=== PATIENT | female | born 1940 | race African-American/Black ===

== ENCOUNTER 2016-07-10 03:27 | Inpatient (IN) | payer OTHER, MEDICARE ==
[2016-07-10] VITALS (9 sets, daily range): BP systolic 104–165; BP diastolic 56–78
[~2016-07-10] VITALS: Ht 154.9 cm; Wt 117.9 kg
[~2016-07-10 03:27] MED LIST: ASPIRIN81 MG ORAL; ATORVASTATIN CA20 MG ORAL; CARVEDILOL25 MG ORAL; HYDROCHLOROTHIA25 MG ORAL; LOSARTAN POTASS50 MG ORAL
[2016-07-10] MEDS ORDERED: Morphine Sulfate 4mg/ml Inj IVP ONE (03:45)
[2016-07-10 04:18] LABS: EOSINOPHILS % (AUTO) 2.1 % (0.0-3.0); LYMPHOCYTES % (AUTO) 27.7 % (20.0-45.0); MEAN CORPUSCULAR HEMOGLOBIN 29.6 PG (27.0-31.0); MEAN CORPUSCULAR HGB CONC 32.9 G/DL (32.0-36.0); MEAN CORPUSCULAR VOLUME 90 FL (80-99); MEAN PLATELET VOLUME 7.2 FL (6.5-10.1); MONOCYTES % (AUTO) 7.4 % (1.0-10.0); NEUTROPHILS % (AUTO) 61.8 % (45.0-75.0); PLATELET COUNT 324 K/UL (150-450); RED BLOOD COUNT 4.95 M/UL (4.20-5.40); RED CELL DISTRIBUTION WIDTH 11.9 % (11.6-14.8); WHITE BLOOD COUNT 7.6 K/UL (4.8-10.8)
[2016-07-10] MEDS ORDERED: COMBIGAN EYE DRO5 ML OP ×2 (04:29→04:32)
[2016-07-10] MEDS ORDERED: METFORMIN HCL500 M1 ORAL (04:30)
[2016-07-10] MEDS ORDERED: NITROSTAT0.4 M1 SL (04:31)
[2016-07-10 04:44] LABS: ALANINE AMINOTRANSFERASE 13 U/L (3-33); ALBUMIN/GLOBULIN RATIO 1.1 (1.0-2.7); ANION GAP 16 (5-15); ASPARTATE AMINO TRANSFERASE 15 U/L (5-40); CALCIUM 9.3 mg/dL (8.6-10.2); CARBON DIOXIDE 23 mEQ/L (20-30); CHLORIDE 93 mEQ/L (98-107); CREATININE 1.1 mg/dL (0.5-0.9); HEMOLYSIS 2; LIPASE 30 U/L (< 60); MAGNESIUM 1.6 mg/dL (1.7-2.5); POTASSIUM 4.8 mEQ/L (3.4-4.9); SODIUM 132 mEQ/L (135-145); TOTAL PROTEIN 7.6 g/dL (6.6-8.7)
[2016-07-10 05:07] LABS: KETONES,URINE 2+ (NEGATIVE); LEUKOCYTE ESTERASE ,URINE NEGATIVE (NEGATIVE); NITRITE,URINE NEGATIVE (NEGATIVE); PH,URINE 6 (4.5-8.0); PROTEIN,URINE NEGATIVE (NEGATIVE); UROBILINOGEN,URINE NORMAL MG/DL (0.0-1.0)
[2016-07-10 05:08] LABS: APPEARANCE,URINE CLEAR
--- NOTE | 2016-07-10 05:10 | Emergency Room Report ---
History of Present Illness General Chief Complaint: General Complaint Source: Patient Present Illness HPI The patient presents with weakness and polyuria. Her blood sugars at been extremely high at home. She is only taking oral medication at this time. She complains of polyuria or polydipsia. Also stated change in her vision. Her private doctor has changed her eyedrops recently and she has red eyes. Denies any chest pain, nausea, vomiting, diarrhea. Chest and abdominal discomfort that's diffuse. She never used insulin in the past. No fevers, chills, LOPEZ, cough, dyspnea, NVD, dysuria, joint pain, rashes, depression. Allergies: Coded Allergies: IODINE (Unverified Allergy, Unknown, 07/02/14) Patient History Past Medical History: see triage record Social History Narrative with family - born in [facility]. Reviewed Nursing Documentation: PMH: Agreed, PSxH: Agreed Nursing Documentation-PMH Hx Cardiac Problems: Yes - kidney stone surgery Hx Hypertension: Yes Hx Diabetes: Yes Hx Cancer: No Hx Gastrointestinal Problems: Yes Hx Neurological Problems: No Review of Systems All Other Systems: negative except mentioned in HPI Physical Exam Vital Signs Date Time Temp Pulse Resp B/P Pulse Ox O2 Delivery O2 Flow Rate FiO2 07/10/16 03:39 99.3 94 21 169/78 99 Room Air Sp02 EP Interpretation: reviewed, normal General Appearance: no apparent distress, alert, GCS 15, non-toxic, obese Head: normocephalic Eyes: bilateral eye EOMI, bilateral eye PERRL, bilateral eye other ENT: moist mucus membranes Neck: supple, no meningismus Respiratory: chest non-tender, lungs clear, normal breath sounds Cardiovascular #1: regular rate, rhythm Cardiovascular #2: 2+ radial (R) Gastrointestinal: normal inspection, normal bowel sounds, non tender, no mass, non-distended, overweight Musculoskeletal: back normal, gait/station normal, normal range of motion, no calf tenderness, pelvis stable, Bella's Sign negative Neurologic: alert, oriented x3, motor strength/tone normal, DTRs symmetric, sensory intact, cerebellar normal, speech normal Psychiatric: mood/affect normal Skin: normal inspection, no rash, warm/dry Medical Decision Making Diagnostic Impression: Primary Impression: Hyperglycemia due to type 2 diabetes mellitus Qualified Codes: E11.65 - Type 2 diabetes mellitus with hyperglycemia Additional Impressions: Morbid obesity Qualified Codes: E66.01 - Morbid (severe) obesity due to excess calories Conjuntivitis - posible medication related ER Course Patient presents with weakness and hyperglycemia. Ddx: DKA, hyperglycemia, viral process, UTI/other bacterial etiology, ACS, AMI. Emergent evaluation with labs, CXR, EKG. Treatment with hydration and cardiac observation. Patient has extremely high blood sugars are controlled on oral medication. She needs to come in for IV hydration and also better control of her diabetes. She' s not in diabetic ketoacidosis however she needs to have insulin probable insulin training. Second dose of insulin given. Hydration continued. Glucose in high 200s. Admit tele Dr. Cardoso. Laboratory Tests Test 07/10/16 04:00 07/10/16 04:25 White Blood Count 7.6 K/UL (4.8-10.8) Red Blood Count 4.95 M/UL (4.20-5.40) Hemoglobin 14.6 G/DL (12.0-16.0) Hematocrit 44.5 % (37.0-47.0) Mean Corpuscular Volume 90 FL (80-99) Mean Corpuscular Hemoglobin 29.6 PG (27.0-31.0) Mean Corpuscular Hemoglobin Concent 32.9 G/DL (32.0-36.0) Red Cell Distribution Width 11.9 % (11.6-14.8) Platelet Count 324 K/UL (150-450) Mean Platelet Volume 7.2 FL (6.5-10.1) Neutrophils (%) (Auto) 61.8 % (45.0-75.0) Lymphocytes (%) (Auto) 27.7 % (20.0-45.0) Monocytes (%) (Auto) 7.4 % (1.0-10.0) Eosinophils (%) (Auto) 2.1 % (0.0-3.0) Basophils (%) (Auto) 1.0 % (0.0-2.0) Sodium Level 132 mEQ/L (135-145) L Potassium Level 4.8 mEQ/L (3.4-4.9) Chloride Level 93 mEQ/L (98-107) L Carbon Dioxide Level 23 mEQ/L (20-30) Anion Gap 16 (5-15) H Blood Urea Nitrogen 18 mg/dL (7-23) Creatinine 1.1 mg/dL (0.5-0.9) H Estimate Glomerular Filtration Rate mL/min (>60) Glucose Level 615 mg/dL (74-106) *H Calcium Level 9.3 mg/dL (8.6-10.2) Magnesium Level 1.6 mg/dL (1.7-2.5) L Total Bilirubin 0.3 mg/dL (0.0-1.2) Aspartate Amino Transferase (AST) 15 U/L (5-40) Alanine Aminotransferase (ALT) 13 U/L (3-33) Alkaline Phosphatase 130 U/L (35-104) H Total Protein 7.6 g/dL (6.6-8.7) Albumin 4.0 g/dL (3.5-5.2) Globulin 3.6 g/dL Albumin/Globulin Ratio 1.1 (1.0-2.7) Lipase 30 U/L (< 60) Acetone Level Positive-small (NEGATIVE) Urine Color Pending Urine Appearance Pending Urine pH Pending Urine Specific [place] Pending Urine Protein Pending Urine Glucose (UA) Pending Urine Ketones Pending Urine Occult Blood Pending Urine Nitrite Pending Urine Bilirubin Pending Urine Urobilinogen Pending Urine Leukocyte Esterase Pending EKG Diagnostic Results Rate: normal Rhythm: NSR ST Segments: no acute changes Rhythm Strip Diag. Results EP Interpretation: yes Rhythm: NSR, no PVC's, no ectopy, other Chest X-Ray Diagnostic Results EP Interpretation: Yes Findings: no consolidation, no effusion, no pneumothorax, no acute cardiopulmonary disease Number of Views: 1 Last Vital Signs Date Time Temp Pulse Resp B/P Pulse Ox O2 Delivery O2 Flow Rate FiO2 07/10/16 09:12 97.4 91 18 127/60 98 Room Air Status: improved Disposition: ADMITTED INPATIENT Condition: Serious Referrals: NON PHYSICIAN (PCP) Romario Genao M.D. Jul 10, 2016 05:10
[2016-07-10 05:48] LABS: BACTERIA,URINE OCCASIONAL /HPF; SQUAMOUS EPITHELIAL CELL,UR FEW /LPF (NONE/OCC); WBC,URINE 0-2 /HPF (0 - 2); YEAST,URINE FEW /HPF
--- NOTE | 2016-07-10 08:40 | Diagnostic Imaging Report ---
Indications: Chest pain Technique: Portable AP chest Findings: Comparison: None Suboptimal inspiration, lordotic projection, port image quality in part due to patient's body habitus limit evaluation. Cardiac silhouette may be enlarged. Pulmonary vasculature within normal limits. Visualized portions of lungs and pleura grossly clear. IMPRESSION: No evidence of acute disease, limited as described. Upright PA and lateral chest radiographs with better inspiratory effort and optimal technique recommended for more complete evaluation.
[2016-07-10] MEDS ORDERED: Milk of Magnesia 30ml Ud ORAL PRN (11:00)
[2016-07-10] MEDS ORDERED: Zolpidem 5mg tab ORAL PRN (11:00)
[2016-07-10] MEDS: Aspirin Baby 81mg ORAL SCH (11:55)
[2016-07-10] MEDS: metFORMIN 500mg tab ORAL SCH ×2 (11:56→18:35)
[2016-07-10] MEDS: Losartan 50mg tab ORAL SCH ×2 (12:23→21:32)
[2016-07-10] MEDS: Metoprolol 25mg tab ORAL SCH ×2 (12:24→21:33)
[2016-07-10] MEDS: NovoLOG Insulin Flexpen SUBQ SCH ×3 (12:46→21:38)
[2016-07-10] MEDS: Levemir Flexpen SUBQ SCH ×2 (12:47→18:53)
--- NOTE | 2016-07-10 19:40 | Cardiology Report ---
APPROVED REPORT EKG Measurement Heart [id number] NC 134P57 [id number] Normal sinus rhythm Cannot rule out Anterior infarct, age undetermined Abnormal ECG
[2016-07-10] MEDS: Atorvastatin 20mg tab ORAL SCH (21:32)
[2016-07-11] MEDS ORDERED: ALPHAGAN P5 M2 (02:15)
[2016-07-11] MEDS ORDERED: LUMIGAN2.5 ML (02:15)
[2016-07-11 04:20] VITALS: BP 145/75
[2016-07-11] MEDS: NovoLOG Insulin Flexpen SUBQ SCH ×4 (06:06→20:26)
[2016-07-11 08:36] LABS: THYROID STIMULATING HORMONE 0.721 uIU/mL (0.300-4.500)
[2016-07-11] MEDS: Aspirin Baby 81mg ORAL SCH (08:48)
[2016-07-11] MEDS: metFORMIN 500mg tab ORAL SCH ×2 (08:48→17:48)
[2016-07-11] MEDS: Losartan 50mg tab ORAL SCH (08:48)
[2016-07-11] MEDS: Metoprolol 25mg tab ORAL SCH ×2 (08:49→20:20)
[2016-07-11] MEDS: Levemir Flexpen SUBQ SCH (08:51)
--- NOTE | 2016-07-11 09:17 | History and Physical Report ---
DATE OF ADMISSION: 07/10/2016 CHIEF COMPLAINT: Polyuria and polydipsia. HISTORY OF PRESENT ILLNESS: This is a 76-year-old female from [facility], who has had a history of diabetes for a few years. The patient has not been compliant with her medications. Her granddaughter checked her blood sugar last night and it was very high, so she came to the emergency room. In the emergency room, the blood sugar was checked and it was 615. The patient has significant polyuria and polydipsia for the past few days and she was admitted for further care. PAST MEDICAL HISTORY: The patient has history of hypertension and history of hyperlipidemia. The patient has had history of tremors as well. MEDICATIONS: Reviewed. ALLERGIES: Iodine. SOCIAL HISTORY: No history of smoking or alcohol abuse. The patient lives with a daughter. REVIEW OF SYSTEMS: As above. PHYSICAL EXAMINATION: GENERAL: The patient is an obese female, in no acute distress. VITAL SIGNS: Blood pressure is 127/60, pulse 91, temperature 97.4 degrees, and respiratory rate 18. HEENT: [place] conjunctivae. Anicteric sclerae. NECK: Supple. LUNGS: Clear to auscultation. HEART: S1 and S2 without murmurs or rubs. ABDOMEN: Soft and nontender. EXTREMITIES: No cyanosis or edema. LABORATORY FINDINGS: CBC shows a WBC of 7.6, hematocrit 44.5, hemoglobin 14.6, and platelets 324,000. The chemistry panel shows a serum sodium 132, potassium 4.8, chloride 93, CO2 23, BUN 18, and creatinine 1.1, blood sugar is 615, calcium is 9.3, and magnesium 1.6. Albumin is 4. AST is 15 and ALT 13. UA shows no protein, 4+ glucose, and 2+ ketones. ASSESSMENT: This is a 76-year-old female, who was admitted with significant hyperglycemia. The patient has had polydipsia and polyuria from her diabetes. PLAN: The patient was started on Levemir 15 units twice a day as well as sliding scale insulin. The patient will be hydrated with half-normal saline at 125 mL an hour. Her labs will be followed. Adjustment will be made in patient's regimen in terms of her tremors. I will start the patient on metoprolol 25 mg b.i.d., which would also help with the blood pressure. The case was discussed with the patient and also with the daughter, who is at bedside. Thank you very much. Jason Cardoso M.D. DR: Flo JOB#: [id number] CC:
[2016-07-11 09:31] LABS: HEMOGLOBIN A1C 10.9 % (< 6.0)
[2016-07-11 12:00] VITALS: BP 137/65
--- NOTE | 2016-07-11 12:33 | General Progress Note ---
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 (4) UTI (urinary tract infection) ICD Codes: N39.0 - Urinary tract infection, site not specified SNOMED: 03746284 Qualifiers: Assessment/Plan Increase Levemir Decrease cozaar start Cipro Subjective Allergies: Coded Allergies: IODINE (Unverified Allergy, Unknown, 07/02/14) Subjective feels better Objective Last 24 Hour Vital Signs Date Time Temp Pulse Resp B/P Pulse Ox O2 Delivery O2 Flow Rate FiO2 07/11/16 08:49 79 93/42 07/11/16 08:48 93/42 07/11/16 08:00 86 07/11/16 04:20 97.0 73 20 145/75 97 Nasal Cannula 07/11/16 04:00 76 07/11/16 01:00 74 07/10/16 21:33 82 126/74 07/10/16 21:32 126/74 07/10/16 20:00 81 07/10/16 16:04 98.0 82 20 126/74 99 Room Air 07/10/16 16:00 82 07/10/16 14:36 98.0 82 20 126/74 99 Room Air Intake and Output 07/10/16 07/11/16 19:00 07:00 Intake Total 700 ml 150 ml Output Total 620 ml Balance 80 ml 150 ml Intake Oral 150 ml 150 ml IV Total 550 ml Output Urine Total 320 ml Stool Total 300 ml # Bowel Movements 1 Laboratory Tests 07/11/16 06:55: Hemoglobin A1c 10.9H, Thyroid Stimulating Hormone (TSH) 0.721 Height (Feet): 5 Height (Inches): 1.00 Weight (Pounds): 260 Cardiovascular: normal rate Respiratory/Chest: lungs clear Edema: no edema noted CLYDE Do Jul 11, 2016 12:33
[2016-07-11] MEDS: Ciprofloxacin 500mg tab ORAL SCH ×2 (14:25→21:27)
[2016-07-11 16:00] VITALS: BP 160/76
[2016-07-11] MEDS ORDERED: Levemir Flexpen SUBQ SCH (18:00)
[2016-07-11 20:18] VITALS: BP 154/82
[2016-07-11] MEDS: Atorvastatin 20mg tab ORAL SCH (20:20)
[2016-07-11] MEDS ORDERED: Losartan 25mg tab ORAL SCH (21:00)
[2016-07-12] VITALS: BP 143/72
[2016-07-12 04:00] VITALS: BP 140/65
[2016-07-12] MEDS: NovoLOG Insulin Flexpen SUBQ SCH ×4 (07:00→21:06)
[2016-07-12 08:13] VITALS: BP 148/84
[2016-07-12] MEDS ORDERED: Levemir Flexpen SUBQ SCH (09:00)
[2016-07-12] MEDS: Aspirin Baby 81mg ORAL SCH (09:51)
[2016-07-12] MEDS: metFORMIN 500mg tab ORAL SCH ×2 (09:51→16:56)
[2016-07-12] MEDS: Losartan 25mg tab ORAL SCH ×2 (09:52→21:07)
[2016-07-12] MEDS: Metoprolol 25mg tab ORAL SCH ×2 (09:52→21:07)
[2016-07-12] MEDS: Ciprofloxacin 500mg tab ORAL SCH ×2 (09:52→21:06)
[2016-07-12] MEDS ORDERED: Milk of Magnesia 30ml Ud ORAL PRN (11:00)
[2016-07-12] MEDS ORDERED: Zolpidem 5mg tab ORAL PRN (11:00)
[2016-07-12 12:09] VITALS: BP 119/75
--- NOTE | 2016-07-12 14:42 | General Progress Note ---
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 (4) UTI (urinary tract infection) ICD Codes: N39.0 - Urinary tract infection, site not specified SNOMED: 44187351 Qualifiers: (5) Tremor ICD Codes: R25.1 - Tremor, unspecified SNOMED: 43826335 Assessment/Plan Increase Levemir Neuro consult cont Cipro Subjective Allergies: Coded Allergies: IODINE (Unverified Allergy, Unknown, 07/02/14) Subjective still with tremors Objective Last 24 Hour Vital Signs Date Time Temp Pulse Resp B/P Pulse Ox O2 Delivery O2 Flow Rate FiO2 07/12/16 12:09 97.6 76 21 119/75 97 Room Air 07/12/16 09:52 81 148/84 07/12/16 09:52 148/84 07/12/16 08:13 98.6 81 20 148/84 95 Room Air 07/12/16 04:00 97.7 83 20 140/65 95 Room Air 07/12/16 00:00 97.2 59 16 143/72 97 Room Air 07/11/16 20:20 154/82 07/11/16 20:20 64 154/82 07/11/16 20:18 98.1 64 20 154/82 98 Room Air 07/11/16 20:00 100 07/11/16 16:00 91 07/11/16 16:00 98.1 94 20 160/76 98 Room Air Intake and Output 07/11/16 07/12/16 19:00 07:00 Intake Total 1640 ml 750 ml Output Total 3800 ml 1400 ml Balance -2160 ml -650 ml Intake Oral 640 ml 250 ml IV Total 1000 ml 500 ml Output Urine Total 3800 ml 1400 ml # Bowel Movements 2 Height (Feet): 5 Height (Inches): 1.00 Weight (Pounds): 260 Cardiovascular: normal rate Respiratory/Chest: lungs clear RAHBAN,CLYDE Jul 12, 2016 14:42
--- NOTE | 2016-07-12 15:12 | Neurology Progress Note ---
Objective Physical Exam Last Vital Signs Date Time Temp Pulse Resp B/P Pulse Ox O2 Delivery O2 Flow Rate FiO2 07/12/16 12:09 97.6 76 21 119/75 97 Room Air Impression/Recommendations Problems: (1) Benign essential tremor (2) Morbid obesity Status: stable Recommendations #[id number] MAX SALDIVAR Jul 12, 2016 15:12
[2016-07-12 16:00] VITALS: BP 144/53
[2016-07-12] MEDS: Timolol 0.5% Op Soln 2.5ml BOTH EYES SCH (17:00)
[2016-07-12] MEDS: Levemir Flexpen SUBQ SCH (17:00)
[2016-07-12 19:00] VITALS: BP 127/66
[2016-07-12] MEDS: Atorvastatin 20mg tab ORAL SCH (21:07)
--- NOTE | 2016-07-12 22:07 | Consultation ---
DATE OF CONSULTATION: 07/12/2016 NEUROLOGIC CONSULTATION REQUESTING PHYSICIAN: Jason Cardoso M.D. HISTORY OF PRESENT ILLNESS: The patient is a 76-year-old female, seen in neurological consultation to evaluate presence of involuntary movement. The patient informed me that the last few days she was increasingly drowsy, blurriness of vision, drinks a lot of fluids, feels dry, and urinating a lot. She was brought to this hospital. The patient was aware that her blood sugars were very high. On arrival, and through the treatment course the patient was noted to have involuntary movement in her upper extremities and Neurology consult was requested. Apparently, the patient has multiple severe medical issues such as diabetes and morbid obesity. On arrival to this hospital, her blood sugar was 615. Her laboratory work otherwise revealed normal CBC study. Urinalysis shows 2+ ketones. Chemistry panel revealed also sodium 132. Normal TSH, but elevated hemoglobin A1c of 10.9. PAST MEDICAL HISTORY: The patient has a history of involuntary tremors of both upper extremities usually aggravated by anxieties, or lifting heavy objects. The patient indicate that tremors would not interfere with her daily activities but makes her very embarrassed in front of other people. She is not aware of that anyone in the family would have tremors. MEDICATIONS: The patient's treatment list included aspirin, atorvastatin, carvedilol, hydrochlorothiazide, losartan, metformin, and nitroglycerin. ALLERGIES: Iodine. SOCIAL HISTORY: Lives with her daughter. Denies alcohol or drug abuse. Nonsmoker. FAMILY HISTORY: Noncontributory. REVIEW OF SYSTEMS: Generalized weakness, shortness of breath, slight blurriness of vision, congestive heart failure, no previous strokes, TIA, or seizures. The patient has ambulatory difficulties due to weakness in lower extremities with frequent falls requiring use of a walker for the . PHYSICAL EXAMINATION: GENERAL: A well-developed, morbidly obese, pleasant lady, not in acute distress. VITAL SIGNS: Stable. Blood pressure 142/84, respirations 18, and temperature 97.6 degrees. HEENT: Head normocephalic. No evidence of injuries. Eyes, ears, and throat are clear. NECK: Supple. No meningeal signs. MUSCULOSKELETAL EXAMINATION: Unremarkable. There is no deformities except 1+ pitting edema in both ankles. Peripheral pulses 1+ symmetric. MENTAL STATUS: Alert and oriented x3. Speech is fluent. Language intact. There is no aphasia. No apraxia. Cognitive function is normal. CRANIAL NERVE II: Pupils both responding to light and accommodation. Extraocular movement intact. No nystagmus. CRANIAL NERVE V: Normal corneal responses. CRANIAL NERVE VII: No facial asymmetry. CRANIAL NERVE VIII: Normal hearing. CRANIAL NERVE IX THROUGH XII: Within normal limits. MOTOR EXAMINATION: Revealed normal strength 5/5 in all extremities. There was a action tremor of both upper extremities more pronounced on [id number] test bilaterally. No rigidity noted. Deep tendon reflexes are depressed bilaterally. Plantar response is mute. SENSORY EXAMINATION: Decreased response to pin stimulation in both feet. Gait not tested, but reportedly unstable requires a walker. IMPRESSION: 1. The patient is a 76-year-old female with involuntary action tremor most likely representing essential tremor. No evidence of parkinsonian disorder noted. 2. Morbid obesity. 3. Diabetes type 2 with severe hypoglycemia, polydipsia and polyuria. 4. Hypertension. 5. History of congestive heart failure. RECOMMENDATION: The patient has a level of tremor, which is below disabling. This may respond to beta-blockers, but I would abstain from primidone, which may give hypersomnia and suppress respiratory function. The patient was reassured. She has no Parkinsonian disease. The patient is now aware of the extent of problem related to her tremors. Meanwhile, we will continue with the current supportive care. I discussed the patient's status with attending. Thank you for allowing me to see this interesting patient in neurologic consultation. Jeison Cisneros M.D. DR: EFREN JOB#: [id number] CC:
[2016-07-12] MEDS: Brimonidine 0.2% Opth Sol BOTH EYES SCH (22:32)
[2016-07-13 00:31] VITALS: BP 140/71
[2016-07-13 04:00] VITALS: BP 120/93
[2016-07-13] MEDS: NovoLOG Insulin Flexpen SUBQ SCH ×4 (06:04→21:17)
[2016-07-13 08:15] VITALS: BP 147/77
[2016-07-13] MEDS: Brimonidine 0.2% Opth Sol BOTH EYES SCH ×2 (09:19→17:28)
[2016-07-13] MEDS: Timolol 0.5% Op Soln 2.5ml BOTH EYES SCH ×2 (09:19→17:28)
[2016-07-13] MEDS: Ciprofloxacin 500mg tab ORAL SCH ×2 (09:20→21:15)
[2016-07-13] MEDS: Aspirin Baby 81mg ORAL SCH (09:20)
[2016-07-13] MEDS: Losartan 25mg tab ORAL SCH ×2 (09:20→21:16)
[2016-07-13] MEDS: metFORMIN 500mg tab ORAL SCH ×2 (09:25→17:28)
[2016-07-13] MEDS: Metoprolol 25mg tab ORAL SCH ×2 (09:25→21:16)
[2016-07-13] MEDS: Levemir Flexpen SUBQ SCH ×2 (09:30→17:30)
[2016-07-13 11:42] VITALS: BP 125/86
[2016-07-13] MEDS ORDERED: LEVEMIR FL100 UNIT/1 SUBQ (12:15)
[2016-07-13] MEDS ORDERED: LOPRESSOR25 M1 ORAL (12:15)
--- NOTE | 2016-07-13 12:35 | Consultation ---
Consult Note Assessment/Plan Dc dictated # [id number] CLYDE GRACE Jul 13, 2016 12:35
[2016-07-13 16:00] VITALS: BP 135/61
[2016-07-13 19:00] VITALS: BP 125/82
[2016-07-13 20:40] LABS: ABG BASE EXCESS -0.3; ABG PCO2 37.5 mmHg (35.0-45.0)
[2016-07-13 20:41] LABS: ABG ALLEN TEST POSITIVE
[2016-07-13 21:10] LABS: TROPONIN I < 0.30 ng/mL (<=0.30)
[2016-07-13] MEDS: Atorvastatin 20mg tab ORAL SCH (21:16)
[2016-07-13] MEDS: DuoNeb 0.5-3(2.5)mg/3ml neb HHN SCH (23:09)
[2016-07-14] VITALS: BP 153/78
[2016-07-14] MEDS: DuoNeb 0.5-3(2.5)mg/3ml neb HHN SCH ×3 (01:00→13:52)
--- NOTE | 2016-07-14 01:48 | Discharge Summary ---
DATE OF ADMISSION: 07/10/2016 DATE OF DISCHARGE: 07/14/2016 HISTORY OF PRESENT ILLNESS: This is a 76-year-old female, originally from [facility], who has a history of diabetes. The patient had significant polyuria and polydipsia at home and her blood sugar was checked and it was 615. The patient was brought into the emergency room and was diagnosed with uncontrolled diabetes, hyperglycemia, and hyperglycemic reaction. HOSPITAL COURSE: The patient was started on Levemir initially 15 units twice a day and this was increased to 20 units twice a day in addition to sliding scale insulin. She was also complaining of tremor of her hands and she was on Coreg. Coreg was discontinued. She was started on metoprolol 25 mg twice a day. She has a history of hypertension. Her blood pressure was on the low side. Her Cozaar was decreased to 25 mg b.i.d. Her blood sugar got better, under control. The patient was also on IV fluids at 125 mL an hour and she felt better. She had urine culture, which showed UTI with Proteus mirabilis. The patient was started on Cipro. Eventually, she was sent home in stable condition with home health. She is supposed to have her blood sugar checked in outpatient and adjustment will be made in the patient's regimen. The patient was also somewhat short of breath and requesting a hand-held nebulizer and a prescription was given to the patient. DISCHARGE DIAGNOSES: 1. Diabetes mellitus, uncontrolled with hyperglycemic reaction, polydipsia, and polyuria. 2. Tremors. The patient was seen by Dr. Cisneros in neurology consultation. 3. Hypertension. Blood pressure medications were adjusted. 4. History of hyperlipidemia. Jason Cardoso M.D. DR: Flo JOB#: [id number] CC: BOBBI
[2016-07-14 03:54] VITALS: BP 144/68
[2016-07-14] MEDS: NovoLOG Insulin Flexpen SUBQ SCH ×2 (06:24→12:07)
[2016-07-14 08:15] VITALS: BP 151/89
[2016-07-14] MEDS: Ciprofloxacin 500mg tab ORAL SCH (08:53)
[2016-07-14] MEDS: Losartan 25mg tab ORAL SCH (08:53)
[2016-07-14] MEDS: Metoprolol 25mg tab ORAL SCH (08:53)
[2016-07-14] MEDS: metFORMIN 500mg tab ORAL SCH (08:53)
[2016-07-14] MEDS: Aspirin Baby 81mg ORAL SCH (08:53)
[2016-07-14] MEDS: Brimonidine 0.2% Opth Sol BOTH EYES SCH (08:54)
[2016-07-14] MEDS: Timolol 0.5% Op Soln 2.5ml BOTH EYES SCH (08:54)
[2016-07-14] MEDS: Levemir Flexpen SUBQ SCH (09:11)
--- NOTE | 2016-07-14 11:44 | General Progress Note ---
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 (4) UTI (urinary tract infection) ICD Codes: N39.0 - Urinary tract infection, site not specified SNOMED: 03250542 Qualifiers: (5) Tremor ICD Codes: R25.1 - Tremor, unspecified SNOMED: 69919830 Assessment/Plan cont as is Dc today Subjective Allergies: Coded Allergies: IODINE (Unverified Allergy, Unknown, 07/02/14) Subjective had asthma attack yesterday ok today Objective Last 24 Hour Vital Signs Date Time Temp Pulse Resp B/P Pulse Ox O2 Delivery O2 Flow Rate FiO2 07/14/16 10:28 98.0 07/14/16 08:53 103 151/89 07/14/16 08:53 151/89 07/14/16 08:15 98.0 103 21 151/89 97 Room Air 07/14/16 07:34 Nasal Cannula 07/14/16 07:32 Room Air 07/14/16 07:32 Room Air 07/14/16 07:31 95 Room Air 07/14/16 07:30 73 18 Room Air 07/14/16 03:54 97.3 90 20 144/68 100 Room Air 07/14/16 01:20 Nasal Cannula 3.0 32 07/14/16 01:19 86 16 100 Nasal Cannula 2.0 28 07/14/16 00:00 97.5 95 20 153/78 Nasal Cannula 2.0 07/13/16 23:21 87 16 100 Nasal Cannula 3.0 32 07/13/16 23:15 Nasal Cannula 2.0 28 07/13/16 23:14 100 Nasal Cannula 2.0 28 07/13/16 23:13 28 07/13/16 23:13 87 16 Nasal Cannula 2.0 28 07/13/16 23:12 87 16 100 Nasal Cannula 2.0 28 07/13/16 21:16 84 159/86 07/13/16 21:16 159/86 07/13/16 19:00 98.1 96 20 125/82 98 Room Air 07/13/16 16:00 98.2 83 20 135/61 97 Room Air Intake and Output 07/13/16 07/14/16 19:00 07:00 Intake Total 1995 ml 1670 ml Output Total 700 ml 2700 ml Balance 1295 ml -1030 ml Intake Oral 720 ml 420 ml IV Total 1275 ml 1250 ml Output Urine Total 700 ml 2700 ml # Bowel Movements 2 Laboratory Tests 07/13/16 20:35: Arterial Blood pH 7.421, Arterial Blood Partial Pressure CO2 37.5, Arterial Blood Partial Pressure O2 62.1L, Arterial Blood HCO3 23.8, Arterial Blood Oxygen Saturation 91.6L, Arterial Blood Base Excess -0.3, Marty Test Positive 07/13/16 20:40: Troponin I < 0.30 Height (Feet): 5 Height (Inches): 1.00 Weight (Pounds): 260 Cardiovascular: normal rate Respiratory/Chest: lungs clear CLYDE GRACE Jul 14, 2016 11:44
[2016-07-14 12:06] VITALS: BP 155/93
[2016-07-14 16:00] VITALS: BP 169/92
[2016-07-14] MEDS ORDERED: 1/2 NS 1000ml IV ONE ×2 (17:49)
--- NOTE | 2016-08-20 03:14 | Cardiology Report ---
APPROVED REPORT EKG Measurement Heart [id number] PA 130P73 [id number] [id number] Normal sinus rhythm Cannot rule out Inferior infarct, age undetermined Abnormal ECG
== END 2016-07-14 17:50 | disposition home health service (06) | DRG 420 ==
LOC: ENRESERVDT → ENRESERV → ENRESERVTM → EMR 03:52 → 2E 04:30 → EDBEDREQ 14:41 → 2E 15:43 → 4E 07-12 02:21
DX: E11.65 Type 2 diabetes mellitus with hyperglycemia (principal); N39.0 Urinary tract infection, site not specified; I10 Essential (primary) hypertension; E78.5 Hyperlipidemia, unspecified; E66.01 Morbid (severe) obesity due to excess calories; Z68.42 Body mass index [BMI] 45.0-49.9, adult; Z91.14 Patient's other noncompliance with medication regimen; G25.0 Essential tremor; B96.4 Proteus (mirabilis) (morganii) as the cause of diseases classified elsewhere; Z79.84 Long term (current) use of oral hypoglycemic drugs
CPT/HCPCS: 36415; 36600; 71010; 80053; 81003; 82009; 82803; 82962; 83036; 83690; 83735; 84443; 84484; 85025; 87086; 87181; 93005; 94640; 94664; 94760; J1815; J2405; J7620; S5561

== ENCOUNTER 2016-09-14 13:09 | Inpatient (IN) | payer MEDICARE, OTHER ==
[~2016-09-14] VITALS: Ht 162.6 cm; Wt 90.7 kg
[2016-09-14] MEDS: NovoLOG Insulin Flexpen SUBQ SCH (00:35)
[~2016-09-14 13:09] MED LIST changes: +ALPHAGAN P5 M2; +COMBIGAN EYE DRO5 ML OP; +LEVEMIR FL100 UNIT/1 SUBQ; +LOPRESSOR25 M1 ORAL; +LUMIGAN2.5 ML; +METFORMIN HCL500 M1 ORAL; +NITROSTAT0.4 M1 SL
[2016-09-14] MEDS ORDERED: Morphine Sulfate 2mg/ml Inj IVP ONE (13:30)
--- NOTE | 2016-09-14 14:22 | Emergency Room Report ---
History of Present Illness General Chief Complaint: Abdominal Pain Source: Patient Present Illness HPI 76 YO F with 1 day of generalized abd pain, nausea w/out vomiting and 1 x episode of watery diarrhea today. States s/p cholecystectomy, appendectomy. Has DM, HTN. + dysuria. Allergies: Coded Allergies: IODINE (Unverified Allergy, Unknown, 07/02/14) Patient History Past Medical History: DM, MA, other - HLD Past Surgical History: appy, mary Pertinent Family History: none Social History: Denies: alcohol use, drug use, smoking Now: No Immunizations: UTD Reviewed Nursing Documentation: PMH: Agreed, PSxH: Agreed Nursing Documentation-PMH Past Medical History: No History, Except For Hx Cardiac Problems: Yes Hx Hypertension: Yes Hx Diabetes: Yes Hx Cancer: No Hx Gastrointestinal Problems: Yes - gallstone Hx Neurological Problems: No Review of Systems All Other Systems: negative except mentioned in HPI Physical Exam Vital Signs Date Time Temp Pulse Resp B/P Pulse Ox O2 Delivery O2 Flow Rate FiO2 09/14/16 13:25 99.7 119 32 100/46 96 Room Air Sp02 EP Interpretation: reviewed, normal General Appearance: normal inspection, well appearing, no apparent distress, alert, GCS 15, non-toxic, obese Head: normocephalic, atraumatic Eyes: bilateral eye EOMI, bilateral eye PERRL ENT: normal ENT inspection, hearing grossly normal, normal voice Neck: normal inspection, full range of motion, supple, no meningismus, no bony tend Respiratory: normal inspection, lungs clear, normal breath sounds, no respiratory distress, no retraction, no accessory muscle use, no wheezing Cardiovascular #1: regular rate, rhythm, no edema Gastrointestinal: normal inspection, normal bowel sounds, non tender, soft, non -distended, no guarding, no hernia, no rebound Genitourinary: no CVA tenderness Musculoskeletal: normal inspection, back normal, normal range of motion, Bella' s Sign negative Neurologic: normal inspection, alert, oriented x3, responsive, store associate III-XII nml as tested, motor strength/tone normal, speech normal Psychiatric: normal inspection, judgement/insight normal, mood/affect normal Skin: normal inspection, normal color, no rash Lymphatic: normal inspection Medical Decision Making Medicare Attestation Srini Dubose MD hereby attest that the medical record entry for date of service, 05/30/16 accurately reflects signatures/notations that I made in my capacity as MD when I treated/diagnosed the above listed Medicare beneficiary. I attest that this information is true, accurate and complete to the best of my knowledge. I understand that any falsification, omission, or concealment of material fact may subject me to administrative, civil, or criminal liability. This patient warrants hospital admission for extreme of age and has a condition that cannot be treated as outpatient. Diagnostic Impression: Primary Impression: Abdominal pain Qualified Codes: R10.84 - Generalized abdominal pain ER Course 76 YO F with abd pain, nausea, diarrhea S/p 2 abd surgeries DDx hyperglycemia, colitis, gastritis, SBO, ileus PLAN: Labs, UA, CTAP Reassess Reevaluation Time: 14:55 Last Vital Signs Date Time Temp Pulse Resp B/P Pulse Ox O2 Delivery O2 Flow Rate FiO2 09/14/16 13:25 99.7 119 32 100/46 96 Room Air Status: improved Reevaluation Impression Labs: Leuks 14k. Glucose 495, AG 25, bicarb 17. CTAP negative for acute process A: Abd pain - Infectious of unknown source. Empiric Cefoxitin given. Blood Cx pending - Elevated glucose with anion gap. K normal. : IVF and Insulin given. Will need admission to recheck glucose, AG . - Endorsed to Dr Flanagan at 257pm for tele admission Disposition: ADMITTED INPATIENT Condition: Serious Referrals: NON PHYSICIAN (PCP) SRINI DUBOSE M.D. Sep 14, 2016 14:22
[2016-09-14 14:29] LABS: MEAN CORPUSCULAR HEMOGLOBIN 29.9 PG (27.0-31.0); MEAN CORPUSCULAR HGB CONC 33.1 G/DL (32.0-36.0); MEAN CORPUSCULAR VOLUME 90 FL (80-99); MEAN PLATELET VOLUME 7.5 FL (6.5-10.1); PLATELET COUNT 262 K/UL (150-450); RED BLOOD COUNT 4.62 M/UL (4.20-5.40); RED CELL DISTRIBUTION WIDTH 12.4 % (11.6-14.8); WHITE BLOOD COUNT 14.6 K/UL (4.8-10.8)
[2016-09-14] MEDS ORDERED: cefOXitin Sod 1 GM in D5W 55 ML IVPB STA (14:42)
[2016-09-14 14:43] LABS: TROPONIN I < 0.30 ng/mL (<=0.30)
[2016-09-14 14:46] LABS: ALANINE AMINOTRANSFERASE 18 U/L (3-33); ANION GAP 25 (5-15); ASPARTATE AMINO TRANSFERASE 50 U/L (5-40); CALCIUM 9.8 mg/dL (8.6-10.2); CARBON DIOXIDE 17 mEQ/L (20-30); CHLORIDE 88 mEQ/L (98-107); CREATININE 1.2 mg/dL (0.5-0.9); HEMOLYSIS 128; LIPASE 26 U/L (< 60); POTASSIUM 4.4 mEQ/L (3.4-4.9); SODIUM 130 mEQ/L (135-145); TOTAL PROTEIN 7.3 g/dL (6.6-8.7)
--- NOTE | 2016-09-14 14:51 | Diagnostic Imaging Report ---
Indication: Abdominal pain Technique: Continuous helical transaxial imaging of the abdomen and pelvis was obtained from the lung bases to the pubic symphysis. No intravenous contrast was administered. Coronal 2-D reformats were also obtained. Total Dose length Product (DLP): [address] Dose Index Volume (CTDIvol): 20 mGy Comparison: 07/02/14 Findings: Lung bases are clear. Hiatal hernia noted. Gallbladder is absent. There are bilateral punctate nonobstructing stones present within the kidneys. 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 There are hypointense masses present within the kidneys bilaterally. These are probably cysts. Diverticula noted in the colon. Appendix not definitely seen. There are no secondary signs of appendicitis. Bladder is unremarkable. There is a small umbilical hernia containing fat. Hernia fascial defect is about 2 cm in size, but the fat containing hernia sac is larger. Arterial vascular calcifications are moderate. There is narrowing of intervertebral discs and accompanying endplate osteophyte formation. Hypertrophied facet joints also demonstrated.. Impression: Bilateral nonobstructive nephrolithiasis. Hiatal hernia Cardiomegaly Atherosclerotic vascular disease Diverticulosis of the colon Umbilical region hernia containing fat Status post cholecystectomy Spondylosis The CT scanner at [facility] is accredited by the [employer] and the scans are performed using protocols designed to limit radiation exposure to as low as reasonably achievable to attain images of sufficient resolution adequate for diagnostic evaluation.
[2016-09-14] MEDS ORDERED: Ketorolac 30mg Inj IV PRN (15:45)
[2016-09-14] MEDS ORDERED: Miralax 17gm pkt ORAL PRN (15:45)
[2016-09-14] MEDS ORDERED: DuoNeb 0.5-3(2.5)mg/3ml neb HHN PRN (15:45)
[2016-09-14] MEDS ORDERED: Mylanta II UD 30ml ORAL PRN (15:45)
[2016-09-14] MEDS ORDERED: Nitroglycerin Subl 0.4mg tab (Bottle Of 25) SL PRN (15:45)
[2016-09-14 15:50] VITALS: BP 124/56
[2016-09-14] MEDS ORDERED: NovoLOG Insulin Flexpen SUBQ SCH (16:30)
[2016-09-14 16:33] LABS: ABG ALLEN TEST POSITIVE; ABG BASE EXCESS -4.6; ABG PCO2 29.7 mmHg (35.0-45.0)
[2016-09-14 16:46] LABS: BAND NEUTROPHILS % (MANUAL) 13 % (0-8); BASOPHILS % (MANUAL) 0 % (0-2); EOSINOPHILS % (MANUAL) 0 % (0-3); LYMPHOCYTES % (MANUAL) 12 % (20-45); NEUTROPHILS % (MANUAL) 65 % (45-75); PLATELET ESTIMATE ADEQUATE; PLATELET MORPHOLOGY NORMAL; TOTAL CELLS COUNTED 100
[2016-09-14] MEDS ORDERED: cefOXitin 1gm Inj ONE (16:52)
[2016-09-14] MEDS ORDERED: Levemir Flexpen SUBQ SCH ×2 (18:00→22:30)
[2016-09-14 18:06] VITALS: BP 110/61
[2016-09-14 18:16] LABS: APPEARANCE,URINE CLEAR; KETONES,URINE 4+ (NEGATIVE); LEUKOCYTE ESTERASE ,URINE 1+ (NEGATIVE); NITRITE,URINE POSITIVE (NEGATIVE); PH,URINE 5 (4.5-8.0); PROTEIN,URINE 2+ (NEGATIVE); UROBILINOGEN,URINE NORMAL MG/DL (0.0-1.0)
[2016-09-14 18:27] LABS: BACTERIA,URINE MODERATE /HPF; RBC,URINE 15-20 /HPF (0 - 2); SQUAMOUS EPITHELIAL CELL,UR FEW /LPF (NONE/OCC)
[2016-09-14 19:30] VITALS: BP 135/67
[2016-09-14] MEDS: Morphine Sulfate 2mg/ml Inj IVP PRN (20:17)
[2016-09-14] MEDS ORDERED: Metoprolol 25mg tab ORAL SCH (21:00)
[2016-09-14] MEDS ORDERED: Heparin 5000 units/ml inj SUBQ SCH (21:00)
--- NOTE | 2016-09-14 21:02 | Emergency Room Report ---
History of Present Illness General Chief Complaint: Abdominal Pain Source: Patient Present Illness Allergies: Coded Allergies: IODINE (Unverified Allergy, Unknown, 07/02/14) Patient History Now: No Nursing Documentation-[facility] Past Medical History: No History, Except For Hx Cardiac Problems: Yes Hx Hypertension: Yes Hx Diabetes: Yes Hx Cancer: No Hx Gastrointestinal Problems: Yes - gallstone Hx Neurological Problems: No Physical Exam Vital Signs Date Time Temp Pulse Resp B/P Pulse Ox O2 Delivery O2 Flow Rate FiO2 09/14/16 13:25 99.7 119 32 100/46 96 Room Air Medical Decision Making Diagnostic Impression: Primary Impression: Hyperglycemia ER Course Please for the initial note for the history examined the presentation Throughout her course the patient required multiple reexaminations including IV hydration Repeat insulin orders Patient's ABG does not reveal any evidence of acidosis and therefore patient continued with IV hydration and and insulin At this time stable for further inpatient care Labs Test 09/14/16 14:02 09/14/16 16:30 09/14/16 17:20 White Blood Count 14.6 K/UL (4.8-10.8) Red Blood Count 4.62 M/UL (4.20-5.40) Hemoglobin 13.8 G/DL (12.0-16.0) Hematocrit 41.7 % (37.0-47.0) Mean Corpuscular Volume 90 FL (80-99) Mean Corpuscular Hemoglobin 29.9 PG (27.0-31.0) Mean Corpuscular Hemoglobin Concent 33.1 G/DL (32.0-36.0) Red Cell Distribution Width 12.4 % (11.6-14.8) Platelet Count 262 K/UL (150-450) Mean Platelet Volume 7.5 FL (6.5-10.1) Neutrophils (%) (Auto) % (45.0-75.0) Lymphocytes (%) (Auto) % (20.0-45.0) Monocytes (%) (Auto) % (1.0-10.0) Eosinophils (%) (Auto) % (0.0-3.0) Basophils (%) (Auto) % (0.0-2.0) Differential Total Cells Counted 100 Neutrophils % (Manual) 65 % (45-75) Lymphocytes % (Manual) 12 % (20-45) Monocytes % (Manual) 10 % (1-10) Eosinophils % (Manual) 0 % (0-3) Basophils % (Manual) 0 % (0-2) Band Neutrophils 13 % (0-8) Platelet Estimate Adequate Platelet Morphology Normal Red Blood Cell Morphology Normal Sodium Level 130 mEQ/L (135-145) Potassium Level 4.4 mEQ/L (3.4-4.9) Chloride Level 88 mEQ/L (98-107) Carbon Dioxide Level 17 mEQ/L (20-30) Anion Gap 25 (5-15) Blood Urea Nitrogen 22 mg/dL (7-23) Creatinine 1.2 mg/dL (0.5-0.9) Estimat Glomerular Filtration Rate mL/min (>60) Glucose Level 495 mg/dL (74-106) Calcium Level 9.8 mg/dL (8.6-10.2) Total Bilirubin 0.8 mg/dL (0.0-1.2) Aspartate Amino Transf (AST/SGOT) 50 U/L (5-40) Alanine Aminotransferase (ALT/SGPT) 18 U/L (3-33) Alkaline Phosphatase 139 U/L (35-104) Troponin I < 0.30 ng/mL (<=0.30) Total Protein 7.3 g/dL (6.6-8.7) Albumin 3.7 g/dL (3.5-5.2) Globulin 3.6 g/dL Albumin/Globulin Ratio 1.0 (1.0-2.7) Lipase 26 U/L (< 60) Arterial Blood pH 7.410 (7.350-7.450) Arterial Blood Partial Pressure CO2 29.7 mmHg (35.0-45.0) Arterial Blood Partial Pressure O2 78.9 mmHg (75.0-100.0) Arterial Blood HCO3 18.7 mmol/L (22.0-26.0) Arterial Blood Oxygen Saturation 95.1 % (92.0-98.0) Arterial Blood Base Excess -4.6 Marty Test Positive Urine Color Pale yellow Urine Appearance Clear Urine pH 5 (4.5-8.0) Urine Specific [place] 1.010 (1.005-1.035) Urine Protein 2+ (NEGATIVE) Urine Glucose (UA) 4+ (NEGATIVE) Urine Ketones 4+ (NEGATIVE) Urine Occult Blood 5+ (NEGATIVE) Urine Nitrite Positive (NEGATIVE) Urine Bilirubin Negative (NEGATIVE) Urine Urobilinogen Normal MG/DL (0.0-1.0) Urine Leukocyte Esterase 1+ (NEGATIVE) Urine RBC 15-20 /HPF (0 - 2) Urine WBC 5-10 /HPF (0 - 2) Urine Squamous Epithelial Cells Few /LPF (NONE/OCC) Urine Bacteria Moderate /HPF (NONE) Rhythm Strip Diag. Results EP Interpretation: yes Rate: 77 Rhythm: NSR, no PVC's, no ectopy CT/MRI/US Diagnostic Results CT/MRI/US Diagnostic Results : Impression CT abdomen pelvisImpression: Bilateral nonobstructive nephrolithiasis. Hiatal hernia Cardiomegaly Atherosclerotic vascular disease Diverticulosis of the colon Umbilical region hernia containing fat Status post cholecystectomy Spondylosis Last Vital Signs Date Time Temp Pulse Resp B/P Pulse Ox O2 Delivery O2 Flow Rate FiO2 09/14/16 18:06 100 32 110/61 100 Room Air 09/14/16 17:07 99.7 Status: improved Disposition: ADMITTED INPATIENT Condition: Serious Referrals: NON PHYSICIAN (PCP) LANE SLADE D.O. Sep 14, 2016 21:02
[2016-09-14 22:21] VITALS: BP 91/50
--- NOTE | 2016-09-14 22:48 | History and Physical ---
History of Present Illness General Reason for Hospitalization: Abdominal Pain Present Illness HPI 76 year old female with hx of HTN, DM, presented with CC of generalized abd pain, nausea/ vomiting watery diarrhea today. She also c/o of dysuria. She was found to have hyperglycemia in ER, received IV fluids and admitted for further work up. Allergies: Coded Allergies: IODINE (Unverified Allergy, Unknown, 07/02/14) Medication History Scheduled Aspirin* (Aspirin*), 81 MG ORAL DAILY, (Reported) Atorvastatin Calcium* (Atorvastatin Calcium*), 20 MG ORAL BEDTIME, (Reported) Insulin Detemir (Levemir Flexpen), 25 UNITS SUBQ BID Losartan Potassium* (Losartan Potassium*), 50 MG ORAL BID, (Reported) Metformin Hcl* (Metformin Hcl*), 500 MG ORAL TWICE A DAY, (Reported) Metoprolol Tartrate (Metoprolol Tartrate), 25 MG ORAL Q12HR Miscellaneous Medications Bimatoprost (Lumigan), (Reported) Brimonidine Tartrate (Alphagan P), (Reported) Brimonidine Tartrate/Timolol (Combigan Eye Drops), 2.5 ML OP, (Reported) Patient History Healthcare decision maker Resuscitation status Advanced Directive on File Past Medical/Surgical History Past Medical/Surgical History: (1) HTN (hypertension) (2) Diabetes mellitus Review of Systems All Other Systems: negative except mentioned in HPI Physical Exam General Appearance: WD/WN, no apparent distress Lines, tubes and drains: peripheral HEENT: normocephalic, anicteric Neck: non-tender, normal alignment Respiratory/Chest: chest wall non-tender, lungs clear Cardiovascular/Chest: normal peripheral pulses, normal rate Abdomen: normal bowel sounds, non tender Genitourinary/Rectal: normal genital exam Last 24 Hour Vital Signs Date Time Temp Pulse Resp B/P Pulse Ox O2 Delivery O2 Flow Rate FiO2 09/14/16 22:21 99.5 131 34 91/50 94 Room Air 09/14/16 19:30 98.6 128 35 135/67 91 Nasal Cannula 2.0 09/14/16 18:06 100 32 110/61 100 Room Air 09/14/16 17:07 99.7 09/14/16 15:50 110 32 124/56 96 Room Air 09/14/16 13:25 99.7 119 32 100/46 96 Room Air Laboratory Tests Test 09/14/16 14:02 09/14/16 16:30 09/14/16 17:20 White Blood Count 14.6 K/UL (4.8-10.8) H Red Blood Count 4.62 M/UL (4.20-5.40) Hemoglobin 13.8 G/DL (12.0-16.0) Hematocrit 41.7 % (37.0-47.0) Mean Corpuscular Volume 90 FL (80-99) Mean Corpuscular Hemoglobin 29.9 PG (27.0-31.0) Mean Corpuscular Hemoglobin Concent 33.1 G/DL (32.0-36.0) Red Cell Distribution Width 12.4 % (11.6-14.8) Platelet Count 262 K/UL (150-450) Mean Platelet Volume 7.5 FL (6.5-10.1) Neutrophils (%) (Auto) % (45.0-75.0) Lymphocytes (%) (Auto) % (20.0-45.0) Monocytes (%) (Auto) % (1.0-10.0) Eosinophils (%) (Auto) % (0.0-3.0) Basophils (%) (Auto) % (0.0-2.0) Differential Total Cells Counted 100 Neutrophils % (Manual) 65 % (45-75) Lymphocytes % (Manual) 12 % (20-45) L Monocytes % (Manual) 10 % (1-10) Eosinophils % (Manual) 0 % (0-3) Basophils % (Manual) 0 % (0-2) Band Neutrophils 13 % (0-8) H Platelet Estimate Adequate Platelet Morphology Normal Red Blood Cell Morphology Normal Sodium Level 130 mEQ/L (135-145) L Potassium Level 4.4 mEQ/L (3.4-4.9) Chloride Level 88 mEQ/L (98-107) L Carbon Dioxide Level 17 mEQ/L (20-30) L Anion Gap 25 (5-15) H Blood Urea Nitrogen 22 mg/dL (7-23) Creatinine 1.2 mg/dL (0.5-0.9) H Estimat Glomerular Filtration Rate mL/min (>60) Glucose Level 495 mg/dL (74-106) H Calcium Level 9.8 mg/dL (8.6-10.2) Total Bilirubin 0.8 mg/dL (0.0-1.2) Aspartate Amino Transf (AST/SGOT) 50 U/L (5-40) H Alanine Aminotransferase (ALT/SGPT) 18 U/L (3-33) Alkaline Phosphatase 139 U/L (35-104) H Troponin I < 0.30 ng/mL (<=0.30) Total Protein 7.3 g/dL (6.6-8.7) Albumin 3.7 g/dL (3.5-5.2) Globulin 3.6 g/dL Albumin/Globulin Ratio 1.0 (1.0-2.7) Lipase 26 U/L (< 60) Arterial Blood pH 7.410 (7.350-7.450) Arterial Blood Partial Pressure CO2 29.7 mmHg (35.0-45.0) L Arterial Blood Partial Pressure O2 78.9 mmHg (75.0-100.0) Arterial Blood HCO3 18.7 mmol/L (22.0-26.0) L Arterial Blood Oxygen Saturation 95.1 % (92.0-98.0) Arterial Blood Base Excess -4.6 Marty Test Positive Urine Color Pale yellow Urine Appearance Clear Urine pH 5 (4.5-8.0) Urine Specific [place] 1.010 (1.005-1.035) Urine Protein 2+ (NEGATIVE) H Urine Glucose (UA) 4+ (NEGATIVE) H Urine Ketones 4+ (NEGATIVE) H Urine Occult Blood 5+ (NEGATIVE) H Urine Nitrite Positive (NEGATIVE) H Urine Bilirubin Negative (NEGATIVE) Urine Urobilinogen Normal MG/DL (0.0-1.0) Urine Leukocyte Esterase 1+ (NEGATIVE) H Urine RBC 15-20 /HPF (0 - 2) H Urine WBC 5-10 /HPF (0 - 2) H Urine Squamous Epithelial Cells Few /LPF (NONE/OCC) Urine Bacteria Moderate /HPF (NONE) H Height (Feet): 5 Height (Inches): 1.00 Weight (Pounds): 200 Medications Current Medications Medications (Trade) Dose Ordered Sig/Cody Route PRN Reason Start Time Stop Time Status Last Admin Dose Admin Acetaminophen (Tylenol) 650 mg Q4H PRN ORAL fever 09/14/16 15:45 10/14/16 15:44 Al Hydroxide/Mg Hydroxide (Mylanta II) 30 ml Q6H PRN ORAL dyspepsia 09/14/16 15:45 10/14/16 15:44 Albuterol/ Ipratropium (DuoNeb 0.5-3(2.5)mg/3ml) 3 ml EVERY 4 HOURS PRN HHN Shortness of Breath 09/14/16 15:45 09/19/16 15:44 Clonidine HCl (Catapres) 0.1 mg EVERY 4 HOURS PRN ORAL sbp more than 160 09/14/16 15:45 10/14/16 15:44 Dextrose (Dextrose 50%) STAT PRN IV Hypoglycemia 09/14/16 15:45 10/14/16 15:44 Heparin Sodium (Porcine) (Heparin 5000 units/ml) 5,000 units EVERY 12 HOURS SUBQ 09/14/16 21:00 10/14/16 20:59 Insulin Aspart (NovoLOG) BEFORE MEALS AND HS SUBQ 09/14/16 22:30 10/14/16 22:29 Insulin Detemir 25 units 25 units Q12HR SUBQ 09/14/16 22:30 10/14/16 22:29 Ketorolac Tromethamine (Toradol 30mg) 30 mg EVERY 6 HOURS PRN IV moderate pain 4-6 09/14/16 15:45 09/19/16 15:44 Metoprolol Tartrate (Lopressor) 25 mg Q12HR ORAL 09/14/16 21:00 10/14/16 20:59 Morphine Sulfate (Morphine Sulfate) 2 mg EVERY 4 HOURS PRN IVP severe pain 7-10 09/14/16 15:45 09/21/16 15:44 09/14/16 20:17 Nitroglycerin (Ntg) 0.4 mg Q5M X 3 DOSES PRN SL Prn Chest Pain 09/14/16 15:45 10/14/16 15:44 Ondansetron HCl (Zofran) 4 mg Q6H PRN IVP Nausea & Vomiting 09/14/16 15:45 10/14/16 15:44 Polyethylene Glycol (Miralax) 17 gm HSPRN PRN ORAL Constipation 09/14/16 15:45 10/14/16 15:44 Sodium Chloride (Sodium Chloride 1000ml bag) 1,000 ml @ 100 mls/hr Q10H IVLG 09/14/16 22:30 10/14/16 22:29 09/14/16 22:20 Temazepam (Restoril) 15 mg HSPRN PRN ORAL Insomnia 09/14/16 15:45 09/21/16 15:44 Assessment/Plan Problem List: (1) Hyperglycemia ICD Codes: R73.9 - Hyperglycemia, unspecified SNOMED: 99893987 (2) Acute gastritis ICD Codes: K29.00 - Acute gastritis without bleeding SNOMED: 63194993 (3) Intractable vomiting ICD Codes: R11.10 - Vomiting, unspecified SNOMED: 495837607 (4) HTN (hypertension) ICD Codes: I10 - Essential (primary) hypertension SNOMED: 16738536 (5) Diabetes mellitus ICD Codes: E11.9 - Type 2 diabetes mellitus without complications SNOMED: 96013894 Assessment/Plan IV fluids sliding scale GI evaluation npo dvt prophylaxis cardiac monitoring ROGER LEE Sep 14, 2016 22:48
[2016-09-15] VITALS (10 sets, daily range): BP systolic 75–134; BP diastolic 32–92
[2016-09-15] MEDS: NovoLOG Insulin Flexpen SUBQ SCH ×4 (05:45→21:25)
[2016-09-15 07:15] LABS: MEAN CORPUSCULAR HEMOGLOBIN 30.4 PG (27.0-31.0); MEAN CORPUSCULAR HGB CONC 33.7 G/DL (32.0-36.0); MEAN CORPUSCULAR VOLUME 90 FL (80-99); MEAN PLATELET VOLUME 7.3 FL (6.5-10.1); PLATELET COUNT 240 K/UL (150-450); RED BLOOD COUNT 3.98 M/UL (4.20-5.40); RED CELL DISTRIBUTION WIDTH 12.4 % (11.6-14.8); WHITE BLOOD COUNT 19.5 K/UL (4.8-10.8)
[2016-09-15 07:41] LABS: ALANINE AMINOTRANSFERASE 18 U/L (3-33); ALBUMIN/GLOBULIN RATIO 0.9 (1.0-2.7); ANION GAP 24 (5-15); ASPARTATE AMINO TRANSFERASE 43 U/L (5-40); CALCIUM 8.8 mg/dL (8.6-10.2); CARBON DIOXIDE 18 mEQ/L (20-30); CHLORIDE 94 mEQ/L (98-107); CHOLESTEROL 95 mg/dL (< 200); CHOLESTEROL/HDL RATIO 1.5 (3.3-4.4); CREATININE 1.8 mg/dL (0.5-0.9); HEMOLYSIS 1; LDL CHOLESTEROL (CALC.) 17 mg/dL (60-99); SODIUM 136 mEQ/L (135-145); TOTAL PROTEIN 6.1 g/dL (6.6-8.7)
[2016-09-15] MEDS: Morphine Sulfate 2mg/ml Inj IVP PRN ×2 (08:10→11:17)
[2016-09-15 08:26] LABS: BAND NEUTROPHILS % (MANUAL) 24 % (0-8); BASOPHILS % (MANUAL) 1 % (0-2); EOSINOPHILS % (MANUAL) 1 % (0-3); LYMPHOCYTES % (MANUAL) 6 % (20-45); NEUTROPHILS % (MANUAL) 59 % (45-75); PLATELET ESTIMATE ADEQUATE; PLATELET MORPHOLOGY NORMAL; TOTAL CELLS COUNTED 100
[2016-09-15] MEDS ORDERED: Nitroglycerin Subl 0.4mg tab (Bottle Of 25) SL PRN (09:15)
[2016-09-15] MEDS: Metoprolol 25mg tab ORAL SCH ×2 (09:39→21:00)
[2016-09-15] MEDS ORDERED: LORazepam Inj 2mg/ml 1ml IV PRN (09:45)
[2016-09-15] MEDS ORDERED: Mylanta II UD 30ml ORAL PRN (10:00)
[2016-09-15 10:20] LABS: ABG ALLEN TEST POSITIVE; ABG BASE EXCESS -2.4; ABG PCO2 26.7 mmHg (35.0-45.0)
[2016-09-15] MEDS ORDERED: Levemir Flexpen SUBQ SCH (11:00)
--- NOTE | 2016-09-15 11:39 | Diagnostic Imaging Report ---
Indication: Dyspnea Comparison: 07/10/16 A single view chest radiograph was obtained. Findings: The left lung base is not adequately seen. There is silhouetting of the left hemidiaphragm but this is probably largely on the basis of breast attenuation. Lung volumes are low. Heart is enlarged. Pulmonary vascularity is prominent but without change. Impression: No significant change. Once again the left lung bases not well seen due to breast attenuation. Underlying pneumonia or pleural effusion not excludable
[2016-09-15] MEDS ORDERED: Ketorolac 30mg Inj IV PRN (12:00)
--- NOTE | 2016-09-15 12:45 | Pulmonology Progress Note ---
Assessment/Plan Problems: (1) Gram-negative bacteremia (2) Hyperglycemia (3) Acute gastritis (4) Intractable vomiting (5) HTN (hypertension) (6) Diabetes mellitus Assessment/Plan Add antibiotics check cultures keep npo GI/ endo/ ID consult called echo monitor BP Subjective ROS Limited/Unobtainable: No Constitutional: Reports: no symptoms HEENT: Repors: no symptoms Allergies: Coded Allergies: IODINE (Unverified Allergy, Unknown, 07/02/14) Objective Last 24 Hour Vital Signs Date Time Temp Pulse Resp B/P Pulse Ox O2 Delivery O2 Flow Rate FiO2 09/15/16 11:47 97.0 09/15/16 09:39 132 100/65 09/15/16 09:24 97.0 132 26 100/65 97 Simple Mask 10.0 09/15/16 08:32 190/100 09/15/16 08:15 97.6 70 26 96/46 92 Room Air 09/15/16 04:00 98.1 116 18 107/57 94 Room Air 09/15/16 00:20 99.0 123 20 95/56 94 Room Air 09/14/16 23:24 99.5 131 34 91/50 94 Room Air 2.0 09/14/16 22:21 99.5 131 34 91/50 94 Room Air 09/14/16 21:00 123 95/56 09/14/16 19:30 98.6 128 35 135/67 91 Nasal Cannula 2.0 09/14/16 18:06 100 32 110/61 100 Room Air 09/14/16 17:07 99.7 09/14/16 15:50 110 32 124/56 96 Room Air 09/14/16 13:25 99.7 119 32 100/46 96 Room Air Intake and Output 09/14/16 09/15/16 19:00 07:00 Intake Total 0 ml 650 ml Balance 0 ml 650 ml Intake Oral 0 ml 150 ml IV Total 500 ml # Voids 1 # Bowel Movements 1 General Appearance: WD/WN HEENT: normocephalic, atraumatic Respiratory/Chest: chest wall non-tender, lungs clear Cardiovascular: normal peripheral pulses, normal rate Abdomen: normal bowel sounds, soft, non tender Extremities: no cyanosis 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 Microbiology Date/Time Source Procedure Growth Status 3/22/17 15:30 Blood Blood Culture - Preliminary Resulted 09/14/16 15:15 Blood Blood Culture - Preliminary Resulted 09/14/16 17:20 Urine,Clean Catch Urine Culture - Preliminary Gram Negative Bacillus 1 Resulted Laboratory Tests 09/14/16 14:02: White Blood Count 14.6H, Red Blood Count 4.62, Hemoglobin 13.8, Hematocrit 41.7 , Mean Corpuscular Volume 90, Mean Corpuscular Hemoglobin 29.9, Mean Corpuscular Hemoglobin Concent 33.1, Red Cell Distribution Width 12.4, Platelet Count 262, Mean Platelet Volume 7.5, Neutrophils (%) (Auto) , Lymphocytes (%) ( Auto) , Monocytes (%) (Auto) , Eosinophils (%) (Auto) , Basophils (%) (Auto) , Differential Total Cells Counted 100, Neutrophils % (Manual) 65, Lymphocytes % ( Manual) 12L, Monocytes % (Manual) 10, Eosinophils % (Manual) 0, Basophils % ( Manual) 0, Band Neutrophils 13H, Platelet Estimate Adequate, Platelet Morphology Normal, Red Blood Cell Morphology Normal, Sodium Level 130L, Potassium Level 4.4, Chloride Level 88L, Carbon Dioxide Level 17L, Anion Gap 25H , Blood Urea Nitrogen 22, Creatinine 1.2H, Estimat Glomerular Filtration Rate , Glucose Level 495H, Calcium Level 9.8, Total Bilirubin 0.8, Aspartate Amino Transf (AST/SGOT) 50H, Alanine Aminotransferase (ALT/SGPT) 18, Alkaline Phosphatase 139H, Troponin I < 0.30, Total Protein 7.3, Albumin 3.7, Globulin 3.6, Albumin/Globulin Ratio 1.0, Lipase 26 09/14/16 16:30: Arterial Blood pH 7.410, Arterial Blood Partial Pressure CO2 29.7L, Arterial Blood Partial Pressure O2 78.9, Arterial Blood HCO3 18.7L, Arterial Blood Oxygen Saturation 95.1, Arterial Blood Base Excess -4.6, Marty Test Positive 09/14/16 17:20: Urine Color Pale yellow, Urine Appearance Clear, Urine pH 5, Urine Specific [place] 1.010, Urine Protein 2+H, Urine Glucose (UA) 4+H, Urine Ketones 4+H, Urine Occult Blood 5+H, Urine Nitrite PositiveH, Urine Bilirubin Negative, Urine Urobilinogen Normal, Urine Leukocyte Esterase 1+H, Urine RBC 15-20H, Urine WBC 5-10H, Urine Squamous Epithelial Cells Few, Urine Bacteria ModerateH 09/15/16 05:35: White Blood Count 19.5H, Red Blood Count 3.98L, Hemoglobin 12.1, Hematocrit 35.9L, Mean Corpuscular Volume 90, Mean Corpuscular Hemoglobin 30.4, Mean Corpuscular Hemoglobin Concent 33.7, Red Cell Distribution Width 12.4, Platelet Count 240, Mean Platelet Volume 7.3, Neutrophils (%) (Auto) , Lymphocytes (%) ( Auto) , Monocytes (%) (Auto) , Eosinophils (%) (Auto) , Basophils (%) (Auto) , Differential Total Cells Counted 100, Neutrophils % (Manual) 59, Lymphocytes % ( Manual) 6L, Monocytes % (Manual) 9, Eosinophils % (Manual) 1, Basophils % ( Manual) 1, Band Neutrophils 24H, Platelet Estimate Adequate, Platelet Morphology Normal, Red Blood Cell Morphology Normal, Sodium Level 136, Potassium Level 4.0, Chloride Level 94L, Carbon Dioxide Level 18L, Anion Gap 24H , Blood Urea Nitrogen 26H, Creatinine 1.8H, Estimat Glomerular Filtration Rate , Glucose Level 309#H, Calcium Level 8.8, Total Bilirubin 0.7, Aspartate Amino Transf (AST/SGOT) 43H, Alanine Aminotransferase (ALT/SGPT) 18, Alkaline Phosphatase 120H, Total Protein 6.1L, Albumin 3.0L, Globulin 3.1, Albumin/ Globulin Ratio 0.9L, Hemoglobin A1c 12.0H, Triglycerides Level 76, Cholesterol Level 95, LDL Cholesterol 17L, HDL Cholesterol 63H, Cholesterol/HDL Ratio 1.5L, Thyroid Stimulating Hormone (TSH) 1.200 09/15/16 10:17: Arterial Blood pH 7.480H, Arterial Blood Partial Pressure CO2 26.7L, Arterial Blood Partial Pressure O2 61.4L, Arterial Blood HCO3 19.8L, Arterial Blood Oxygen Saturation 92.7, Arterial Blood Base Excess -2.4, Marty Test Positive Current Medications Medications (Trade) Dose Ordered Sig/Cody Route PRN Reason Start Time Stop Time Status Last Admin Dose Admin Acetaminophen (Tylenol) 650 mg Q4H PRN ORAL T>100.5 09/15/16 10:00 10/15/16 09:59 Al Hydroxide/Mg Hydroxide (Mylanta II) 30 ml Q6H PRN ORAL dyspepsia 09/15/16 10:00 10/15/16 09:59 Albuterol/ Ipratropium (DuoNeb 0.5-3(2.5)mg/3ml) 3 ml Q4H PRN HHN Shortness of Breath 09/15/16 10:00 09/20/16 09:59 Clonidine HCl (Catapres) 0.1 mg Q4H PRN ORAL SBP>160 09/15/16 10:00 10/15/16 09:59 Dextrose (Dextrose 50%) STAT PRN IV Hypoglycemia 09/15/16 10:00 10/15/16 09:59 Heparin Sodium (Porcine) (Heparin 5000 units/ml) 5,000 units EVERY 12 HOURS SUBQ 09/15/16 21:00 10/15/16 20:59 Insulin Aspart (NovoLOG) BEFORE MEALS AND HS SUBQ 09/15/16 11:30 10/15/16 11:29 09/15/16 12:01 Insulin Detemir 10 units 10 units Q12HR SUBQ 09/15/16 21:00 10/15/16 20:59 UNV Levofloxacin 100 ml @ 100 mls/hr Q24H IVPB 09/15/16 12:30 09/22/16 12:29 UNV Lorazepam 1 mg 1 mg Q4H PRN IV For Anxiety 09/15/16 09:45 09/22/16 09:44 Metoprolol Tartrate (Lopressor) 25 mg Q12HR ORAL 09/15/16 10:00 10/15/16 09:59 09/15/16 09:39 Metronidazole 100 ml @ 100 mls/hr Q8HR IVPB 09/15/16 14:00 09/22/16 13:59 UNV Morphine Sulfate (Morphine Sulfate) 2 mg Q4H PRN IVP Severe Pain (Pain Scale 7-10) 09/15/16 10:00 09/22/16 09:59 09/15/16 11:17 Nitroglycerin (Ntg) 0.4 mg Q5M X 3 DOSES PRN SL Prn Chest Pain 09/15/16 09:15 10/15/16 09:14 Ondansetron HCl (Zofran) 4 mg Q6H PRN IVP Nausea & Vomiting 09/15/16 09:45 10/15/16 09:44 Piperacillin Sod/ Tazobactam Sod/ Sodium Chloride (Zosyn/Sodium Chloride) 110 ml @ 27.5 mls/hr EVERY 6 HOURS IVPB 09/15/16 12:30 09/22/16 12:29 UNV Polyethylene Glycol (Miralax) 17 gm HSPRN PRN ORAL Constipation 09/15/16 21:00 10/15/16 20:59 Sodium Chloride (Sodium Chloride 1000ml bag) 1,000 ml @ 75 mls/hr [id number] IVLG 09/16/16 10:00 10/16/16 09:59 UNV Temazepam (Restoril) 15 mg HSPRN PRN ORAL Insomnia 09/15/16 21:00 09/22/16 20:59 ROGER LEE Sep 15, 2016 12:45
[2016-09-15] MEDS: metroNIDAZOLE 500mg 100 ML IVPB SCH ×2 (13:39→22:18)
[2016-09-15] MEDS: Piperacillin/Tazobactam 3.375 GM in NS 110 ML IVPB SCH ×2 (17:33→21:19)
[2016-09-15] MEDS: DuoNeb 0.5-3(2.5)mg/3ml neb HHN PRN (19:18)
[2016-09-15] MEDS ORDERED: Miralax 17gm pkt ORAL PRN (21:00)
[2016-09-15] MEDS: Heparin 5000 units/ml inj SUBQ SCH (21:21)
[2016-09-15] MEDS: Levemir Flexpen SUBQ SCH (21:22)
[2016-09-16] VITALS: BP 126/60
[2016-09-16] MEDS: Morphine Sulfate 2mg/ml Inj IVP PRN ×2 (01:06→16:32)
[2016-09-16] MEDS: DuoNeb 0.5-3(2.5)mg/3ml neb HHN PRN ×4 (03:06→21:21)
[2016-09-16 04:00] VITALS: BP 131/51
[2016-09-16 04:13] LABS: ABG PCO2 27.7 mmHg (35.0-45.0)
[2016-09-16 04:14] LABS: ABG ALLEN TEST POSITIVE; ABG BASE EXCESS -4.3
[2016-09-16] MEDS: metroNIDAZOLE 500mg 100 ML IVPB SCH (05:39)
[2016-09-16] MEDS: NovoLOG Insulin Flexpen SUBQ SCH ×4 (06:32→22:01)
[2016-09-16 08:00] VITALS: BP 115/50
--- NOTE | 2016-09-16 08:56 | Consultation ---
Consult Note Consult Note ID CONSULT: Carmina# [id number] Assessment/Plan ASSESSMENT: 76 y/o female with: // GNR bacteremia, m/l urinary source - C&S pending // Recurrent GNR UTI - C&S pending, h/o pansensitive P.mirabilis - CT A/P: bilateral punctate nonobstructing stones present within the kidneys. No hydronephrosis. Bilateral renal cysts. // Sepsis // Leukocytosis - worse // Low grade fever x1 // ARF on CKD3 - worse // DM2, uncontrolled - HbA1c 12% // Morbid obesity // No ABX allergies // Full Code PLAN: - continue levaquin, zosyn d# / 04-08 double GNR coverage pending C&S. KATIE cárdenas d# 1 - f/u cultures, adjust ABX accordingly - monitor CBC, temperatures - monitor BMP Thanks! Will follow LEIGHANN DE ANDA Sep 16, 2016 08:56
[2016-09-16] MEDS ORDERED: Levofloxacin 250mg/D5W 50ml IVPB SCH ×3 (09:00→18:00)
[2016-09-16] MEDS: Piperacillin/Tazobactam 3.375 GM in NS 110 ML IVPB SCH ×2 (09:38→21:52)
[2016-09-16] MEDS: Heparin 5000 units/ml inj SUBQ SCH ×2 (09:39→21:55)
[2016-09-16] MEDS: Levemir Flexpen SUBQ SCH ×2 (09:39→21:58)
[2016-09-16] MEDS: Metoprolol 25mg tab ORAL SCH ×2 (09:40→21:51)
[2016-09-16 12:00] VITALS: BP 108/74
--- NOTE | 2016-09-16 12:19 | Pulmonology Progress Note ---
Assessment/Plan Problems: (1) Gram-negative bacteremia (2) Hyperglycemia (3) Acute gastritis (4) Intractable vomiting (5) HTN (hypertension) (6) Diabetes mellitus Assessment/Plan continue antibiotics check cultures, GNB in blood keep npo GI/ endo/ ID consult appreciated monitor BP and heart rate. Subjective ROS Limited/Unobtainable: No Interval Events: still dyspnic Allergies: Coded Allergies: IODINE (Unverified Allergy, Unknown, 07/02/14) Objective Last 24 Hour Vital Signs Date Time Temp Pulse Resp B/P Pulse Ox O2 Delivery O2 Flow Rate FiO2 09/16/16 09:40 114 115/50 09/16/16 08:00 98.1 114 26 115/50 96 Nasal Cannula 3.0 09/16/16 07:48 96 Nasal Cannula 4.0 09/16/16 07:47 Nasal Cannula 4.0 09/16/16 04:00 100.0 115 28 131/51 94 Nasal Cannula 3.0 09/16/16 04:00 119 09/16/16 03:41 111 31 95 Facial 40 09/16/16 03:14 116 20 98 Nasal Cannula 4.0 36 09/16/16 03:04 115 22 94 Nasal Cannula 4.0 36 09/16/16 00:00 98.2 60 28 126/60 95 Nasal Cannula 2.0 09/16/16 00:00 114 09/15/16 21:00 61 109/49 09/15/16 20:10 97.2 64 18 134/92 93 Nasal Cannula 4.0 09/15/16 20:00 124 09/15/16 19:23 61 20 98 Nasal Cannula 4.0 36 09/15/16 19:13 Nasal Cannula 4.0 36 09/15/16 19:13 95 Nasal Cannula 4.0 36 09/15/16 19:12 61 22 Nasal Cannula 4.0 36 09/15/16 19:12 61 22 95 Nasal Cannula 4.0 36 09/15/16 19:00 104/49 09/15/16 18:00 99/51 09/15/16 17:00 87/45 09/15/16 16:05 75/32 09/15/16 16:00 97.3 63 19 84/42 94 Nasal Cannula 2.0 09/15/16 16:00 120 Intake and Output 09/15/16 09/16/16 19:00 07:00 Intake Total 675 ml 895 ml Balance 675 ml 895 ml Intake Oral 100 ml 120 ml IV Total 575 ml 775 ml # Voids 1 1 # Bowel Movements 3 2 General Appearance: WD/WN HEENT: normocephalic Respiratory/Chest: chest wall non-tender, lungs clear Cardiovascular: normal peripheral pulses, normal rate Abdomen: normal bowel sounds, soft, non tender Extremities: no cyanosis Skin: no rash Neurologic/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: 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, abnormal gait Microbiology Date/Time Source Procedure Growth Status 09/14/16 15:30 Blood Blood Culture - Preliminary Gram Negative Bacillus 1 Resulted 09/14/16 15:15 Blood Blood Culture - Preliminary Gram Negative Bacillus 1 Resulted 09/14/16 17:20 Urine,Clean Catch Urine Culture - Final Klebsiella Pneumoniae Complete Laboratory Tests 09/16/16 04:08: Arterial Blood pH 7.444, Arterial Blood Partial Pressure CO2 27.7L, Arterial Blood Partial Pressure O2 86.7, Arterial Blood HCO3 18.6L, Arterial Blood Oxygen Saturation 96.3, Arterial Blood Base Excess -4.3, Marty Test Positive Current Medications Medications (Trade) Dose Ordered Sig/Cody Route PRN Reason Start Time Stop Time Status Last Admin Dose Admin Acetaminophen (Tylenol) 650 mg Q4H PRN ORAL T>100.5 09/15/16 10:00 10/15/16 09:59 09/16/16 03:03 Al Hydroxide/Mg Hydroxide (Mylanta II) 30 ml Q6H PRN ORAL dyspepsia 09/15/16 10:00 10/15/16 09:59 Albuterol/ Ipratropium (DuoNeb 0.5-3(2.5)mg/3ml) 3 ml Q4H PRN HHN Shortness of Breath 09/15/16 10:00 09/20/16 09:59 09/16/16 09:45 Clonidine HCl (Catapres) 0.1 mg Q4H PRN ORAL SBP>160 09/15/16 10:00 10/15/16 09:59 Dextrose (Dextrose 50%) STAT PRN IV Hypoglycemia 09/15/16 10:00 10/15/16 09:59 Heparin Sodium (Porcine) (Heparin 5000 units/ml) 5,000 units EVERY 12 HOURS SUBQ 09/15/16 21:00 10/15/16 20:59 09/16/16 09:39 Insulin Aspart (NovoLOG) BEFORE MEALS AND HS SUBQ 09/15/16 11:30 10/15/16 11:29 09/16/16 06:32 Insulin Detemir 10 units 10 units Q12HR SUBQ 09/15/16 21:00 10/15/16 20:59 09/16/16 09:39 Levofloxacin (Levaquin) 50 ml @ 50 mls/hr Q24H IVPB 09/16/16 13:00 09/23/16 12:59 Lorazepam 1 mg 1 mg Q4H PRN IV For Anxiety 09/15/16 09:45 09/22/16 09:44 09/16/16 03:08 Metoprolol Tartrate (Lopressor) 25 mg Q12HR ORAL 09/15/16 10:00 10/15/16 09:59 09/16/16 09:40 Morphine Sulfate (Morphine Sulfate) 2 mg Q4H PRN IVP Severe Pain (Pain Scale 7-10) 09/15/16 10:00 09/22/16 09:59 09/16/16 01:06 Nitroglycerin (Ntg) 0.4 mg Q5M X 3 DOSES PRN SL Prn Chest Pain 09/15/16 09:15 10/15/16 09:14 Ondansetron HCl (Zofran) 4 mg Q6H PRN IVP Nausea & Vomiting 09/15/16 09:45 10/15/16 09:44 Piperacillin Sod/ Tazobactam Sod 3.375 gm/Sodium Chloride 110 ml @ 27.5 mls/hr Q12HR IVPB 09/15/16 16:00 09/22/16 15:59 09/16/16 09:38 Polyethylene Glycol (Miralax) 17 gm HSPRN PRN ORAL Constipation 09/15/16 21:00 10/15/16 20:59 Sodium Chloride (Sodium Chloride 1000ml bag) 1,000 ml @ 75 mls/hr [id number] IVLG 09/16/16 13:00 10/16/16 12:59 09/15/16 13:33 Temazepam (Restoril) 15 mg HSPRN PRN ORAL Insomnia 09/15/16 21:00 09/22/16 20:59 ROGER LEE 24, 2017 12:19
[2016-09-16] MEDS ORDERED: Lactulose 20gm/30ml UDC ORAL ONE (13:00)
[2016-09-16 14:22] LABS: MEAN CORPUSCULAR HGB CONC 33.3 G/DL (32.0-36.0); MEAN CORPUSCULAR VOLUME 90 FL (80-99); MEAN PLATELET VOLUME 7.5 FL (6.5-10.1); PLATELET COUNT 173 K/UL (150-450); RED BLOOD COUNT 3.81 M/UL (4.20-5.40); RED CELL DISTRIBUTION WIDTH 13.2 % (11.6-14.8); WHITE BLOOD COUNT 15.6 K/UL (4.8-10.8)
[2016-09-16 14:33] LABS: ALANINE AMINOTRANSFERASE 20 U/L (3-33); ALBUMIN/GLOBULIN RATIO 0.7 (1.0-2.7); ANION GAP 20 (5-15); ASPARTATE AMINO TRANSFERASE 34 U/L (5-40); CALCIUM 8.1 mg/dL (8.6-10.2); CARBON DIOXIDE 18 mEQ/L (20-30); CHLORIDE 102 mEQ/L (98-107); CREATININE 1.9 mg/dL (0.5-0.9); HEMOLYSIS 3; POTASSIUM 3.5 mEQ/L (3.4-4.9); SODIUM 140 mEQ/L (135-145)
[2016-09-16 14:41] LABS: BAND NEUTROPHILS % (MANUAL) 10 % (0-8); BASOPHILS % (MANUAL) 0 % (0-2); EOSINOPHILS % (MANUAL) 1 % (0-3); LYMPHOCYTES % (MANUAL) 8 % (20-45); NEUTROPHILS % (MANUAL) 79 % (45-75); PLATELET ESTIMATE ADEQUATE; PLATELET MORPHOLOGY NORMAL; TOTAL CELLS COUNTED 100
[2016-09-16 14:45] LABS: BILIRUBIN,DIRECT 0.5 mg/dL (0.1-0.3)
--- NOTE | 2016-09-16 14:56 | Diagnostic Imaging Report ---
Indication: DYSPNEA Technique: One view of the chest Comparison: 09/15/2016 Findings: Body habitus limits evaluation. The heart is enlarged. The lungs bases are clear. No significant change Impression: Cardiomegaly No acute process or significant interim exchange architect one day
[2016-09-16 17:00] VITALS: BP 107/50
--- NOTE | 2016-09-16 17:28 | Consultation ---
DATE OF CONSULTATION: 09/16/2016 CONSULTING PHYSICIAN: Tobi Montes M.D. ATTENDING PHYSICIAN: Sharad Flanagan M.D. REQUESTING PHYSICIAN: Sharad Flanagan M.D. REASON FOR CONSULTATION: Bacteremia urinary tract infection and sepsis. HISTORY OF PRESENT ILLNESS: This is a 76-year-old female with history of recurrent UTIs and kidney stones, admitted on 09/14/2016, with abdominal pain, nausea, and dysuria. She meets sepsis criteria and has evidence of gram-negative luis alberto urinary tract infection with gram-negative luis alberto bacteremia. A CT of abdomen and pelvis shows bilateral nonobstructing kidney stones and no hydronephrosis. Leukocytosis is worse this morning as is renal function and associated low-grade fever of 100. She is currently on empiric Levaquin, Zosyn, and Flagyl. Culture and sensitivities are pending. ID now consulted to assist in management. PAST MEDICAL HISTORY: 1. Uncontrolled diabetes. Hemoglobin A1c of 12%. 2. Hypertension. 3. Diverticulosis. 4. Nephrolithiasis. 5. Hiatal hernia. 6. Chronic kidney disease. PAST SURGICAL HISTORY: 1. Cholecystectomy. 2. Appendectomy. FAMILY HISTORY: Noncontributory. SOCIAL HISTORY: Denies tobacco, alcohol, or illicit drug abuse. ALLERGIES: Iodine. MEDICATIONS: 1. Levaquin. 2. Zosyn. 3. Flagyl. 4. Insulin. 5. Metoprolol. 6. Subcutaneous heparin. REVIEW OF SYSTEMS: As per history of present illness. Ten systems reviewed. All pertinent positives and negatives noted. PHYSICAL EXAMINATION: VITAL SIGNS: Maximum temperature of 100 degrees, blood pressure 131/51, heart rate 115, respiratory rate 28, and saturating 94% on 3 L nasal cannula. GENERAL: No apparent distress. Nontoxic appearing. CARDIOVASCULAR: Tachycardic, no murmurs. PULMONARY: Tachypneic. ABDOMEN: Bowel sounds present. Soft, nondistended. Mild tenderness to palpation. EXTREMITIES: No edema. LABORATORY DATA: White blood cell count 19.5 increased from 14.6, hemoglobin 12.1, platelets 240,000. Sodium 136, potassium 4, chloride 94, bicarb 18, BUN 26, and creatinine 1.8 increased from 1.2. Hemoglobin A1c of 12%. AST 43, ALT 18, alkaline phosphatase 120. Total bilirubin 0.7, albumin 3. TSH and lipase within normal limits. MICROBIOLOGY: 1. On 09/14/2016, urine culture, greater than 100,000 colony-forming units of gram-negative rods with positive urinalysis. 2. On 09/14/2016, blood culture, gram-negative rods in 4/4 sets. IMAGIN. On 09/15/2016, chest x-ray, prominent pulmonary vasculature. 2. On 09/15/2016, bilateral lower extremity Doppler ultrasound pending. 3. On 09/14/2016, CT of abdomen and pelvis with bilateral nonobstructive nephrolithiasis, bilateral renal cysts, hiatal hernia, cardiomegaly, atherosclerotic vascular disease, diverticulosis, umbilical hernia. ASSESSMENT: 1. Gram-negative luis alberto bacteremia, most likely urinary source. Culture and sensitivity is pending. 2. Recurrent gram-negative luis alberto urinary tract infection. Culture and sensitivity is pending. She has history of growth of pansensitive Proteus mirabilis. CT of abdomen pelvis shows bilateral renal stones and cysts without hydronephrosis. 3. Sepsis. 4. Leukocytosis, worsening. 5. Low-grade fever x1. 6. Acute renal failure on chronic kidney disease, worsening. 7. Diabetes type 2, uncontrolled with hemoglobin A1c of 12%. 8. Morbid obesity. 9. No antibiotic allergies. 10. Full code. PLAN: 1. Continue empiric Levaquin and Zosyn day #1 of #10 to #14. 2. Gram-negative luis alberto coverage pending cultures and sensitivity. 3. Can discontinue Flagyl as the patient does not require double anaerobic coverage. 4. Follow up cultures and adjust antibiotics accordingly. 5. Monitor CBC and temperatures. 6. Monitor BMP. Thank you. We will follow. Tobi Montes M.D. DR: Sepideh JOB#: [id number] CC: Sharad Flanagan M.D.; Fax#: [phone] Alborzi, M.D ; Fax#: [phone] Smith, M.D.
[2016-09-16] MEDS: Miralax 17gm pkt ORAL SCH (19:26)
[2016-09-16] MEDS: Docusate 250mg cap ORAL SCH (19:27)
[2016-09-16 20:00] VITALS: BP 120/85
--- NOTE | 2016-09-16 23:48 | Consultation ---
DATE OF CONSULTATION: 09/16/2016 CHIEF COMPLAINT: Abdominal pain. HISTORY OF PRESENT ILLNESS: This is a 76-year-old female with past medical history of severe asthma. She was brought into the hospital because she was having shortness of breath. She is having some abdominal pain. A GI consultation was requested for evaluation of abdominal pain. According to the patient, she had some feeling of nausea a few days ago, but she actually did not vomit. She also has another bowel movement for four days. She denies any melena. Denies hematochezia. The patient does not recall having any recent endoscopy or colonoscopy. PAST MEDICAL HISTORY: 1. Significant for history of congestive heart failure. 2. Hypercholesterolemia. 3. Hypertension. 4. Asthma. 5. Diabetes. 6. Essential body obesity. PAST SURGICAL HISTORY: The patient had appendectomy, cholecystectomy, hysterectomy. ALLERGIES: IODINE. MEDICATIONS: Please see medication reconciliation list. FAMILY HISTORY: Noncontributory. REVIEW OF SYSTEMS: A 10-point review of system was performed and pertinent positives in history of present illness. PHYSICAL EXAMINATION: GENERAL: The patient is a mildly obese female, in respiratory distress, without any difficulty talking. VITAL SIGNS: Temperature is 98.1, pulse is 114, respirations 26, blood pressure is 115/50. HEENT: Normocephalic and atraumatic. Sclerae anicteric. NECK: Supple. No evidence of obvious lymphadenopathy. CARDIOVASCULAR: Tachy. Regular rate. Plus S1 and S2. There is bilaterally and diffusely on the supine exam. She had some mild expiratory wheezing. ABDOMEN: Soft, nontender. No rebound. No guarding. EXTREMITIES: No cyanosis, no clubbing, and no edema. LABORATORY DATA: Hemoglobin 12, hematocrit 35, platelet count is 240,000, BUN is 26, and creatinine is 1.8, and glucose is 309. ASSESSMENT: This is a 76-year-old female with numerous medical problems. From gastrointestinal standpoint at this time, the patient has mainly constipation. There is no alarming sign or symptom. There is no anemia. There is no gastrointestinal bleeding. On the CT scan, there are no acute intra-abdominal findings except for diverticulosis without any diverticulitis. PLAN: To start the patient on laxative, Colace, MiraLAX, and a dose of lactulose, daily examination, and antibiotics per ID. Follow up with Pulmonology and the rest of the team recommendations. Benitez Penn M.D. DR: EDMAR JOB#: [id number] CC:
[2016-09-17] VITALS: BP 126/53
[2016-09-17 04:00] VITALS: BP 108/63
[2016-09-17 06:03] LABS: BASOPHILS % (AUTO) 0.4 % (0.0-2.0); EOSINOPHILS % (AUTO) 2.7 % (0.0-3.0); LYMPHOCYTES % (AUTO) 12.2 % (20.0-45.0); MEAN CORPUSCULAR HEMOGLOBIN 30.2 PG (27.0-31.0); MEAN CORPUSCULAR HGB CONC 33.3 G/DL (32.0-36.0); MEAN CORPUSCULAR VOLUME 91 FL (80-99); MEAN PLATELET VOLUME 8.1 FL (6.5-10.1); MONOCYTES % (AUTO) 3.5 % (1.0-10.0); NEUTROPHILS % (AUTO) 81.2 % (45.0-75.0); PLATELET COUNT 160 K/UL (150-450); RED BLOOD COUNT 3.58 M/UL (4.20-5.40); RED CELL DISTRIBUTION WIDTH 13.3 % (11.6-14.8); WHITE BLOOD COUNT 12.4 K/UL (4.8-10.8)
[2016-09-17] MEDS: NovoLOG Insulin Flexpen SUBQ SCH ×4 (06:37→20:26)
[2016-09-17 06:41] LABS: ALANINE AMINOTRANSFERASE 17 U/L (3-33); ALBUMIN/GLOBULIN RATIO 0.6 (1.0-2.7); ANION GAP 17 (5-15); ASPARTATE AMINO TRANSFERASE 27 U/L (5-40); CARBON DIOXIDE 19 mEQ/L (20-30); CHLORIDE 105 mEQ/L (98-107); CREATININE 1.6 mg/dL (0.5-0.9); CRP QUANT 34.7 mg/dL (< 0.5); HEMOLYSIS 1; MAGNESIUM 1.5 mg/dL (1.7-2.5); PHOSPHORUS 2.5 mg/dL (2.5-4.8); POTASSIUM 3.5 mEQ/L (3.4-4.9); SODIUM 141 mEQ/L (135-145); TOTAL PROTEIN 5.8 g/dL (6.6-8.7)
[2016-09-17 06:59] LABS: BILIRUBIN,DIRECT 0.4 mg/dL (0.1-0.3)
[2016-09-17 08:00] VITALS: BP 105/60
[2016-09-17 08:22] LABS: ERYTHROCYTE SEDIMENTATION RATE 95 MM/HR (0-30)
[2016-09-17] MEDS: Piperacillin/Tazobactam 3.375 GM in NS 110 ML IVPB SCH (08:50)
[2016-09-17] MEDS: Metoprolol 25mg tab ORAL SCH ×2 (08:51→20:23)
[2016-09-17] MEDS: Heparin 5000 units/ml inj SUBQ SCH ×2 (08:52→20:24)
--- NOTE | 2016-09-17 09:09 | Pulmonology Progress Note ---
Assessment/Plan Problems: (1) Sepsis (2) Gram-negative bacteremia (3) Acute encephalopathy (4) Hyperglycemia (5) Acute gastritis (6) Intractable vomiting (7) HTN (hypertension) (8) Diabetes mellitus Assessment/Plan continue antibiotics check cultures, GNB in blood, Klebsiella keep npo GI/ endo/ ID consult appreciated dc IV fluids check cxr and bnp in am monitor BP and heart rate. tolerating diet Subjective ROS Limited/Unobtainable: No Interval Events: was short of breath earlier , but now feeling better Constitutional: Reports: no symptoms Allergies: Coded Allergies: IODINE (Unverified Allergy, Unknown, 07/02/14) Objective Last 24 Hour Vital Signs Date Time Temp Pulse Resp B/P Pulse Ox O2 Delivery O2 Flow Rate FiO2 09/17/16 08:51 102 106/64 09/17/16 04:00 97 09/17/16 04:00 97.5 100 19 108/63 99 Nasal Cannula 4.0 09/17/16 00:00 99.3 60 19 126/53 95 Nasal Cannula 4.0 09/17/16 00:00 109 09/16/16 21:51 104 120/85 09/16/16 21:22 105 20 96 Nasal Cannula 4.0 09/16/16 21:22 104 20 99 Nasal Cannula 4.0 09/16/16 21:20 Nasal Cannula 4.0 09/16/16 21:20 97 Nasal Cannula 4.0 09/16/16 20:00 97.7 97 18 120/85 100 Nasal Cannula 3.0 09/16/16 20:00 110 09/16/16 17:00 97.9 89 16 107/50 92 Nasal Cannula 1.0 09/16/16 16:36 106 22 99 Nasal Cannula 4.0 09/16/16 16:35 108 24 96 Facial 40 09/16/16 16:29 105 24 96 Nasal Cannula 4.0 09/16/16 16:00 108 09/16/16 12:00 117 09/16/16 12:00 98.1 61 22 108/74 94 Nasal Cannula 3.0 09/16/16 09:45 103 22 97 Nasal Cannula 4.0 09/16/16 09:40 114 115/50 09/16/16 09:35 103 20 97 Nasal Cannula 4.0 36 Intake and Output 09/16/16 09/17/16 19:00 07:00 Intake Total 815.0 ml 1627.5 ml Output Total 150 ml Balance 665.0 ml 1627.5 ml Intake Oral 480 ml 720 ml IV Total 335.0 ml 907.5 ml Output Urine Total 150 ml # Bowel Movements 5 8 General Appearance: WD/WN HEENT: normocephalic, atraumatic Respiratory/Chest: chest wall non-tender, lungs clear Abdomen: normal bowel sounds, soft, non tender Genitourinary: normal external genitalia Extremities: no cyanosis Skin: no rash Microbiology Date/Time Source Procedure Growth Status 09/14/16 15:30 Blood Blood Culture - Final Klebsiella Pneumoniae Complete 09/14/16 15:15 Blood Blood Culture - Final Klebsiella Pneumoniae Complete 09/14/16 17:20 Urine,Clean Catch Urine Culture - Final Klebsiella Pneumoniae Complete Laboratory Tests 09/16/16 14:08: White Blood Count 15.6H, Red Blood Count 3.81L, Hemoglobin 11.4L, Hematocrit 34.3L, Mean Corpuscular Volume 90, Mean Corpuscular Hemoglobin 30.0, Mean Corpuscular Hemoglobin Concent 33.3, Red Cell Distribution Width 13.2, Platelet Count 173, Mean Platelet Volume 7.5, Neutrophils (%) (Auto) , Lymphocytes (%) ( Auto) , Monocytes (%) (Auto) , Eosinophils (%) (Auto) , Basophils (%) (Auto) , Differential Total Cells Counted 100, Neutrophils % (Manual) 79H, Lymphocytes % (Manual) 8L, Monocytes % (Manual) 2, Eosinophils % (Manual) 1, Basophils % ( Manual) 0, Band Neutrophils 10H, Platelet Estimate Adequate, Platelet Morphology Normal, Red Blood Cell Morphology Normal, Sodium Level 140, Potassium Level 3.5, Chloride Level 102, Carbon Dioxide Level 18L, Anion Gap 20H , Blood Urea Nitrogen 37H, Creatinine 1.9H, Estimat Glomerular Filtration Rate , Glucose Level 246H, Calcium Level 8.1L, Total Bilirubin 1.1, Direct Bilirubin 0.5H, Aspartate Amino Transf (AST/SGOT) 34, Alanine Aminotransferase (ALT/SGPT) 20, Alkaline Phosphatase 122H, Total Protein 6.0L, Albumin 2.6L, Globulin 3.4, Albumin/Globulin Ratio 0.7L 09/17/16 05:00: White Blood Count 12.4H, Red Blood Count 3.58L, Hemoglobin 10.8L, Hematocrit 32.4L, Mean Corpuscular Volume 91, Mean Corpuscular Hemoglobin 30.2, Mean Corpuscular Hemoglobin Concent 33.3, Red Cell Distribution Width 13.3, Platelet Count 160, Mean Platelet Volume 8.1, Neutrophils (%) (Auto) 81.2H, Lymphocytes ( %) (Auto) 12.2L, Monocytes (%) (Auto) 3.5, Eosinophils (%) (Auto) 2.7, Basophils (%) (Auto) 0.4, Sodium Level 141, Potassium Level 3.5, Chloride Level 105, Carbon Dioxide Level 19L, Anion Gap 17H, Blood Urea Nitrogen 33H, Creatinine 1.6H, Estimat Glomerular Filtration Rate , Glucose Level 155H, Calcium Level 8.0L, Total Bilirubin 1.1, Direct Bilirubin 0.4H, Aspartate Amino Transf (AST/SGOT) 27, Alanine Aminotransferase (ALT/SGPT) 17, Alkaline Phosphatase 172H, Total Protein 5.8L, Albumin 2.3L, Globulin 3.5, Albumin/ Globulin Ratio 0.6L, Erythrocyte Sedimentation Rate 95H, Phosphorus Level 2.5, Magnesium Level 1.5L, C-Reactive Protein, Quantitative 34.7H Current Medications Medications (Trade) Dose Ordered Sig/Cody Route PRN Reason Start Time Stop Time Status Last Admin Dose Admin Acetaminophen (Tylenol) 650 mg Q4H PRN ORAL T>100.5 09/15/16 10:00 10/15/16 09:59 09/16/16 03:03 Al Hydroxide/Mg Hydroxide (Mylanta II) 30 ml Q6H PRN ORAL dyspepsia 09/15/16 10:00 10/15/16 09:59 Albuterol/ Ipratropium (DuoNeb 0.5-3(2.5)mg/3ml) 3 ml Q4H PRN HHN Shortness of Breath 09/15/16 10:00 09/20/16 09:59 09/16/16 21:21 Clonidine HCl (Catapres) 0.1 mg Q4H PRN ORAL SBP>160 09/15/16 10:00 10/15/16 09:59 Dextrose (Dextrose 50%) STAT PRN IV Hypoglycemia 09/15/16 10:00 10/15/16 09:59 Docusate Sodium (Colace) 250 mg DAILY ORAL 09/17/16 09:00 10/17/16 08:59 Heparin Sodium (Porcine) (Heparin 5000 units/ml) 5,000 units EVERY 12 HOURS SUBQ 09/15/16 21:00 10/15/16 20:59 09/17/16 08:52 Insulin Aspart (NovoLOG) BEFORE MEALS AND HS SUBQ 09/15/16 11:30 10/15/16 11:29 09/17/16 06:37 Insulin Detemir 10 units 10 units Q12HR SUBQ 09/15/16 21:00 10/15/16 20:59 09/16/16 21:58 Levofloxacin (Levaquin) 50 ml @ 50 mls/hr Q24H IVPB 09/16/16 18:00 09/23/16 17:59 09/16/16 17:53 Lorazepam 1 mg 1 mg Q4H PRN IV For Anxiety 09/15/16 09:45 09/22/16 09:44 09/16/16 03:08 Metoprolol Tartrate (Lopressor) 25 mg Q12HR ORAL 09/15/16 10:00 10/15/16 09:59 09/17/16 08:51 Morphine Sulfate (Morphine Sulfate) 2 mg Q4H PRN IVP Severe Pain (Pain Scale 7-10) 09/15/16 10:00 09/22/16 09:59 09/16/16 16:32 Nitroglycerin (Ntg) 0.4 mg Q5M X 3 DOSES PRN SL Prn Chest Pain 09/15/16 09:15 10/15/16 09:14 Ondansetron HCl (Zofran) 4 mg Q6H PRN IVP Nausea & Vomiting 09/15/16 09:45 10/15/16 09:44 Piperacillin Sod/ Tazobactam Sod/ Sodium Chloride (Zosyn/Sodium Chloride) 110 ml @ 27.5 mls/hr Q12HR IVPB 09/15/16 16:00 09/22/16 15:59 09/17/16 08:50 Polyethylene Glycol 17 gm 17 gm BEDTIME ORAL 09/16/16 21:00 10/16/16 20:59 Sodium Chloride (Sodium Chloride 1000ml bag) 1,000 ml @ 75 mls/hr [id number] IVLG 09/16/16 13:00 10/16/16 12:59 09/17/16 07:42 Temazepam (Restoril) 15 mg HSPRN PRN ORAL Insomnia 09/15/16 21:00 09/22/16 20:59 ROGER LEE Sep 17, 2016 09:09
--- NOTE | 2016-09-17 09:11 | Infectious Diseases Prog Note ---
Assessment/Plan Assessment/Plan ASSESSMENT: 76 y/o female with: // Recurrent complicated K.pneumoniae UTI with bacteremia - CT A/P: bilateral punctate nonobstructing stones present within the kidneys. No hydronephrosis. Bilateral renal cysts. - h/o P.mirabilis // Sepsis // Leukocytosis - improved // Low grade fever x1 // ARF on CKD3 - improved // DM2, uncontrolled - HbA1c 12% // Morbid obesity // No ABX allergies // Full Code PLAN: - change levaquin, zosyn d# 2 to rocephin d# 1 ( ABX d# 2 / ) based on cultures. Ok to complete course with PO levaquin at discharge ( 09/16 SP flagyl d# 1 ) - f/u final cultures - monitor CBC, temperatures - monitor BMP - glucose control Subjective Allergies: Coded Allergies: IODINE (Unverified Allergy, Unknown, 07/02/14) Subjective low grade fever x1 BCx, UCx K.pneumoniae Objective Vital Signs Last 24 Hour Vital Signs Date Time Temp Pulse Resp B/P Pulse Ox O2 Delivery O2 Flow Rate FiO2 09/17/16 08:51 102 106/64 09/17/16 04:00 97 09/17/16 04:00 97.5 100 19 108/63 99 Nasal Cannula 4.0 09/17/16 00:00 99.3 60 19 126/53 95 Nasal Cannula 4.0 09/17/16 00:00 109 09/16/16 21:51 104 120/85 09/16/16 21:22 105 20 96 Nasal Cannula 4.0 09/16/16 21:22 104 20 99 Nasal Cannula 4.0 09/16/16 21:20 Nasal Cannula 4.0 09/16/16 21:20 97 Nasal Cannula 4.0 09/16/16 20:00 97.7 97 18 120/85 100 Nasal Cannula 3.0 09/16/16 20:00 110 09/16/16 17:00 97.9 89 16 107/50 92 Nasal Cannula 1.0 09/16/16 16:36 106 22 99 Nasal Cannula 4.0 09/16/16 16:35 108 24 96 Facial 40 09/16/16 16:29 105 24 96 Nasal Cannula 4.0 09/16/16 16:00 108 09/16/16 12:00 117 09/16/16 12:00 98.1 61 22 108/74 94 Nasal Cannula 3.0 09/16/16 09:45 103 22 97 Nasal Cannula 4.0 09/16/16 09:40 114 115/50 09/16/16 09:35 103 20 97 Nasal Cannula 4.0 36 Height (Feet): 5 Height (Inches): 1.00 Weight (Pounds): 200 General Appearance: no acute distress Respiratory/Chest: no respiratory distress Cardiovascular: normal rate, regular rhythm Abdomen: normal bowel sounds, soft, non tender, non distended Microbiology Date/Time Source Procedure Growth Status 09/14/16 15:30 Blood Blood Culture - Final Klebsiella Pneumoniae Complete 09/14/16 15:15 Blood Blood Culture - Final Klebsiella Pneumoniae Complete 09/14/16 17:20 Urine,Clean Catch Urine Culture - Final Klebsiella Pneumoniae Complete Laboratory Tests Test 09/16/16 14:08 09/17/16 05:00 White Blood Count 15.6 K/UL (4.8-10.8) H 12.4 K/UL (4.8-10.8) H Red Blood Count 3.81 M/UL (4.20-5.40) L 3.58 M/UL (4.20-5.40) L Hemoglobin 11.4 G/DL (12.0-16.0) L 10.8 G/DL (12.0-16.0) L Hematocrit 34.3 % (37.0-47.0) L 32.4 % (37.0-47.0) L Mean Corpuscular Volume 90 FL (80-99) 91 FL (80-99) Mean Corpuscular Hemoglobin 30.0 PG (27.0-31.0) 30.2 PG (27.0-31.0) Mean Corpuscular Hemoglobin Concent 33.3 G/DL (32.0-36.0) 33.3 G/DL (32.0-36.0) Red Cell Distribution Width 13.2 % (11.6-14.8) 13.3 % (11.6-14.8) Platelet Count 173 K/UL (150-450) 160 K/UL (150-450) Mean Platelet Volume 7.5 FL (6.5-10.1) 8.1 FL (6.5-10.1) Neutrophils (%) (Auto) % (45.0-75.0) 81.2 % (45.0-75.0) H Lymphocytes (%) (Auto) % (20.0-45.0) 12.2 % (20.0-45.0) L Monocytes (%) (Auto) % (1.0-10.0) 3.5 % (1.0-10.0) Eosinophils (%) (Auto) % (0.0-3.0) 2.7 % (0.0-3.0) Basophils (%) (Auto) % (0.0-2.0) 0.4 % (0.0-2.0) Differential Total Cells Counted 100 Neutrophils % (Manual) 79 % (45-75) H Lymphocytes % (Manual) 8 % (20-45) L Monocytes % (Manual) 2 % (1-10) Eosinophils % (Manual) 1 % (0-3) Basophils % (Manual) 0 % (0-2) Band Neutrophils 10 % (0-8) H Platelet Estimate Adequate Platelet Morphology Normal Red Blood Cell Morphology Normal Sodium Level 140 mEQ/L (135-145) 141 mEQ/L (135-145) Potassium Level 3.5 mEQ/L (3.4-4.9) 3.5 mEQ/L (3.4-4.9) Chloride Level 102 mEQ/L (98-107) 105 mEQ/L (98-107) Carbon Dioxide Level 18 mEQ/L (20-30) L 19 mEQ/L (20-30) L Anion Gap 20 (5-15) H 17 (5-15) H Blood Urea Nitrogen 37 mg/dL (7-23) H 33 mg/dL (7-23) H Creatinine 1.9 mg/dL (0.5-0.9) H 1.6 mg/dL (0.5-0.9) H Estimat Glomerular Filtration Rate mL/min (>60) mL/min (>60) Glucose Level 246 mg/dL (74-106) H 155 mg/dL (74-106) H Calcium Level 8.1 mg/dL (8.6-10.2) L 8.0 mg/dL (8.6-10.2) L Total Bilirubin 1.1 mg/dL (0.0-1.2) 1.1 mg/dL (0.0-1.2) Direct Bilirubin 0.5 mg/dL (0.1-0.3) H 0.4 mg/dL (0.1-0.3) H Aspartate Amino Transf (AST/SGOT) 34 U/L (5-40) 27 U/L (5-40) Alanine Aminotransferase (ALT/SGPT) 20 U/L (3-33) 17 U/L (3-33) Alkaline Phosphatase 122 U/L (35-104) H 172 U/L (35-104) H Total Protein 6.0 g/dL (6.6-8.7) L 5.8 g/dL (6.6-8.7) L Albumin 2.6 g/dL (3.5-5.2) L 2.3 g/dL (3.5-5.2) L Globulin 3.4 g/dL 3.5 g/dL Albumin/Globulin Ratio 0.7 (1.0-2.7) L 0.6 (1.0-2.7) L Erythrocyte Sedimentation Rate 95 MM/HR (0-30) H Phosphorus Level 2.5 mg/dL (2.5-4.8) Magnesium Level 1.5 mg/dL (1.7-2.5) L C-Reactive Protein, Quantitative 34.7 mg/dL (< 0.5) H Current Medications Medications (Trade) Dose Ordered Sig/Cody Route PRN Reason Start Time Stop Time Status Last Admin Dose Admin Acetaminophen (Tylenol) 650 mg Q4H PRN ORAL T>100.5 09/15/16 10:00 10/15/16 09:59 09/16/16 03:03 Al Hydroxide/Mg Hydroxide (Mylanta II) 30 ml Q6H PRN ORAL dyspepsia 09/15/16 10:00 10/15/16 09:59 Albuterol/ Ipratropium (DuoNeb 0.5-3(2.5)mg/3ml) 3 ml Q4H PRN HHN Shortness of Breath 09/15/16 10:00 09/20/16 09:59 09/16/16 21:21 Clonidine HCl (Catapres) 0.1 mg Q4H PRN ORAL SBP>160 09/15/16 10:00 10/15/16 09:59 Dextrose (Dextrose 50%) STAT PRN IV Hypoglycemia 09/15/16 10:00 10/15/16 09:59 Docusate Sodium (Colace) 250 mg DAILY ORAL 09/17/16 09:00 10/17/16 08:59 Heparin Sodium (Porcine) (Heparin 5000 units/ml) 5,000 units EVERY 12 HOURS SUBQ 09/15/16 21:00 10/15/16 20:59 09/17/16 08:52 Insulin Aspart (NovoLOG) BEFORE MEALS AND HS SUBQ 09/15/16 11:30 10/15/16 11:29 09/17/16 06:37 Insulin Detemir 10 units 10 units Q12HR SUBQ 09/15/16 21:00 10/15/16 20:59 09/16/16 21:58 Levofloxacin (Levaquin) 50 ml @ 50 mls/hr Q24H IVPB 09/16/16 18:00 09/23/16 17:59 09/16/16 17:53 Lorazepam (Ativan 2mg/ml 1ml) 1 mg Q4H PRN IV For Anxiety 09/15/16 09:45 09/22/16 09:44 09/16/16 03:08 Metoprolol Tartrate (Lopressor) 25 mg Q12HR ORAL 09/15/16 10:00 10/15/16 09:59 09/17/16 08:51 Morphine Sulfate (Morphine Sulfate) 2 mg Q4H PRN IVP Severe Pain (Pain Scale 7-10) 09/15/16 10:00 09/22/16 09:59 09/16/16 16:32 Nitroglycerin (Ntg) 0.4 mg Q5M X 3 DOSES PRN SL Prn Chest Pain 09/15/16 09:15 10/15/16 09:14 Ondansetron HCl (Zofran) 4 mg Q6H PRN IVP Nausea & Vomiting 09/15/16 09:45 10/15/16 09:44 Piperacillin Sod/ Tazobactam Sod/ Sodium Chloride (Zosyn/Sodium Chloride) 110 ml @ 27.5 mls/hr Q12HR IVPB 09/15/16 16:00 09/22/16 15:59 09/17/16 08:50 Polyethylene Glycol 17 gm 17 gm BEDTIME ORAL 09/16/16 21:00 10/16/16 20:59 Temazepam (Restoril) 15 mg HSPRN PRN ORAL Insomnia 09/15/16 21:00 09/22/16 20:59 LEIGHANN DE ANDA Sep 17, 2016 09:11
[2016-09-17] MEDS: Levemir Flexpen SUBQ SCH ×2 (10:15→20:25)
[2016-09-17 12:00] VITALS: BP 95/61
[2016-09-17] MEDS: cefTRIAXone 1 GM in D5W 55 ML IVPB SCH (12:06)
--- NOTE | 2016-09-17 13:17 | General Progress Note ---
Assessment/Plan Assessment/Plan Assessment/Plan Problems: (1) Sepsis (2) Gram-negative bacteremia (3) Acute encephalopathy (4) Hyperglycemia (5) Acute gastritis (6) Intractable vomiting (7) HTN (hypertension) (8) Diabetes mellitus (9) Hiatal hernia (10) Diverticulosis (11) nephrolithiasis Assessment/Plan continue antibiotics push po diet follow labs elevate HOB check GGT Subjective Allergies: Coded Allergies: IODINE (Unverified Allergy, Unknown, 07/02/14) Subjective Awake minimally interactive d/w RN poor PO (clear liquid diet) Objective Last 24 Hour Vital Signs Date Time Temp Pulse Resp B/P Pulse Ox O2 Delivery O2 Flow Rate FiO2 09/17/16 10:31 109 09/17/16 09:25 96 Nasal Cannula 4.0 09/17/16 09:25 Nasal Cannula 4.0 09/17/16 08:51 102 106/64 09/17/16 08:00 103 22 105/60 Nasal Cannula 4.0 09/17/16 04:00 97 09/17/16 04:00 97.5 100 19 108/63 99 Nasal Cannula 4.0 09/17/16 00:00 99.3 60 19 126/53 95 Nasal Cannula 4.0 09/17/16 00:00 109 09/16/16 21:51 104 120/85 09/16/16 21:22 105 20 96 Nasal Cannula 4.0 09/16/16 21:22 104 20 99 Nasal Cannula 4.0 09/16/16 21:20 Nasal Cannula 4.0 09/16/16 21:20 97 Nasal Cannula 4.0 09/16/16 20:00 97.7 97 18 120/85 100 Nasal Cannula 3.0 09/16/16 20:00 110 09/16/16 17:00 97.9 89 16 107/50 92 Nasal Cannula 1.0 09/16/16 16:36 106 22 99 Nasal Cannula 4.0 09/16/16 16:35 108 24 96 Facial 40 09/16/16 16:29 105 24 96 Nasal Cannula 4.0 09/16/16 16:00 108 Intake and Output 09/16/16 09/17/16 19:00 07:00 Intake Total 815.0 ml 1627.5 ml Output Total 150 ml Balance 665.0 ml 1627.5 ml Intake Oral 480 ml 720 ml IV Total 335.0 ml 907.5 ml Output Urine Total 150 ml # Bowel Movements 5 8 Laboratory Tests 09/16/16 14:08: White Blood Count 15.6H, Red Blood Count 3.81L, Hemoglobin 11.4L, Hematocrit 34.3L, Mean Corpuscular Volume 90, Mean Corpuscular Hemoglobin 30.0, Mean Corpuscular Hemoglobin Concent 33.3, Red Cell Distribution Width 13.2, Platelet Count 173, Mean Platelet Volume 7.5, Neutrophils (%) (Auto) , Lymphocytes (%) ( Auto) , Monocytes (%) (Auto) , Eosinophils (%) (Auto) , Basophils (%) (Auto) , Differential Total Cells Counted 100, Neutrophils % (Manual) 79H, Lymphocytes % (Manual) 8L, Monocytes % (Manual) 2, Eosinophils % (Manual) 1, Basophils % ( Manual) 0, Band Neutrophils 10H, Platelet Estimate Adequate, Platelet Morphology Normal, Red Blood Cell Morphology Normal, Sodium Level 140, Potassium Level 3.5, Chloride Level 102, Carbon Dioxide Level 18L, Anion Gap 20H , Blood Urea Nitrogen 37H, Creatinine 1.9H, Estimat Glomerular Filtration Rate , Glucose Level 246H, Calcium Level 8.1L, Total Bilirubin 1.1, Direct Bilirubin 0.5H, Aspartate Amino Transf (AST/SGOT) 34, Alanine Aminotransferase (ALT/SGPT) 20, Alkaline Phosphatase 122H, Total Protein 6.0L, Albumin 2.6L, Globulin 3.4, Albumin/Globulin Ratio 0.7L 09/17/16 05:00: White Blood Count 12.4H, Red Blood Count 3.58L, Hemoglobin 10.8L, Hematocrit 32.4L, Mean Corpuscular Volume 91, Mean Corpuscular Hemoglobin 30.2, Mean Corpuscular Hemoglobin Concent 33.3, Red Cell Distribution Width 13.3, Platelet Count 160, Mean Platelet Volume 8.1, Neutrophils (%) (Auto) 81.2H, Lymphocytes ( %) (Auto) 12.2L, Monocytes (%) (Auto) 3.5, Eosinophils (%) (Auto) 2.7, Basophils (%) (Auto) 0.4, Sodium Level 141, Potassium Level 3.5, Chloride Level 105, Carbon Dioxide Level 19L, Anion Gap 17H, Blood Urea Nitrogen 33H, Creatinine 1.6H, Estimat Glomerular Filtration Rate , Glucose Level 155H, Calcium Level 8.0L, Total Bilirubin 1.1, Direct Bilirubin 0.4H, Aspartate Amino Transf (AST/SGOT) 27, Alanine Aminotransferase (ALT/SGPT) 17, Alkaline Phosphatase 172H, Total Protein 5.8L, Albumin 2.3L, Globulin 3.5, Albumin/ Globulin Ratio 0.6L, Erythrocyte Sedimentation Rate 95H, Phosphorus Level 2.5, Magnesium Level 1.5L, C-Reactive Protein, Quantitative 34.7H Height (Feet): 5 Height (Inches): 1.00 Weight (Pounds): 200 Objective WDWN AA woman NCAT supple CTA RRR soft ND mild diffuse abd TTP no edema MATTHEW JACOBS Sep 17, 2016 13:17
[2016-09-17] MEDS: DuoNeb 0.5-3(2.5)mg/3ml neb HHN PRN (13:20)
--- NOTE | 2016-09-17 13:30 | Consultation ---
Consult Note Consult Note asked to eval for renal failure- Cr 1.2 fausto to 1.9 Patient confused non historian examined- data reviewed CT: Bilateral nonobstructive nephrolithiasis. Hiatal hernia Cardiomegaly Atherosclerotic vascular disease Diverticulosis of the colon Umbilical region hernia containing fat Status post cholecystectomy Spondylosis Assessment/Plan Acute renal failure multifactorial sepsis- Hypotension- Dm- Medications (1) Sepsis (2) Gram-negative bacteremia (3) Acute encephalopathy (4) Hyperglycemia (5) Acute gastritis (6) Intractable vomiting (7) HTN (hypertension) (8) Diabetes mellitus Plan; Urine studies- fluid challenge- Monitor renal parameters- TIMOTHY PEREZ Sep 17, 2016 13:30
[2016-09-17] MEDS ORDERED: Sterile Water Irrig 1000ml IRRIG ONE (13:50)
[2016-09-17] MEDS ORDERED: Tubing IV Secondary IV ONE (13:50)
[2016-09-17] MEDS ORDERED: NS 275ml ONE (13:50)
[2016-09-17] MEDS: Pantoprazole Inj IVP SCH (14:42)
[2016-09-17 16:00] VITALS: BP 108/65
--- NOTE | 2016-09-17 19:09 | Cardiology Report ---
APPROVED REPORT EKG Measurement Heart [id number] NH [id number] Sinus tachycardia with premature atrial complexes Low voltage QRS Borderline ECG
[2016-09-17] MEDS ORDERED: Heparin 25,000u/D5W 500ml 500 ML IV SCH (19:30)
[2016-09-17 20:00] VITALS: BP 113/63
[2016-09-17] MEDS: Miralax 17gm pkt ORAL SCH (20:23)
[2016-09-18] VITALS: BP 121/69
[2016-09-18 04:00] VITALS: BP 117/67
--- NOTE | 2016-09-18 04:38 | Consultation ---
DATE OF CONSULTATION: 09/15/2016 ENDOCRINOLOGY CONSULTATION REFERRING PHYSICIAN: Sharad Flanagan M.D. REASON FOR CONSULTATION: Diabetes management. HISTORY OF PRESENT ILLNESS: The patient is a 76-year-old female with a history of recurrent UTI, uncontrolled diabetes, and noncompliance with medications, and A1c of 12, who presented to the hospital with nausea, vomiting and dysuria. The patient was found to have gram-negative luis alberto, urinary tract infection with bacteremia. CT of the abdomen and pelvis showed bilateral nonobstructing kidney stones and without hydronephrosis. The patient was noted to have leukocytosis. Endocrinology was consulted in order to manage her diabetes. PAST MEDICAL HISTORY: 1. Uncontrolled diabetes, metformin b.i.d. as well as Levemir 25 units b.i.d. as an outpatient. 2. Hypertension. 3. Diverticulosis. 4. Nephrolithiasis. 5. Hiatal hernia. 6. Chronic kidney disease. PAST SURGICAL HISTORY: 1. Cholecystectomy. 2. Appendectomy. MEDICATIONS: Reviewed in history of present illness and also reviewed and reconciled in the chart. ALLERGIES: Iodine. SOCIAL HISTORY: No smoking, alcohol or drug abuse. FAMILY HISTORY: Diabetes. PHYSICAL EXAMINATION: VITAL SIGNS: Temperature is 97.5 degrees, pulse 102, blood pressure 106/64, and respiratory rate 19. HEENT: Pupils are round and reactive to light. Sclerae are anicteric. NECK: No JVD. No thyromegaly. LUNGS: Clear. HEART: Regular rate and rhythm. ABDOMEN: Positive bowel sounds. EXTREMITIES: Trace edema. LABORATORY AND DIAGNOSTIC DATA: WBC 12, hemoglobin 10, hematocrit 32 and platelets of 160,000. Sodium 141, potassium 3.5, chloride 105, bicarbonate 19, BUN 33, creatinine 1.6 and glucose of 155. DIAGNOSES: 1. Urinary tract infection. 2. Sepsis. 3. Acute kidney injury on chronic kidney disease. 4. Diabetes, out of control. PLAN: 1. Discontinue metformin. 2. Start Starlix 120 mg before each meal. 3. Increase Levemir to 13 units b.i.d. 4. continue Novolog sliding scale ac / hs Thank you, Dr. Flanagan, for the courtesy of this consultation. Sourav Salmeron M.D. DR: VANE JOB#: [id number] CC: [id number]
[2016-09-18 04:56] LABS: BASOPHILS % (AUTO) 1.1 % (0.0-2.0); EOSINOPHILS % (AUTO) 4.5 % (0.0-3.0); LYMPHOCYTES % (AUTO) 23.2 % (20.0-45.0); MEAN CORPUSCULAR HEMOGLOBIN 31.1 PG (27.0-31.0); MEAN CORPUSCULAR HGB CONC 34.2 G/DL (32.0-36.0); MEAN CORPUSCULAR VOLUME 91 FL (80-99); MEAN PLATELET VOLUME 8.2 FL (6.5-10.1); MONOCYTES % (AUTO) 9.3 % (1.0-10.0); NEUTROPHILS % (AUTO) 61.9 % (45.0-75.0); PLATELET COUNT 156 K/UL (150-450); RED BLOOD COUNT 3.48 M/UL (4.20-5.40); RED CELL DISTRIBUTION WIDTH 13.8 % (11.6-14.8); WHITE BLOOD COUNT 9.3 K/UL (4.8-10.8)
[2016-09-18 05:48] LABS: HEMOGLOBIN A1C 11.9 % (< 6.0)
[2016-09-18 05:57] LABS: CHOLESTEROL/HDL RATIO 12.4 (3.3-4.4); MAGNESIUM 1.5 mg/dL (1.7-2.5); PHOSPHORUS 2.1 mg/dL (2.5-4.8); URIC ACID 4.1 mg/dL (3.0-7.5)
[2016-09-18 05:59] LABS: ALANINE AMINOTRANSFERASE 13 U/L (3-33); ALBUMIN/GLOBULIN RATIO 0.6 (1.0-2.7); ANION GAP 15 (5-15); ASPARTATE AMINO TRANSFERASE 17 U/L (5-40); CALCIUM 7.7 mg/dL (8.6-10.2); CARBON DIOXIDE 19 mEQ/L (20-30); CHLORIDE 106 mEQ/L (98-107); CREATININE 1.2 mg/dL (0.5-0.9); HEMOLYSIS 4; POTASSIUM 3.5 mEQ/L (3.4-4.9); SODIUM 140 mEQ/L (135-145); TOTAL PROTEIN 5.6 g/dL (6.6-8.7)
[2016-09-18] MEDS: NovoLOG Insulin Flexpen SUBQ SCH ×4 (06:01→22:01)
[2016-09-18 08:00] VITALS: BP 120/65
[2016-09-18] MEDS: Docusate 250mg cap ORAL SCH (08:34)
[2016-09-18] MEDS: Metoprolol 25mg tab ORAL SCH ×2 (08:35→21:40)
[2016-09-18] MEDS: Pantoprazole Inj IVP SCH (08:35)
[2016-09-18] MEDS: Levemir Flexpen SUBQ SCH ×2 (08:36→22:03)
[2016-09-18] MEDS: Heparin 5000 units/ml inj SUBQ SCH ×2 (08:37→21:50)
--- NOTE | 2016-09-18 09:02 | Infectious Diseases Prog Note ---
Assessment/Plan Assessment/Plan ASSESSMENT: 76 y/o female with: // Recurrent complicated K.pneumoniae UTI with bacteremia - CT A/P: bilateral punctate nonobstructing stones present within the kidneys. No hydronephrosis. Bilateral renal cysts. - h/o P.mirabilis // Sepsis SP // Leukocytosis - resolved // Low grade fever x1 - resolved // ARF on CKD3 - improved // DM2, uncontrolled - HbA1c 12% // Morbid obesity // No ABX allergies // Full Code PLAN: - continue rocephin d# 2 ( ABX d# ). Ok to complete course with PO levaquin at discharge ( 09/17 SP levaquin, zosyn d# 2 ) ( 09/16 SP flagyl d# 1 ) - monitor CBC, temperatures, re-culture if acute change - monitor BMP - glucose control Subjective Allergies: Coded Allergies: IODINE (Unverified Allergy, Unknown, 07/02/14) Subjective fevers, leukocytosis resolved Objective Vital Signs Last 24 Hour Vital Signs Date Time Temp Pulse Resp B/P Pulse Ox O2 Delivery O2 Flow Rate FiO2 09/18/16 08:35 94 120/65 09/18/16 08:14 Nasal Cannula 4.0 09/18/16 08:14 98 Nasal Cannula 4.0 09/18/16 04:00 97.9 91 20 117/67 99 Nasal Cannula 3.0 09/18/16 04:00 98 09/18/16 00:00 86 09/18/16 00:00 98.1 75 20 121/69 99 Nasal Cannula 3.0 09/17/16 20:23 84 104/66 09/17/16 20:00 97.9 52 24 113/63 99 Nasal Cannula 3.0 09/17/16 20:00 98 09/17/16 19:09 98 Nasal Cannula 4.0 09/17/16 19:09 Nasal Cannula 4.0 09/17/16 16:00 93 09/17/16 16:00 97.7 91 18 108/65 100 Nasal Cannula 3.0 09/17/16 13:29 103 20 99 Nasal Cannula 4.0 09/17/16 13:21 102 20 98 Nasal Cannula 4.0 09/17/16 12:00 98.2 22 95/61 98 Nasal Cannula 3.0 09/17/16 10:31 109 09/17/16 09:25 96 Nasal Cannula 4.0 09/17/16 09:25 Nasal Cannula 4.0 Height (Feet): 5 Height (Inches): 1.00 Weight (Pounds): 200 General Appearance: no acute distress Respiratory/Chest: no respiratory distress Cardiovascular: normal rate, regular rhythm Abdomen: normal bowel sounds, soft, non tender, non distended Laboratory Tests Test 09/18/16 02:30 09/18/16 03:25 Urine Eosinophils None seen Urine Random Sodium 27 mmol/L White Blood Count 9.3 K/UL (4.8-10.8) Red Blood Count 3.48 M/UL (4.20-5.40) L Hemoglobin 10.8 G/DL (12.0-16.0) L Hematocrit 31.7 % (37.0-47.0) L Mean Corpuscular Volume 91 FL (80-99) Mean Corpuscular Hemoglobin 31.1 PG (27.0-31.0) H Mean Corpuscular Hemoglobin Concent 34.2 G/DL (32.0-36.0) Red Cell Distribution Width 13.8 % (11.6-14.8) Platelet Count 156 K/UL (150-450) Mean Platelet Volume 8.2 FL (6.5-10.1) Neutrophils (%) (Auto) 61.9 % (45.0-75.0) Lymphocytes (%) (Auto) 23.2 % (20.0-45.0) Monocytes (%) (Auto) 9.3 % (1.0-10.0) Eosinophils (%) (Auto) 4.5 % (0.0-3.0) H Basophils (%) (Auto) 1.1 % (0.0-2.0) Sodium Level 140 mEQ/L (135-145) Potassium Level 3.5 mEQ/L (3.4-4.9) Chloride Level 106 mEQ/L (98-107) Carbon Dioxide Level 19 mEQ/L (20-30) L Anion Gap 15 (5-15) Blood Urea Nitrogen 26 mg/dL (7-23) H Creatinine 1.2 mg/dL (0.5-0.9) H Estimat Glomerular Filtration Rate mL/min (>60) Glucose Level 215 mg/dL (74-106) H Hemoglobin A1c 11.9 % (< 6.0) H Uric Acid 4.1 mg/dL (3.0-7.5) Calcium Level 7.7 mg/dL (8.6-10.2) L Phosphorus Level 2.1 mg/dL (2.5-4.8) L Magnesium Level 1.5 mg/dL (1.7-2.5) L Total Bilirubin 0.9 mg/dL (0.0-1.2) Gamma Glutamyl Transpeptidase 97 U/L (5-36) H Aspartate Amino Transf (AST/SGOT) 17 U/L (5-40) Alanine Aminotransferase (ALT/SGPT) 13 U/L (3-33) Alkaline Phosphatase 182 U/L (35-104) H Total Creatine Kinase 24 U/L (26-140) L C-Reactive Protein, Quantitative 20.0 mg/dL (< 0.5) H Pro-B-Type Natriuretic Peptide 3271 pg/mL (0-450) H Total Protein 5.6 g/dL (6.6-8.7) L Albumin 2.1 g/dL (3.5-5.2) L Globulin 3.5 g/dL Albumin/Globulin Ratio 0.6 (1.0-2.7) L Triglycerides Level 119 mg/dL (< 150) Cholesterol Level 112 mg/dL (< 200) LDL Cholesterol 79 mg/dL (60-99) HDL Cholesterol 9 mg/dL (> 60) Cholesterol/HDL Ratio 12.4 (3.3-4.4) H Current Medications Medications (Trade) Dose Ordered Sig/Cody Route PRN Reason Start Time Stop Time Status Last Admin Dose Admin Acetaminophen (Tylenol) 650 mg Q4H PRN ORAL T>100.5 09/15/16 10:00 10/15/16 09:59 09/16/16 03:03 Albuterol/ Ipratropium (DuoNeb 0.5-3(2.5)mg/3ml) 3 ml Q4H PRN HHN Shortness of Breath 09/15/16 10:00 09/20/16 09:59 09/17/16 13:20 Ceftriaxone Sodium/Dextrose (Rocephin/D5W) 55 ml @ 110 mls/hr Q24H IVPB 09/17/16 11:00 09/24/16 10:59 09/17/16 12:06 Clonidine HCl (Catapres) 0.1 mg Q4H PRN ORAL SBP>160 09/15/16 10:00 10/15/16 09:59 Dextrose (Dextrose 50%) STAT PRN IV Hypoglycemia 09/15/16 10:00 10/15/16 09:59 Docusate Sodium (Colace) 250 mg DAILY ORAL 09/17/16 09:00 10/17/16 08:59 09/18/16 08:34 Heparin Sodium (Porcine) (Heparin 5000 units/ml) 5,000 units EVERY 12 HOURS SUBQ 09/15/16 21:00 10/15/16 20:59 09/18/16 08:37 Insulin Aspart (NovoLOG) BEFORE MEALS AND HS SUBQ 09/15/16 11:30 10/15/16 11:29 09/18/16 06:01 Insulin Detemir (Levemir) 13 units Q12HR SUBQ 09/17/16 09:45 10/17/16 09:44 09/18/16 08:36 Lorazepam (Ativan 2mg/ml 1ml) 1 mg Q4H PRN IV For Anxiety 09/15/16 09:45 09/22/16 09:44 09/16/16 03:08 Metoprolol Tartrate (Lopressor) 25 mg Q12HR ORAL 09/15/16 10:00 10/15/16 09:59 09/18/16 08:35 Morphine Sulfate (Morphine Sulfate) 2 mg Q4H PRN IVP Severe Pain (Pain Scale 7-10) 09/15/16 10:00 09/22/16 09:59 09/16/16 16:32 Nateglinide (Starlix) 120 mg TIAC ORAL 09/17/16 11:30 10/17/16 11:29 09/18/16 06:00 Nitroglycerin (Ntg) 0.4 mg Q5M X 3 DOSES PRN SL Prn Chest Pain 09/15/16 09:15 10/15/16 09:14 Ondansetron HCl (Zofran) 4 mg Q6H PRN IVP Nausea & Vomiting 09/15/16 09:45 10/15/16 09:44 Pantoprazole (Protonix) 40 mg DAILY IVP 09/17/16 14:00 10/17/16 13:59 09/18/16 08:35 Polyethylene Glycol 17 gm 17 gm BEDTIME ORAL 09/16/16 21:00 10/16/16 20:59 09/17/16 20:23 Temazepam (Restoril) 15 mg HSPRN PRN ORAL Insomnia 09/15/16 21:00 09/22/16 20:59 LEIGHANN DE ANDA Sep 18, 2016 09:02
[2016-09-18] MEDS: cefTRIAXone 1 GM in D5W 55 ML IVPB SCH (10:24)
--- NOTE | 2016-09-18 10:51 | General Progress Note ---
Assessment/Plan Problem List: (1) Diabetes mellitus ICD Codes: E11.9 - Type 2 diabetes mellitus without complications SNOMED: 12396910 (2) HTN (hypertension) ICD Codes: I10 - Essential (primary) hypertension SNOMED: 44345431 (3) Hyperglycemia ICD Codes: R73.9 - Hyperglycemia, unspecified SNOMED: 13005503 (4) Gram-negative bacteremia ICD Codes: R78.81 - Bacteremia SNOMED: 090210946421 (5) Sepsis ICD Codes: A41.9 - Sepsis, unspecified organism SNOMED: 26906395 (6) UTI (urinary tract infection) ICD Codes: N39.0 - Urinary tract infection, site not specified SNOMED: 19653876 Assessment/Plan MARIBETH improved and creatinine is down to 1.2 add Metformin 500 mg tid continue Starlix 120 mg ac tid continue Levemir 13 unit bid + SSI w/ Novolog Subjective Allergies: Coded Allergies: IODINE (Unverified Allergy, Unknown, 07/02/14) All Systems: reviewed and negative except above Subjective events noted she is improving Objective Last 24 Hour Vital Signs Date Time Temp Pulse Resp B/P Pulse Ox O2 Delivery O2 Flow Rate FiO2 09/18/16 08:35 94 120/65 09/18/16 08:14 Nasal Cannula 4.0 09/18/16 08:14 98 Nasal Cannula 4.0 09/18/16 08:00 97 09/18/16 08:00 98.1 94 21 120/65 100 Nasal Cannula 3.0 09/18/16 04:00 97.9 91 20 117/67 99 Nasal Cannula 3.0 09/18/16 04:00 98 09/18/16 00:00 86 09/18/16 00:00 98.1 75 20 121/69 99 Nasal Cannula 3.0 09/17/16 20:23 84 104/66 09/17/16 20:00 97.9 52 24 113/63 99 Nasal Cannula 3.0 09/17/16 20:00 98 09/17/16 19:09 98 Nasal Cannula 4.0 09/17/16 19:09 Nasal Cannula 4.0 09/17/16 16:00 93 09/17/16 16:00 97.7 91 18 108/65 100 Nasal Cannula 3.0 09/17/16 13:29 103 20 99 Nasal Cannula 4.0 09/17/16 13:21 102 20 98 Nasal Cannula 4.0 09/17/16 12:00 98.2 22 95/61 98 Nasal Cannula 3.0 Intake and Output 09/17/16 09/18/16 19:00 07:00 Intake Total 500 ml Output Total 1500 ml 1300 ml Balance -1000 ml -1300 ml Intake Oral 500 ml Output Urine Total 1500 ml 1300 ml # Bowel Movements 5 2 Laboratory Tests 09/18/16 02:30: Urine Eosinophils None seen, Urine Random Sodium 27 09/18/16 03:25: White Blood Count 9.3, Red Blood Count 3.48L, Hemoglobin 10.8L, Hematocrit 31.7L , Mean Corpuscular Volume 91, Mean Corpuscular Hemoglobin 31.1H, Mean Corpuscular Hemoglobin Concent 34.2, Red Cell Distribution Width 13.8, Platelet Count 156, Mean Platelet Volume 8.2, Neutrophils (%) (Auto) 61.9, Lymphocytes (% ) (Auto) 23.2, Monocytes (%) (Auto) 9.3, Eosinophils (%) (Auto) 4.5H, Basophils (%) (Auto) 1.1, Sodium Level 140, Potassium Level 3.5, Chloride Level 106, Carbon Dioxide Level 19L, Anion Gap 15, Blood Urea Nitrogen 26H, Creatinine 1.2H , Estimat Glomerular Filtration Rate , Glucose Level 215H, Hemoglobin A1c 11.9H , Uric Acid 4.1, Calcium Level 7.7L, Phosphorus Level 2.1L, Magnesium Level 1.5L , Total Bilirubin 0.9, Gamma Glutamyl Transpeptidase 97H, Aspartate Amino Transf (AST/SGOT) 17, Alanine Aminotransferase (ALT/SGPT) 13, Alkaline Phosphatase 182H, Total Creatine Kinase 24L, C-Reactive Protein, Quantitative 20.0H, Pro-B-Type Natriuretic Peptide 3271H, Total Protein 5.6L, Albumin 2.1L, Globulin 3.5, Albumin/Globulin Ratio 0.6L, Triglycerides Level 119, Cholesterol Level 112, LDL Cholesterol 79, HDL Cholesterol 9, Cholesterol/HDL Ratio 12.4H Height (Feet): 5 Height (Inches): 1.00 Weight (Pounds): 200 General Appearance: no apparent distress Neck: normal alignment Cardiovascular: normal rate Respiratory/Chest: chest wall non-tender Pelvis: normal external exam Edema: no edema noted Arm (L), no edema noted Arm (R), no edema noted Leg (L), no edema noted Leg (R), no edema noted Pedal (L), no edema noted Pedal (R), no edema noted Generalized Objective Current Medications Medications (Trade) Dose Ordered Sig/Cody Route PRN Reason Start Time Stop Time Status Last Admin Dose Admin Acetaminophen (Tylenol) 650 mg Q4H PRN ORAL T>100.5 09/15/16 10:00 10/15/16 09:59 09/16/16 03:03 Albuterol/ Ipratropium (DuoNeb 0.5-3(2.5)mg/3ml) 3 ml Q4H PRN HHN Shortness of Breath 09/15/16 10:00 09/20/16 09:59 09/17/16 13:20 Ceftriaxone Sodium/Dextrose (Rocephin/D5W) 55 ml @ 110 mls/hr Q24H IVPB 09/17/16 11:00 09/24/16 10:59 09/18/16 10:24 Clonidine HCl (Catapres) 0.1 mg Q4H PRN ORAL SBP>160 09/15/16 10:00 10/15/16 09:59 Dextrose (Dextrose 50%) STAT PRN IV Hypoglycemia 09/15/16 10:00 10/15/16 09:59 Docusate Sodium (Colace) 250 mg DAILY ORAL 09/17/16 09:00 10/17/16 08:59 09/18/16 08:34 Heparin Sodium (Porcine) (Heparin 5000 units/ml) 5,000 units EVERY 12 HOURS SUBQ 09/15/16 21:00 10/15/16 20:59 09/18/16 08:37 Insulin Aspart (NovoLOG) BEFORE MEALS AND HS SUBQ 09/15/16 11:30 10/15/16 11:29 09/18/16 06:01 Insulin Detemir (Levemir) 13 units Q12HR SUBQ 09/17/16 09:45 10/17/16 09:44 09/18/16 08:36 Lorazepam (Ativan 2mg/ml 1ml) 1 mg Q4H PRN IV For Anxiety 09/15/16 09:45 09/22/16 09:44 09/16/16 03:08 Metoprolol Tartrate (Lopressor) 25 mg Q12HR ORAL 09/15/16 10:00 10/15/16 09:59 09/18/16 08:35 Morphine Sulfate (Morphine Sulfate) 2 mg Q4H PRN IVP Severe Pain (Pain Scale 7-10) 09/15/16 10:00 09/22/16 09:59 09/16/16 16:32 Nateglinide (Starlix) 120 mg TIAC ORAL 09/17/16 11:30 10/17/16 11:29 09/18/16 06:00 Nitroglycerin (Ntg) 0.4 mg Q5M X 3 DOSES PRN SL Prn Chest Pain 09/15/16 09:15 10/15/16 09:14 Ondansetron HCl (Zofran) 4 mg Q6H PRN IVP Nausea & Vomiting 09/15/16 09:45 10/15/16 09:44 Pantoprazole (Protonix) 40 mg DAILY IVP 09/17/16 14:00 10/17/16 13:59 09/18/16 08:35 Polyethylene Glycol 17 gm 17 gm BEDTIME ORAL 09/16/16 21:00 10/16/16 20:59 09/17/16 20:23 Temazepam (Restoril) 15 mg HSPRN PRN ORAL Insomnia 09/15/16 21:00 09/22/16 20:59 Item Value Date Time Bedside Blood Glucose 183 mg/dl H 09/18/16 0836 Bedside Blood Glucose 183 mg/dl H 09/18/16 0601 Bedside Blood Glucose 213 mg/dl H 09/17/16 1655 Bedside Blood Glucose 192 mg/dl H 09/17/16 1226 Bedside Blood Glucose 148 mg/dl H 09/17/16 1015 EDGAR SHARIF 26, 2017 10:50
[2016-09-18] MEDS: metFORMIN 500mg tab ORAL SCH ×2 (11:33→16:56)
[2016-09-18 12:00] VITALS: BP 118/61
--- NOTE | 2016-09-18 12:40 | General Progress Note ---
Assessment/Plan Status: stable - from renal stand Status Narrative Cr back to baseline Assessment/Plan Acute renal failure multifactorial sepsis- Hypotension- Dm- Medications (1) Sepsis (2) Gram-negative bacteremia (3) Acute encephalopathy (4) Hyperglycemia (5) Acute gastritis (6) Intractable vomiting (7) HTN (hypertension) (8) Diabetes mellitus Plan; pulm support antibiotics Monitor renal parameters- avoid nephrotoxics Subjective ROS Limited/Unobtainable: No Constitutional: Reports: malaise, weakness Allergies: Coded Allergies: IODINE (Unverified Allergy, Unknown, 07/02/14) Objective Last 24 Hour Vital Signs Date Time Temp Pulse Resp B/P Pulse Ox O2 Delivery O2 Flow Rate FiO2 09/18/16 08:35 94 120/65 09/18/16 08:14 Nasal Cannula 4.0 09/18/16 08:14 98 Nasal Cannula 4.0 09/18/16 08:00 97 09/18/16 08:00 98.1 94 21 120/65 100 Nasal Cannula 3.0 09/18/16 04:00 97.9 91 20 117/67 99 Nasal Cannula 3.0 09/18/16 04:00 98 09/18/16 00:00 86 09/18/16 00:00 98.1 75 20 121/69 99 Nasal Cannula 3.0 09/17/16 20:23 84 104/66 09/17/16 20:00 97.9 52 24 113/63 99 Nasal Cannula 3.0 09/17/16 20:00 98 09/17/16 19:09 98 Nasal Cannula 4.0 09/17/16 19:09 Nasal Cannula 4.0 09/17/16 16:00 93 09/17/16 16:00 97.7 91 18 108/65 100 Nasal Cannula 3.0 09/17/16 13:29 103 20 99 Nasal Cannula 4.0 09/17/16 13:21 102 20 98 Nasal Cannula 4.0 Intake and Output 09/17/16 09/18/16 19:00 07:00 Intake Total 500 ml Output Total 1500 ml 1300 ml Balance -1000 ml -1300 ml Intake Oral 500 ml Output Urine Total 1500 ml 1300 ml # Bowel Movements 5 2 Laboratory Tests 09/18/16 02:30: Urine Eosinophils None seen, Urine Random Sodium 27 09/18/16 03:25: White Blood Count 9.3, Red Blood Count 3.48L, Hemoglobin 10.8L, Hematocrit 31.7L , Mean Corpuscular Volume 91, Mean Corpuscular Hemoglobin 31.1H, Mean Corpuscular Hemoglobin Concent 34.2, Red Cell Distribution Width 13.8, Platelet Count 156, Mean Platelet Volume 8.2, Neutrophils (%) (Auto) 61.9, Lymphocytes (% ) (Auto) 23.2, Monocytes (%) (Auto) 9.3, Eosinophils (%) (Auto) 4.5H, Basophils (%) (Auto) 1.1, Sodium Level 140, Potassium Level 3.5, Chloride Level 106, Carbon Dioxide Level 19L, Anion Gap 15, Blood Urea Nitrogen 26H, Creatinine 1.2H , Estimat Glomerular Filtration Rate , Glucose Level 215H, Hemoglobin A1c 11.9H , Uric Acid 4.1, Calcium Level 7.7L, Phosphorus Level 2.1L, Magnesium Level 1.5L , Total Bilirubin 0.9, Gamma Glutamyl Transpeptidase 97H, Aspartate Amino Transf (AST/SGOT) 17, Alanine Aminotransferase (ALT/SGPT) 13, Alkaline Phosphatase 182H, Total Creatine Kinase 24L, C-Reactive Protein, Quantitative 20.0H, Pro-B-Type Natriuretic Peptide 3271H, Total Protein 5.6L, Albumin 2.1L, Globulin 3.5, Albumin/Globulin Ratio 0.6L, Triglycerides Level 119, Cholesterol Level 112, LDL Cholesterol 79, HDL Cholesterol 9, Cholesterol/HDL Ratio 12.4H Height (Feet): 5 Height (Inches): 1.00 Weight (Pounds): 200 General Appearance: mild distress Neck: stiff neck Cardiovascular: tachycardia Respiratory/Chest: decreased breath sounds Abdomen: distended, other - obese TIMOTHY PEREZ Sep 18, 2016 12:40
[2016-09-18] MEDS ORDERED: Potassium Phosphate 20 MM in NS 275 ML IV ONE (14:00)
[2016-09-18 16:00] VITALS: BP 122/66
[2016-09-18 20:10] VITALS: BP 130/61
--- NOTE | 2016-09-18 20:17 | General Progress Note ---
Assessment/Plan Assessment/Plan Assessment/Plan Problems: (1) Sepsis (2) Gram-negative bacteremia (3) Acute encephalopathy (4) Hyperglycemia (5) Acute gastritis (6) Intractable vomiting (7) HTN (hypertension) (8) Diabetes mellitus (9) Hiatal hernia (10) Diverticulosis (11) nephrolithiasis Assessment/Plan continue antibiotics push po diet follow labs elevate HOB Subjective Allergies: Coded Allergies: IODINE (Unverified Allergy, Unknown, 07/02/14) Subjective awake and conversant family at bedside c/o poor appetite tolerating po Objective Last 24 Hour Vital Signs Date Time Temp Pulse Resp B/P Pulse Ox O2 Delivery O2 Flow Rate FiO2 09/18/16 16:40 105 09/18/16 16:00 97.0 92 28 122/66 99 Nasal Cannula 09/18/16 12:00 98.2 82 20 118/61 98 Nasal Cannula 3.0 09/18/16 12:00 84 09/18/16 08:35 94 120/65 09/18/16 08:14 Nasal Cannula 4.0 09/18/16 08:14 98 Nasal Cannula 4.0 09/18/16 08:00 97 09/18/16 08:00 98.1 94 21 120/65 100 Nasal Cannula 3.0 09/18/16 04:00 97.9 91 20 117/67 99 Nasal Cannula 3.0 09/18/16 04:00 98 09/18/16 00:00 86 09/18/16 00:00 98.1 75 20 121/69 99 Nasal Cannula 3.0 09/17/16 20:23 84 104/66 Intake and Output 09/17/16 09/18/16 19:00 07:00 Intake Total 500 ml Output Total 1500 ml 1300 ml Balance -1000 ml -1300 ml Intake Oral 500 ml Output Urine Total 1500 ml 1300 ml # Bowel Movements 5 2 Laboratory Tests 09/18/16 02:30: Urine Eosinophils None seen, Urine Random Sodium 27 09/18/16 03:25: White Blood Count 9.3, Red Blood Count 3.48L, Hemoglobin 10.8L, Hematocrit 31.7L , Mean Corpuscular Volume 91, Mean Corpuscular Hemoglobin 31.1H, Mean Corpuscular Hemoglobin Concent 34.2, Red Cell Distribution Width 13.8, Platelet Count 156, Mean Platelet Volume 8.2, Neutrophils (%) (Auto) 61.9, Lymphocytes (% ) (Auto) 23.2, Monocytes (%) (Auto) 9.3, Eosinophils (%) (Auto) 4.5H, Basophils (%) (Auto) 1.1, Sodium Level 140, Potassium Level 3.5, Chloride Level 106, Carbon Dioxide Level 19L, Anion Gap 15, Blood Urea Nitrogen 26H, Creatinine 1.2H , Estimat Glomerular Filtration Rate , Glucose Level 215H, Hemoglobin A1c 11.9H , Uric Acid 4.1, Calcium Level 7.7L, Phosphorus Level 2.1L, Magnesium Level 1.5L , Total Bilirubin 0.9, Gamma Glutamyl Transpeptidase 97H, Aspartate Amino Transf (AST/SGOT) 17, Alanine Aminotransferase (ALT/SGPT) 13, Alkaline Phosphatase 182H, Total Creatine Kinase 24L, C-Reactive Protein, Quantitative 20.0H, Pro-B-Type Natriuretic Peptide 3271H, Total Protein 5.6L, Albumin 2.1L, Globulin 3.5, Albumin/Globulin Ratio 0.6L, Triglycerides Level 119, Cholesterol Level 112, LDL Cholesterol 79, HDL Cholesterol 9, Cholesterol/HDL Ratio 12.4H Height (Feet): 5 Height (Inches): 1.00 Weight (Pounds): 200 Objective WDWN AA woman NCAT supple CTA RRR soft ND mild diffuse abd TTP no edema MATTHEW JACOBS Sep 18, 2016 20:16
[2016-09-18] MEDS: Miralax 17gm pkt ORAL SCH (21:40)
--- NOTE | 2016-09-18 22:32 | Pulmonology Progress Note ---
Assessment/Plan Problems: (1) Sepsis (2) Gram-negative bacteremia (3) Acute encephalopathy (4) Hyperglycemia (5) Acute gastritis (6) Intractable vomiting (7) HTN (hypertension) (8) Diabetes mellitus Assessment/Plan continues to improve, mental status better continue antibiotics cxr reviewe GI/ endo/ ID consult appreciated off IV fluid monitor BP and heart rate. tolerating diet Subjective ROS Limited/Unobtainable: Yes Interval Events: comfortable, doing good Allergies: Coded Allergies: IODINE (Unverified Allergy, Unknown, 07/02/14) Objective Last 24 Hour Vital Signs Date Time Temp Pulse Resp B/P Pulse Ox O2 Delivery O2 Flow Rate FiO2 09/18/16 21:40 96 130/61 09/18/16 20:10 98.4 96 18 130/61 100 Nasal Cannula 4.0 09/18/16 20:00 101 09/18/16 19:21 Nasal Cannula 4.0 09/18/16 19:00 97 Nasal Cannula 4.0 09/18/16 16:40 105 09/18/16 16:00 97.0 92 28 122/66 99 Nasal Cannula 09/18/16 12:00 98.2 82 20 118/61 98 Nasal Cannula 3.0 09/18/16 12:00 84 09/18/16 08:35 94 120/65 09/18/16 08:14 Nasal Cannula 4.0 09/18/16 08:14 98 Nasal Cannula 4.0 09/18/16 08:00 97 09/18/16 08:00 98.1 94 21 120/65 100 Nasal Cannula 3.0 09/18/16 04:00 97.9 91 20 117/67 99 Nasal Cannula 3.0 09/18/16 04:00 98 09/18/16 00:00 86 09/18/16 00:00 98.1 75 20 121/69 99 Nasal Cannula 3.0 Intake and Output 09/17/16 09/18/16 19:00 07:00 Intake Total 500 ml Output Total 1500 ml 1300 ml Balance -1000 ml -1300 ml Intake Oral 500 ml Output Urine Total 1500 ml 1300 ml # Bowel Movements 5 2 General Appearance: WD/WN HEENT: normocephalic, atraumatic Respiratory/Chest: chest wall non-tender, lungs clear Cardiovascular: normal peripheral pulses, normal rate Abdomen: normal bowel sounds, soft, non tender Genitourinary: normal external genitalia Extremities: no cyanosis Skin: no rash Neurologic/Psychiatric: marriage and family counselor II-XII grossly normal, no motor/sensory deficits Laboratory Tests 09/18/16 02:30: Urine Eosinophils None seen, Urine Random Sodium 27 09/18/16 03:25: White Blood Count 9.3, Red Blood Count 3.48L, Hemoglobin 10.8L, Hematocrit 31.7L , Mean Corpuscular Volume 91, Mean Corpuscular Hemoglobin 31.1H, Mean Corpuscular Hemoglobin Concent 34.2, Red Cell Distribution Width 13.8, Platelet Count 156, Mean Platelet Volume 8.2, Neutrophils (%) (Auto) 61.9, Lymphocytes (% ) (Auto) 23.2, Monocytes (%) (Auto) 9.3, Eosinophils (%) (Auto) 4.5H, Basophils (%) (Auto) 1.1, Sodium Level 140, Potassium Level 3.5, Chloride Level 106, Carbon Dioxide Level 19L, Anion Gap 15, Blood Urea Nitrogen 26H, Creatinine 1.2H , Estimat Glomerular Filtration Rate , Glucose Level 215H, Hemoglobin A1c 11.9H , Uric Acid 4.1, Calcium Level 7.7L, Phosphorus Level 2.1L, Magnesium Level 1.5L , Total Bilirubin 0.9, Gamma Glutamyl Transpeptidase 97H, Aspartate Amino Transf (AST/SGOT) 17, Alanine Aminotransferase (ALT/SGPT) 13, Alkaline Phosphatase 182H, Total Creatine Kinase 24L, C-Reactive Protein, Quantitative 20.0H, Pro-B-Type Natriuretic Peptide 3271H, Total Protein 5.6L, Albumin 2.1L, Globulin 3.5, Albumin/Globulin Ratio 0.6L, Triglycerides Level 119, Cholesterol Level 112, LDL Cholesterol 79, HDL Cholesterol 9, Cholesterol/HDL Ratio 12.4H Current Medications Medications (Trade) Dose Ordered Sig/Cody Route PRN Reason Start Time Stop Time Status Last Admin Dose Admin Acetaminophen (Tylenol) 650 mg Q4H PRN ORAL T>100.5 09/15/16 10:00 10/15/16 09:59 09/16/16 03:03 Albuterol/ Ipratropium (DuoNeb 0.5-3(2.5)mg/3ml) 3 ml Q4H PRN HHN Shortness of Breath 09/15/16 10:00 09/20/16 09:59 09/17/16 13:20 Ceftriaxone Sodium/Dextrose (Rocephin/D5W) 55 ml @ 110 mls/hr Q24H IVPB 09/17/16 11:00 09/24/16 10:59 09/18/16 10:24 Clonidine HCl (Catapres) 0.1 mg Q4H PRN ORAL SBP>160 09/15/16 10:00 10/15/16 09:59 Dextrose (Dextrose 50%) STAT PRN IV Hypoglycemia 09/15/16 10:00 10/15/16 09:59 Docusate Sodium (Colace) 250 mg DAILY ORAL 09/17/16 09:00 10/17/16 08:59 09/18/16 08:34 Heparin Sodium (Porcine) (Heparin 5000 units/ml) 5,000 units EVERY 12 HOURS SUBQ 09/15/16 21:00 10/15/16 20:59 09/18/16 21:50 Insulin Aspart (NovoLOG) BEFORE MEALS AND HS SUBQ 09/15/16 11:30 10/15/16 11:29 09/18/16 22:01 Insulin Detemir (Levemir) 13 units Q12HR SUBQ 09/17/16 09:45 10/17/16 09:44 09/18/16 22:03 Lorazepam (Ativan 2mg/ml 1ml) 1 mg Q4H PRN IV For Anxiety 09/15/16 09:45 09/22/16 09:44 09/16/16 03:08 Metformin HCl (Glucophage) 500 mg TIAC ORAL 09/18/16 11:30 10/18/16 11:29 09/18/16 16:56 Metoprolol Tartrate (Lopressor) 25 mg Q12HR ORAL 09/15/16 10:00 10/15/16 09:59 09/18/16 21:40 Morphine Sulfate (Morphine Sulfate) 2 mg Q4H PRN IVP Severe Pain (Pain Scale 7-10) 09/15/16 10:00 09/22/16 09:59 09/16/16 16:32 Nateglinide (Starlix) 120 mg TIAC ORAL 09/17/16 11:30 10/17/16 11:29 09/18/16 16:56 Nitroglycerin (Ntg) 0.4 mg Q5M X 3 DOSES PRN SL Prn Chest Pain 09/15/16 09:15 10/15/16 09:14 Ondansetron HCl (Zofran) 4 mg Q6H PRN IVP Nausea & Vomiting 09/15/16 09:45 10/15/16 09:44 Pantoprazole (Protonix) 40 mg DAILY IVP 09/17/16 14:00 10/17/16 13:59 09/18/16 08:35 Polyethylene Glycol 17 gm 17 gm BEDTIME ORAL 09/16/16 21:00 10/16/16 20:59 09/18/16 21:40 Temazepam (Restoril) 15 mg HSPRN PRN ORAL Insomnia 09/15/16 21:00 09/22/16 20:59 ROGER LEE Sep 18, 2016 22:32
[2016-09-19] VITALS: BP 140/63
[2016-09-19 04:00] VITALS: BP 122/62
[2016-09-19 04:54] LABS: BASOPHILS % (AUTO) 1.8 % (0.0-2.0); EOSINOPHILS % (AUTO) 2.1 % (0.0-3.0); MEAN CORPUSCULAR HGB CONC 33.9 G/DL (32.0-36.0); MEAN CORPUSCULAR VOLUME 91 FL (80-99); MEAN PLATELET VOLUME 7.1 FL (6.5-10.1); MONOCYTES % (AUTO) 15.6 % (1.0-10.0); NEUTROPHILS % (AUTO) 53.4 % (45.0-75.0); PLATELET COUNT 146 K/UL (150-450); RED BLOOD COUNT 3.29 M/UL (4.20-5.40); RED CELL DISTRIBUTION WIDTH 13.7 % (11.6-14.8); WHITE BLOOD COUNT 8.7 K/UL (4.8-10.8)
[2016-09-19 05:42] LABS: ALANINE AMINOTRANSFERASE 10 U/L (3-33); ALBUMIN/GLOBULIN RATIO 0.4 (1.0-2.7); ANION GAP 15 (5-15); ASPARTATE AMINO TRANSFERASE 12 U/L (5-40); CARBON DIOXIDE 20 mEQ/L (20-30); CHLORIDE 104 mEQ/L (98-107); HEMOLYSIS 2; MAGNESIUM 1.7 mg/dL (1.7-2.5); PHOSPHORUS 2.4 mg/dL (2.5-4.8); POTASSIUM 3.4 mEQ/L (3.4-4.9); SODIUM 139 mEQ/L (135-145); TOTAL PROTEIN 5.5 g/dL (6.6-8.7)
[2016-09-19] MEDS: NovoLOG Insulin Flexpen SUBQ SCH ×4 (06:30→21:17)
[2016-09-19] MEDS: metFORMIN 500mg tab ORAL SCH ×3 (06:54→18:01)
[2016-09-19 08:00] VITALS: BP 153/70
--- NOTE | 2016-09-19 08:18 | Infectious Diseases Prog Note ---
Assessment/Plan Assessment/Plan ASSESSMENT: 76 y/o female with: // Recurrent complicated K.pneumoniae UTI with bacteremia - CT A/P: bilateral punctate nonobstructing stones present within the kidneys. No hydronephrosis. Bilateral renal cysts. - h/o P.mirabilis // Sepsis SP // Leukocytosis - resolved // Low grade fever x1 - resolved // ARF on CKD3 - improved // DM2, uncontrolled - HbA1c 12% // Morbid obesity // No ABX allergies // Full Code PLAN: - continue rocephin d# 3 ( ABX d# / ). Ok to complete course with PO levaquin at discharge ( 09/17 SP levaquin, zosyn d# 2 ) ( 09/16 SP flagyl d# 1 ) - monitor CBC, temperatures, re-culture if acute change - monitor BMP - glucose control Subjective Allergies: Coded Allergies: IODINE (Unverified Allergy, Unknown, 07/02/14) Subjective fevers, leukocytosis resolved Objective Vital Signs Last 24 Hour Vital Signs Date Time Temp Pulse Resp B/P Pulse Ox O2 Delivery O2 Flow Rate FiO2 09/19/16 04:00 93 09/19/16 04:00 97.4 98 20 122/62 99 Nasal Cannula 4.0 09/19/16 02:32 101 09/19/16 00:00 98.4 53 24 140/63 98 Nasal Cannula 4.0 09/18/16 21:40 96 130/61 09/18/16 20:10 98.4 96 18 130/61 100 Nasal Cannula 4.0 09/18/16 20:00 101 09/18/16 19:21 Nasal Cannula 4.0 09/18/16 19:00 97 Nasal Cannula 4.0 09/18/16 16:40 105 09/18/16 16:00 97.0 92 28 122/66 99 Nasal Cannula 09/18/16 12:00 98.2 82 20 118/61 98 Nasal Cannula 3.0 09/18/16 12:00 84 09/18/16 08:35 94 120/65 Height (Feet): 5 Height (Inches): 1.00 Weight (Pounds): 200 General Appearance: no acute distress Respiratory/Chest: no respiratory distress Cardiovascular: normal rate, regular rhythm Abdomen: normal bowel sounds, soft, non tender, non distended Laboratory Tests Test 09/19/16 03:25 09/19/16 04:00 White Blood Count 8.7 K/UL (4.8-10.8) Red Blood Count 3.29 M/UL (4.20-5.40) L Hemoglobin 10.2 G/DL (12.0-16.0) L Hematocrit 30.1 % (37.0-47.0) L Mean Corpuscular Volume 91 FL (80-99) Mean Corpuscular Hemoglobin 31.0 PG (27.0-31.0) Mean Corpuscular Hemoglobin Concent 33.9 G/DL (32.0-36.0) Red Cell Distribution Width 13.7 % (11.6-14.8) Platelet Count 146 K/UL (150-450) L Mean Platelet Volume 7.1 FL (6.5-10.1) Neutrophils (%) (Auto) 53.4 % (45.0-75.0) Lymphocytes (%) (Auto) 27.0 % (20.0-45.0) Monocytes (%) (Auto) 15.6 % (1.0-10.0) H Eosinophils (%) (Auto) 2.1 % (0.0-3.0) Basophils (%) (Auto) 1.8 % (0.0-2.0) Sodium Level 139 mEQ/L (135-145) Potassium Level 3.4 mEQ/L (3.4-4.9) Chloride Level 104 mEQ/L (98-107) Carbon Dioxide Level 20 mEQ/L (20-30) Anion Gap 15 (5-15) Blood Urea Nitrogen 16 mg/dL (7-23) Creatinine 1.0 mg/dL (0.5-0.9) H Estimat Glomerular Filtration Rate mL/min (>60) Glucose Level 120 mg/dL (74-106) H Calcium Level 8.0 mg/dL (8.6-10.2) L Phosphorus Level 2.4 mg/dL (2.5-4.8) L Magnesium Level 1.7 mg/dL (1.7-2.5) Total Bilirubin 0.8 mg/dL (0.0-1.2) Aspartate Amino Transf (AST/SGOT) 12 U/L (5-40) Alanine Aminotransferase (ALT/SGPT) 10 U/L (3-33) Alkaline Phosphatase 210 U/L (35-104) H Total Protein 5.5 g/dL (6.6-8.7) L Albumin 1.8 g/dL (3.5-5.2) L Globulin 3.7 g/dL Albumin/Globulin Ratio 0.4 (1.0-2.7) L Urine Eosinophils Pending Current Medications Medications (Trade) Dose Ordered Sig/Cody Route PRN Reason Start Time Stop Time Status Last Admin Dose Admin Acetaminophen (Tylenol) 650 mg Q4H PRN ORAL T>100.5 09/15/16 10:00 10/15/16 09:59 09/16/16 03:03 Albuterol/ Ipratropium (DuoNeb 0.5-3(2.5)mg/3ml) 3 ml Q4H PRN HHN Shortness of Breath 09/15/16 10:00 09/20/16 09:59 09/17/16 13:20 Ceftriaxone Sodium/Dextrose (Rocephin/D5W) 55 ml @ 110 mls/hr Q24H IVPB 09/17/16 11:00 09/24/16 10:59 09/18/16 10:24 Clonidine HCl (Catapres) 0.1 mg Q4H PRN ORAL SBP>160 09/15/16 10:00 10/15/16 09:59 Dextrose (Dextrose 50%) STAT PRN IV Hypoglycemia 09/15/16 10:00 10/15/16 09:59 Docusate Sodium (Colace) 250 mg DAILY ORAL 09/17/16 09:00 10/17/16 08:59 09/18/16 08:34 Heparin Sodium (Porcine) (Heparin 5000 units/ml) 5,000 units EVERY 12 HOURS SUBQ 09/15/16 21:00 10/15/16 20:59 09/18/16 21:50 Insulin Aspart (NovoLOG) BEFORE MEALS AND HS SUBQ 09/15/16 11:30 10/15/16 11:29 09/18/16 22:01 Insulin Detemir (Levemir) 13 units Q12HR SUBQ 09/17/16 09:45 10/17/16 09:44 09/18/16 22:03 Lorazepam (Ativan 2mg/ml 1ml) 1 mg Q4H PRN IV For Anxiety 09/15/16 09:45 09/22/16 09:44 09/16/16 03:08 Metformin HCl (Glucophage) 500 mg TIAC ORAL 09/18/16 11:30 10/18/16 11:29 09/19/16 06:54 Metoprolol Tartrate (Lopressor) 25 mg Q12HR ORAL 09/15/16 10:00 10/15/16 09:59 09/18/16 21:40 Morphine Sulfate (Morphine Sulfate) 2 mg Q4H PRN IVP Severe Pain (Pain Scale 7-10) 09/15/16 10:00 09/22/16 09:59 09/16/16 16:32 Nateglinide (Starlix) 120 mg TIAC ORAL 09/17/16 11:30 10/17/16 11:29 09/19/16 06:54 Nitroglycerin (Ntg) 0.4 mg Q5M X 3 DOSES PRN SL Prn Chest Pain 09/15/16 09:15 10/15/16 09:14 Ondansetron HCl (Zofran) 4 mg Q6H PRN IVP Nausea & Vomiting 09/15/16 09:45 10/15/16 09:44 Pantoprazole (Protonix) 40 mg DAILY IVP 09/17/16 14:00 10/17/16 13:59 09/18/16 08:35 Polyethylene Glycol 17 gm 17 gm BEDTIME ORAL 09/16/16 21:00 10/16/16 20:59 09/18/16 21:40 Temazepam (Restoril) 15 mg HSPRN PRN ORAL Insomnia 09/15/16 21:00 09/22/16 20:59 LEIGHANN DE ANDA Sep 19, 2016 08:18
--- NOTE | 2016-09-19 08:33 | Cardiology Report ---
APPROVED REPORT EXAM: Two-dimensional and M-mode echocardiogram with Doppler and color Doppler. INDICATION Left Ventricular Function M-Mode DIMENSIONS IVSd1.1 (0.7-1.1cm)Left Atrium (MM)4.0 (1.6-4.0cm) LVDd5.7 (3.5-5.6cm)Aortic Root2.3 (2.0-3.7cm) PWd1.1 (0.7-1.1cm)Aortic Cusp Exc.2.0 (1.5-2.0cm) LVDs3.9 (2.5-4.0cm) PWs1.7 cm Technically difficult study due to poor acoustic windows. Study quality precludes accurate assessment of regional wall motion. Normal left ventricular chamber size, systolic function and wall motion to extent visualized. Left ventricular ejection fraction estimated to be grossly normal. No evidence of ventricular hypertrophy. Anterior Echo-free space, may be due to pericardial fat or effusion. All other cardiac chamber sizes are within normal limits. Mild focal aortic valve sclerosis with adequate cusp excursion. Mildly thickened mitral valve leaflets with normal excursion. Mild mitral annulus and aortic root calcification. Pulmonic valve not well visualized. Normal tricuspid valve structure. A color flow and spectral Doppler study was performed and revealed: No aortic regurgitation. Mild mitral regurgitation. Mitral diastolic velocities suggest reduced left ventricular relaxation (Grade I). Mild tricuspid regurgitation. Tricuspid systolic velocities suggests peak right ventricular systolic pressure of 61 mmHg, consistent with severe pulmonary hypertension. Mild pulmonic regurgitation present.
[2016-09-19] MEDS: Heparin 5000 units/ml inj SUBQ SCH ×2 (09:00→21:00)
--- NOTE | 2016-09-19 09:10 | General Progress Note ---
Assessment/Plan Status: stable Status Narrative renal parameters wnl now Assessment/Plan Acute renal failure multifactorial sepsis- Hypotension- Dm- Medications (1) Sepsis (2) Gram-negative bacteremia (3) Acute encephalopathy (4) Hyperglycemia (5) Acute gastritis (6) Intractable vomiting (7) HTN (hypertension) (8) Diabetes mellitus Plan; k Phos IV pulm support antibiotics Monitor renal parameters- avoid nephrotoxics Subjective ROS Limited/Unobtainable: No Constitutional: Reports: malaise, weakness Allergies: Coded Allergies: IODINE (Unverified Allergy, Unknown, 07/02/14) Objective Last 24 Hour Vital Signs Date Time Temp Pulse Resp B/P Pulse Ox O2 Delivery O2 Flow Rate FiO2 09/19/16 04:00 93 09/19/16 04:00 97.4 98 20 122/62 99 Nasal Cannula 4.0 09/19/16 02:32 101 09/19/16 00:00 98.4 53 24 140/63 98 Nasal Cannula 4.0 09/18/16 21:40 96 130/61 09/18/16 20:10 98.4 96 18 130/61 100 Nasal Cannula 4.0 09/18/16 20:00 101 09/18/16 19:21 Nasal Cannula 4.0 09/18/16 19:00 97 Nasal Cannula 4.0 09/18/16 16:40 105 09/18/16 16:00 97.0 92 28 122/66 99 Nasal Cannula 09/18/16 12:00 98.2 82 20 118/61 98 Nasal Cannula 3.0 09/18/16 12:00 84 Intake and Output 09/18/16 09/19/16 19:00 07:00 Intake Total 739.720 ml 1050 ml Output Total 775 ml 1600 ml Balance -35.280 ml -550 ml Intake Oral 450 ml 1050 ml IV Total 289.720 ml Output Urine Total 775 ml 1600 ml # Bowel Movements 2 7 Laboratory Tests 09/19/16 03:25: White Blood Count 8.7, Red Blood Count 3.29L, Hemoglobin 10.2L, Hematocrit 30.1L , Mean Corpuscular Volume 91, Mean Corpuscular Hemoglobin 31.0, Mean Corpuscular Hemoglobin Concent 33.9, Red Cell Distribution Width 13.7, Platelet Count 146L, Mean Platelet Volume 7.1, Neutrophils (%) (Auto) 53.4, Lymphocytes ( %) (Auto) 27.0, Monocytes (%) (Auto) 15.6H, Eosinophils (%) (Auto) 2.1, Basophils (%) (Auto) 1.8, Sodium Level 139, Potassium Level 3.4, Chloride Level 104, Carbon Dioxide Level 20, Anion Gap 15, Blood Urea Nitrogen 16, Creatinine 1.0H, Estimat Glomerular Filtration Rate , Glucose Level 120H, Calcium Level 8.0L, Phosphorus Level 2.4L, Magnesium Level 1.7, Total Bilirubin 0.8, Aspartate Amino Transf (AST/SGOT) 12, Alanine Aminotransferase (ALT/SGPT) 10, Alkaline Phosphatase 210H, Total Protein 5.5L, Albumin 1.8L, Globulin 3.7, Albumin/Globulin Ratio 0.4L 09/19/16 04:00: Urine Eosinophils [Pending] Height (Feet): 5 Height (Inches): 1.00 Weight (Pounds): 200 General Appearance: no apparent distress Cardiovascular: tachycardia Respiratory/Chest: decreased breath sounds Abdomen: soft TIMOTHY PEREZ 27, 2017 09:10
[2016-09-19] MEDS: Pantoprazole Inj IVP SCH (09:34)
[2016-09-19] MEDS: Docusate 250mg cap ORAL SCH (09:34)
[2016-09-19] MEDS: Metoprolol 25mg tab ORAL SCH ×2 (09:35→21:15)
[2016-09-19] MEDS: Levemir Flexpen SUBQ SCH ×2 (09:39→21:15)
[2016-09-19] MEDS ORDERED: Potassium Phosphate 30 MM in NS 275 ML IV ONE (10:30)
[2016-09-19] MEDS: cefTRIAXone 1 GM in D5W 55 ML IVPB SCH (11:05)
--- NOTE | 2016-09-19 11:40 | General Progress Note ---
Assessment/Plan Problem List: (1) Anemia ICD Codes: D64.9 - Anemia, unspecified SNOMED: 622018117 (2) Diverticulosis ICD Codes: K57.90 - Diverticulosis of intestine, part unspecified, without perforation or abscess without bleeding SNOMED: 566678732 (3) Hiatal hernia ICD Codes: K44.9 - Diaphragmatic hernia without obstruction or gangrene SNOMED: 44058816 (4) UTI (urinary tract infection) ICD Codes: N39.0 - Urinary tract infection, site not specified SNOMED: 52819901 (5) HTN (hypertension) ICD Codes: I10 - Essential (primary) hypertension SNOMED: 60001056 (6) Diabetes mellitus ICD Codes: E11.9 - Type 2 diabetes mellitus without complications SNOMED: 44148684 Assessment/Plan anemia work up abx ppi fu Subjective ROS Limited/Unobtainable: Yes Allergies: Coded Allergies: IODINE (Unverified Allergy, Unknown, 07/02/14) Subjective no abd pain Objective Last 24 Hour Vital Signs Date Time Temp Pulse Resp B/P Pulse Ox O2 Delivery O2 Flow Rate FiO2 09/19/16 10:10 98 Nasal Cannula 4.0 36 09/19/16 10:10 Nasal Cannula 4.0 36 09/19/16 09:35 98 153/70 09/19/16 08:00 104 09/19/16 08:00 97.7 63 22 153/70 99 Nasal Cannula 3.5 09/19/16 04:00 93 09/19/16 04:00 97.4 98 20 122/62 99 Nasal Cannula 4.0 09/19/16 02:32 101 09/19/16 00:00 98.4 53 24 140/63 98 Nasal Cannula 4.0 09/18/16 21:40 96 130/61 09/18/16 20:10 98.4 96 18 130/61 100 Nasal Cannula 4.0 09/18/16 20:00 101 09/18/16 19:21 Nasal Cannula 4.0 09/18/16 19:00 97 Nasal Cannula 4.0 09/18/16 16:40 105 09/18/16 16:00 97.0 92 28 122/66 99 Nasal Cannula 09/18/16 12:00 98.2 82 20 118/61 98 Nasal Cannula 3.0 09/18/16 12:00 84 Intake and Output 09/18/16 09/19/16 19:00 07:00 Intake Total 739.720 ml 1050 ml Output Total 775 ml 1600 ml Balance -35.280 ml -550 ml Intake Oral 450 ml 1050 ml IV Total 289.720 ml Output Urine Total 775 ml 1600 ml # Bowel Movements 2 7 Laboratory Tests 09/19/16 03:25: White Blood Count 8.7, Red Blood Count 3.29L, Hemoglobin 10.2L, Hematocrit 30.1L , Mean Corpuscular Volume 91, Mean Corpuscular Hemoglobin 31.0, Mean Corpuscular Hemoglobin Concent 33.9, Red Cell Distribution Width 13.7, Platelet Count 146L, Mean Platelet Volume 7.1, Neutrophils (%) (Auto) 53.4, Lymphocytes ( %) (Auto) 27.0, Monocytes (%) (Auto) 15.6H, Eosinophils (%) (Auto) 2.1, Basophils (%) (Auto) 1.8, Sodium Level 139, Potassium Level 3.4, Chloride Level 104, Carbon Dioxide Level 20, Anion Gap 15, Blood Urea Nitrogen 16, Creatinine 1.0H, Estimat Glomerular Filtration Rate , Glucose Level 120H, Calcium Level 8.0L, Phosphorus Level 2.4L, Magnesium Level 1.7, Total Bilirubin 0.8, Aspartate Amino Transf (AST/SGOT) 12, Alanine Aminotransferase (ALT/SGPT) 10, Alkaline Phosphatase 210H, Total Protein 5.5L, Albumin 1.8L, Globulin 3.7, Albumin/Globulin Ratio 0.4L 09/19/16 04:00: Urine Eosinophils None seen Height (Feet): 5 Height (Inches): 1.00 Weight (Pounds): 200 General Appearance: alert EENT: normal ENT inspection Neck: supple Cardiovascular: normal rate Respiratory/Chest: decreased breath sounds Abdomen: normal bowel sounds, non tender, soft Extremities: non-tender JOHN KENYON Sep 19, 2016 11:40
[2016-09-19 12:00] VITALS: BP 134/78
[2016-09-19 12:24] LABS: ABG ALLEN TEST POSITIVE; ABG BASE EXCESS -2.2; ABG PCO2 32.1 mmHg (35.0-45.0)
--- NOTE | 2016-09-19 12:35 | Pulmonology Progress Note ---
Assessment/Plan Problems: (1) Sepsis (2) Gram-negative bacteremia (3) Acute encephalopathy (4) Hyperglycemia (5) Acute gastritis (6) Intractable vomiting (7) HTN (hypertension) (8) Diabetes mellitus Assessment/Plan continue antibiotics wbc normal, afebrile GI/ endo/ ID consultf /u off IV fluids cxr in am monitor BP and heart rate. tolerating diet Subjective ROS Limited/Unobtainable: No Constitutional: Reports: no symptoms HEENT: Repors: no symptoms Respiratory: Reports: no symptoms Allergies: Coded Allergies: IODINE (Unverified Allergy, Unknown, 07/02/14) Objective Last 24 Hour Vital Signs Date Time Temp Pulse Resp B/P Pulse Ox O2 Delivery O2 Flow Rate FiO2 09/19/16 10:10 98 Nasal Cannula 4.0 36 09/19/16 10:10 Nasal Cannula 4.0 36 09/19/16 09:35 98 153/70 09/19/16 08:00 104 09/19/16 08:00 97.7 63 22 153/70 99 Nasal Cannula 3.5 09/19/16 04:00 93 09/19/16 04:00 97.4 98 20 122/62 99 Nasal Cannula 4.0 09/19/16 02:32 101 09/19/16 00:00 98.4 53 24 140/63 98 Nasal Cannula 4.0 09/18/16 21:40 96 130/61 09/18/16 20:10 98.4 96 18 130/61 100 Nasal Cannula 4.0 09/18/16 20:00 101 09/18/16 19:21 Nasal Cannula 4.0 09/18/16 19:00 97 Nasal Cannula 4.0 09/18/16 16:40 105 09/18/16 16:00 97.0 92 28 122/66 99 Nasal Cannula Intake and Output 09/18/16 09/19/16 19:00 07:00 Intake Total 739.720 ml 1050 ml Output Total 775 ml 1600 ml Balance -35.280 ml -550 ml Intake Oral 450 ml 1050 ml IV Total 289.720 ml Output Urine Total 775 ml 1600 ml # Bowel Movements 2 7 General Appearance: WD/WN HEENT: normocephalic Respiratory/Chest: chest wall non-tender, lungs clear Breasts: no masses Cardiovascular: normal peripheral pulses, normal rate Abdomen: normal bowel sounds, soft, non tender Skin: no rash Neurologic/Psychiatric: rd scientist II-XII grossly normal, no motor/sensory deficits, normal mood/affect Laboratory Tests 09/19/16 03:25: White Blood Count 8.7, Red Blood Count 3.29L, Hemoglobin 10.2L, Hematocrit 30.1L , Mean Corpuscular Volume 91, Mean Corpuscular Hemoglobin 31.0, Mean Corpuscular Hemoglobin Concent 33.9, Red Cell Distribution Width 13.7, Platelet Count 146L, Mean Platelet Volume 7.1, Neutrophils (%) (Auto) 53.4, Lymphocytes ( %) (Auto) 27.0, Monocytes (%) (Auto) 15.6H, Eosinophils (%) (Auto) 2.1, Basophils (%) (Auto) 1.8, Sodium Level 139, Potassium Level 3.4, Chloride Level 104, Carbon Dioxide Level 20, Anion Gap 15, Blood Urea Nitrogen 16, Creatinine 1.0H, Estimat Glomerular Filtration Rate , Glucose Level 120H, Calcium Level 8.0L, Phosphorus Level 2.4L, Magnesium Level 1.7, Total Bilirubin 0.8, Aspartate Amino Transf (AST/SGOT) 12, Alanine Aminotransferase (ALT/SGPT) 10, Alkaline Phosphatase 210H, Total Protein 5.5L, Albumin 1.8L, Globulin 3.7, Albumin/Globulin Ratio 0.4L 09/19/16 04:00: Urine Eosinophils None seen 09/19/16 12:20: Arterial Blood pH 7.430, Arterial Blood Partial Pressure CO2 32.1L, Arterial Blood Partial Pressure O2 114.1H, Arterial Blood HCO3 21.3L, Arterial Blood Oxygen Saturation 98.0, Arterial Blood Base Excess -2.2, Marty Test Positive Current Medications Medications (Trade) Dose Ordered Sig/Cody Route PRN Reason Start Time Stop Time Status Last Admin Dose Admin Acetaminophen (Tylenol) 650 mg Q4H PRN ORAL T>100.5 09/15/16 10:00 10/15/16 09:59 09/16/16 03:03 Albuterol/ Ipratropium (DuoNeb 0.5-3(2.5)mg/3ml) 3 ml Q4H PRN HHN Shortness of Breath 09/15/16 10:00 09/20/16 09:59 09/17/16 13:20 Ceftriaxone Sodium/Dextrose (Rocephin/D5W) 55 ml @ 110 mls/hr Q24H IVPB 09/17/16 11:00 09/24/16 10:59 09/19/16 11:05 Clonidine HCl (Catapres) 0.1 mg Q4H PRN ORAL SBP>160 09/15/16 10:00 10/15/16 09:59 Dextrose (Dextrose 50%) STAT PRN IV Hypoglycemia 09/15/16 10:00 10/15/16 09:59 Docusate Sodium (Colace) 250 mg DAILY ORAL 09/17/16 09:00 10/17/16 08:59 09/19/16 09:34 Furosemide (Lasix) 20 mg ONCE ONCE IV 09/19/16 12:15 09/19/16 12:16 UNV Heparin Sodium (Porcine) (Heparin 5000 units/ml) 5,000 units EVERY 12 HOURS SUBQ 09/15/16 21:00 10/15/16 20:59 09/18/16 21:50 Insulin Aspart (NovoLOG) BEFORE MEALS AND HS SUBQ 09/15/16 11:30 10/15/16 11:29 09/19/16 11:22 Insulin Detemir (Levemir) 13 units Q12HR SUBQ 09/17/16 09:45 10/17/16 09:44 09/19/16 09:39 Lorazepam (Ativan 2mg/ml 1ml) 1 mg Q4H PRN IV For Anxiety 09/15/16 09:45 09/22/16 09:44 09/16/16 03:08 Metformin HCl 500 mg 500 mg TIAC ORAL 09/18/16 11:30 10/18/16 11:29 09/19/16 11:20 Metoprolol Tartrate (Lopressor) 25 mg Q12HR ORAL 09/15/16 10:00 10/15/16 09:59 09/19/16 09:35 Morphine Sulfate (Morphine Sulfate) 2 mg Q4H PRN IVP Severe Pain (Pain Scale 7-10) 09/15/16 10:00 09/22/16 09:59 09/16/16 16:32 Nateglinide (Starlix) 120 mg TIAC ORAL 09/17/16 11:30 10/17/16 11:29 09/19/16 11:21 Nitroglycerin (Ntg) 0.4 mg Q5M X 3 DOSES PRN SL Prn Chest Pain 09/15/16 09:15 10/15/16 09:14 Ondansetron HCl (Zofran) 4 mg Q6H PRN IVP Nausea & Vomiting 09/15/16 09:45 10/15/16 09:44 Pantoprazole (Protonix) 40 mg DAILY IVP 09/17/16 14:00 10/17/16 13:59 09/19/16 09:34 Polyethylene Glycol 17 gm 17 gm BEDTIME ORAL 09/16/16 21:00 10/16/16 20:59 09/18/16 21:40 Potassium Phosphate/Sodium Chloride (Potassium Phosphate/Sodium Chloride) 285 ml @ 47.5 mls/hr ONCE ONCE IV 09/19/16 10:30 09/19/16 16:29 09/19/16 12:15 Temazepam (Restoril) 15 mg HSPRN PRN ORAL Insomnia 09/15/16 21:00 09/22/16 20:59 ROGER LEE Sep 19, 2016 12:34
[2016-09-19 16:00] VITALS: BP 151/61
[2016-09-19] MEDS ORDERED: Nitroglycerin Subl 0.4mg tab (Bottle Of 25) SL PRN (19:30)
[2016-09-19] MEDS ORDERED: Morphine Sulfate 2mg/ml Inj IVP PRN (20:00)
[2016-09-19] MEDS ORDERED: DuoNeb 0.5-3(2.5)mg/3ml neb HHN PRN (20:00)
[2016-09-19] MEDS ORDERED: LORazepam Inj 2mg/ml 1ml IV PRN (20:00)
[2016-09-19] MEDS: Miralax 17gm pkt ORAL SCH (21:00)
[2016-09-19 21:33] VITALS: BP 151/57
[2016-09-19] MEDS ORDERED: Promethazine/Codeine 5ml UD ORAL PRN (23:30)
[2016-09-20] VITALS: BP 141/63
[2016-09-20 04:00] VITALS: BP 138/61
--- NOTE | 2016-09-20 04:31 | Infectious Diseases Prog Note ---
Assessment/Plan Assessment/Plan ASSESSMENT: 76 y/o female with: // Recurrent complicated K.pneumoniae UTI with bacteremia - CT A/P: bilateral punctate nonobstructing stones present within the kidneys. No hydronephrosis. Bilateral renal cysts. - h/o P.mirabilis // Sepsis SP // Leukocytosis - resolved // Low grade fever // ARF on CKD3 - improved // DM2, uncontrolled - HbA1c 12% // Morbid obesity // No ABX allergies // Full Code PLAN: - continue rocephin d# 4 ( ABX d# / ). Ok to complete course with PO levaquin at discharge ( 09/17 SP levaquin, zosyn d# 2 ) ( 09/16 SP flagyl d# 1 ) - monitor CBC, temperatures, re-culture if acute change - monitor BMP - glucose control Subjective Constitutional: Reports: fever - low grade , Denies: anorexia, chills, drenching sweats, fatigue, no symptoms, other Allergies: Coded Allergies: IODINE (Unverified Allergy, Unknown, 07/02/14) Objective Vital Signs Last 24 Hour Vital Signs Date Time Temp Pulse Resp B/P Pulse Ox O2 Delivery O2 Flow Rate FiO2 09/20/16 00:00 99.5 102 20 141/63 94 Room Air 09/19/16 22:41 99.5 09/19/16 21:33 100.8 60 20 151/57 96 Room Air 09/19/16 21:15 60 151/57 09/19/16 19:01 97 Room Air 09/19/16 19:01 Room Air 09/19/16 16:00 94 09/19/16 16:00 99.7 69 20 151/61 97 Room Air 09/19/16 12:00 98.2 83 18 134/78 97 Room Air 09/19/16 12:00 90 09/19/16 10:10 98 Nasal Cannula 4.0 36 09/19/16 10:10 Nasal Cannula 4.0 36 09/19/16 09:35 98 153/70 09/19/16 08:00 104 09/19/16 08:00 97.7 63 22 153/70 99 Nasal Cannula 3.5 Height (Feet): 5 Height (Inches): 1.00 Weight (Pounds): 200 HEENT: atraumatic Respiratory/Chest: normal breath sounds Cardiovascular: regular rhythm Abdomen: no organomegaly Laboratory Tests Test 09/19/16 12:20 Arterial Blood pH 7.430 (7.350-7.450) Arterial Blood Partial Pressure CO2 32.1 mmHg (35.0-45.0) L Arterial Blood Partial Pressure O2 114.1 mmHg (75.0-100.0) H Arterial Blood HCO3 21.3 mmol/L (22.0-26.0) L Arterial Blood Oxygen Saturation 98.0 % (92.0-98.0) Arterial Blood Base Excess -2.2 Marty Test Positive Current Medications Medications (Trade) Dose Ordered Sig/Cody Route PRN Reason Start Time Stop Time Status Last Admin Dose Admin Acetaminophen (Tylenol) 650 mg Q4H PRN ORAL T>100.5 09/19/16 20:00 10/19/16 19:59 09/19/16 21:42 Albuterol/ Ipratropium (DuoNeb 0.5-3(2.5)mg/3ml) 3 ml Q4H PRN HHN Shortness of Breath 09/19/16 20:00 09/24/16 19:59 Ceftriaxone Sodium/Dextrose (Rocephin/D5W) 55 ml @ 110 mls/hr Q24H IVPB 09/20/16 11:00 09/27/16 10:59 Clonidine HCl (Catapres) 0.1 mg Q4H PRN ORAL SBP>160 09/19/16 20:00 10/19/16 19:59 Dextrose (Dextrose 50%) STAT PRN IV Hypoglycemia 09/19/16 20:00 10/19/16 19:59 Docusate Sodium (Colace) 250 mg DAILY ORAL 09/20/16 09:00 10/20/16 08:59 Heparin Sodium (Porcine) (Heparin 5000 units/ml) 5,000 units EVERY 12 HOURS SUBQ 09/19/16 21:00 10/19/16 20:59 Insulin Aspart (NovoLOG) BEFORE MEALS AND HS SUBQ 09/19/16 21:00 10/19/16 20:59 09/19/16 21:17 Insulin Detemir (Levemir) 13 units Q12HR SUBQ 09/19/16 21:00 10/19/16 20:59 09/19/16 21:15 Lorazepam (Ativan 2mg/ml 1ml) 1 mg Q4H PRN IV For Anxiety 09/19/16 20:00 09/26/16 19:59 Metformin HCl (Glucophage) 500 mg TIAC ORAL 09/20/16 06:30 10/20/16 06:29 Metoprolol Tartrate (Lopressor) 25 mg Q12HR ORAL 09/19/16 21:00 10/19/16 20:59 09/19/16 21:15 Morphine Sulfate (Morphine Sulfate) 2 mg Q4H PRN IVP Severe Pain (Pain Scale 7-10) 09/19/16 20:00 09/26/16 19:59 Nateglinide (Starlix) 120 mg TIAC ORAL 09/20/16 06:30 10/20/16 06:29 Nitroglycerin (Ntg) 0.4 mg Q5M X 3 DOSES PRN SL Prn Chest Pain 09/19/16 19:30 10/19/16 19:29 Ondansetron HCl (Zofran) 4 mg Q6H PRN IVP Nausea & Vomiting 09/19/16 20:00 10/19/16 19:59 Pantoprazole (Protonix) 40 mg DAILY IVP 09/20/16 09:00 10/20/16 08:59 Polyethylene Glycol (Miralax) 17 gm BEDTIME ORAL 09/19/16 21:00 10/19/16 20:59 Promethazine HCl/ Codeine (Phenergan with Codeine) 5 ml Q6H PRN ORAL For Cough 09/19/16 23:30 10/19/16 23:29 Temazepam (Restoril) 15 mg HSPRN PRN ORAL Insomnia 09/19/16 21:00 09/26/16 20:59 NAGA HOOPER M.D. Sep 20, 2016 04:31
[2016-09-20] MEDS: NovoLOG Insulin Flexpen SUBQ SCH ×4 (06:30→21:57)
--- NOTE | 2016-09-20 06:43 | General Progress Note ---
Assessment/Plan Problem List: (1) Diabetes mellitus ICD Codes: E11.9 - Type 2 diabetes mellitus without complications SNOMED: 42618636 (2) HTN (hypertension) ICD Codes: I10 - Essential (primary) hypertension SNOMED: 20810893 (3) Hyperglycemia ICD Codes: R73.9 - Hyperglycemia, unspecified SNOMED: 92790509 (4) Gram-negative bacteremia ICD Codes: R78.81 - Bacteremia SNOMED: 821302271742 (5) Sepsis ICD Codes: A41.9 - Sepsis, unspecified organism SNOMED: 05968358 (6) UTI (urinary tract infection) ICD Codes: N39.0 - Urinary tract infection, site not specified SNOMED: 02823711 Assessment/Plan glycemic control improved continue Metformin 500 mg tid continue Starlix 120 mg ac tid continue Levemir 13 unit bid + SSI w/ Novolog Subjective Allergies: Coded Allergies: IODINE (Unverified Allergy, Unknown, 07/02/14) All Systems: reviewed and negative except above Subjective events noted Objective Last 24 Hour Vital Signs Date Time Temp Pulse Resp B/P Pulse Ox O2 Delivery O2 Flow Rate FiO2 09/20/16 00:00 99.5 102 20 141/63 94 Room Air 09/19/16 22:41 99.5 09/19/16 21:33 100.8 60 20 151/57 96 Room Air 09/19/16 21:15 60 151/57 09/19/16 19:01 97 Room Air 09/19/16 19:01 Room Air 09/19/16 16:00 94 09/19/16 16:00 99.7 69 20 151/61 97 Room Air 09/19/16 12:00 98.2 83 18 134/78 97 Room Air 09/19/16 12:00 90 09/19/16 10:10 98 Nasal Cannula 4.0 36 09/19/16 10:10 Nasal Cannula 4.0 36 09/19/16 09:35 98 153/70 09/19/16 08:00 104 09/19/16 08:00 97.7 63 22 153/70 99 Nasal Cannula 3.5 Intake and Output 09/19/16 09/20/16 19:00 07:00 Intake Total 510.0 ml Output Total 2475 ml 200 ml Balance -1965.0 ml -200 ml Intake Oral 170 ml IV Total 340.0 ml Output Urine Total 2475 ml 200 ml # Bowel Movements 1 Laboratory Tests 09/19/16 12:20: Arterial Blood pH 7.430, Arterial Blood Partial Pressure CO2 32.1L, Arterial Blood Partial Pressure O2 114.1H, Arterial Blood HCO3 21.3L, Arterial Blood Oxygen Saturation 98.0, Arterial Blood Base Excess -2.2, Marty Test Positive Height (Feet): 5 Height (Inches): 1.00 Weight (Pounds): 200 General Appearance: no apparent distress Neck: normal alignment Cardiovascular: regular rhythm Respiratory/Chest: normal breath sounds Abdomen: normal bowel sounds Pelvis: normal external exam Objective Current Medications Medications (Trade) Dose Ordered Sig/Cody Route PRN Reason Start Time Stop Time Status Last Admin Dose Admin Acetaminophen (Tylenol) 650 mg Q4H PRN ORAL T>100.5 09/19/16 20:00 10/19/16 19:59 09/19/16 21:42 Albuterol/ Ipratropium (DuoNeb 0.5-3(2.5)mg/3ml) 3 ml Q4H PRN HHN Shortness of Breath 09/19/16 20:00 09/24/16 19:59 Ceftriaxone Sodium/Dextrose (Rocephin/D5W) 55 ml @ 110 mls/hr Q24H IVPB 09/20/16 11:00 09/27/16 10:59 Clonidine HCl (Catapres) 0.1 mg Q4H PRN ORAL SBP>160 09/19/16 20:00 10/19/16 19:59 Dextrose (Dextrose 50%) STAT PRN IV Hypoglycemia 09/19/16 20:00 10/19/16 19:59 Docusate Sodium (Colace) 250 mg DAILY ORAL 09/20/16 09:00 10/20/16 08:59 Heparin Sodium (Porcine) (Heparin 5000 units/ml) 5,000 units EVERY 12 HOURS SUBQ 09/19/16 21:00 10/19/16 20:59 Insulin Aspart (NovoLOG) BEFORE MEALS AND HS SUBQ 09/19/16 21:00 10/19/16 20:59 09/19/16 21:17 Insulin Detemir (Levemir) 13 units Q12HR SUBQ 09/19/16 21:00 10/19/16 20:59 09/19/16 21:15 Lorazepam (Ativan 2mg/ml 1ml) 1 mg Q4H PRN IV For Anxiety 09/19/16 20:00 09/26/16 19:59 Metformin HCl (Glucophage) 500 mg TIAC ORAL 09/20/16 06:30 10/20/16 06:29 Metoprolol Tartrate (Lopressor) 25 mg Q12HR ORAL 09/19/16 21:00 10/19/16 20:59 09/19/16 21:15 Morphine Sulfate (Morphine Sulfate) 2 mg Q4H PRN IVP Severe Pain (Pain Scale 7-10) 09/19/16 20:00 09/26/16 19:59 Nateglinide (Starlix) 120 mg TIAC ORAL 09/20/16 06:30 10/20/16 06:29 Nitroglycerin (Ntg) 0.4 mg Q5M X 3 DOSES PRN SL Prn Chest Pain 09/19/16 19:30 10/19/16 19:29 Ondansetron HCl (Zofran) 4 mg Q6H PRN IVP Nausea & Vomiting 09/19/16 20:00 10/19/16 19:59 Pantoprazole (Protonix) 40 mg DAILY IVP 09/20/16 09:00 10/20/16 08:59 Polyethylene Glycol (Miralax) 17 gm BEDTIME ORAL 09/19/16 21:00 10/19/16 20:59 Promethazine HCl/ Codeine (Phenergan with Codeine) 5 ml Q6H PRN ORAL For Cough 09/19/16 23:30 10/19/16 23:29 Temazepam (Restoril) 15 mg HSPRN PRN ORAL Insomnia 09/19/16 21:00 09/26/16 20:59 Item Value Date Time Bedside Blood Glucose 165 mg/dl H 09/19/162116 Bedside Blood Glucose 157 mg/dl H 09/19/16 1810 Bedside Blood Glucose 155 mg/dl H 09/19/16 1122 Bedside Blood Glucose 163 mg/dl H 09/19/16 0939 Bedside Blood Glucose 110 mg/dl 09/19/16 0657 EDGAR SHARIF 28, 2017 06:43
[2016-09-20] MEDS: metFORMIN 500mg tab ORAL SCH ×3 (06:48→16:09)
[2016-09-20 07:45] VITALS: BP 150/106
[2016-09-20 08:17] LABS: BASOPHILS % (AUTO) 1.2 % (0.0-2.0); EOSINOPHILS % (AUTO) 2.6 % (0.0-3.0); MEAN CORPUSCULAR HEMOGLOBIN 30.6 PG (27.0-31.0); MEAN CORPUSCULAR HGB CONC 33.7 G/DL (32.0-36.0); MEAN CORPUSCULAR VOLUME 91 FL (80-99); MEAN PLATELET VOLUME 8.4 FL (6.5-10.1); MONOCYTES % (AUTO) 13.4 % (1.0-10.0); NEUTROPHILS % (AUTO) 61.8 % (45.0-75.0); PLATELET COUNT 169 K/UL (150-450); RED BLOOD COUNT 3.44 M/UL (4.20-5.40); RED CELL DISTRIBUTION WIDTH 13.8 % (11.6-14.8); WHITE BLOOD COUNT 13.2 K/UL (4.8-10.8)
[2016-09-20] MEDS: Docusate 250mg cap ORAL SCH (09:00)
[2016-09-20] MEDS: Levemir Flexpen SUBQ SCH ×2 (09:00→21:58)
[2016-09-20] MEDS: Metoprolol 25mg tab ORAL SCH ×2 (09:07→21:52)
[2016-09-20] MEDS: Pantoprazole Inj IVP SCH (09:07)
[2016-09-20] MEDS: Heparin 5000 units/ml inj SUBQ SCH ×2 (09:11→22:02)
[2016-09-20 09:21] LABS: HEMOLYSIS 4; IRON 20 ug/dL (37-145); TOTAL IRON BINDING CAPACITY 183 ug/dL (250-400)
[2016-09-20] MEDS: cefTRIAXone 1 GM in D5W 55 ML IVPB SCH (11:20)
--- NOTE | 2016-09-20 11:26 | General Progress Note ---
Assessment/Plan Problem List: (1) Anemia ICD Codes: D64.9 - Anemia, unspecified SNOMED: 347196161 (2) Diverticulosis ICD Codes: K57.90 - Diverticulosis of intestine, part unspecified, without perforation or abscess without bleeding SNOMED: 408479368 (3) Hiatal hernia ICD Codes: K44.9 - Diaphragmatic hernia without obstruction or gangrene SNOMED: 08436506 (4) UTI (urinary tract infection) ICD Codes: N39.0 - Urinary tract infection, site not specified SNOMED: 62578284 (5) HTN (hypertension) ICD Codes: I10 - Essential (primary) hypertension SNOMED: 98501328 (6) Diabetes mellitus ICD Codes: E11.9 - Type 2 diabetes mellitus without complications SNOMED: 08076693 (7) Iron deficiency anemia ICD Codes: D50.9 - Iron deficiency anemia, unspecified SNOMED: 15731927 (8) Pulmonary hypertension ICD Codes: I27.2 - Other secondary pulmonary hypertension SNOMED: 34617405 Assessment/Plan iv iron not stable for gi procedures given SOB with min walking abx ppi fu Subjective ROS Limited/Unobtainable: Yes Allergies: Coded Allergies: IODINE (Unverified Allergy, Unknown, 07/02/14) Subjective no abd pain c/o leg pain Objective Last 24 Hour Vital Signs Date Time Temp Pulse Resp B/P Pulse Ox O2 Delivery O2 Flow Rate FiO2 09/20/16 10:33 98.8 09/20/16 09:07 106 150/106 09/20/16 08:00 96 Room Air 09/20/16 08:00 Room Air 09/20/16 07:45 98.8 106 20 150/106 98 Room Air 09/20/16 04:00 98.5 101 20 138/61 94 Room Air 09/20/16 00:00 99.5 102 20 141/63 94 Room Air 09/19/16 22:41 99.5 09/19/16 21:33 100.8 60 20 151/57 96 Room Air 09/19/16 21:15 60 151/57 09/19/16 19:01 97 Room Air 09/19/16 19:01 Room Air 09/19/16 16:00 94 09/19/16 16:00 99.7 69 20 151/61 97 Room Air 09/19/16 12:00 98.2 83 18 134/78 97 Room Air 09/19/16 12:00 90 Intake and Output 09/19/16 09/20/16 19:00 07:00 Intake Total 510.0 ml Output Total 2475 ml 450 ml Balance -1965.0 ml -450 ml Intake Oral 170 ml IV Total 340.0 ml Output Urine Total 2475 ml 450 ml # Bowel Movements 1 Laboratory Tests 09/19/16 12:20: Arterial Blood pH 7.430, Arterial Blood Partial Pressure CO2 32.1L, Arterial Blood Partial Pressure O2 114.1H, Arterial Blood HCO3 21.3L, Arterial Blood Oxygen Saturation 98.0, Arterial Blood Base Excess -2.2, Marty Test Positive 09/20/16 06:45: White Blood Count 13.2#H, Red Blood Count 3.44L, Hemoglobin 10.5L, Hematocrit 31.2L, Mean Corpuscular Volume 91, Mean Corpuscular Hemoglobin 30.6, Mean Corpuscular Hemoglobin Concent 33.7, Red Cell Distribution Width 13.8, Platelet Count 169, Mean Platelet Volume 8.4, Neutrophils (%) (Auto) 61.8, Lymphocytes (% ) (Auto) 21.0, Monocytes (%) (Auto) 13.4H, Eosinophils (%) (Auto) 2.6, Basophils (%) (Auto) 1.2, Iron Level 20L, Total Iron Binding Capacity 183L, Percent Iron Saturation 11L, Unsaturated Iron Binding 163, Carcinoembryonic Antigen 1.4, Vitamin B12 Level > 2000H, Folate [Pending] Height (Feet): 5 Height (Inches): 1.00 Weight (Pounds): 200 General Appearance: alert EENT: normal ENT inspection Neck: supple Cardiovascular: normal rate Respiratory/Chest: decreased breath sounds Abdomen: normal bowel sounds, non tender, soft Extremities: non-tender JOHN KENYON Sep 20, 2016 11:26
[2016-09-20 12:05] VITALS: BP 153/82
--- NOTE | 2016-09-20 13:29 | General Progress Note ---
Assessment/Plan Status: stable Assessment/Plan Acute renal failure multifactorial sepsis- Hypotension- Dm- Medications (1) Sepsis (2) Gram-negative bacteremia (3) Acute encephalopathy (4) Hyperglycemia (5) Acute gastritis (6) Intractable vomiting (7) HTN (hypertension) (8) Diabetes mellitus Plan; no labs today- k Phos IV as needed pulm support antibiotics Monitor renal parameters- avoid nephrotoxics Subjective ROS Limited/Unobtainable: No Constitutional: Reports: malaise Allergies: Coded Allergies: IODINE (Unverified Allergy, Unknown, 07/02/14) Objective Last 24 Hour Vital Signs Date Time Temp Pulse Resp B/P Pulse Ox O2 Delivery O2 Flow Rate FiO2 09/20/16 12:05 99.0 91 16 153/82 98 09/20/16 10:33 98.8 09/20/16 09:07 106 150/106 09/20/16 08:00 96 Room Air 09/20/16 08:00 Room Air 09/20/16 07:45 98.8 106 20 150/106 98 Room Air 09/20/16 04:00 98.5 101 20 138/61 94 Room Air 09/20/16 00:00 99.5 102 20 141/63 94 Room Air 09/19/16 22:41 99.5 09/19/16 21:33 100.8 60 20 151/57 96 Room Air 09/19/16 21:15 60 151/57 09/19/16 19:01 97 Room Air 09/19/16 19:01 Room Air 09/19/16 16:00 94 09/19/16 16:00 99.7 69 20 151/61 97 Room Air Intake and Output 09/19/16 09/20/16 19:00 07:00 Intake Total 510.0 ml Output Total 2475 ml 450 ml Balance -1965.0 ml -450 ml Intake Oral 170 ml IV Total 340.0 ml Output Urine Total 2475 ml 450 ml # Bowel Movements 1 Laboratory Tests 09/20/16 06:45: White Blood Count 13.2#H, Red Blood Count 3.44L, Hemoglobin 10.5L, Hematocrit 31.2L, Mean Corpuscular Volume 91, Mean Corpuscular Hemoglobin 30.6, Mean Corpuscular Hemoglobin Concent 33.7, Red Cell Distribution Width 13.8, Platelet Count 169, Mean Platelet Volume 8.4, Neutrophils (%) (Auto) 61.8, Lymphocytes (% ) (Auto) 21.0, Monocytes (%) (Auto) 13.4H, Eosinophils (%) (Auto) 2.6, Basophils (%) (Auto) 1.2, Iron Level 20L, Total Iron Binding Capacity 183L, Percent Iron Saturation 11L, Unsaturated Iron Binding 163, Carcinoembryonic Antigen 1.4, Vitamin B12 Level > 2000H, Folate [Pending] Height (Feet): 5 Height (Inches): 1.00 Weight (Pounds): 200 General Appearance: no apparent distress Objective no change in PE TIMOTHY PEREZ Sep 20, 2016 13:29
[2016-09-20 15:57] VITALS: BP_SYST 124; BP_SYST 146; BP_DIAS 78; BP_DIAS 79
[2016-09-20] MEDS ORDERED: Tubing IV Secondary IV ONE (18:49)
[2016-09-20] MEDS ORDERED: NS 275ml ONE (18:49)
[2016-09-20 19:00] VITALS: BP 154/78
[2016-09-20] MEDS: Miralax 17gm pkt ORAL SCH (21:00)
[2016-09-20] MEDS: Iron Sucrose 100 MG in NS 55 ML IVPB SCH (21:53)
--- NOTE | 2016-09-20 22:47 | Pulmonology Progress Note ---
Assessment/Plan Problems: (1) Sepsis (2) Gram-negative bacteremia (3) Acute encephalopathy (4) Hyperglycemia (5) Acute gastritis (6) Intractable vomiting (7) HTN (hypertension) (8) Diabetes mellitus Assessment/Plan continues to improve, mental status better continue antibiotics cxr reviewe GI/ endo/ ID consult appreciated off IV fluid monitor BP and heart rate. tolerating diet Subjective ROS Limited/Unobtainable: No Constitutional: Reports: anorexia, fatigue Gastrointestinal/Abdominal: Reports: bloating, nausea, vomiting Neurologic: Reports: confusion, weakness Allergies: Coded Allergies: IODINE (Unverified Allergy, Unknown, 07/02/14) Objective Last 24 Hour Vital Signs Date Time Temp Pulse Resp B/P Pulse Ox O2 Delivery O2 Flow Rate FiO2 09/20/16 21:52 91 154/78 09/20/16 21:14 98 Room Air 09/20/16 21:14 Room Air 09/20/16 19:00 97.7 91 20 154/78 97 Room Air 09/20/16 15:57 97.9 60 20 146/78 94 Nasal Cannula 2.0 09/20/16 12:40 99.0 09/20/16 12:05 99.0 91 16 153/82 98 09/20/16 10:33 98.8 09/20/16 09:07 106 150/106 09/20/16 08:00 96 Room Air 09/20/16 08:00 Room Air 09/20/16 07:45 98.8 106 20 150/106 98 Room Air 09/20/16 04:00 98.5 101 20 138/61 94 Room Air 09/20/16 00:00 99.5 102 20 141/63 94 Room Air Intake and Output 09/19/16 09/20/16 19:00 07:00 Intake Total 510.0 ml Output Total 2475 ml 450 ml Balance -1965.0 ml -450 ml Intake Oral 170 ml IV Total 340.0 ml Output Urine Total 2475 ml 450 ml # Bowel Movements 1 General Appearance: no acute distress HEENT: normocephalic, atraumatic, anicteric, PERRL Respiratory/Chest: chest wall non-tender, decreased breath sounds, accessory muscle use, rhonchi Breasts: no masses Cardiovascular: normal peripheral pulses, normal rate, regular rhythm, no JVD Abdomen: normal bowel sounds, soft, non tender, no organomegaly Genitourinary: normal external genitalia Extremities: no cyanosis Neurologic/Psychiatric: 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 grossly normal, no motor/sensory deficits Laboratory Tests 09/20/16 06:45: White Blood Count 13.2#H, Red Blood Count 3.44L, Hemoglobin 10.5L, Hematocrit 31.2L, Mean Corpuscular Volume 91, Mean Corpuscular Hemoglobin 30.6, Mean Corpuscular Hemoglobin Concent 33.7, Red Cell Distribution Width 13.8, Platelet Count 169, Mean Platelet Volume 8.4, Neutrophils (%) (Auto) 61.8, Lymphocytes (% ) (Auto) 21.0, Monocytes (%) (Auto) 13.4H, Eosinophils (%) (Auto) 2.6, Basophils (%) (Auto) 1.2, Iron Level 20L, Total Iron Binding Capacity 183L, Percent Iron Saturation 11L, Unsaturated Iron Binding 163, Carcinoembryonic Antigen 1.4, Vitamin B12 Level > 2000H, Folate [Pending] Current Medications Medications (Trade) Dose Ordered Sig/Cody Route PRN Reason Start Time Stop Time Status Last Admin Dose Admin Acetaminophen (Tylenol) 650 mg Q4H PRN ORAL Mild Pain/Temp > 100.5 09/20/16 16:00 10/20/16 15:59 09/20/16 12:44 Albuterol/ Ipratropium (DuoNeb 0.5-3(2.5)mg/3ml) 3 ml Q4H PRN HHN Shortness of Breath 09/19/16 20:00 09/24/16 19:59 Ceftriaxone Sodium/Dextrose (Rocephin/D5W) 55 ml @ 110 mls/hr Q24H IVPB 09/20/16 11:00 09/27/16 10:59 09/20/16 11:20 Clonidine HCl (Catapres) 0.1 mg Q4H PRN ORAL SBP>160 09/19/16 20:00 10/19/16 19:59 Dextrose (Dextrose 50%) STAT PRN IV Hypoglycemia 09/19/16 20:00 10/19/16 19:59 Docusate Sodium (Colace) 250 mg DAILY ORAL 09/20/16 09:00 10/20/16 08:59 Heparin Sodium (Porcine) (Heparin 5000 units/ml) 5,000 units EVERY 12 HOURS SUBQ 09/19/16 21:00 10/19/16 20:59 09/20/16 22:02 Insulin Aspart (NovoLOG) BEFORE MEALS AND HS SUBQ 09/19/16 21:00 10/19/16 20:59 09/20/16 21:57 Insulin Detemir (Levemir) 13 units Q12HR SUBQ 09/19/16 21:00 10/19/16 20:59 09/20/16 21:58 Iron Sucrose/ Sodium Chloride (Venofer/Sodium Chloride) 60 ml @ 240 mls/hr BEDTIME IVPB 09/20/16 21:00 09/24/16 21:14 09/20/16 21:53 Lorazepam (Ativan 2mg/ml 1ml) 1 mg Q4H PRN IV For Anxiety 09/19/16 20:00 09/26/16 19:59 Metformin HCl (Glucophage) 500 mg TIAC ORAL 09/20/16 06:30 10/20/16 06:29 09/20/16 16:09 Metoprolol Tartrate (Lopressor) 25 mg Q12HR ORAL 09/19/16 21:00 10/19/16 20:59 09/20/16 21:52 Morphine Sulfate (Morphine Sulfate) 2 mg Q4H PRN IVP Severe Pain (Pain Scale 7-10) 09/19/16 20:00 09/26/16 19:59 09/20/16 10:03 Nateglinide (Starlix) 120 mg TIAC ORAL 09/20/16 06:30 10/20/16 06:29 09/20/16 16:09 Nitroglycerin (Ntg) 0.4 mg Q5M X 3 DOSES PRN SL Prn Chest Pain 09/19/16 19:30 10/19/16 19:29 Ondansetron HCl (Zofran) 4 mg Q6H PRN IVP Nausea & Vomiting 09/19/16 20:00 10/19/16 19:59 Pantoprazole (Protonix) 40 mg DAILY IVP 09/20/16 09:00 10/20/16 08:59 09/20/16 09:07 Polyethylene Glycol (Miralax) 17 gm BEDTIME ORAL 09/19/16 21:00 10/19/16 20:59 Promethazine HCl/ Codeine 5 ml 5 ml Q6H PRN ORAL For Cough 09/19/16 23:30 10/19/16 23:29 Temazepam (Restoril) 15 mg HSPRN PRN ORAL Insomnia 09/19/16 21:00 09/26/16 20:59 ROGER LEE Sep 20, 2016 22:47
[2016-09-21] VITALS: BP 133/63
[2016-09-21 04:00] VITALS: BP 135/80
[2016-09-21] MEDS: metFORMIN 500mg tab ORAL SCH ×3 (06:08→17:19)
[2016-09-21] MEDS: NovoLOG Insulin Flexpen SUBQ SCH ×4 (06:10→21:00)
[2016-09-21 07:07] LABS: ALANINE AMINOTRANSFERASE 7 U/L (3-33); ALBUMIN/GLOBULIN RATIO 0.5 (1.0-2.7); ANION GAP 16 (5-15); ASPARTATE AMINO TRANSFERASE 13 U/L (5-40); CALCIUM 8.2 mg/dL (8.6-10.2); CARBON DIOXIDE 23 mEQ/L (20-30); CHLORIDE 99 mEQ/L (98-107); CREATININE 0.9 mg/dL (0.5-0.9); CRP QUANT 20.6 mg/dL (< 0.5); HEMOLYSIS 1; MAGNESIUM 1.4 mg/dL (1.7-2.5); PHOSPHORUS 3.1 mg/dL (2.5-4.8); POTASSIUM 3.3 mEQ/L (3.4-4.9); SODIUM 138 mEQ/L (135-145); URIC ACID 4.9 mg/dL (3.0-7.5)
[2016-09-21 07:19] LABS: BASOPHILS % (AUTO) 0.8 % (0.0-2.0); EOSINOPHILS % (AUTO) 1.9 % (0.0-3.0); LYMPHOCYTES % (AUTO) 17.2 % (20.0-45.0); MEAN CORPUSCULAR HEMOGLOBIN 29.8 PG (27.0-31.0); MEAN CORPUSCULAR HGB CONC 33.2 G/DL (32.0-36.0); MEAN CORPUSCULAR VOLUME 90 FL (80-99); MEAN PLATELET VOLUME 7.4 FL (6.5-10.1); MONOCYTES % (AUTO) 9.3 % (1.0-10.0); NEUTROPHILS % (AUTO) 70.8 % (45.0-75.0); PLATELET COUNT 209 K/UL (150-450); RED CELL DISTRIBUTION WIDTH 13.8 % (11.6-14.8)
[2016-09-21 07:57] VITALS: BP 135/81
[2016-09-21] MEDS: Pantoprazole Inj IVP SCH (08:29)
[2016-09-21] MEDS: Metoprolol 25mg tab ORAL SCH ×2 (08:29→21:44)
[2016-09-21] MEDS: Docusate 250mg cap ORAL SCH (08:29)
[2016-09-21] MEDS: Heparin 5000 units/ml inj SUBQ SCH ×2 (08:36→21:44)
[2016-09-21] MEDS: Levemir Flexpen SUBQ SCH ×2 (08:37→21:43)
--- NOTE | 2016-09-21 09:02 | Infectious Diseases Prog Note ---
Assessment/Plan Assessment/Plan ASSESSMENT: 76 y/o female with: // Recurrent complicated K.pneumoniae UTI with bacteremia - CT A/P: bilateral punctate nonobstructing stones present within the kidneys. No hydronephrosis. Bilateral renal cysts. 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 Ok to complete course with PO levaquin at discharge ( 09/17 SP levaquin, zosyn d# 2 ) ( 09/16 SP flagyl d# 1 ) - monitor CBC, temperatures, - monitor BMP - C Diff - repeat cultures ( Bl, Ur ) Subjective Constitutional: Denies: anorexia, chills, drenching sweats, fatigue, fever, no symptoms, other Allergies: Coded Allergies: IODINE (Unverified Allergy, Unknown, 07/02/14) Objective Vital Signs Last 24 Hour Vital Signs Date Time Temp Pulse Resp B/P Pulse Ox O2 Delivery O2 Flow Rate FiO2 09/21/16 08:29 108 135/81 09/21/16 07:57 98.6 108 20 135/81 95 Room Air 09/21/16 04:00 98.2 104 20 135/80 98 Room Air 09/21/16 03:49 84 18 Room Air 09/21/16 00:00 98.2 100 20 133/63 97 Room Air 09/20/16 21:52 91 154/78 09/20/16 21:14 98 Room Air 09/20/16 21:14 Room Air 09/20/16 19:00 97.7 91 20 154/78 97 Room Air 09/20/16 15:57 97.9 60 20 146/78 94 Nasal Cannula 2.0 09/20/16 12:40 99.0 09/20/16 12:05 99.0 91 16 153/82 98 09/20/16 10:33 98.8 09/20/16 09:07 106 150/106 Height (Feet): 5 Height (Inches): 1.00 Weight (Pounds): 200 HEENT: atraumatic Respiratory/Chest: normal breath sounds Cardiovascular: regular rhythm Abdomen: soft, non tender Laboratory Tests Test 09/21/16 06:15 White Blood Count 15.0 K/UL (4.8-10.8) H Red Blood Count 3.30 M/UL (4.20-5.40) L Hemoglobin 9.8 G/DL (12.0-16.0) L Hematocrit 29.7 % (37.0-47.0) L Mean Corpuscular Volume 90 FL (80-99) Mean Corpuscular Hemoglobin 29.8 PG (27.0-31.0) Mean Corpuscular Hemoglobin Concent 33.2 G/DL (32.0-36.0) Red Cell Distribution Width 13.8 % (11.6-14.8) Platelet Count 209 K/UL (150-450) Mean Platelet Volume 7.4 FL (6.5-10.1) Neutrophils (%) (Auto) 70.8 % (45.0-75.0) Lymphocytes (%) (Auto) 17.2 % (20.0-45.0) L Monocytes (%) (Auto) 9.3 % (1.0-10.0) Eosinophils (%) (Auto) 1.9 % (0.0-3.0) Basophils (%) (Auto) 0.8 % (0.0-2.0) Sodium Level 138 mEQ/L (135-145) Potassium Level 3.3 mEQ/L (3.4-4.9) L Chloride Level 99 mEQ/L (98-107) Carbon Dioxide Level 23 mEQ/L (20-30) Anion Gap 16 (5-15) H Blood Urea Nitrogen 11 mg/dL (7-23) Creatinine 0.9 mg/dL (0.5-0.9) Estimat Glomerular Filtration Rate mL/min (>60) Glucose Level 169 mg/dL (74-106) H Uric Acid 4.9 mg/dL (3.0-7.5) Calcium Level 8.2 mg/dL (8.6-10.2) L Phosphorus Level 3.1 mg/dL (2.5-4.8) Magnesium Level 1.4 mg/dL (1.7-2.5) L Total Bilirubin 0.5 mg/dL (0.0-1.2) Aspartate Amino Transf (AST/SGOT) 13 U/L (5-40) Alanine Aminotransferase (ALT/SGPT) 7 U/L (3-33) Alkaline Phosphatase 178 U/L (35-104) H C-Reactive Protein, Quantitative 20.6 mg/dL (< 0.5) H Pro-B-Type Natriuretic Peptide 1491 pg/mL (0-450) H Total Protein 6.0 g/dL (6.6-8.7) L Albumin 2.2 g/dL (3.5-5.2) L Globulin 3.8 g/dL Albumin/Globulin Ratio 0.5 (1.0-2.7) L Current Medications Medications (Trade) Dose Ordered Sig/Cody Route PRN Reason Start Time Stop Time Status Last Admin Dose Admin Acetaminophen (Tylenol) 650 mg Q4H PRN ORAL Mild Pain/Temp > 100.5 09/20/16 16:00 10/20/16 15:59 09/20/16 12:44 Albuterol/ Ipratropium (DuoNeb 0.5-3(2.5)mg/3ml) 3 ml Q4H PRN HHN Shortness of Breath 09/19/16 20:00 09/24/16 19:59 Ceftriaxone Sodium/Dextrose (Rocephin/D5W) 55 ml @ 110 mls/hr Q24H IVPB 09/20/16 11:00 09/27/16 10:59 09/20/16 11:20 Clonidine HCl (Catapres) 0.1 mg Q4H PRN ORAL SBP>160 09/19/16 20:00 10/19/16 19:59 Dextrose (Dextrose 50%) STAT PRN IV Hypoglycemia 09/19/16 20:00 10/19/16 19:59 Docusate Sodium (Colace) 250 mg DAILY ORAL 09/20/16 09:00 10/20/16 08:59 Heparin Sodium (Porcine) (Heparin 5000 units/ml) 5,000 units EVERY 12 HOURS SUBQ 09/19/16 21:00 10/19/16 20:59 09/21/16 08:36 Insulin Aspart (NovoLOG) BEFORE MEALS AND HS SUBQ 09/19/16 21:00 10/19/16 20:59 09/21/16 06:10 Insulin Detemir (Levemir) 13 units Q12HR SUBQ 09/19/16 21:00 10/19/16 20:59 09/21/16 08:37 Iron Sucrose/ Sodium Chloride (Venofer/Sodium Chloride) 60 ml @ 240 mls/hr BEDTIME IVPB 09/20/16 21:00 09/24/16 21:14 09/20/16 21:53 Lorazepam (Ativan 2mg/ml 1ml) 1 mg Q4H PRN IV For Anxiety 09/19/16 20:00 09/26/16 19:59 Metformin HCl (Glucophage) 500 mg TIAC ORAL 09/20/16 06:30 10/20/16 06:29 09/21/16 06:08 Metoprolol Tartrate (Lopressor) 25 mg Q12HR ORAL 09/19/16 21:00 10/19/16 20:59 09/21/16 08:29 Morphine Sulfate (Morphine Sulfate) 2 mg Q4H PRN IVP Severe Pain (Pain Scale 7-10) 09/19/16 20:00 09/26/16 19:59 09/20/16 10:03 Nateglinide (Starlix) 120 mg TIAC ORAL 09/20/16 06:30 10/20/16 06:29 09/21/16 06:08 Nitroglycerin (Ntg) 0.4 mg Q5M X 3 DOSES PRN SL Prn Chest Pain 09/19/16 19:30 10/19/16 19:29 Ondansetron HCl (Zofran) 4 mg Q6H PRN IVP Nausea & Vomiting 09/19/16 20:00 10/19/16 19:59 Pantoprazole (Protonix) 40 mg DAILY IVP 09/20/16 09:00 10/20/16 08:59 09/21/16 08:29 Polyethylene Glycol (Miralax) 17 gm BEDTIME ORAL 09/19/16 21:00 10/19/16 20:59 Promethazine HCl/ Codeine 5 ml 5 ml Q6H PRN ORAL For Cough 09/19/16 23:30 10/19/16 23:29 Temazepam (Restoril) 15 mg HSPRN PRN ORAL Insomnia 09/19/16 21:00 09/26/16 20:59 NAGA HOOPER M.D. Sep 21, 2016 09:02
[2016-09-21 09:38] LABS: BILIRUBIN,DIRECT 0.1 mg/dL (0.1-0.3); TOTAL PROTEIN 6.1 g/dL (6.6-8.7)
[2016-09-21] MEDS: cefTRIAXone 1 GM in D5W 55 ML IVPB SCH (10:12)
[2016-09-21 11:56] VITALS: BP 152/86
--- NOTE | 2016-09-21 13:47 | General Progress Note ---
Assessment/Plan Problem List: (1) Anemia ICD Codes: D64.9 - Anemia, unspecified SNOMED: 173466020 (2) Diverticulosis ICD Codes: K57.90 - Diverticulosis of intestine, part unspecified, without perforation or abscess without bleeding SNOMED: 616581632 (3) Hiatal hernia ICD Codes: K44.9 - Diaphragmatic hernia without obstruction or gangrene SNOMED: 02397086 (4) UTI (urinary tract infection) ICD Codes: N39.0 - Urinary tract infection, site not specified SNOMED: 86561408 (5) HTN (hypertension) ICD Codes: I10 - Essential (primary) hypertension SNOMED: 77809811 (6) Diabetes mellitus ICD Codes: E11.9 - Type 2 diabetes mellitus without complications SNOMED: 58096609 (7) Iron deficiency anemia ICD Codes: D50.9 - Iron deficiency anemia, unspecified SNOMED: 55399468 (8) Pulmonary hypertension ICD Codes: I27.2 - Other secondary pulmonary hypertension SNOMED: 22538480 Assessment/Plan iv iron colace and miralax stool ob abx ppi fu Subjective ROS Limited/Unobtainable: Yes Allergies: Coded Allergies: IODINE (Unverified Allergy, Unknown, 07/02/14) Subjective no abd pain c/o leg pain Objective Last 24 Hour Vital Signs Date Time Temp Pulse Resp B/P Pulse Ox O2 Delivery O2 Flow Rate FiO2 09/21/16 11:56 98.2 98 20 152/86 95 Room Air 09/21/16 09:15 96 Room Air 09/21/16 09:15 Room Air 09/21/16 08:29 108 135/81 09/21/16 07:57 98.6 108 20 135/81 95 Room Air 09/21/16 04:00 98.2 104 20 135/80 98 Room Air 09/21/16 03:49 84 18 Room Air 09/21/16 00:00 98.2 100 20 133/63 97 Room Air 09/20/16 21:52 91 154/78 09/20/16 21:14 98 Room Air 09/20/16 21:14 Room Air 09/20/16 19:00 97.7 91 20 154/78 97 Room Air 09/20/16 15:57 97.9 60 20 146/78 94 Nasal Cannula 2.0 Intake and Output 09/20/16 09/21/16 19:00 07:00 Intake Total 710 ml 420 ml Output Total 600 ml 950 ml Balance 110 ml -530 ml Intake Oral 710 ml 360 ml IV Total 60 ml Output Urine Total 600 ml 950 ml # Bowel Movements 4 5 Laboratory Tests 09/21/16 06:15: White Blood Count 15.0H, Red Blood Count 3.30L, Hemoglobin 9.8L, Hematocrit 29.7L, Mean Corpuscular Volume 90, Mean Corpuscular Hemoglobin 29.8, Mean Corpuscular Hemoglobin Concent 33.2, Red Cell Distribution Width 13.8, Platelet Count 209, Mean Platelet Volume 7.4, Neutrophils (%) (Auto) 70.8, Lymphocytes (% ) (Auto) 17.2L, Monocytes (%) (Auto) 9.3, Eosinophils (%) (Auto) 1.9, Basophils (%) (Auto) 0.8, Sodium Level 138, Potassium Level 3.3L, Chloride Level 99, Carbon Dioxide Level 23, Anion Gap 16H, Blood Urea Nitrogen 11, Creatinine 0.9, Estimat Glomerular Filtration Rate , Glucose Level 169H, Uric Acid 4.9, Calcium Level 8.2L, Phosphorus Level 3.1, Magnesium Level 1.4L, Total Bilirubin 0.5, Direct Bilirubin 0.1, Aspartate Amino Transf (AST/SGOT) 16, Alanine Aminotransferase (ALT/SGPT) 6, Alkaline Phosphatase 178H, C-Reactive Protein, Quantitative 20.6H, Pro-B-Type Natriuretic Peptide 1491H, Total Protein 6.1L, Albumin 2.2L, Globulin 3.8, Albumin/Globulin Ratio 0.5L Height (Feet): 5 Height (Inches): 1.00 Weight (Pounds): 200 General Appearance: no apparent distress EENT: normal ENT inspection Neck: supple Cardiovascular: normal rate Respiratory/Chest: decreased breath sounds Abdomen: normal bowel sounds, non tender, soft Extremities: non-tender JOHN KENYON Sep 21, 2016 13:47
--- NOTE | 2016-09-21 14:07 | General Progress Note ---
Assessment/Plan Status: stable Assessment/Plan Acute renal failure multifactorial sepsis- Hypotension- Dm- Medications (1) Sepsis (2) Gram-negative bacteremia (3) Acute encephalopathy (4) Hyperglycemia (5) Acute gastritis (6) Intractable vomiting (7) HTN (hypertension) (8) Diabetes mellitus Plan; k and Phos and Mag IV as needed pulm support antibiotics Monitor renal parameters- avoid nephrotoxics Subjective ROS Limited/Unobtainable: No Constitutional: Reports: malaise Allergies: Coded Allergies: IODINE (Unverified Allergy, Unknown, 07/02/14) Objective Last 24 Hour Vital Signs Date Time Temp Pulse Resp B/P Pulse Ox O2 Delivery O2 Flow Rate FiO2 09/21/16 11:56 98.2 98 20 152/86 95 Room Air 09/21/16 09:15 96 Room Air 09/21/16 09:15 Room Air 09/21/16 08:29 108 135/81 09/21/16 07:57 98.6 108 20 135/81 95 Room Air 09/21/16 04:00 98.2 104 20 135/80 98 Room Air 09/21/16 03:49 84 18 Room Air 09/21/16 00:00 98.2 100 20 133/63 97 Room Air 09/20/16 21:52 91 154/78 09/20/16 21:14 98 Room Air 09/20/16 21:14 Room Air 09/20/16 19:00 97.7 91 20 154/78 97 Room Air 09/20/16 15:57 97.9 60 20 146/78 94 Nasal Cannula 2.0 Intake and Output 09/20/16 09/21/16 19:00 07:00 Intake Total 710 ml 420 ml Output Total 600 ml 950 ml Balance 110 ml -530 ml Intake Oral 710 ml 360 ml IV Total 60 ml Output Urine Total 600 ml 950 ml # Bowel Movements 4 5 Laboratory Tests 09/21/16 06:15: White Blood Count 15.0H, Red Blood Count 3.30L, Hemoglobin 9.8L, Hematocrit 29.7L, Mean Corpuscular Volume 90, Mean Corpuscular Hemoglobin 29.8, Mean Corpuscular Hemoglobin Concent 33.2, Red Cell Distribution Width 13.8, Platelet Count 209, Mean Platelet Volume 7.4, Neutrophils (%) (Auto) 70.8, Lymphocytes (% ) (Auto) 17.2L, Monocytes (%) (Auto) 9.3, Eosinophils (%) (Auto) 1.9, Basophils (%) (Auto) 0.8, Sodium Level 138, Potassium Level 3.3L, Chloride Level 99, Carbon Dioxide Level 23, Anion Gap 16H, Blood Urea Nitrogen 11, Creatinine 0.9, Estimat Glomerular Filtration Rate , Glucose Level 169H, Uric Acid 4.9, Calcium Level 8.2L, Phosphorus Level 3.1, Magnesium Level 1.4L, Total Bilirubin 0.5, Direct Bilirubin 0.1, Aspartate Amino Transf (AST/SGOT) 16, Alanine Aminotransferase (ALT/SGPT) 6, Alkaline Phosphatase 178H, C-Reactive Protein, Quantitative 20.6H, Pro-B-Type Natriuretic Peptide 1491H, Total Protein 6.1L, Albumin 2.2L, Globulin 3.8, Albumin/Globulin Ratio 0.5L Height (Feet): 5 Height (Inches): 1.00 Weight (Pounds): 200 General Appearance: no apparent distress Objective no change in PE TIMOTHY PEREZ Sep 21, 2016 14:07
[2016-09-21 16:00] VITALS: BP 155/65
--- NOTE | 2016-09-21 16:57 | Diagnostic Imaging Report ---
Indication: Abdominal pain, abnormal liver function tests, nausea, vomiting Technique: Pedroza-scale and duplex images of the upper abdomen were obtained Comparison: Reference made to CT abdomen pelvis dated 07/02/2014 Findings: . Gallbladder is surgically absent. Common bile duct measures 7 mm in diameter. No intrahepatic biliary ductal dilatation. Liver demonstrates diffusely slightly increased echogenicity, consistent with diffuse hepatocellular disease, most likely fatty change.. Portal vein and hepatic veins are patent.. Pancreas is unremarkable. Spleen is unremarkable. Left kidney measures cm in length. Right kidney measures cm length. Both kidneys demonstrate normal echogenicity. There is no hydronephrosis. Left kidney demonstrates a 16 mm upper pole exophytic cyst. There is a 2.5 cm hypoechoic structure in the renal sinus. There is a 4.5 cm upper pole right renal cyst.. . Abdominal aorta is obscured by bowel gas. Impression: Surgically absent gallbladder 2.5 cm hypoechoic structure in the left renal sinus. Review of prior CT scans indicates that this is probably prominent. As prominent renal parenchyma is seen in this area on that study. Nonetheless, followup with renal MRI should be considered to exclude underlying mass. Bilateral renal cysts Liver demonstrates diffusely increased echogenicity, consistent with diffuse hepatocellular disease, most likely fatty change. Surgically absent gallbladder. Mild extra hepatic biliary ductal ectasia, probably related to age and postcholecystectomy state. Correlation with liver function tests is recommended, however. Nonvisualization of most of the abdominal aorta, obscured by overlying bowel gas
[2016-09-21 20:00] VITALS: BP_SYST 121; BP_SYST 155; BP_DIAS 110; BP_DIAS 71
--- NOTE | 2016-09-21 20:23 | Cardiology Progress Note ---
Assessment/Plan Assessment/Plan full note dictated will repat ekg endoscopy relatively low risk procedure no eviden for chf or acs at this time low risk fo periop cardiac morbidity [id number] Objective Last 24 Hour Vital Signs Date Time Temp Pulse Resp B/P Pulse Ox O2 Delivery O2 Flow Rate FiO2 09/21/16 19:42 Room Air 09/21/16 19:42 98 Room Air 09/21/16 19:42 112 18 Room Air 09/21/16 16:00 99.0 110 16 155/65 98 Room Air 09/21/16 11:56 98.2 98 20 152/86 95 Room Air 09/21/16 09:15 96 Room Air 09/21/16 09:15 Room Air 09/21/16 08:29 108 135/81 09/21/16 07:57 98.6 108 20 135/81 95 Room Air 09/21/16 04:00 98.2 104 20 135/80 98 Room Air 09/21/16 03:49 84 18 Room Air 09/21/16 00:00 98.2 100 20 133/63 97 Room Air 09/20/16 21:52 91 154/78 09/20/16 21:14 98 Room Air 09/20/16 21:14 Room Air Intake and Output 09/20/16 09/21/16 19:00 07:00 Intake Total 710 ml 420 ml Output Total 600 ml 950 ml Balance 110 ml -530 ml Intake Oral 710 ml 360 ml IV Total 60 ml Output Urine Total 600 ml 950 ml # Bowel Movements 4 5 Laboratory Tests Test 09/21/16 06:15 White Blood Count 15.0 K/UL (4.8-10.8) H Red Blood Count 3.30 M/UL (4.20-5.40) L Hemoglobin 9.8 G/DL (12.0-16.0) L Hematocrit 29.7 % (37.0-47.0) L Mean Corpuscular Volume 90 FL (80-99) Mean Corpuscular Hemoglobin 29.8 PG (27.0-31.0) Mean Corpuscular Hemoglobin Concent 33.2 G/DL (32.0-36.0) Red Cell Distribution Width 13.8 % (11.6-14.8) Platelet Count 209 K/UL (150-450) Mean Platelet Volume 7.4 FL (6.5-10.1) Neutrophils (%) (Auto) 70.8 % (45.0-75.0) Lymphocytes (%) (Auto) 17.2 % (20.0-45.0) L Monocytes (%) (Auto) 9.3 % (1.0-10.0) Eosinophils (%) (Auto) 1.9 % (0.0-3.0) Basophils (%) (Auto) 0.8 % (0.0-2.0) Sodium Level 138 mEQ/L (135-145) Potassium Level 3.3 mEQ/L (3.4-4.9) L Chloride Level 99 mEQ/L (98-107) Carbon Dioxide Level 23 mEQ/L (20-30) Anion Gap 16 (5-15) H Blood Urea Nitrogen 11 mg/dL (7-23) Creatinine 0.9 mg/dL (0.5-0.9) Estimat Glomerular Filtration Rate mL/min (>60) Glucose Level 169 mg/dL (74-106) H Uric Acid 4.9 mg/dL (3.0-7.5) Calcium Level 8.2 mg/dL (8.6-10.2) L Phosphorus Level 3.1 mg/dL (2.5-4.8) Magnesium Level 1.4 mg/dL (1.7-2.5) L Total Bilirubin 0.5 mg/dL (0.0-1.2) Direct Bilirubin 0.1 mg/dL (0.1-0.3) Aspartate Amino Transf (AST/SGOT) 16 U/L (5-40) Alanine Aminotransferase (ALT/SGPT) 6 U/L (3-33) Alkaline Phosphatase 178 U/L (35-104) H C-Reactive Protein, Quantitative 20.6 mg/dL (< 0.5) H Pro-B-Type Natriuretic Peptide 1491 pg/mL (0-450) H Total Protein 6.1 g/dL (6.6-8.7) L Albumin 2.2 g/dL (3.5-5.2) L Globulin 3.8 g/dL Albumin/Globulin Ratio 0.5 (1.0-2.7) L DAY MCLAUGHLIN Sep 21, 2016 20:23
[2016-09-21] MEDS: Miralax 17gm pkt ORAL SCH (21:00)
[2016-09-21] MEDS: Iron Sucrose 100 MG in NS 55 ML IVPB SCH (21:00)
--- NOTE | 2016-09-21 22:28 | Pulmonology Progress Note ---
Assessment/Plan Problems: (1) Sepsis (2) Gram-negative bacteremia (3) Acute encephalopathy (4) Hyperglycemia (5) Acute gastritis (6) Intractable vomiting (7) HTN (hypertension) (8) Diabetes mellitus Assessment/Plan continues to improve, mental status better continue antibiotics cxr reviewe GI/ endo/ ID consult appreciated off IV fluid monitor BP and heart rate. tolerating diet Subjective ROS Limited/Unobtainable: No Constitutional: Reports: anorexia, chills, fatigue, fever Gastrointestinal/Abdominal: Reports: bloating, nausea, vomiting Genitourinary: Reports: dysuria, frequency, hematuria, nocturia, urgency Neurologic: Reports: confusion, weakness Allergies: Coded Allergies: IODINE (Unverified Allergy, Unknown, 07/02/14) Objective Last 24 Hour Vital Signs Date Time Temp Pulse Resp B/P Pulse Ox O2 Delivery O2 Flow Rate FiO2 09/21/16 21:44 110 155/110 09/21/16 20:00 97.0 110 16 155/110 100 Nasal Cannula 09/21/16 19:42 Room Air 09/21/16 19:42 98 Room Air 09/21/16 19:42 112 18 Room Air 09/21/16 16:00 99.0 110 16 155/65 98 Room Air 09/21/16 11:56 98.2 98 20 152/86 95 Room Air 09/21/16 09:15 96 Room Air 09/21/16 09:15 Room Air 09/21/16 08:29 108 135/81 09/21/16 07:57 98.6 108 20 135/81 95 Room Air 09/21/16 04:00 98.2 104 20 135/80 98 Room Air 09/21/16 03:49 84 18 Room Air 09/21/16 00:00 98.2 100 20 133/63 97 Room Air Intake and Output 09/20/16 09/21/16 19:00 07:00 Intake Total 710 ml 420 ml Output Total 600 ml 950 ml Balance 110 ml -530 ml Intake Oral 710 ml 360 ml IV Total 60 ml Output Urine Total 600 ml 950 ml # Bowel Movements 4 5 General Appearance: no acute distress HEENT: normocephalic, atraumatic, PERRL Respiratory/Chest: chest wall non-tender, decreased breath sounds, accessory muscle use Breasts: no masses Cardiovascular: tachycardia Abdomen: hyperactive bowel sounds, distended, guarding, tender, rebound tenderness Genitourinary: normal external genitalia Extremities: no cyanosis Skin: rash, lesions Neurologic/Psychiatric: [place] II-XII grossly normal, responsive, disoriented Laboratory Tests 09/21/16 06:15: White Blood Count 15.0H, Red Blood Count 3.30L, Hemoglobin 9.8L, Hematocrit 29.7L, Mean Corpuscular Volume 90, Mean Corpuscular Hemoglobin 29.8, Mean Corpuscular Hemoglobin Concent 33.2, Red Cell Distribution Width 13.8, Platelet Count 209, Mean Platelet Volume 7.4, Neutrophils (%) (Auto) 70.8, Lymphocytes (% ) (Auto) 17.2L, Monocytes (%) (Auto) 9.3, Eosinophils (%) (Auto) 1.9, Basophils (%) (Auto) 0.8, Sodium Level 138, Potassium Level 3.3L, Chloride Level 99, Carbon Dioxide Level 23, Anion Gap 16H, Blood Urea Nitrogen 11, Creatinine 0.9, Estimat Glomerular Filtration Rate , Glucose Level 169H, Uric Acid 4.9, Calcium Level 8.2L, Phosphorus Level 3.1, Magnesium Level 1.4L, Total Bilirubin 0.5, Direct Bilirubin 0.1, Aspartate Amino Transf (AST/SGOT) 16, Alanine Aminotransferase (ALT/SGPT) 6, Alkaline Phosphatase 178H, C-Reactive Protein, Quantitative 20.6H, Pro-B-Type Natriuretic Peptide 1491H, Total Protein 6.1L, Albumin 2.2L, Globulin 3.8, Albumin/Globulin Ratio 0.5L Current Medications Medications (Trade) Dose Ordered Sig/Cody Route PRN Reason Start Time Stop Time Status Last Admin Dose Admin Acetaminophen 650 mg 650 mg Q4H PRN ORAL Mild Pain/Temp > 100.5 09/20/16 16:00 10/20/16 15:59 09/20/16 12:44 Albuterol/ Ipratropium (DuoNeb 0.5-3(2.5)mg/3ml) 3 ml Q4H PRN HHN Shortness of Breath 09/19/16 20:00 09/24/16 19:59 Ceftriaxone Sodium/Sodium Chloride (Rocephin/Sodium Chloride) 55 ml @ 110 mls/hr Q24H IVPB 09/22/16 11:00 09/29/16 10:59 Clonidine HCl (Catapres) 0.1 mg Q4H PRN ORAL SBP>160 09/19/16 20:00 10/19/16 19:59 Dextrose (Dextrose 50%) STAT PRN IV Hypoglycemia 09/19/16 20:00 10/19/16 19:59 Docusate Sodium (Colace) 250 mg DAILY ORAL 09/20/16 09:00 10/20/16 08:59 Heparin Sodium (Porcine) (Heparin 5000 units/ml) 5,000 units EVERY 12 HOURS SUBQ 09/19/16 21:00 10/19/16 20:59 09/21/16 21:44 Insulin Aspart (NovoLOG) BEFORE MEALS AND HS SUBQ 09/19/16 21:00 10/19/16 20:59 09/21/16 17:20 Insulin Detemir (Levemir) 13 units Q12HR SUBQ 09/19/16 21:00 10/19/16 20:59 09/21/16 21:43 Iron Sucrose/ Sodium Chloride (Venofer/Sodium Chloride) 60 ml @ 240 mls/hr BEDTIME IVPB 09/20/16 21:00 09/24/16 21:14 09/21/16 21:00 Lorazepam (Ativan 2mg/ml 1ml) 1 mg Q4H PRN IV For Anxiety 09/19/16 20:00 09/26/16 19:59 Metformin HCl (Glucophage) 500 mg TIAC ORAL 09/20/16 06:30 10/20/16 06:29 09/21/16 17:19 Metoprolol Tartrate (Lopressor) 25 mg Q12HR ORAL 09/19/16 21:00 10/19/16 20:59 09/21/16 21:44 Morphine Sulfate (Morphine Sulfate) 2 mg Q4H PRN IVP Severe Pain (Pain Scale 7-10) 09/19/16 20:00 09/26/16 19:59 09/20/16 10:03 Nateglinide (Starlix) 120 mg TIAC ORAL 09/20/16 06:30 10/20/16 06:29 09/21/16 17:19 Nitroglycerin (Ntg) 0.4 mg Q5M X 3 DOSES PRN SL Prn Chest Pain 09/19/16 19:30 10/19/16 19:29 Ondansetron HCl (Zofran) 4 mg Q6H PRN IVP Nausea & Vomiting 09/19/16 20:00 10/19/16 19:59 09/21/16 21:44 Pantoprazole (Protonix) 40 mg DAILY IVP 09/20/16 09:00 10/20/16 08:59 09/21/16 08:29 Polyethylene Glycol (Miralax) 17 gm BEDTIME ORAL 09/19/16 21:00 10/19/16 20:59 Promethazine HCl/ Codeine 5 ml 5 ml Q6H PRN ORAL For Cough 09/19/16 23:30 10/19/16 23:29 Temazepam (Restoril) 15 mg HSPRN PRN ORAL Insomnia 09/19/16 21:00 09/26/16 20:59 ROGER LEE Sep 21, 2016 22:28
[2016-09-22] VITALS: BP 136/59
[2016-09-22 04:00] VITALS: BP 134/56
--- NOTE | 2016-09-22 04:28 | Consultation ---
DATE OF CONSULTATION: 09/21/2016 CARDIOLOGY CONSULTATION REFERRING PHYSICIAN: Dr. Sharad Flanagan REASON FOR REFERRAL: Preoperative evaluation for endoscopy. HISTORY OF PRESENT ILLNESS: This is a 76-year-old female with a history of multiple medical problems. The patient has had similar abdominal pain. She has had bacteremia, urinary tract infection, sepsis, renal sufficiency, and was proposed to undergo an endoscopic procedure for gastrointestinal causes and therefore this consultation is requested. The patient does not have any chest pain at this time. There is no PND. No orthopnea. She did use to have dyspnea on exertion previously, but not at this time. The patient does not have any heart pounding palpitations. She does have some dizziness on standing or trying to sit up after being in bed for some time since she has been admitted to the hospital. PAST MEDICAL HISTORY: Positive for diabetes. She also has a history of high blood pressure. She has high cholesterol. She has had three prior heart attack, last one being in 2008. She has not had any recurrence of the chest pain. She experienced a heart attack, however, since then. No cancer. No stroke. No hepatitis or tuberculosis. No asthma or emphysema. No ulcers. No kidney problems or liver problems. No thyroid problems. She does have arthritis. She has no anemia. ALLERGIES: She is allergic to iodine. SOCIAL HISTORY: She does not smoke or drink. REVIEW OF SYSTEMS: Gastrointestinal: She has had some nausea and vomiting today. Genitourinary: Negative. Pulmonary: No significant coughing or wheezing. Constitutional: Negative. PHYSICAL EXAMINATION: GENERAL: Shows to be elderly female in no apparent distress. HEENT: Unremarkable. NECK: Supple. No jugular venous distention. No abdominojugular reflux noted. LUNGS: Clear to auscultation and percussion. CARDIAC: S1 is normal. S2 is normal. Regular rate and rhythm. No heaves, thrills, gallops, or rubs noted. ABDOMEN: Soft. There is no guarding. No rigidity. EXTREMITIES: There is no clubbing, cyanosis, or edema. NEUROLOGIC: She is awake, alert, responsive, and in no apparent respiratory distress. VITAL SIGNS: Her blood pressure is 135/81 to 155/65, heart rate between 98 to 112, and temperature 98.2. LABORATORY AND DIAGNOSTIC DATA: White count 15, hemoglobin 9.8, and platelet count of 209,000. ABG on 09/19/2016 showed a pH of 7.4, pCO2 of 32, pO2 of 140, and bicarbonate at 21 . Sodium is 138, potassium 3.3, chloride 99, bicarbonate of 23, BUN 11, creatinine 0.9, and glucose of 169. Magnesium was 1.4. Liver function tests are normal except for an albumin of 2.2. ProBNP is 1491. Coagulation - INR 1.1 and PTT of 27 . Abdominal ultrasound was performed today showing surgically absent gallbladder. Bilateral renal cysts. hepatocellular disease most likely fatty changes. An echocardiogram was performed a few days ago. It was technically difficult, but systolic function was normal to the extent visualized. No significant valvular pathology is noted. The patient's EKG shows sinus rhythm with premature atrial complexes. No ST or T wave abnormalities as of 09/14/2016. ASSESSMENT: 1. Bacteremia. 2. Urinary tract infection. 3. Sepsis. 4. Subhepatic encephalopathy. 5. Diabetes mellitus, fully controlled. 6. Hypertension. 7. Intractable vomiting. PLAN: Dr. Flanagan, this patient was seen in cardiac consultation. The patient has no signs or symptoms of congestive heart failure on examination or any acute coronary syndrome. Her EKG from 09/14/2016 appears to be intact. She will have a repeat EKG. However, I suspect that she will be able to tolerate endoscopic procedure, which is typically low risk. Salvador Chavez M.D. DR: RENAE JOB#: [id number] CC:
[2016-09-22] MEDS: metFORMIN 500mg tab ORAL SCH ×3 (06:26→16:45)
[2016-09-22] MEDS: NovoLOG Insulin Flexpen SUBQ SCH ×4 (06:27→21:00)
--- NOTE | 2016-09-22 06:53 | Infectious Diseases Prog Note ---
Assessment/Plan Assessment/Plan ASSESSMENT: 76 y/o female with: // Recurrent complicated K.pneumoniae UTI with bacteremia - CT A/P: bilateral punctate nonobstructing stones present within the kidneys. No hydronephrosis. Bilateral renal cysts. - h/o P.mirabilis // Sepsis SP // Leukocytosis // Low grade fever , SP // Diarrhea improved after , Colace was held // US : Liver : most likely fatty change. Surgically absent gallbladder // ARF on CKD3 - improved // DM2, uncontrolled - HbA1c 12% // Morbid obesity // No ABX allergies // Full Code PLAN: - continue rocephin d# 6 ( ABX d# / ). Ok to complete course with PO levaquin at discharge ( 09/17 SP levaquin, zosyn d# 2 ) ( 09/16 SP flagyl d# 1 ) - monitor CBC, temperatures, - monitor BMP - monitor cultures ( Bl, Ur ) Subjective Constitutional: Denies: anorexia, chills, drenching sweats, fatigue, fever, no symptoms, other Allergies: Coded Allergies: IODINE (Unverified Allergy, Unknown, 07/02/14) Objective Vital Signs Last 24 Hour Vital Signs Date Time Temp Pulse Resp B/P Pulse Ox O2 Delivery O2 Flow Rate FiO2 09/22/16 04:00 96.4 75 20 134/56 94 Room Air 09/22/16 00:00 99.0 97 20 136/59 95 Room Air 09/21/16 21:44 110 155/110 09/21/16 20:00 97.0 110 16 155/110 100 Nasal Cannula 09/21/16 19:42 Room Air 09/21/16 19:42 98 Room Air 09/21/16 19:42 112 18 Room Air 09/21/16 16:00 99.0 110 16 155/65 98 Room Air 09/21/16 11:56 98.2 98 20 152/86 95 Room Air 09/21/16 09:15 96 Room Air 09/21/16 09:15 Room Air 09/21/16 08:29 108 135/81 09/21/16 07:57 98.6 108 20 135/81 95 Room Air Height (Feet): 5 Height (Inches): 1.00 Weight (Pounds): 200 HEENT: atraumatic Respiratory/Chest: lungs clear Cardiovascular: regular rhythm Abdomen: soft, non tender, no organomegaly Laboratory Tests Test 09/21/16 21:30 Stool Occult Blood Pending Current Medications Medications (Trade) Dose Ordered Sig/Cody Route PRN Reason Start Time Stop Time Status Last Admin Dose Admin Acetaminophen 650 mg 650 mg Q4H PRN ORAL Mild Pain/Temp > 100.5 09/20/16 16:00 10/20/16 15:59 09/20/16 12:44 Albuterol/ Ipratropium (DuoNeb 0.5-3(2.5)mg/3ml) 3 ml Q4H PRN HHN Shortness of Breath 09/19/16 20:00 09/24/16 19:59 Ceftriaxone Sodium/Sodium Chloride (Rocephin/Sodium Chloride) 55 ml @ 110 mls/hr Q24H IVPB 09/22/16 11:00 09/29/16 10:59 Clonidine HCl (Catapres) 0.1 mg Q4H PRN ORAL SBP>160 09/19/16 20:00 10/19/16 19:59 Dextrose (Dextrose 50%) STAT PRN IV Hypoglycemia 09/19/16 20:00 10/19/16 19:59 Docusate Sodium (Colace) 250 mg DAILY ORAL 09/20/16 09:00 10/20/16 08:59 Heparin Sodium (Porcine) (Heparin 5000 units/ml) 5,000 units EVERY 12 HOURS SUBQ 09/19/16 21:00 10/19/16 20:59 09/21/16 21:44 Insulin Aspart (NovoLOG) BEFORE MEALS AND HS SUBQ 09/19/16 21:00 10/19/16 20:59 09/22/16 06:27 Insulin Detemir (Levemir) 13 units Q12HR SUBQ 09/19/16 21:00 10/19/16 20:59 09/21/16 21:43 Iron Sucrose/ Sodium Chloride (Venofer/Sodium Chloride) 60 ml @ 240 mls/hr BEDTIME IVPB 09/20/16 21:00 09/24/16 21:14 09/21/16 21:00 Lorazepam (Ativan 2mg/ml 1ml) 1 mg Q4H PRN IV For Anxiety 09/19/16 20:00 09/26/16 19:59 Metformin HCl (Glucophage) 500 mg TIAC ORAL 09/20/16 06:30 10/20/16 06:29 09/22/16 06:26 Metoprolol Tartrate (Lopressor) 25 mg Q12HR ORAL 09/19/16 21:00 10/19/16 20:59 09/21/16 21:44 Morphine Sulfate (Morphine Sulfate) 2 mg Q4H PRN IVP Severe Pain (Pain Scale 7-10) 09/19/16 20:00 09/26/16 19:59 09/20/16 10:03 Nateglinide (Starlix) 120 mg TIAC ORAL 09/20/16 06:30 10/20/16 06:29 09/22/16 06:26 Nitroglycerin (Ntg) 0.4 mg Q5M X 3 DOSES PRN SL Prn Chest Pain 09/19/16 19:30 10/19/16 19:29 Ondansetron HCl (Zofran) 4 mg Q6H PRN IVP Nausea & Vomiting 09/19/16 20:00 10/19/16 19:59 09/21/16 21:44 Pantoprazole (Protonix) 40 mg DAILY IVP 09/20/16 09:00 10/20/16 08:59 09/21/16 08:29 Polyethylene Glycol (Miralax) 17 gm BEDTIME ORAL 09/19/16 21:00 10/19/16 20:59 Promethazine HCl/ Codeine 5 ml 5 ml Q6H PRN ORAL For Cough 09/19/16 23:30 10/19/16 23:29 Temazepam (Restoril) 15 mg HSPRN PRN ORAL Insomnia 09/19/16 21:00 09/26/16 20:59 NAGA HOOPER M.D. Sep 22, 2016 06:53
[2016-09-22 07:28] LABS: BASOPHILS % (AUTO) 0.6 % (0.0-2.0); EOSINOPHILS % (AUTO) 1.5 % (0.0-3.0); LYMPHOCYTES % (AUTO) 19.6 % (20.0-45.0); MEAN CORPUSCULAR HEMOGLOBIN 30.1 PG (27.0-31.0); MEAN CORPUSCULAR HGB CONC 32.9 G/DL (32.0-36.0); MEAN CORPUSCULAR VOLUME 91 FL (80-99); MEAN PLATELET VOLUME 6.7 FL (6.5-10.1); MONOCYTES % (AUTO) 7.4 % (1.0-10.0); NEUTROPHILS % (AUTO) 70.9 % (45.0-75.0); PLATELET COUNT 269 K/UL (150-450); RED BLOOD COUNT 3.29 M/UL (4.20-5.40); RED CELL DISTRIBUTION WIDTH 14.3 % (11.6-14.8); WHITE BLOOD COUNT 14.8 K/UL (4.8-10.8)
--- NOTE | 2016-09-22 08:01 | General Progress Note ---
Assessment/Plan Problem List: (1) Diabetes mellitus ICD Codes: E11.9 - Type 2 diabetes mellitus without complications SNOMED: 45512619 (2) HTN (hypertension) ICD Codes: I10 - Essential (primary) hypertension SNOMED: 61284083 (3) Hyperglycemia ICD Codes: R73.9 - Hyperglycemia, unspecified SNOMED: 66894555 (4) Gram-negative bacteremia ICD Codes: R78.81 - Bacteremia SNOMED: 661879232220 (5) Sepsis ICD Codes: A41.9 - Sepsis, unspecified organism SNOMED: 91919880 (6) UTI (urinary tract infection) ICD Codes: N39.0 - Urinary tract infection, site not specified SNOMED: 17982371 Assessment/Plan glycemic control improved continue Metformin 500 mg tid continue Starlix 120 mg ac tid continue Levemir 13 unit bid + SSI w/ Novolog Subjective Allergies: Coded Allergies: IODINE (Unverified Allergy, Unknown, 07/02/14) All Systems: reviewed and negative except above Subjective events noted Objective Last 24 Hour Vital Signs Date Time Temp Pulse Resp B/P Pulse Ox O2 Delivery O2 Flow Rate FiO2 09/22/16 04:00 96.4 75 20 134/56 94 Room Air 09/22/16 00:00 99.0 97 20 136/59 95 Room Air 09/21/16 21:44 110 155/110 09/21/16 20:00 97.0 110 16 155/110 100 Nasal Cannula 09/21/16 19:42 Room Air 09/21/16 19:42 98 Room Air 09/21/16 19:42 112 18 Room Air 09/21/16 16:00 99.0 110 16 155/65 98 Room Air 09/21/16 11:56 98.2 98 20 152/86 95 Room Air 09/21/16 09:15 96 Room Air 09/21/16 09:15 Room Air 09/21/16 08:29 108 135/81 Intake and Output 09/21/16 09/22/16 19:00 07:00 Intake Total 960 ml 480 ml Output Total 650 ml 1300 ml Balance 310 ml -820 ml Intake Oral 450 ml 480 ml IV Total 510 ml Output Urine Total 650 ml 1300 ml # Bowel Movements 3 Laboratory Tests 09/21/16 21:30: Stool Occult Blood [Pending] 09/22/16 06:55: White Blood Count 14.8H, Red Blood Count 3.29L, Hemoglobin 9.9L, Hematocrit 30.0L, Mean Corpuscular Volume 91, Mean Corpuscular Hemoglobin 30.1, Mean Corpuscular Hemoglobin Concent 32.9, Red Cell Distribution Width 14.3, Platelet Count 269, Mean Platelet Volume 6.7, Neutrophils (%) (Auto) 70.9, Lymphocytes (% ) (Auto) 19.6L, Monocytes (%) (Auto) 7.4, Eosinophils (%) (Auto) 1.5, Basophils (%) (Auto) 0.6 Height (Feet): 5 Height (Inches): 1.00 Weight (Pounds): 200 General Appearance: no apparent distress Neck: normal alignment Cardiovascular: normal rate Respiratory/Chest: lungs clear Abdomen: normal bowel sounds Objective Current Medications Medications (Trade) Dose Ordered Sig/Cody Route PRN Reason Start Time Stop Time Status Last Admin Dose Admin Acetaminophen 650 mg 650 mg Q4H PRN ORAL Mild Pain/Temp > 100.5 09/20/16 16:00 10/20/16 15:59 09/20/16 12:44 Albuterol/ Ipratropium (DuoNeb 0.5-3(2.5)mg/3ml) 3 ml Q4H PRN HHN Shortness of Breath 09/19/16 20:00 09/24/16 19:59 Ceftriaxone Sodium/Sodium Chloride (Rocephin/Sodium Chloride) 55 ml @ 110 mls/hr Q24H IVPB 09/22/16 11:00 09/29/16 10:59 Clonidine HCl (Catapres) 0.1 mg Q4H PRN ORAL SBP>160 09/19/16 20:00 10/19/16 19:59 Dextrose (Dextrose 50%) STAT PRN IV Hypoglycemia 09/19/16 20:00 10/19/16 19:59 Docusate Sodium (Colace) 250 mg DAILY ORAL 09/20/16 09:00 10/20/16 08:59 Heparin Sodium (Porcine) (Heparin 5000 units/ml) 5,000 units EVERY 12 HOURS SUBQ 09/19/16 21:00 10/19/16 20:59 09/21/16 21:44 Insulin Aspart (NovoLOG) BEFORE MEALS AND HS SUBQ 09/19/16 21:00 10/19/16 20:59 09/22/16 06:27 Insulin Detemir (Levemir) 13 units Q12HR SUBQ 09/19/16 21:00 10/19/16 20:59 09/21/16 21:43 Iron Sucrose/ Sodium Chloride (Venofer/Sodium Chloride) 60 ml @ 240 mls/hr BEDTIME IVPB 09/20/16 21:00 09/24/16 21:14 09/21/16 21:00 Lorazepam (Ativan 2mg/ml 1ml) 1 mg Q4H PRN IV For Anxiety 09/19/16 20:00 09/26/16 19:59 Metformin HCl (Glucophage) 500 mg TIAC ORAL 09/20/16 06:30 10/20/16 06:29 09/22/16 06:26 Metoprolol Tartrate (Lopressor) 25 mg Q12HR ORAL 09/19/16 21:00 10/19/16 20:59 09/21/16 21:44 Morphine Sulfate (Morphine Sulfate) 2 mg Q4H PRN IVP Severe Pain (Pain Scale 7-10) 09/19/16 20:00 09/26/16 19:59 09/20/16 10:03 Nateglinide (Starlix) 120 mg TIAC ORAL 09/20/16 06:30 10/20/16 06:29 09/22/16 06:26 Nitroglycerin (Ntg) 0.4 mg Q5M X 3 DOSES PRN SL Prn Chest Pain 09/19/16 19:30 10/19/16 19:29 Ondansetron HCl (Zofran) 4 mg Q6H PRN IVP Nausea & Vomiting 09/19/16 20:00 10/19/16 19:59 09/21/16 21:44 Pantoprazole (Protonix) 40 mg DAILY IVP 09/20/16 09:00 10/20/16 08:59 09/21/16 08:29 Polyethylene Glycol (Miralax) 17 gm BEDTIME ORAL 09/19/16 21:00 10/19/16 20:59 Promethazine HCl/ Codeine 5 ml 5 ml Q6H PRN ORAL For Cough 09/19/16 23:30 10/19/16 23:29 Temazepam (Restoril) 15 mg HSPRN PRN ORAL Insomnia 09/19/16 21:00 09/26/16 20:59 Item Value Date Time Bedside Blood Glucose 122 mg/dl H 09/22/16 0630 Bedside Blood Glucose 118 mg/dl 09/21/16 2143 Bedside Blood Glucose 131 mg/dl H 09/21/16 1720 Bedside Blood Glucose 138 mg/dl H 09/21/16 1130 Bedside Blood Glucose 170 mg/dl H 09/21/16 0837 Bedside Blood Glucose 170 mg/dl H 09/21/16 0630 EDGAR SHARIF 30, 2017 08:01
[2016-09-22 08:13] VITALS: BP 162/72
[2016-09-22] MEDS: Metoprolol 25mg tab ORAL SCH ×2 (08:49→21:34)
[2016-09-22] MEDS: Heparin 5000 units/ml inj SUBQ SCH ×2 (08:50→21:37)
[2016-09-22] MEDS: Docusate 250mg cap ORAL SCH (08:51)
[2016-09-22] MEDS: Levemir Flexpen SUBQ SCH ×2 (08:51→21:39)
[2016-09-22] MEDS ORDERED: Docusate 250mg cap ORAL SCH (09:00)
[2016-09-22] MEDS ORDERED: cefTRIAXone 1 GM in NS 55 ML IVPB SCH (11:00)
--- NOTE | 2016-09-22 12:09 | General Progress Note ---
Assessment/Plan Status: stable Assessment/Plan Acute renal failure multifactorial sepsis- Hypotension- Dm- Medications (1) Sepsis (2) Gram-negative bacteremia (3) Acute encephalopathy (4) Hyperglycemia (5) Acute gastritis (6) Intractable vomiting (7) HTN (hypertension) (8) Diabetes mellitus Plan; No chem panel today k and Phos and Mag IV as needed pulm support antibiotics Monitor renal parameters- avoid nephrotoxics ? DC ? Subjective ROS Limited/Unobtainable: No Constitutional: Reports: malaise Allergies: Coded Allergies: IODINE (Unverified Allergy, Unknown, 07/02/14) Objective Last 24 Hour Vital Signs Date Time Temp Pulse Resp B/P Pulse Ox O2 Delivery O2 Flow Rate FiO2 09/22/16 08:49 100 162/72 09/22/16 08:49 162/72 09/22/16 08:13 99.0 100 20 162/72 97 Room Air 09/22/16 07:17 56 18 Room Air 09/22/16 07:17 97 Room Air 09/22/16 07:17 Room Air 09/22/16 04:00 96.4 75 20 134/56 94 Room Air 09/22/16 00:00 99.0 97 20 136/59 95 Room Air 09/21/16 21:44 110 155/110 09/21/16 20:00 97.0 110 16 155/110 100 Nasal Cannula 09/21/16 19:42 Room Air 09/21/16 19:42 98 Room Air 09/21/16 19:42 112 18 Room Air 09/21/16 16:00 99.0 110 16 155/65 98 Room Air Intake and Output 09/21/16 09/22/16 19:00 07:00 Intake Total 960 ml 480 ml Output Total 650 ml 1300 ml Balance 310 ml -820 ml Intake Oral 450 ml 480 ml IV Total 510 ml Output Urine Total 650 ml 1300 ml # Bowel Movements 3 Laboratory Tests 09/21/16 21:30: Stool Occult Blood [Pending] 09/22/16 06:55: White Blood Count 14.8H, Red Blood Count 3.29L, Hemoglobin 9.9L, Hematocrit 30.0L, Mean Corpuscular Volume 91, Mean Corpuscular Hemoglobin 30.1, Mean Corpuscular Hemoglobin Concent 32.9, Red Cell Distribution Width 14.3, Platelet Count 269, Mean Platelet Volume 6.7, Neutrophils (%) (Auto) 70.9, Lymphocytes (% ) (Auto) 19.6L, Monocytes (%) (Auto) 7.4, Eosinophils (%) (Auto) 1.5, Basophils (%) (Auto) 0.6 Height (Feet): 5 Height (Inches): 1.00 Weight (Pounds): 200 General Appearance: no apparent distress Objective no change in PE TIMOTHY PEREZ Sep 22, 2016 12:09
[2016-09-22 12:27] VITALS: BP 127/75
--- NOTE | 2016-09-22 14:03 | GI Progress Note ---
Assessment/Plan Problems: (1) Iron deficiency anemia ICD Codes: D50.9 - Iron deficiency anemia, unspecified SNOMED: 41762052 (2) Anemia ICD Codes: D64.9 - Anemia, unspecified SNOMED: 650216351 (3) Acute encephalopathy ICD Codes: G93.40 - Encephalopathy, unspecified SNOMED: 3385223 (4) Intractable vomiting ICD Codes: R11.10 - Vomiting, unspecified SNOMED: 286979698 (5) Abdominal pain ICD Codes: R10.9 - Unspecified abdominal pain SNOMED: 70557237 Qualifiers: Qualified Codes: R10.84 - Generalized abdominal pain (6) Diabetes ICD Codes: E11.9 - Type 2 diabetes mellitus without complications SNOMED: 58959252 Status: stable, progressing Status Narrative Discussed with Dr. Penn. Assessment/Plan pt scheduled for EGD/colonoscopy tomorrow - CLD, NPO @ [facility] - hold all blood thinners 8 hours prior procedure iv iron dc colace and miralax stool ob pending abx ppi fu labs Subjective Gastrointestinal/Abdominal: Reports: abdominal pain Subjective emesis x 1 yesterday water BM Objective Last 24 Hour Vital Signs Date Time Temp Pulse Resp B/P Pulse Ox O2 Delivery O2 Flow Rate FiO2 09/22/16 12:27 98.6 87 20 127/75 96 Room Air 09/22/16 08:49 100 162/72 09/22/16 08:49 162/72 09/22/16 08:13 99.0 100 20 162/72 97 Room Air 09/22/16 07:17 56 18 Room Air 09/22/16 07:17 97 Room Air 09/22/16 07:17 Room Air 09/22/16 04:00 96.4 75 20 134/56 94 Room Air 09/22/16 00:00 99.0 97 20 136/59 95 Room Air 09/21/16 21:44 110 155/110 09/21/16 20:00 97.0 110 16 155/110 100 Nasal Cannula 09/21/16 19:42 Room Air 09/21/16 19:42 98 Room Air 09/21/16 19:42 112 18 Room Air 09/21/16 16:00 99.0 110 16 155/65 98 Room Air Intake and Output 09/21/16 09/22/16 19:00 07:00 Intake Total 960 ml 480 ml Output Total 650 ml 1300 ml Balance 310 ml -820 ml Intake Oral 450 ml 480 ml IV Total 510 ml Output Urine Total 650 ml 1300 ml # Bowel Movements 3 Laboratory Tests Test 09/21/16 21:30 09/22/16 06:55 Stool Occult Blood Pending White Blood Count 14.8 K/UL (4.8-10.8) H Red Blood Count 3.29 M/UL (4.20-5.40) L Hemoglobin 9.9 G/DL (12.0-16.0) L Hematocrit 30.0 % (37.0-47.0) L Mean Corpuscular Volume 91 FL (80-99) Mean Corpuscular Hemoglobin 30.1 PG (27.0-31.0) Mean Corpuscular Hemoglobin Concent 32.9 G/DL (32.0-36.0) Red Cell Distribution Width 14.3 % (11.6-14.8) Platelet Count 269 K/UL (150-450) Mean Platelet Volume 6.7 FL (6.5-10.1) Neutrophils (%) (Auto) 70.9 % (45.0-75.0) Lymphocytes (%) (Auto) 19.6 % (20.0-45.0) L Monocytes (%) (Auto) 7.4 % (1.0-10.0) Eosinophils (%) (Auto) 1.5 % (0.0-3.0) Basophils (%) (Auto) 0.6 % (0.0-2.0) Microbiology Date/Time Source Procedure Growth Status 09/21/16 21:30 Stool Clostridium difficile Toxin Assay - Final Complete Height (Feet): 5 Height (Inches): 1.00 Weight (Pounds): 200 General Appearance: no apparent distress, alert, morbidly obese Cardiovascular: normal rate Respiratory/Chest: no respiratory distress Abdominal Exam: normal bowel sounds, non tender, soft Bijal Talley N.PAmando Sep 22, 2016 14:03
--- NOTE | 2016-09-22 14:49 | Pulmonology Progress Note ---
Assessment/Plan Problems: (1) Sepsis (2) Gram-negative bacteremia (3) Acute encephalopathy (4) Hyperglycemia (5) Acute gastritis (6) Intractable vomiting (7) HTN (hypertension) (8) Diabetes mellitus Assessment/Plan continues to improve, mental status better continue antibiotics wbc slightly higher monitor BP and heart rate. tolerating diet check bcb in am has endoscopy in am. Subjective ROS Limited/Unobtainable: No Interval Events: doing better, has some diarrhia Allergies: Coded Allergies: IODINE (Unverified Allergy, Unknown, 07/02/14) Objective Last 24 Hour Vital Signs Date Time Temp Pulse Resp B/P Pulse Ox O2 Delivery O2 Flow Rate FiO2 09/22/16 12:27 98.6 87 20 127/75 96 Room Air 09/22/16 08:49 100 162/72 09/22/16 08:49 162/72 09/22/16 08:13 99.0 100 20 162/72 97 Room Air 09/22/16 07:17 56 18 Room Air 09/22/16 07:17 97 Room Air 09/22/16 07:17 Room Air 09/22/16 04:00 96.4 75 20 134/56 94 Room Air 09/22/16 00:00 99.0 97 20 136/59 95 Room Air 09/21/16 21:44 110 155/110 09/21/16 20:00 97.0 110 16 155/110 100 Nasal Cannula 09/21/16 19:42 Room Air 09/21/16 19:42 98 Room Air 09/21/16 19:42 112 18 Room Air 09/21/16 16:00 99.0 110 16 155/65 98 Room Air Intake and Output 09/21/16 09/22/16 19:00 07:00 Intake Total 960 ml 480 ml Output Total 650 ml 1300 ml Balance 310 ml -820 ml Intake Oral 450 ml 480 ml IV Total 510 ml Output Urine Total 650 ml 1300 ml # Bowel Movements 3 General Appearance: WD/WN HEENT: normocephalic, atraumatic Respiratory/Chest: chest wall non-tender, lungs clear Cardiovascular: normal peripheral pulses, normal rate Abdomen: normal bowel sounds, soft, non tender Genitourinary: normal external genitalia Extremities: no clubbing Skin: no rash, no ulcers Neurologic/Psychiatric: chief crna II-XII grossly normal Lymphatic: no neck adenopathy, no groin adenopathy Musculoskeletal: no effusion Microbiology Date/Time Source Procedure Growth Status 09/21/16 21:30 Stool Clostridium difficile Toxin Assay - Final Complete Laboratory Tests 09/21/16 21:30: Stool Occult Blood [Pending] 09/22/16 06:55: White Blood Count 14.8H, Red Blood Count 3.29L, Hemoglobin 9.9L, Hematocrit 30.0L, Mean Corpuscular Volume 91, Mean Corpuscular Hemoglobin 30.1, Mean Corpuscular Hemoglobin Concent 32.9, Red Cell Distribution Width 14.3, Platelet Count 269, Mean Platelet Volume 6.7, Neutrophils (%) (Auto) 70.9, Lymphocytes (% ) (Auto) 19.6L, Monocytes (%) (Auto) 7.4, Eosinophils (%) (Auto) 1.5, Basophils (%) (Auto) 0.6 Current Medications Medications (Trade) Dose Ordered Sig/Cody Route PRN Reason Start Time Stop Time Status Last Admin Dose Admin Acetaminophen 650 mg 650 mg Q4H PRN ORAL Mild Pain/Temp > 100.5 09/20/16 16:00 10/20/16 15:59 09/20/16 12:44 Albuterol/ Ipratropium (DuoNeb 0.5-3(2.5)mg/3ml) 3 ml Q4H PRN HHN Shortness of Breath 09/19/16 20:00 09/24/16 19:59 Bisacodyl (Dulcolax) 10 mg ONCE ONCE ORAL 09/22/16 16:00 09/22/16 16:01 Ceftriaxone Sodium/Sodium Chloride (Rocephin/Sodium Chloride) 55 ml @ 110 mls/hr Q24H IVPB 09/22/16 11:00 09/29/16 10:59 09/22/16 11:54 Clonidine HCl (Catapres) 0.1 mg Q4H PRN ORAL SBP>160 09/19/16 20:00 10/19/16 19:59 09/22/16 08:49 Dextrose (Dextrose 50%) STAT PRN IV Hypoglycemia 09/19/16 20:00 10/19/16 19:59 Heparin Sodium (Porcine) (Heparin 5000 units/ml) 5,000 units EVERY 12 HOURS SUBQ 09/19/16 21:00 10/19/16 20:59 09/22/16 08:50 Insulin Aspart (NovoLOG) BEFORE MEALS AND HS SUBQ 09/19/16 21:00 10/19/16 20:59 09/22/16 06:27 Insulin Detemir (Levemir) 13 units Q12HR SUBQ 09/19/16 21:00 10/19/16 20:59 09/22/16 08:51 Iron Sucrose/ Sodium Chloride (Venofer/Sodium Chloride) 60 ml @ 240 mls/hr BEDTIME IVPB 09/20/16 21:00 09/24/16 21:14 09/21/16 21:00 Lorazepam (Ativan 2mg/ml 1ml) 1 mg Q4H PRN IV For Anxiety 09/19/16 20:00 09/26/16 19:59 Metformin HCl (Glucophage) 500 mg TIAC ORAL 09/20/16 06:30 10/20/16 06:29 09/22/16 11:54 Metoprolol Tartrate (Lopressor) 25 mg Q12HR ORAL 09/19/16 21:00 10/19/16 20:59 09/22/16 08:49 Morphine Sulfate (Morphine Sulfate) 2 mg Q4H PRN IVP Severe Pain (Pain Scale 7-10) 09/19/16 20:00 09/26/16 19:59 09/20/16 10:03 Nateglinide (Starlix) 120 mg TIAC ORAL 09/20/16 06:30 10/20/16 06:29 09/22/16 06:26 Nitroglycerin (Ntg) 0.4 mg Q5M X 3 DOSES PRN SL Prn Chest Pain 09/19/16 19:30 10/19/16 19:29 Ondansetron HCl (Zofran) 4 mg Q6H PRN IVP Nausea & Vomiting 09/19/16 20:00 10/19/16 19:59 09/21/16 21:44 Pantoprazole (Protonix) 40 mg DAILY ORAL 09/22/16 09:00 10/22/16 08:59 09/22/16 08:50 Polyethylene Glycol/ Electrolytes (Nulytely) 4,000 ml ONCE ONCE ORAL 09/22/16 16:00 09/22/16 16:01 Promethazine HCl/ Codeine 5 ml 5 ml Q6H PRN ORAL For Cough 09/19/16 23:30 10/19/16 23:29 Sodium Phosphate (Fleet's Sodium Phosl Enema) 133 ml ONCE ONCE RECTAL 09/22/16 23:30 09/22/16 23:31 Temazepam (Restoril) 15 mg HSPRN PRN ORAL Insomnia 09/19/16 21:00 09/26/16 20:59 ROGER LEE Sep 22, 2016 14:49
[2016-09-22 15:57] VITALS: BP 128/57
[2016-09-22] MEDS ORDERED: Nulytely 4L ORAL ONE (16:00)
[2016-09-22] MEDS ORDERED: Bisacodyl EC 5mg tab ORAL ONE (16:00)
[2016-09-22] MEDS ORDERED: cefTRIAXone 1gm/D5W 55ml IVPB ONE ×2 (17:00)
[2016-09-22] MEDS ORDERED: NS 275ml ONE (17:49)
[2016-09-22] MEDS ORDERED: Tubing IV Secondary IV ONE ×2 (17:49)
--- NOTE | 2016-09-22 18:24 | Cardiology Progress Note ---
Assessment/Plan Assessment/Plan 1. Bacteremia. 2. Urinary tract infection. 3. Sepsis. 4. Subhepatic encephalopathy. 5. Diabetes mellitus, fully controlled. 6. Hypertension. 7. Intractable vomiting endoscopy relatively low risk procedure no eviden for chf or acs at this time low risk fo periop cardiac morbidity Subjective Cardiovascular: Reports: lightheadedness - sometimes , Denies: chest pain Respiratory: Denies: shortness of breath Gastrointestinal/Abdominal: Denies: abdominal pain Genitourinary: Denies: burning Objective Last 24 Hour Vital Signs Date Time Temp Pulse Resp B/P Pulse Ox O2 Delivery O2 Flow Rate FiO2 09/22/16 15:57 98.8 63 20 128/57 96 Room Air 09/22/16 12:27 98.6 87 20 127/75 96 Room Air 09/22/16 08:49 100 162/72 09/22/16 08:49 162/72 09/22/16 08:13 99.0 100 20 162/72 97 Room Air 09/22/16 07:17 56 18 Room Air 09/22/16 07:17 97 Room Air 09/22/16 07:17 Room Air 09/22/16 04:00 96.4 75 20 134/56 94 Room Air 09/22/16 00:00 99.0 97 20 136/59 95 Room Air 09/21/16 21:44 110 155/110 09/21/16 20:00 97.0 110 16 155/110 100 Nasal Cannula 09/21/16 19:42 Room Air 09/21/16 19:42 98 Room Air 09/21/16 19:42 112 18 Room Air General Appearance: no apparent distress, alert, obese Neck: no JVD Cardiovascular: normal rate, regular rhythm Respiratory/Chest: lungs clear Abdomen: normal bowel sounds, non tender, soft Extremities: trace edema Intake and Output 09/21/16 09/22/16 19:00 07:00 Intake Total 960 ml 480 ml Output Total 650 ml 1300 ml Balance 310 ml -820 ml Intake Oral 450 ml 480 ml IV Total 510 ml Output Urine Total 650 ml 1300 ml # Bowel Movements 3 Laboratory Tests Test 09/21/16 21:30 09/22/16 06:55 Stool Occult Blood Pending White Blood Count 14.8 K/UL (4.8-10.8) H Red Blood Count 3.29 M/UL (4.20-5.40) L Hemoglobin 9.9 G/DL (12.0-16.0) L Hematocrit 30.0 % (37.0-47.0) L Mean Corpuscular Volume 91 FL (80-99) Mean Corpuscular Hemoglobin 30.1 PG (27.0-31.0) Mean Corpuscular Hemoglobin Concent 32.9 G/DL (32.0-36.0) Red Cell Distribution Width 14.3 % (11.6-14.8) Platelet Count 269 K/UL (150-450) Mean Platelet Volume 6.7 FL (6.5-10.1) Neutrophils (%) (Auto) 70.9 % (45.0-75.0) Lymphocytes (%) (Auto) 19.6 % (20.0-45.0) L Monocytes (%) (Auto) 7.4 % (1.0-10.0) Eosinophils (%) (Auto) 1.5 % (0.0-3.0) Basophils (%) (Auto) 0.6 % (0.0-2.0) Microbiology Date/Time Source Procedure Growth Status 09/21/16 21:30 Stool Clostridium difficile Toxin Assay - Final Complete DAY MCLAUGHLIN Sep 22, 2016 18:24
[2016-09-22 19:00] VITALS: BP 142/90
[2016-09-22] MEDS: Iron Sucrose 100 MG in NS 55 ML IVPB SCH (21:35)
[2016-09-22] MEDS ORDERED: Fleet's Enema 133ml RECTAL ONE (23:30)
[2016-09-23] VITALS (10 sets, daily range): BP systolic 137–159; BP diastolic 60–87
--- NOTE | 2016-09-23 05:56 | Infectious Diseases Prog Note ---
Assessment/Plan Assessment/Plan ASSESSMENT: 76 y/o female with: // Recurrent complicated K.pneumoniae UTI with bacteremia - CT A/P: bilateral punctate nonobstructing stones present within the kidneys. No hydronephrosis. Bilateral renal cysts. - h/o P.mirabilis // Sepsis SP // Leukocytosis // Low grade fever , SP // Diarrhea improved after , Colace was held , CDiff Neg // US : Liver : most likely fatty change. Surgically absent gallbladder // ARF on CKD3 - improved // DM2, uncontrolled - HbA1c 12% // Morbid obesity // No ABX allergies // Full Code PLAN: - continue rocephin d# 7 ( ABX d# / ). Ok to complete course with PO levaquin at discharge ( 09/17 SP levaquin, zosyn d# 2 ) ( 09/16 SP flagyl d# 1 ) - monitor CBC, temperatures, - monitor BMP - monitor cultures ( Bl ) Subjective Constitutional: Denies: anorexia, chills, drenching sweats, fatigue, fever, no symptoms, other Allergies: Coded Allergies: IODINE (Unverified Allergy, Unknown, 07/02/14) Objective Vital Signs Last 24 Hour Vital Signs Date Time Temp Pulse Resp B/P Pulse Ox O2 Delivery O2 Flow Rate FiO2 09/23/16 04:00 98.1 93 20 152/60 97 Room Air 09/23/16 00:02 98.1 79 18 140/76 97 Room Air 09/22/16 21:34 69 142/90 09/22/16 19:37 Room Air 09/22/16 19:37 97 Room Air 09/22/16 19:36 69 18 Room Air 09/22/16 19:00 98.1 94 20 142/90 97 Room Air 09/22/16 15:57 98.8 63 20 128/57 96 Room Air 09/22/16 12:27 98.6 87 20 127/75 96 Room Air 09/22/16 08:49 100 162/72 09/22/16 08:49 162/72 09/22/16 08:13 99.0 100 20 162/72 97 Room Air 09/22/16 07:17 56 18 Room Air 09/22/16 07:17 97 Room Air 09/22/16 07:17 Room Air Height (Feet): 5 Height (Inches): 1.00 Weight (Pounds): 200 HEENT: atraumatic Respiratory/Chest: no accessory muscle use Cardiovascular: normal rate Abdomen: no organomegaly Microbiology Date/Time Source Procedure Growth Status 09/21/16 12:45 Blood Blood Culture - Preliminary NO GROWTH AFTER 24 HOURS Resulted 09/21/16 12:45 Blood Blood Culture - Preliminary NO GROWTH AFTER 24 HOURS Resulted 09/21/16 21:30 Stool Clostridium difficile Toxin Assay - Final Complete Laboratory Tests Test 09/22/16 06:55 White Blood Count 14.8 K/UL (4.8-10.8) H Red Blood Count 3.29 M/UL (4.20-5.40) L Hemoglobin 9.9 G/DL (12.0-16.0) L Hematocrit 30.0 % (37.0-47.0) L Mean Corpuscular Volume 91 FL (80-99) Mean Corpuscular Hemoglobin 30.1 PG (27.0-31.0) Mean Corpuscular Hemoglobin Concent 32.9 G/DL (32.0-36.0) Red Cell Distribution Width 14.3 % (11.6-14.8) Platelet Count 269 K/UL (150-450) Mean Platelet Volume 6.7 FL (6.5-10.1) Neutrophils (%) (Auto) 70.9 % (45.0-75.0) Lymphocytes (%) (Auto) 19.6 % (20.0-45.0) L Monocytes (%) (Auto) 7.4 % (1.0-10.0) Eosinophils (%) (Auto) 1.5 % (0.0-3.0) Basophils (%) (Auto) 0.6 % (0.0-2.0) Current Medications Medications (Trade) Dose Ordered Sig/Cody Route PRN Reason Start Time Stop Time Status Last Admin Dose Admin Acetaminophen (Tylenol) 650 mg Q4H PRN ORAL Mild Pain/Temp > 100.5 09/20/16 16:00 10/20/16 15:59 09/20/16 12:44 Albuterol/ Ipratropium (DuoNeb 0.5-3(2.5)mg/3ml) 3 ml Q4H PRN HHN Shortness of Breath 09/19/16 20:00 09/24/16 19:59 Ceftriaxone Sodium/Dextrose (Rocephin/D5W) 110 ml @ 220 mls/hr Q24H IVPB 09/23/16 16:00 09/30/16 15:59 Clonidine HCl (Catapres) 0.1 mg Q4H PRN ORAL SBP>160 09/19/16 20:00 10/19/16 19:59 09/22/16 08:49 Dextrose (Dextrose 50%) STAT PRN IV Hypoglycemia 09/19/16 20:00 10/19/16 19:59 Heparin Sodium (Porcine) (Heparin 5000 units/ml) 5,000 units EVERY 12 HOURS SUBQ 09/19/16 21:00 10/19/16 20:59 09/22/16 21:37 Insulin Aspart (NovoLOG) BEFORE MEALS AND HS SUBQ 09/19/16 21:00 10/19/16 20:59 09/22/16 06:27 Insulin Detemir (Levemir) 13 units Q12HR SUBQ 09/19/16 21:00 10/19/16 20:59 09/22/16 21:39 Iron Sucrose/ Sodium Chloride (Venofer/Sodium Chloride) 60 ml @ 240 mls/hr BEDTIME IVPB 09/20/16 21:00 09/24/16 21:14 09/22/16 21:35 Lorazepam (Ativan 2mg/ml 1ml) 1 mg Q4H PRN IV For Anxiety 09/19/16 20:00 09/26/16 19:59 Metformin HCl (Glucophage) 500 mg TIAC ORAL 09/20/16 06:30 10/20/16 06:29 09/22/16 16:45 Metoprolol Tartrate (Lopressor) 25 mg Q12HR ORAL 09/19/16 21:00 10/19/16 20:59 09/22/16 21:34 Morphine Sulfate (Morphine Sulfate) 2 mg Q4H PRN IVP Severe Pain (Pain Scale 7-10) 09/19/16 20:00 09/26/16 19:59 09/20/16 10:03 Nateglinide (Starlix) 120 mg TIAC ORAL 09/20/16 06:30 10/20/16 06:29 09/22/16 06:26 Nitroglycerin (Ntg) 0.4 mg Q5M X 3 DOSES PRN SL Prn Chest Pain 09/19/16 19:30 10/19/16 19:29 Ondansetron HCl (Zofran) 4 mg Q6H PRN IVP Nausea & Vomiting 09/19/16 20:00 10/19/16 19:59 09/21/16 21:44 Pantoprazole 40 mg 40 mg DAILY ORAL 09/22/16 09:00 10/22/16 08:59 09/22/16 08:50 Promethazine HCl/ Codeine 5 ml 5 ml Q6H PRN ORAL For Cough 09/19/16 23:30 10/19/16 23:29 Temazepam (Restoril) 15 mg HSPRN PRN ORAL Insomnia 09/19/16 21:00 09/26/16 20:59 NAGA HOOPER M.D. Sep 23, 2016 05:56
[2016-09-23] MEDS: metFORMIN 500mg tab ORAL SCH ×3 (06:22→16:53)
[2016-09-23] MEDS: NovoLOG Insulin Flexpen SUBQ SCH ×4 (06:23→20:47)
[2016-09-23 06:36] LABS: BASOPHILS % (AUTO) 0.6 % (0.0-2.0); LYMPHOCYTES % (AUTO) 17.4 % (20.0-45.0); MEAN CORPUSCULAR HEMOGLOBIN 29.5 PG (27.0-31.0); MEAN CORPUSCULAR HGB CONC 31.9 G/DL (32.0-36.0); MEAN CORPUSCULAR VOLUME 92 FL (80-99); MEAN PLATELET VOLUME 6.8 FL (6.5-10.1); MONOCYTES % (AUTO) 7.6 % (1.0-10.0); NEUTROPHILS % (AUTO) 72.4 % (45.0-75.0); PLATELET COUNT 302 K/UL (150-450); RED BLOOD COUNT 3.22 M/UL (4.20-5.40); RED CELL DISTRIBUTION WIDTH 14.1 % (11.6-14.8); WHITE BLOOD COUNT 14.6 K/UL (4.8-10.8)
[2016-09-23 06:53] LABS: INR 1.1 (0.9-1.1); PROTHROMBIN TIME 11.7 SEC (9.30-11.50)
[2016-09-23 07:01] LABS: MAGNESIUM 1.5 mg/dL (1.7-2.5); PHOSPHORUS 3.5 mg/dL (2.5-4.8)
[2016-09-23 07:04] LABS: ALANINE AMINOTRANSFERASE 6 U/L (3-33); ALBUMIN/GLOBULIN RATIO 0.5 (1.0-2.7); ANION GAP 14 (5-15); ASPARTATE AMINO TRANSFERASE 13 U/L (5-40); CALCIUM 8.5 mg/dL (8.6-10.2); CARBON DIOXIDE 24 mEQ/L (20-30); CHLORIDE 103 mEQ/L (98-107); CREATININE 0.8 mg/dL (0.5-0.9); HEMOLYSIS 0; POTASSIUM 3.4 mEQ/L (3.4-4.9); SODIUM 141 mEQ/L (135-145); TOTAL PROTEIN 5.9 g/dL (6.6-8.7)
--- NOTE | 2016-09-23 07:19 | Pulmonology Progress Note ---
Assessment/Plan Assessment/Plan ASSESSMENT sepsis with bacteremia ( Klebsiella) UTI/Klebsiella hx of recurrent complicated UTI acute renal failure -resolved dehydration ( due to intractable vomiting) acute encephalopathy DM HTN intractable vomiting iron deficiency anemia abdominal pain severe pulmonary HTN fatty liver disease morbid obesity s/p EGD and colon with findings of multiple polyps, s/p biopsy e/lyte imbalances ( low K, low Mg) severe pulmonary HTN PLAN OF CARE MS floor blood and urine cx + Klebsiella, stool C dif negative, abx ID follows s/p EGD and colon 09/23 with findings of multiple polyps, s/p biopsy GI follows CTA/P no acute findings abdominal US with evidence of hepatocellular disease, liekly fatty liver, absent GB monitor HH, transfuse prn anemia workup with evidence of iron deficiency IV iron stool OB CEA WNL off stool softener and laxative for now on PPI IVF, monitor renal paarmnerts, lytes, creat down to normal nephro follows , ARF likely 2 to sepsis and dehydration -resolved e/lytes replaced, check in am ECHO with grossly normal EF, no evidence of LVH, RVSP of 61 c/w severe pulmonary HTN pain management a/emetic prn case discussed and evaluated by supervising physician Subjective Allergies: Coded Allergies: IODINE (Unverified Allergy, Unknown, 07/02/14) Subjective persistent leukocytosis, afebrile s/p EGD and colon today 09/23 with findings of multiple polyps still with abdominal pain Objective Last 24 Hour Vital Signs Date Time Temp Pulse Resp B/P Pulse Ox O2 Delivery O2 Flow Rate FiO2 09/23/16 04:00 98.1 93 20 152/60 97 Room Air 09/23/16 00:02 98.1 79 18 140/76 97 Room Air 09/22/16 21:34 69 142/90 09/22/16 19:37 Room Air 09/22/16 19:37 97 Room Air 09/22/16 19:36 69 18 Room Air 09/22/16 19:00 98.1 94 20 142/90 97 Room Air 09/22/16 15:57 98.8 63 20 128/57 96 Room Air 09/22/16 12:27 98.6 87 20 127/75 96 Room Air 09/22/16 08:49 100 162/72 09/22/16 08:49 162/72 09/22/16 08:13 99.0 100 20 162/72 97 Room Air Intake and Output 09/22/16 09/23/16 19:00 07:00 Intake Total 350 ml 300 ml Output Total 400 ml 800 ml Balance -50 ml -500 ml Intake Oral 350 ml 240 ml IV Total 60 ml Output Urine Total 400 ml 800 ml # Voids 4 # Bowel Movements 1 4 General Appearance: no acute distress, other - A/A/O x 3 obese AA female HEENT: normocephalic, atraumatic, anicteric, PERRL Respiratory/Chest: chest wall non-tender, lungs clear, normal breath sounds, no respiratory distress, no accessory muscle use Cardiovascular: normal rate, regular rhythm, no JVD Abdomen: normal bowel sounds - soft, obese, mild diffused tendernss on palpation, no rebound, no guarding, Genitourinary: normal external genitalia Extremities: no edema, pedal pulses normal Neurologic/Psychiatric: no motor/sensory deficits, alert, oriented x 3, responsive Musculoskeletal: normal muscle bulk Microbiology Date/Time Source Procedure Growth Status 09/21/16 12:45 Blood Blood Culture - Preliminary NO GROWTH AFTER 24 HOURS Resulted 09/21/16 12:45 Blood Blood Culture - Preliminary NO GROWTH AFTER 24 HOURS Resulted 09/21/16 21:30 Stool Clostridium difficile Toxin Assay - Final Complete Laboratory Tests 09/23/16 06:00: White Blood Count 14.6H, Red Blood Count 3.22L, Hemoglobin 9.5L, Hematocrit 29.7L, Mean Corpuscular Volume 92, Mean Corpuscular Hemoglobin 29.5, Mean Corpuscular Hemoglobin Concent 31.9L, Red Cell Distribution Width 14.1, Platelet Count 302, Mean Platelet Volume 6.8, Neutrophils (%) (Auto) 72.4, Lymphocytes (%) (Auto) 17.4L, Monocytes (%) (Auto) 7.6, Eosinophils (%) (Auto) 2.0, Basophils (%) (Auto) 0.6, Erythrocyte Sedimentation Rate [Pending], Prothrombin Time 11.7H, Prothromb Time International Ratio 1.1, Activated Partial Thromboplast Time 32, Sodium Level 141, Potassium Level 3.4, Chloride Level 103, Carbon Dioxide Level 24, Anion Gap 14, Blood Urea Nitrogen 7, Creatinine 0.8, Estimat Glomerular Filtration Rate , Glucose Level 80, Calcium Level 8.5L, Phosphorus Level 3.5, Magnesium Level 1.5L, Total Bilirubin 0.5, Aspartate Amino Transf (AST/SGOT) 13, Alanine Aminotransferase (ALT/SGPT) 6, Alkaline Phosphatase 134H, Total Protein 5.9L, Albumin 2.2L, Globulin 3.7, Albumin/Globulin Ratio 0.5L Current Medications Medications (Trade) Dose Ordered Sig/Cody Route PRN Reason Start Time Stop Time Status Last Admin Dose Admin Acetaminophen (Tylenol) 650 mg Q4H PRN ORAL Mild Pain/Temp > 100.5 09/20/16 16:00 10/20/16 15:59 09/20/16 12:44 Albuterol/ Ipratropium (DuoNeb 0.5-3(2.5)mg/3ml) 3 ml Q4H PRN HHN Shortness of Breath 09/19/16 20:00 09/24/16 19:59 Ceftriaxone Sodium/Dextrose (Rocephin/D5W) 110 ml @ 220 mls/hr Q24H IVPB 09/23/16 16:00 09/30/16 15:59 Clonidine HCl (Catapres) 0.1 mg Q4H PRN ORAL SBP>160 09/19/16 20:00 10/19/16 19:59 09/22/16 08:49 Dextrose (Dextrose 50%) STAT PRN IV Hypoglycemia 09/19/16 20:00 10/19/16 19:59 Heparin Sodium (Porcine) (Heparin 5000 units/ml) 5,000 units EVERY 12 HOURS SUBQ 09/19/16 21:00 10/19/16 20:59 09/22/16 21:37 Insulin Aspart (NovoLOG) BEFORE MEALS AND HS SUBQ 09/19/16 21:00 10/19/16 20:59 09/22/16 06:27 Insulin Detemir (Levemir) 13 units Q12HR SUBQ 09/19/16 21:00 10/19/16 20:59 09/22/16 21:39 Iron Sucrose/ Sodium Chloride (Venofer/Sodium Chloride) 60 ml @ 240 mls/hr BEDTIME IVPB 09/20/16 21:00 09/24/16 21:14 09/22/16 21:35 Lorazepam (Ativan 2mg/ml 1ml) 1 mg Q4H PRN IV For Anxiety 09/19/16 20:00 09/26/16 19:59 Metformin HCl (Glucophage) 500 mg TIAC ORAL 09/20/16 06:30 10/20/16 06:29 09/22/16 16:45 Metoprolol Tartrate (Lopressor) 25 mg Q12HR ORAL 09/19/16 21:00 10/19/16 20:59 09/22/16 21:34 Morphine Sulfate (Morphine Sulfate) 2 mg Q4H PRN IVP Severe Pain (Pain Scale 7-10) 09/19/16 20:00 09/26/16 19:59 09/20/16 10:03 Nateglinide (Starlix) 120 mg TIAC ORAL 09/20/16 06:30 10/20/16 06:29 09/22/16 06:26 Nitroglycerin (Ntg) 0.4 mg Q5M X 3 DOSES PRN SL Prn Chest Pain 09/19/16 19:30 10/19/16 19:29 Ondansetron HCl (Zofran) 4 mg Q6H PRN IVP Nausea & Vomiting 09/19/16 20:00 10/19/16 19:59 09/21/16 21:44 Pantoprazole 40 mg 40 mg DAILY ORAL 09/22/16 09:00 10/22/16 08:59 09/22/16 08:50 Promethazine HCl/ Codeine 5 ml 5 ml Q6H PRN ORAL For Cough 09/19/16 23:30 10/19/16 23:29 Temazepam (Restoril) 15 mg HSPRN PRN ORAL Insomnia 09/19/16 21:00 09/26/16 20:59 Hanna Carrillo NP ([facility]anchtein) Sep 23, 2016 07:19
[2016-09-23] MEDS ORDERED: DuoNeb 0.5-3(2.5)mg/3ml neb HHN PRN (08:00)
[2016-09-23] MEDS: Heparin 5000 units/ml inj SUBQ SCH ×2 (09:00→21:07)
[2016-09-23] MEDS: Levemir Flexpen SUBQ SCH ×2 (09:00→21:02)
[2016-09-23] MEDS: Metoprolol 25mg tab ORAL SCH ×2 (09:00→21:01)
--- NOTE | 2016-09-23 09:27 | Pre-Procedure Note/Attestation ---
Pre-Procedure Note/Attestation Complete Prior to Procedure Planned Procedure: not applicable Procedure Narrative: egd/colon Indications for Procedure Pre-Operative Diagnosis: anemia Attestation I attest that I discussed the nature of the procedure; its benefits; risks and complications; and alternatives (and the risks and benefits of such alternatives ), prior to the procedure, with the patient (or the patient's legal field representatives director). I attest that, if there was a reasonable possibility of needing a blood transfusion, the patient (or the patient's legal field representatives director) was given the [facility] standardized written summary, pursuant to the [employer] [place] Blood Safety Act ([place] Health and Safety Code # 1645, as amended). I attest that I re-evaluated the patient just prior to the surgery and that there has been no change in the patient's H&P, except as documented below: JOHN KENYON Sep 23, 2016 09:27
[2016-09-23] MEDS ORDERED: Propofol 10mg/ml 20ml IV ONE (09:30)
[2016-09-23] MEDS ORDERED: LR 1000ml ONE (09:30)
[2016-09-23] MEDS ORDERED: Lidocaine 1% MPF 10mg/ml 5ml ONE (09:30)
[2016-09-23] MEDS ORDERED: NS 550ML IV ONE (09:40)
--- NOTE | 2016-09-23 10:13 | Immediate Post-Op Evaluation ---
Immediate Post-Op Evalulation Immediate Post-Op Evalulation Procedure: EGD/Colonoscopy Date of Evaluation: Sep 23, 2016 Time of Evaluation: 10:13 Blood Pressure Systolic: 137 Blood Pressure Diastolic: 87 Pulse Rate: 99 Respiratory Rate: 14 O2 Sat by Pulse Oximetry: 100 Temperature (Fahrenheit): 97.5 Nausea: No Vomiting: No Complications none Patient Status: awake, reacts, patent Hydration Status: adequate Drug: none HUMBERTO STOVER CRNA Sep 23, 2016 10:13
--- NOTE | 2016-09-23 10:17 | Anethesia Preoperative Eval ---
Anesthesia Pre-op PMH/ROS General Date of Evaluation: Sep 23, 2016 Time of Evaluation: 09:30 Anesthesiologist: nicole ASA Score: ASA 3 Mallampati Score Class I : Soft palate, uvula, fauces, pillars visible Class II: Soft palate, uvula, fauces visible Class III: Soft palate, base of uvula visible Class IV: Only hard plate visible Mallampati Classification: Class III Surgeon: dragan Diagnosis: gastritis Surgical Procedure: egd/colonoscopy Anesthesia History: none Family History: no anesthesia problems Allergies: Coded Allergies: IODINE (Unverified Allergy, Unknown, 07/02/14) Medications: see eMAR Past Medical History Cardiovascular: Reports: HTN Pulmonary: Denies: COPD, LUBNA, asthma, other Gastrointestinal/Genitourinary: Reports: other - abdomial pain Neurologic/Psychiatric: Denies: CVA, TIA, dementia, depression/anxiety, other Endocrine: Reports: DM Hematology/Immune: Denies: DVT, anemia, bleeding disorder, other Musculoskeletal/Integumentary: Denies: DDD, DJD, OA, RA, edema, other Other: obesity Anesthesia Pre-op Phys. Exam Physician Exam Last Vital Signs Date Time Temp Pulse Resp B/P Pulse Ox O2 Delivery O2 Flow Rate FiO2 09/23/16 09:00 77 145/73 09/23/16 08:09 97.7 22 98 Room Air 09/20/16 15:57 2.0 09/19/16 10:10 36 Neurologic: CN 2-12 intact Cardiovascular: other - st Respiratory: CTA Gastrointestinal: S/NT/ND Airway Exam Mallampati Classification 3 Mallampati Score: Class III MO: full ROM: full Dentures: no lower, no upper Anesthesia Pre-op A/P Labs Hematology Test 09/23/16 06:00 White Blood Count 14.6 K/UL (4.8-10.8) H Red Blood Count 3.22 M/UL (4.20-5.40) L Hemoglobin 9.5 G/DL (12.0-16.0) L Hematocrit 29.7 % (37.0-47.0) L Mean Corpuscular Volume 92 FL (80-99) Mean Corpuscular Hemoglobin 29.5 PG (27.0-31.0) Mean Corpuscular Hemoglobin Concent 31.9 G/DL (32.0-36.0) L Red Cell Distribution Width 14.1 % (11.6-14.8) Platelet Count 302 K/UL (150-450) Mean Platelet Volume 6.8 FL (6.5-10.1) Neutrophils (%) (Auto) 72.4 % (45.0-75.0) Lymphocytes (%) (Auto) 17.4 % (20.0-45.0) L Monocytes (%) (Auto) 7.6 % (1.0-10.0) Eosinophils (%) (Auto) 2.0 % (0.0-3.0) Basophils (%) (Auto) 0.6 % (0.0-2.0) Erythrocyte Sedimentation Rate 121 MM/HR (0-30) H Coagulation Test 09/23/16 06:00 Prothrombin Time 11.7 SEC (9.30-11.50) H Prothromb Time International Ratio 1.1 (0.9-1.1) Activated Partial Thromboplast Time 32 SEC (23-33) Chemistry Test 09/23/16 06:00 Sodium Level 141 mEQ/L (135-145) Potassium Level 3.4 mEQ/L (3.4-4.9) Chloride Level 103 mEQ/L (98-107) Carbon Dioxide Level 24 mEQ/L (20-30) Anion Gap 14 (5-15) Blood Urea Nitrogen 7 mg/dL (7-23) Creatinine 0.8 mg/dL (0.5-0.9) Estimat Glomerular Filtration Rate mL/min (>60) Glucose Level 80 mg/dL (74-106) Calcium Level 8.5 mg/dL (8.6-10.2) L Phosphorus Level 3.5 mg/dL (2.5-4.8) Magnesium Level 1.5 mg/dL (1.7-2.5) L Total Bilirubin 0.5 mg/dL (0.0-1.2) Aspartate Amino Transf (AST/SGOT) 13 U/L (5-40) Alanine Aminotransferase (ALT/SGPT) 6 U/L (3-33) Alkaline Phosphatase 134 U/L (35-104) H Total Protein 5.9 g/dL (6.6-8.7) L Albumin 2.2 g/dL (3.5-5.2) L Globulin 3.7 g/dL Albumin/Globulin Ratio 0.5 (1.0-2.7) L Studies Pre-op Studies: EKG - ST Risk Assessment & Plan Assessment: RA 94-95% Plan: mac Status Change Before Surgery: No Pre-Antibiotics Drug: none HUMBERTO STOVER CRNA Sep 23, 2016 10:17
--- NOTE | 2016-09-23 10:20 | Endoscopy Procedure Note ---
Endoscopy Procedure Note Indication for Procedure: anemia Procedures Performed: EGD, colonoscopy Operative Findings/Diagnosis: multiple polyps Specimen: yes Pt Tolerated Procedure Well: Yes Estimated Blood Loss: none Anesthesiologist: gabriella Anesthesia: MAC Implant(s) used?: No 50 yrs or older w/o bx or poly: Not Applicable 10yrs. F/U not recommended: Not Applicable JOHN KENYON Sep 23, 2016 10:20
--- NOTE | 2016-09-23 10:51 | 48 Hour Post Anesthesia Eval ---
Post Anesthesia Evaluation Procedure: EGD/Colonoscopy Date of Evaluation: Sep 23, 2016 Time of Evaluation: 10:51 Blood Pressure Systolic: 145 0: 73 Pulse Rate: 70 O2 Sat by Pulse Oximetry: 97 Airway: patent Nausea: No Vomiting: No Hydration Status: adequate Mental Status/LOC: patient returned to baseline Post-Anesthesia Complications: none Follow-up care needed: N/A HUMBERTO STOVER CRNA Sep 23, 2016 10:51
--- NOTE | 2016-09-23 12:45 | General Progress Note ---
Assessment/Plan Status: stable Assessment/Plan Acute renal failure multifactorial sepsis- Hypotension- Dm- Medications (1) Sepsis (2) Gram-negative bacteremia (3) Acute encephalopathy (4) Hyperglycemia (5) Acute gastritis (6) Intractable vomiting (7) HTN (hypertension) (8) Diabetes mellitus Plan; k and Phos and Mag IV as needed pulm support antibiotics Monitor renal parameters- avoid nephrotoxics ? DC ? Subjective ROS Limited/Unobtainable: No Constitutional: Reports: malaise Allergies: Coded Allergies: IODINE (Unverified Allergy, Unknown, 07/02/14) Objective Last 24 Hour Vital Signs Date Time Temp Pulse Resp B/P Pulse Ox O2 Delivery O2 Flow Rate FiO2 09/23/16 10:51 70 97 09/23/16 10:18 102 22 157/66 100 Room Air 09/23/16 10:13 100 22 137/87 100 Room Air 09/23/16 10:13 99 14 100 09/23/16 10:08 97.0 101 22 137/87 100 Simple Mask 8.0 09/23/16 09:00 77 145/73 09/23/16 08:09 97.7 77 22 145/73 98 Room Air 09/23/16 04:00 98.1 93 20 152/60 97 Room Air 09/23/16 00:02 98.1 79 18 140/76 97 Room Air 09/22/16 21:34 69 142/90 09/22/16 19:37 Room Air 09/22/16 19:37 97 Room Air 09/22/16 19:36 69 18 Room Air 09/22/16 19:00 98.1 94 20 142/90 97 Room Air 09/22/16 15:57 98.8 63 20 128/57 96 Room Air Intake and Output 09/22/16 09/23/16 19:00 07:00 Intake Total 350 ml 300 ml Output Total 400 ml 800 ml Balance -50 ml -500 ml Intake Oral 350 ml 240 ml IV Total 60 ml Output Urine Total 400 ml 800 ml # Voids 4 # Bowel Movements 1 4 Laboratory Tests 09/23/16 06:00: White Blood Count 14.6H, Red Blood Count 3.22L, Hemoglobin 9.5L, Hematocrit 29.7L, Mean Corpuscular Volume 92, Mean Corpuscular Hemoglobin 29.5, Mean Corpuscular Hemoglobin Concent 31.9L, Red Cell Distribution Width 14.1, Platelet Count 302, Mean Platelet Volume 6.8, Neutrophils (%) (Auto) 72.4, Lymphocytes (%) (Auto) 17.4L, Monocytes (%) (Auto) 7.6, Eosinophils (%) (Auto) 2.0, Basophils (%) (Auto) 0.6, Erythrocyte Sedimentation Rate 121H, Prothrombin Time 11.7H, Prothromb Time International Ratio 1.1, Activated Partial Thromboplast Time 32, Sodium Level 141, Potassium Level 3.4, Chloride Level 103 , Carbon Dioxide Level 24, Anion Gap 14, Blood Urea Nitrogen 7, Creatinine 0.8, Estimat Glomerular Filtration Rate , Glucose Level 80, Calcium Level 8.5L, Phosphorus Level 3.5, Magnesium Level 1.5L, Total Bilirubin 0.5, Aspartate Amino Transf (AST/SGOT) 13, Alanine Aminotransferase (ALT/SGPT) 6, Alkaline Phosphatase 134H, Total Protein 5.9L, Albumin 2.2L, Globulin 3.7, Albumin/ Globulin Ratio 0.5L Height (Feet): 5 Height (Inches): 4.00 Weight (Pounds): 200 General Appearance: no apparent distress Objective no change in PE TIMOTHY PEREZ Sep 23, 2016 12:45
[2016-09-23] MEDS: cefTRIAXone 2gm/D5W 110ml IVPB SCH ×2 (16:53)
--- NOTE | 2016-09-23 16:58 | Procedure Note ---
DATE OF PROCEDURE: 09/23/2016 SURGEON: Benitez Penn M.D. PROCEDURE: Upper endoscopy with biopsy and colonoscopy with biopsy. ANESTHESIA: Per TELLER VAULT, Eun [place]. INSTRUMENT: Olympus adult flexible upper endoscope and colonoscope. INDICATION: Anemia. REASON FOR PROCEDURE: The procedure, risks, benefits, and possible consequences, including hemorrhage, aspiration, perforation and infection, and alternative treatments, were explained to the patient/legal guardian by Dr. Benitez Penn and the patient/legal guardian understood and accepted these risks. DESCRIPTION OF PROCEDURE: After informed consent was obtained and the patient was adequately sedated, Olympus upper endoscope was advanced from the mouth into the second portion of the duodenum and retroflexion was performed of the stomach. The patient had multiple polyps in the stomach. In the pre-pyloric region, there was one inflammatory polyp, which was removed with the biopsy forceps technique. There was a very larger polyp over a centimeter also in the pre-pyloric region, which was biopsied. There were multiple polyps in the proximal portion in the proximal part of the antrum, which were also biopsied. Then, the random biopsy from the body and antrum was also obtained to rule out H. pylori infection. The patient had severe atrophic gastritis. At this time, the upper endoscope was retrieved and the patient was turned over for colonoscopy. First, a rectal exam was performed, which was normal. Then, the scope was advanced from rectum into the cecum documented by appendiceal orifice, ileocecal valve, and right upper quadrant palpation. Quality of prep was fair. The patient had a lot of greenish fluid covering the colon. So, I would say about 15% of the colonic mucosa was not truly examined. The patient had evidence of diverticulosis mostly on the left, but somewhat scattered on the right. The patient had one polyp roughly measured about 7 mm, sessile in the transverse colon, removed with the snare polypectomy technique. Retroflexion of rectum showed evidence of internal hemorrhoids. SUMMARY OF FINDINGS: 1. Multiple gastric polyps, see above for details. 2. Atrophic gastritis status post biopsy. 3. One colonic polyp removed, see above for details. 4. Diverticulosis. 5. Internal hemorrhoids. RECOMMENDATIONS: Follow up biopsies and treat accordingly. I want to thank Dr. Flanagan for this kind referral. Benitez Penn M.D. DR: PAULIE JOB#: [id number] CC: Sharad Flanagan M.D.
--- NOTE | 2016-09-23 18:55 | Cardiology Progress Note ---
Assessment/Plan Assessment/Plan 1. Bacteremia. 2. Urinary tract infection. 3. Sepsis. 4. Subhepatic encephalopathy. 5. Diabetes mellitus, fully controlled. 6. Hypertension. 7. Intractable vomiting s/p endoscopy sedrate sig elevated Subjective Cardiovascular: Reports: lightheadedness, Denies: chest pain, palpitations Respiratory: Denies: shortness of breath Gastrointestinal/Abdominal: Denies: abdominal pain Genitourinary: Denies: burning Objective Last 24 Hour Vital Signs Date Time Temp Pulse Resp B/P Pulse Ox O2 Delivery O2 Flow Rate FiO2 09/23/16 16:00 98.2 102 20 150/71 96 Room Air 09/23/16 12:00 98.4 92 22 159/82 96 Room Air 09/23/16 10:51 70 97 09/23/16 10:18 102 22 157/66 100 Room Air 09/23/16 10:13 100 22 137/87 100 Room Air 09/23/16 10:13 99 14 100 09/23/16 10:08 97.0 101 22 137/87 100 Simple Mask 8.0 09/23/16 09:00 77 145/73 09/23/16 08:09 97.7 77 22 145/73 98 Room Air 09/23/16 06:35 88 20 Room Air 09/23/16 04:00 98.1 93 20 152/60 97 Room Air 09/23/16 00:02 98.1 79 18 140/76 97 Room Air 09/22/16 21:34 69 142/90 09/22/16 19:37 Room Air 09/22/16 19:37 97 Room Air 09/22/16 19:36 69 18 Room Air 09/22/16 19:00 98.1 94 20 142/90 97 Room Air General Appearance: alert Cardiovascular: normal rate, regular rhythm Respiratory/Chest: lungs clear, normal breath sounds Abdomen: normal bowel sounds, non tender, soft Extremities: non-tender, normal inspection Intake and Output 09/22/16 09/23/16 19:00 07:00 Intake Total 350 ml 300 ml Output Total 400 ml 800 ml Balance -50 ml -500 ml Intake Oral 350 ml 240 ml IV Total 60 ml Output Urine Total 400 ml 800 ml # Voids 4 # Bowel Movements 1 4 Laboratory Tests Test 09/23/16 06:00 White Blood Count 14.6 K/UL (4.8-10.8) H Red Blood Count 3.22 M/UL (4.20-5.40) L Hemoglobin 9.5 G/DL (12.0-16.0) L Hematocrit 29.7 % (37.0-47.0) L Mean Corpuscular Volume 92 FL (80-99) Mean Corpuscular Hemoglobin 29.5 PG (27.0-31.0) Mean Corpuscular Hemoglobin Concent 31.9 G/DL (32.0-36.0) L Red Cell Distribution Width 14.1 % (11.6-14.8) Platelet Count 302 K/UL (150-450) Mean Platelet Volume 6.8 FL (6.5-10.1) Neutrophils (%) (Auto) 72.4 % (45.0-75.0) Lymphocytes (%) (Auto) 17.4 % (20.0-45.0) L Monocytes (%) (Auto) 7.6 % (1.0-10.0) Eosinophils (%) (Auto) 2.0 % (0.0-3.0) Basophils (%) (Auto) 0.6 % (0.0-2.0) Erythrocyte Sedimentation Rate 121 MM/HR (0-30) H Prothrombin Time 11.7 SEC (9.30-11.50) H Prothromb Time International Ratio 1.1 (0.9-1.1) Activated Partial Thromboplast Time 32 SEC (23-33) Sodium Level 141 mEQ/L (135-145) Potassium Level 3.4 mEQ/L (3.4-4.9) Chloride Level 103 mEQ/L (98-107) Carbon Dioxide Level 24 mEQ/L (20-30) Anion Gap 14 (5-15) Blood Urea Nitrogen 7 mg/dL (7-23) Creatinine 0.8 mg/dL (0.5-0.9) Estimat Glomerular Filtration Rate mL/min (>60) Glucose Level 80 mg/dL (74-106) Calcium Level 8.5 mg/dL (8.6-10.2) L Phosphorus Level 3.5 mg/dL (2.5-4.8) Magnesium Level 1.5 mg/dL (1.7-2.5) L Total Bilirubin 0.5 mg/dL (0.0-1.2) Aspartate Amino Transf (AST/SGOT) 13 U/L (5-40) Alanine Aminotransferase (ALT/SGPT) 6 U/L (3-33) Alkaline Phosphatase 134 U/L (35-104) H Total Protein 5.9 g/dL (6.6-8.7) L Albumin 2.2 g/dL (3.5-5.2) L Globulin 3.7 g/dL Albumin/Globulin Ratio 0.5 (1.0-2.7) L Microbiology Date/Time Source Procedure Growth Status 09/21/16 12:45 Blood Blood Culture - Preliminary NO GROWTH AFTER 24 HOURS Resulted 09/21/16 12:45 Blood Blood Culture - Preliminary NO GROWTH AFTER 24 HOURS Resulted 09/21/16 21:30 Stool Clostridium difficile Toxin Assay - Final Complete DAY MCLAUGHLIN Sep 23, 2016 18:55
[2016-09-23] MEDS: Iron Sucrose 100 MG in NS 55 ML IVPB SCH (21:01)
[2016-09-24] VITALS: BP 145/63
[2016-09-24 04:00] VITALS: BP 150/89
[2016-09-24] MEDS: metFORMIN 500mg tab ORAL SCH ×3 (06:41→16:25)
[2016-09-24] MEDS: NovoLOG Insulin Flexpen SUBQ SCH ×4 (06:42→20:14)
--- NOTE | 2016-09-24 06:55 | General Progress Note ---
Assessment/Plan Problem List: (1) Anemia ICD Codes: D64.9 - Anemia, unspecified SNOMED: 068384366 (2) Diverticulosis ICD Codes: K57.90 - Diverticulosis of intestine, part unspecified, without perforation or abscess without bleeding SNOMED: 756788972 (3) Hiatal hernia ICD Codes: K44.9 - Diaphragmatic hernia without obstruction or gangrene SNOMED: 89988356 (4) UTI (urinary tract infection) ICD Codes: N39.0 - Urinary tract infection, site not specified SNOMED: 65719024 (5) HTN (hypertension) ICD Codes: I10 - Essential (primary) hypertension SNOMED: 84952787 (6) Diabetes mellitus ICD Codes: E11.9 - Type 2 diabetes mellitus without complications SNOMED: 16460918 (7) Iron deficiency anemia ICD Codes: D50.9 - Iron deficiency anemia, unspecified SNOMED: 23038937 (8) Pulmonary hypertension ICD Codes: I27.2 - Other secondary pulmonary hypertension SNOMED: 70633481 Assessment/Plan s/p EGD and colonoscopy fu biopsy results iron Subjective ROS Limited/Unobtainable: Yes Allergies: Coded Allergies: IODINE (Unverified Allergy, Unknown, 07/02/14) Subjective no abd pain Objective Last 24 Hour Vital Signs Date Time Temp Pulse Resp B/P Pulse Ox O2 Delivery O2 Flow Rate FiO2 09/24/16 04:00 97.9 108 20 150/89 96 Room Air 09/24/16 00:00 98.2 97 20 145/63 94 Room Air 09/23/16 22:24 74 09/23/16 21:01 110 148/63 09/23/16 20:04 98.4 110 20 148/63 96 Room Air 09/23/16 19:11 107 18 Room Air 09/23/16 16:00 98.2 102 20 150/71 96 Room Air 09/23/16 12:00 98.4 92 22 159/82 96 Room Air 09/23/16 10:51 70 97 09/23/16 10:18 102 22 157/66 100 Room Air 09/23/16 10:13 100 22 137/87 100 Room Air 09/23/16 10:13 99 14 100 09/23/16 10:08 97.0 101 22 137/87 100 Simple Mask 8.0 09/23/16 09:00 77 145/73 3/31/17 08:09 97.7 77 22 145/73 98 Room Air Intake and Output 09/23/16 09/24/16 19:00 07:00 Intake Total 460 ml 1140 ml Output Total 680 ml 1800 ml Balance -220 ml -660 ml Intake Oral 1080 ml IV Total 460 ml 60 ml Output Urine Total 680 ml 1800 ml Laboratory Tests 09/24/16 05:54: White Blood Count [Pending], Red Blood Count [Pending], Hemoglobin [Pending], Hematocrit [Pending], Mean Corpuscular Volume [Pending], Mean Corpuscular Hemoglobin [Pending], Mean Corpuscular Hemoglobin Concent [Pending], Red Cell Distribution Width [Pending], Platelet Count [Pending], Mean Platelet Volume [ Pending], Neutrophils (%) (Auto) [Pending], Lymphocytes (%) (Auto) [Pending], Monocytes (%) (Auto) [Pending], Eosinophils (%) (Auto) [Pending], Basophils (%) (Auto) [Pending], Sodium Level [Pending], Potassium Level [Pending], Chloride Level [Pending], Carbon Dioxide Level [Pending], Blood Urea Nitrogen [Pending], Creatinine [Pending], Estimat Glomerular Filtration Rate [Pending], Glucose Level [Pending], Calcium Level [Pending], Magnesium Level [Pending] Height (Feet): 5 Height (Inches): 4.00 Weight (Pounds): 200 General Appearance: alert EENT: normal ENT inspection Neck: supple Cardiovascular: tachycardia Respiratory/Chest: decreased breath sounds Abdomen: normal bowel sounds, non tender, soft Extremities: non-tender JOHN KENYON Sep 24, 2016 06:55
[2016-09-24 07:14] LABS: BASOPHILS % (AUTO) 0.8 % (0.0-2.0); EOSINOPHILS % (AUTO) 1.8 % (0.0-3.0); LYMPHOCYTES % (AUTO) 22.1 % (20.0-45.0); MEAN CORPUSCULAR HEMOGLOBIN 29.7 PG (27.0-31.0); MEAN CORPUSCULAR HGB CONC 32.1 G/DL (32.0-36.0); MEAN CORPUSCULAR VOLUME 93 FL (80-99); MEAN PLATELET VOLUME 6.7 FL (6.5-10.1); NEUTROPHILS % (AUTO) 67.4 % (45.0-75.0); PLATELET COUNT 308 K/UL (150-450); RED BLOOD COUNT 3.07 M/UL (4.20-5.40); RED CELL DISTRIBUTION WIDTH 14.3 % (11.6-14.8); WHITE BLOOD COUNT 12.5 K/UL (4.8-10.8)
[2016-09-24 07:19] LABS: ANION GAP 17 (5-15); CALCIUM 8.1 mg/dL (8.6-10.2); CARBON DIOXIDE 23 mEQ/L (20-30); CHLORIDE 101 mEQ/L (98-107); CREATININE 0.9 mg/dL (0.5-0.9); HEMOLYSIS 8; MAGNESIUM 1.7 mg/dL (1.7-2.5); POTASSIUM 3.2 mEQ/L (3.4-4.9); SODIUM 141 mEQ/L (135-145)
[2016-09-24 08:00] VITALS: BP 156/97
[2016-09-24] MEDS: Metoprolol 25mg tab ORAL SCH ×2 (08:54→20:20)
[2016-09-24] MEDS: Heparin 5000 units/ml inj SUBQ SCH ×2 (08:55→20:19)
[2016-09-24] MEDS: Levemir Flexpen SUBQ SCH ×2 (08:58→20:20)
--- NOTE | 2016-09-24 11:38 | General Progress Note ---
Assessment/Plan Status: stable Assessment/Plan Acute renal failure multifactorial sepsis- Hypotension- Dm- Medications (1) Sepsis (2) Gram-negative bacteremia (3) Acute encephalopathy (4) Hyperglycemia (5) Acute gastritis (6) Intractable vomiting (7) HTN (hypertension) (8) Diabetes mellitus Plan; k and Phos and Mag IV as needed pulm support antibiotics Monitor renal parameters- avoid nephrotoxics ? DC ? Subjective ROS Limited/Unobtainable: No Constitutional: Reports: weakness Allergies: Coded Allergies: IODINE (Unverified Allergy, Unknown, 07/02/14) Objective Last 24 Hour Vital Signs Date Time Temp Pulse Resp B/P Pulse Ox O2 Delivery O2 Flow Rate FiO2 09/24/16 08:54 81 156/97 09/24/16 08:00 98.1 81 20 156/97 98 Room Air 09/24/16 07:21 104 20 Nasal Cannula 3.0 09/24/16 04:00 97.9 108 20 150/89 96 Room Air 09/24/16 00:00 98.2 97 20 145/63 94 Room Air 09/23/16 22:24 74 09/23/16 21:01 110 148/63 09/23/16 20:04 98.4 110 20 148/63 96 Room Air 09/23/16 19:11 107 18 Room Air 09/23/16 16:00 98.2 102 20 150/71 96 Room Air 09/23/16 12:00 98.4 92 22 159/82 96 Room Air Intake and Output 09/23/16 09/24/16 19:00 07:00 Intake Total 460 ml 1140 ml Output Total 680 ml 1800 ml Balance -220 ml -660 ml Intake Oral 1080 ml IV Total 460 ml 60 ml Output Urine Total 680 ml 1800 ml Laboratory Tests 09/24/16 05:54: White Blood Count 12.5H, Red Blood Count 3.07L, Hemoglobin 9.1L, Hematocrit 28.4L, Mean Corpuscular Volume 93, Mean Corpuscular Hemoglobin 29.7, Mean Corpuscular Hemoglobin Concent 32.1, Red Cell Distribution Width 14.3, Platelet Count 308, Mean Platelet Volume 6.7, Neutrophils (%) (Auto) 67.4, Lymphocytes (% ) (Auto) 22.1, Monocytes (%) (Auto) 8.0, Eosinophils (%) (Auto) 1.8, Basophils ( %) (Auto) 0.8, Sodium Level 141, Potassium Level 3.2L, Chloride Level 101, Carbon Dioxide Level 23, Anion Gap 17H, Blood Urea Nitrogen 6L, Creatinine 0.9, Estimat Glomerular Filtration Rate , Glucose Level 111H, Calcium Level 8.1L, Magnesium Level 1.7 Height (Feet): 5 Height (Inches): 4.00 Weight (Pounds): 200 General Appearance: no apparent distress Cardiovascular: normal rate Respiratory/Chest: decreased breath sounds Abdomen: soft Objective no change in PE TIMOTHY PEREZ Sep 24, 2016 11:38
[2016-09-24 12:00] VITALS: BP 154/75
--- NOTE | 2016-09-24 12:12 | Cardiology Progress Note ---
Assessment/Plan Assessment/Plan 1. Bacteremia. 2. Urinary tract infection. 3. Sepsis. 4. Subhepatic encephalopathy. 5. Diabetes mellitus, fully controlled. 6. Hypertension. 7. Intractable vomiting s/p endoscopy sedrate sig elevated co sob today decreased bs on left bse stat portabel cxr k supplemtn mg supplement Subjective Cardiovascular: Denies: chest pain, lightheadedness, palpitations Respiratory: Reports: shortness of breath Gastrointestinal/Abdominal: Reports: abdominal pain Genitourinary: Denies: burning Objective Last 24 Hour Vital Signs Date Time Temp Pulse Resp B/P Pulse Ox O2 Delivery O2 Flow Rate FiO2 09/24/16 08:54 81 156/97 09/24/16 08:00 98.1 81 20 156/97 98 Room Air 09/24/16 07:21 104 20 Nasal Cannula 3.0 09/24/16 04:00 97.9 108 20 150/89 96 Room Air 09/24/16 00:00 98.2 97 20 145/63 94 Room Air 09/23/16 22:24 74 09/23/16 21:01 110 148/63 09/23/16 20:04 98.4 110 20 148/63 96 Room Air 09/23/16 19:11 107 18 Room Air 09/23/16 16:00 98.2 102 20 150/71 96 Room Air General Appearance: no apparent distress, alert Neck: supple Cardiovascular: normal rate, regular rhythm Respiratory/Chest: decreased breath sounds - left base Abdomen: normal bowel sounds, non tender, soft Extremities: no swelling Intake and Output 09/23/16 09/24/16 19:00 07:00 Intake Total 460 ml 1140 ml Output Total 680 ml 1800 ml Balance -220 ml -660 ml Intake Oral 1080 ml IV Total 460 ml 60 ml Output Urine Total 680 ml 1800 ml Laboratory Tests Test 09/24/16 05:54 White Blood Count 12.5 K/UL (4.8-10.8) H Red Blood Count 3.07 M/UL (4.20-5.40) L Hemoglobin 9.1 G/DL (12.0-16.0) L Hematocrit 28.4 % (37.0-47.0) L Mean Corpuscular Volume 93 FL (80-99) Mean Corpuscular Hemoglobin 29.7 PG (27.0-31.0) Mean Corpuscular Hemoglobin Concent 32.1 G/DL (32.0-36.0) Red Cell Distribution Width 14.3 % (11.6-14.8) Platelet Count 308 K/UL (150-450) Mean Platelet Volume 6.7 FL (6.5-10.1) Neutrophils (%) (Auto) 67.4 % (45.0-75.0) Lymphocytes (%) (Auto) 22.1 % (20.0-45.0) Monocytes (%) (Auto) 8.0 % (1.0-10.0) Eosinophils (%) (Auto) 1.8 % (0.0-3.0) Basophils (%) (Auto) 0.8 % (0.0-2.0) Sodium Level 141 mEQ/L (135-145) Potassium Level 3.2 mEQ/L (3.4-4.9) L Chloride Level 101 mEQ/L (98-107) Carbon Dioxide Level 23 mEQ/L (20-30) Anion Gap 17 (5-15) H Blood Urea Nitrogen 6 mg/dL (7-23) L Creatinine 0.9 mg/dL (0.5-0.9) Estimat Glomerular Filtration Rate mL/min (>60) Glucose Level 111 mg/dL (74-106) H Calcium Level 8.1 mg/dL (8.6-10.2) L Magnesium Level 1.7 mg/dL (1.7-2.5) Microbiology Date/Time Source Procedure Growth Status 09/21/16 12:45 Blood Blood Culture - Preliminary NO GROWTH AFTER 48 HOURS Resulted 09/21/16 12:45 Blood Blood Culture - Preliminary NO GROWTH AFTER 48 HOURS Resulted 09/21/16 21:30 Stool Clostridium difficile Toxin Assay - Final Complete DAY MCLAUGHLIN Sep 24, 2016 12:12
--- NOTE | 2016-09-24 12:25 | Pulmonology Progress Note ---
Assessment/Plan Assessment/Plan ASSESSMENT sepsis with bacteremia ( Klebsiella) UTI/Klebsiella hx of recurrent complicated UTI acute renal failure -resolved dehydration ( due to intractable vomiting) acute encephalopathy DM HTN intractable vomiting iron deficiency anemia abdominal pain severe pulmonary HTN fatty liver disease morbid obesity s/p EGD and colon with findings of multiple polyps, s/p biopsy e/lyte imbalances ( low K, low Mg) severe pulmonary HTN PLAN OF CARE MS floor blood and urine cx + Klebsiella, stool C dif negative, abx ID follows s/p EGD and colon 09/23 with findings of multiple polyps, s/p biopsy GI follows CTA/P no acute findings abdominal US with evidence of hepatocellular disease, liekly fatty liver, absent GB monitor HH, transfuse prn anemia workup with evidence of iron deficiency IV iron stool OB CEA WNL off stool softener and laxative for now on PPI IVF, monitor renal paarmnerts, lytes, creat down to normal nephro follows , ARF likely 2 to sepsis and dehydration -resolved e/lytes replaced, check in am ECHO with grossly normal EF, no evidence of LVH, RVSP of 61 c/w severe pulmonary HTN pain management a/emetic prn PT eval and rx dc plan for am case discussed and evaluated by supervising physician Subjective Allergies: Coded Allergies: IODINE (Unverified Allergy, Unknown, 07/02/14) Subjective leukocytosis with trend down today, afebrile s/p EGD and colon 09/23 with findings of multiple polyps started on diet, K-3.2 Objective Last 24 Hour Vital Signs Date Time Temp Pulse Resp B/P Pulse Ox O2 Delivery O2 Flow Rate FiO2 09/24/16 08:54 81 156/97 09/24/16 08:00 98.1 81 20 156/97 98 Room Air 09/24/16 07:21 104 20 Nasal Cannula 3.0 09/24/16 04:00 97.9 108 20 150/89 96 Room Air 09/24/16 00:00 98.2 97 20 145/63 94 Room Air 09/23/16 22:24 74 09/23/16 21:01 110 148/63 09/23/16 20:04 98.4 110 20 148/63 96 Room Air 09/23/16 19:11 107 18 Room Air 09/23/16 16:00 98.2 102 20 150/71 96 Room Air Intake and Output 09/23/16 09/24/16 19:00 07:00 Intake Total 460 ml 1140 ml Output Total 680 ml 1800 ml Balance -220 ml -660 ml Intake Oral 1080 ml IV Total 460 ml 60 ml Output Urine Total 680 ml 1800 ml Objective General Appearance: no acute distress, other - A/A/O x 3 obese AA female HEENT: normocephalic, atraumatic, anicteric, PERRL Respiratory/Chest: chest wall non-tender, lungs clear, normal breath sounds, no respiratory distress, no accessory muscle use Cardiovascular: normal rate, regular rhythm, no JVD Abdomen: normal bowel sounds - soft, obese, mild diffused tendernss on palpation, no rebound, no guarding, Genitourinary: normal external genitalia Extremities: no edema, pedal pulses normal Neurologic/Psychiatric: no motor/sensory deficits, alert, oriented x 3, responsive Musculoskeletal: normal muscle bulk Microbiology Date/Time Source Procedure Growth Status 09/21/16 12:45 Blood Blood Culture - Preliminary NO GROWTH AFTER 48 HOURS Resulted 09/21/16 12:45 Blood Blood Culture - Preliminary NO GROWTH AFTER 48 HOURS Resulted 09/21/16 21:30 Stool Clostridium difficile Toxin Assay - Final Complete Laboratory Tests 09/24/16 05:54: White Blood Count 12.5H, Red Blood Count 3.07L, Hemoglobin 9.1L, Hematocrit 28.4L, Mean Corpuscular Volume 93, Mean Corpuscular Hemoglobin 29.7, Mean Corpuscular Hemoglobin Concent 32.1, Red Cell Distribution Width 14.3, Platelet Count 308, Mean Platelet Volume 6.7, Neutrophils (%) (Auto) 67.4, Lymphocytes (% ) (Auto) 22.1, Monocytes (%) (Auto) 8.0, Eosinophils (%) (Auto) 1.8, Basophils ( %) (Auto) 0.8, Sodium Level 141, Potassium Level 3.2L, Chloride Level 101, Carbon Dioxide Level 23, Anion Gap 17H, Blood Urea Nitrogen 6L, Creatinine 0.9, Estimat Glomerular Filtration Rate , Glucose Level 111H, Calcium Level 8.1L, Magnesium Level 1.7 Current Medications Medications (Trade) Dose Ordered Sig/Cody Route PRN Reason Start Time Stop Time Status Last Admin Dose Admin Acetaminophen (Tylenol) 650 mg Q4H PRN ORAL Mild Pain/Temp > 100.5 09/20/16 16:00 10/20/16 15:59 09/20/16 12:44 Albuterol/ Ipratropium (DuoNeb 0.5-3(2.5)mg/3ml) 3 ml Q4H PRN HHN Shortness of Breath 09/23/16 08:00 09/28/16 07:59 Ceftriaxone Sodium/Dextrose (Rocephin/D5W) 110 ml @ 220 mls/hr Q24H IVPB 09/23/16 16:00 09/30/16 15:59 09/23/16 16:53 Clonidine HCl (Catapres) 0.1 mg Q4H PRN ORAL SBP>160 09/19/16 20:00 10/19/16 19:59 09/22/16 08:49 Dextrose (Dextrose 50%) STAT PRN IV Hypoglycemia 09/19/16 20:00 10/19/16 19:59 Heparin Sodium (Porcine) (Heparin 5000 units/ml) 5,000 units EVERY 12 HOURS SUBQ 09/19/16 21:00 10/19/16 20:59 09/24/16 08:55 Insulin Aspart (NovoLOG) BEFORE MEALS AND HS SUBQ 09/19/16 21:00 10/19/16 20:59 09/24/16 06:42 Insulin Detemir (Levemir) 13 units Q12HR SUBQ 09/19/16 21:00 10/19/16 20:59 09/24/16 08:58 Iron Sucrose/ Sodium Chloride (Venofer/Sodium Chloride) 60 ml @ 240 mls/hr BEDTIME IVPB 09/20/16 21:00 09/24/16 21:14 09/23/16 21:01 Lorazepam (Ativan 2mg/ml 1ml) 1 mg Q4H PRN IV For Anxiety 09/19/16 20:00 09/26/16 19:59 Metformin HCl (Glucophage) 500 mg TIAC ORAL 09/20/16 06:30 10/20/16 06:29 09/24/16 06:41 Metoprolol Tartrate (Lopressor) 25 mg Q12HR ORAL 09/19/16 21:00 10/19/16 20:59 09/24/16 08:54 Morphine Sulfate (Morphine Sulfate) 2 mg Q4H PRN IVP Severe Pain (Pain Scale 7-10) 09/19/16 20:00 09/26/16 19:59 09/20/16 10:03 Nateglinide (Starlix) 120 mg TIAC ORAL 09/20/16 06:30 10/20/16 06:29 09/24/16 06:41 Nitroglycerin (Ntg) 0.4 mg Q5M X 3 DOSES PRN SL Prn Chest Pain 09/19/16 19:30 10/19/16 19:29 Ondansetron HCl (Zofran) 4 mg Q6H PRN IVP Nausea & Vomiting 09/19/16 20:00 10/19/16 19:59 09/24/16 10:19 Pantoprazole 40 mg 40 mg DAILY ORAL 09/22/16 09:00 10/22/16 08:59 09/24/16 08:54 Promethazine HCl/ Codeine 5 ml 5 ml Q6H PRN ORAL For Cough 09/19/16 23:30 10/19/16 23:29 Temazepam (Restoril) 15 mg HSPRN PRN ORAL Insomnia 09/19/16 21:00 09/26/16 20:59 [facility]Hanna NP Sep 24, 2016 12:25
[2016-09-24 16:00] VITALS: BP 147/73
[2016-09-24] MEDS: cefTRIAXone 2gm/D5W 110ml IVPB SCH ×2 (16:25)
[2016-09-24 20:00] VITALS: BP 146/72
[2016-09-24] MEDS: Iron Sucrose 100 MG in NS 55 ML IVPB SCH (20:21)
[2016-09-25] VITALS: BP 134/72
[2016-09-25 04:00] VITALS: BP 134/68
[2016-09-25] MEDS: metFORMIN 500mg tab ORAL SCH ×3 (06:31→18:21)
[2016-09-25] MEDS: NovoLOG Insulin Flexpen SUBQ SCH ×4 (06:32→21:00)
[2016-09-25 07:44] LABS: BASOPHILS % (AUTO) 0.6 % (0.0-2.0); EOSINOPHILS % (AUTO) 2.2 % (0.0-3.0); LYMPHOCYTES % (AUTO) 24.9 % (20.0-45.0); MEAN CORPUSCULAR HEMOGLOBIN 29.4 PG (27.0-31.0); MEAN CORPUSCULAR HGB CONC 31.7 G/DL (32.0-36.0); MEAN CORPUSCULAR VOLUME 93 FL (80-99); MEAN PLATELET VOLUME 6.3 FL (6.5-10.1); MONOCYTES % (AUTO) 8.8 % (1.0-10.0); NEUTROPHILS % (AUTO) 63.5 % (45.0-75.0); PLATELET COUNT 429 K/UL (150-450); RED BLOOD COUNT 3.06 M/UL (4.20-5.40); RED CELL DISTRIBUTION WIDTH 14.1 % (11.6-14.8); WHITE BLOOD COUNT 11.8 K/UL (4.8-10.8)
--- NOTE | 2016-09-25 07:58 | General Progress Note ---
Assessment/Plan Problem List: (1) Anemia ICD Codes: D64.9 - Anemia, unspecified SNOMED: 847962223 (2) Diverticulosis ICD Codes: K57.90 - Diverticulosis of intestine, part unspecified, without perforation or abscess without bleeding SNOMED: 300446071 (3) Hiatal hernia ICD Codes: K44.9 - Diaphragmatic hernia without obstruction or gangrene SNOMED: 20609256 (4) UTI (urinary tract infection) ICD Codes: N39.0 - Urinary tract infection, site not specified SNOMED: 13229915 (5) HTN (hypertension) ICD Codes: I10 - Essential (primary) hypertension SNOMED: 30968239 (6) Diabetes mellitus ICD Codes: E11.9 - Type 2 diabetes mellitus without complications SNOMED: 22154537 (7) Iron deficiency anemia ICD Codes: D50.9 - Iron deficiency anemia, unspecified SNOMED: 19649935 (8) Pulmonary hypertension ICD Codes: I27.2 - Other secondary pulmonary hypertension SNOMED: 40169694 Assessment/Plan s/p EGD and colonoscopy fu biopsy results iron fu labs Subjective ROS Limited/Unobtainable: Yes Allergies: Coded Allergies: IODINE (Unverified Allergy, Unknown, 07/02/14) Subjective no abd pain Objective Last 24 Hour Vital Signs Date Time Temp Pulse Resp B/P Pulse Ox O2 Delivery O2 Flow Rate FiO2 09/25/16 04:00 97.6 84 18 134/68 100 Room Air 09/25/16 00:00 98.6 80 18 134/72 97 Room Air 09/24/16 20:20 92 147/73 09/24/16 20:00 98.4 95 18 146/72 99 Room Air 09/24/16 19:25 92 20 Room Air 21 09/24/16 16:00 98.1 97 18 147/73 99 Room Air 09/24/16 12:00 98.4 100 20 154/75 99 Room Air 09/24/16 08:54 81 156/97 09/24/16 08:00 98.1 81 20 156/97 98 Room Air Intake and Output 09/24/16 09/25/16 19:00 07:00 Intake Total 550 ml 1060 ml Output Total 600 ml 800 ml Balance -50 ml 260 ml Intake Oral 450 ml 600 ml IV Total 100 ml 460 ml Output Urine Total 600 ml 800 ml # Bowel Movements 4 1 Laboratory Tests 09/25/16 06:37: White Blood Count 11.8H, Red Blood Count 3.06L, Hemoglobin 9.0L, Hematocrit 28.4L, Mean Corpuscular Volume 93, Mean Corpuscular Hemoglobin 29.4, Mean Corpuscular Hemoglobin Concent 31.7L, Red Cell Distribution Width 14.1, Platelet Count 429, Mean Platelet Volume 6.3L, Neutrophils (%) (Auto) 63.5, Lymphocytes (%) (Auto) 24.9, Monocytes (%) (Auto) 8.8, Eosinophils (%) (Auto) 2.2, Basophils (%) (Auto) 0.6, Sodium Level [Pending], Potassium Level [Pending] , Chloride Level [Pending], Carbon Dioxide Level [Pending], Blood Urea Nitrogen [Pending], Creatinine [Pending], Estimat Glomerular Filtration Rate [Pending], Glucose Level [Pending], Calcium Level [Pending], Magnesium Level [Pending] Height (Feet): 5 Height (Inches): 4.00 Weight (Pounds): 200 General Appearance: alert EENT: normal ENT inspection Neck: supple Cardiovascular: normal rate Respiratory/Chest: decreased breath sounds Abdomen: normal bowel sounds, non tender, soft Extremities: non-tender JOHN KENYON Sep 25, 2016 07:58
[2016-09-25 08:00] VITALS: BP 113/51
[2016-09-25 08:05] LABS: ANION GAP 16 (5-15); CALCIUM 8.3 mg/dL (8.6-10.2); CARBON DIOXIDE 25 mEQ/L (20-30); CHLORIDE 101 mEQ/L (98-107); CREATININE 0.9 mg/dL (0.5-0.9); HEMOLYSIS 1; MAGNESIUM 1.6 mg/dL (1.7-2.5); POTASSIUM 3.6 mEQ/L (3.4-4.9); SODIUM 142 mEQ/L (135-145)
[2016-09-25] MEDS: Metoprolol 25mg tab ORAL SCH ×2 (08:54→22:27)
[2016-09-25] MEDS: Heparin 5000 units/ml inj SUBQ SCH ×2 (08:55→22:28)
[2016-09-25] MEDS ORDERED: Tubing IV Secondary IV ONE (08:56)
[2016-09-25] MEDS ORDERED: NS 275ml ONE (08:56)
[2016-09-25] MEDS: Levemir Flexpen SUBQ SCH ×2 (08:56→22:00)
[2016-09-25] MEDS ORDERED: Metoclopramide 10mg/2ml Inj IVP PRN (10:00)
--- NOTE | 2016-09-25 10:04 | General Progress Note ---
Assessment/Plan Status: stable - from renal stand Assessment/Plan Acute renal failure multifactorial sepsis- Hypotension- Dm- Medications (1) Sepsis (2) Gram-negative bacteremia (3) Acute encephalopathy (4) Hyperglycemia (5) Acute gastritis (6) Intractable vomiting (7) HTN (hypertension) (8) Diabetes mellitus Plan; k and Phos and Mag IV as needed pulm support antibiotics Monitor renal parameters- avoid nephrotoxics ? DC ? Subjective ROS Limited/Unobtainable: No Allergies: Coded Allergies: IODINE (Unverified Allergy, Unknown, 07/02/14) Objective Last 24 Hour Vital Signs Date Time Temp Pulse Resp B/P Pulse Ox O2 Delivery O2 Flow Rate FiO2 09/25/16 08:54 104 113/51 09/25/16 08:00 99.3 104 22 113/51 96 Room Air 09/25/16 04:00 97.6 84 18 134/68 100 Room Air 09/25/16 00:00 98.6 80 18 134/72 97 Room Air 09/24/16 20:20 92 147/73 09/24/16 20:00 98.4 95 18 146/72 99 Room Air 09/24/16 19:25 92 20 Room Air 21 09/24/16 16:00 98.1 97 18 147/73 99 Room Air 09/24/16 12:00 98.4 100 20 154/75 99 Room Air Intake and Output 09/24/16 09/25/16 19:00 07:00 Intake Total 550 ml 1060 ml Output Total 600 ml 800 ml Balance -50 ml 260 ml Intake Oral 450 ml 600 ml IV Total 100 ml 460 ml Output Urine Total 600 ml 800 ml # Bowel Movements 4 1 Laboratory Tests 09/25/16 06:37: White Blood Count 11.8H, Red Blood Count 3.06L, Hemoglobin 9.0L, Hematocrit 28.4L, Mean Corpuscular Volume 93, Mean Corpuscular Hemoglobin 29.4, Mean Corpuscular Hemoglobin Concent 31.7L, Red Cell Distribution Width 14.1, Platelet Count 429, Mean Platelet Volume 6.3L, Neutrophils (%) (Auto) 63.5, Lymphocytes (%) (Auto) 24.9, Monocytes (%) (Auto) 8.8, Eosinophils (%) (Auto) 2.2, Basophils (%) (Auto) 0.6, Sodium Level 142, Potassium Level 3.6, Chloride Level 101, Carbon Dioxide Level 25, Anion Gap 16H, Blood Urea Nitrogen 6L, Creatinine 0.9, Estimat Glomerular Filtration Rate , Glucose Level 111H, Calcium Level 8.3L, Magnesium Level 1.6L Height (Feet): 5 Height (Inches): 4.00 Weight (Pounds): 200 General Appearance: no apparent distress Cardiovascular: normal rate Respiratory/Chest: lungs clear Objective no change in PE TIMOTHY PEREZ Sep 25, 2016 10:04
--- NOTE | 2016-09-25 10:36 | Infectious Diseases Prog Note ---
Assessment/Plan Assessment/Plan A: Klebsiella sepsis Klebsiella UTI DM HPN Obesity Anemia Diarrhea, C. difficile : neg P: continue Rocephin Subjective ROS Limited/Unobtainable: No Constitutional: Reports: no symptoms Respiratory: Reports: no symptoms Gastrointestinal/Abdominal: Reports: diarrhea, nausea Allergies: Coded Allergies: IODINE (Unverified Allergy, Unknown, 07/02/14) Objective Vital Signs Last 24 Hour Vital Signs Date Time Temp Pulse Resp B/P Pulse Ox O2 Delivery O2 Flow Rate FiO2 09/25/16 08:54 104 113/51 09/25/16 08:00 99.3 104 22 113/51 96 Room Air 09/25/16 06:38 103 20 Room Air 21 09/25/16 04:00 97.6 84 18 134/68 100 Room Air 09/25/16 00:00 98.6 80 18 134/72 97 Room Air 09/24/16 20:20 92 147/73 09/24/16 20:00 98.4 95 18 146/72 99 Room Air 09/24/16 19:25 92 20 Room Air 21 09/24/16 16:00 98.1 97 18 147/73 99 Room Air 09/24/16 12:00 98.4 100 20 154/75 99 Room Air Height (Feet): 5 Height (Inches): 4.00 Weight (Pounds): 200 General Appearance: no acute distress HEENT: mucous membranes moist Respiratory/Chest: lungs clear Cardiovascular: tachycardia Abdomen: soft, non tender Extremities: no edema Neurologic/Psychiatric: alert, oriented x 3, responsive Laboratory Tests Test 09/25/16 06:37 White Blood Count 11.8 K/UL (4.8-10.8) H Red Blood Count 3.06 M/UL (4.20-5.40) L Hemoglobin 9.0 G/DL (12.0-16.0) L Hematocrit 28.4 % (37.0-47.0) L Mean Corpuscular Volume 93 FL (80-99) Mean Corpuscular Hemoglobin 29.4 PG (27.0-31.0) Mean Corpuscular Hemoglobin Concent 31.7 G/DL (32.0-36.0) L Red Cell Distribution Width 14.1 % (11.6-14.8) Platelet Count 429 K/UL (150-450) Mean Platelet Volume 6.3 FL (6.5-10.1) L Neutrophils (%) (Auto) 63.5 % (45.0-75.0) Lymphocytes (%) (Auto) 24.9 % (20.0-45.0) Monocytes (%) (Auto) 8.8 % (1.0-10.0) Eosinophils (%) (Auto) 2.2 % (0.0-3.0) Basophils (%) (Auto) 0.6 % (0.0-2.0) Sodium Level 142 mEQ/L (135-145) Potassium Level 3.6 mEQ/L (3.4-4.9) Chloride Level 101 mEQ/L (98-107) Carbon Dioxide Level 25 mEQ/L (20-30) Anion Gap 16 (5-15) H Blood Urea Nitrogen 6 mg/dL (7-23) L Creatinine 0.9 mg/dL (0.5-0.9) Estimat Glomerular Filtration Rate mL/min (>60) Glucose Level 111 mg/dL (74-106) H Calcium Level 8.3 mg/dL (8.6-10.2) L Magnesium Level 1.6 mg/dL (1.7-2.5) L Current Medications Medications (Trade) Dose Ordered Sig/Cody Route PRN Reason Start Time Stop Time Status Last Admin Dose Admin Acetaminophen (Tylenol) 650 mg Q4H PRN ORAL Mild Pain/Temp > 100.5 09/20/16 16:00 10/20/16 15:59 09/20/16 12:44 Albuterol/ Ipratropium (DuoNeb 0.5-3(2.5)mg/3ml) 3 ml Q4H PRN HHN Shortness of Breath 09/23/16 08:00 09/28/16 07:59 Ceftriaxone Sodium/Dextrose (Rocephin/D5W) 110 ml @ 220 mls/hr Q24H IVPB 09/23/16 16:00 09/30/16 15:59 09/24/16 16:25 Clonidine HCl (Catapres) 0.1 mg Q4H PRN ORAL SBP>160 09/19/16 20:00 10/19/16 19:59 09/22/16 08:49 Dextrose (Dextrose 50%) STAT PRN IV Hypoglycemia 09/19/16 20:00 10/19/16 19:59 Heparin Sodium (Porcine) (Heparin 5000 units/ml) 5,000 units EVERY 12 HOURS SUBQ 09/19/16 21:00 10/19/16 20:59 09/25/16 08:55 Insulin Aspart (NovoLOG) BEFORE MEALS AND HS SUBQ 09/19/16 21:00 10/19/16 20:59 09/25/16 06:32 Insulin Detemir (Levemir) 13 units Q12HR SUBQ 09/19/16 21:00 10/19/16 20:59 09/25/16 08:56 Lorazepam (Ativan 2mg/ml 1ml) 1 mg Q4H PRN IV For Anxiety 09/19/16 20:00 09/26/16 19:59 Magnesium Oxide (Mag-Ox 400mg) 400 mg THREE TIMES A DAY ORAL 09/25/16 13:00 10/25/16 12:59 Metformin HCl (Glucophage) 500 mg TIAC ORAL 09/20/16 06:30 10/20/16 06:29 09/25/16 06:31 Metoclopramide HCl (Reglan) 5 mg TIDPRN PRN IVP Nausea & Vomiting 09/25/16 10:00 10/25/16 09:59 Metoprolol Tartrate (Lopressor) 25 mg Q12HR ORAL 09/19/16 21:00 10/19/16 20:59 09/25/16 08:54 Morphine Sulfate (Morphine Sulfate) 2 mg Q4H PRN IVP Severe Pain (Pain Scale 7-10) 09/19/16 20:00 09/26/16 19:59 09/20/16 10:03 Nateglinide (Starlix) 120 mg TIAC ORAL 09/20/16 06:30 10/20/16 06:29 09/25/16 06:31 Nitroglycerin (Ntg) 0.4 mg Q5M X 3 DOSES PRN SL Prn Chest Pain 09/19/16 19:30 10/19/16 19:29 Ondansetron HCl (Zofran) 4 mg Q6H PRN IVP Nausea & Vomiting 09/19/16 20:00 10/19/16 19:59 09/25/16 09:02 Pantoprazole 40 mg 40 mg DAILY ORAL 09/22/16 09:00 10/22/16 08:59 09/25/16 08:54 Promethazine HCl/ Codeine (Phenergan with Codeine) 5 ml Q6H PRN ORAL For Cough 09/19/16 23:30 10/19/16 23:29 Temazepam (Restoril) 15 mg HSPRN PRN ORAL Insomnia 09/19/16 21:00 09/26/16 20:59 TOM GRACE Sep 25, 2016 10:36
[2016-09-25 12:00] VITALS: BP 134/60
[2016-09-25] MEDS: Magnesium Oxide 400mg tab ORAL SCH ×2 (12:28→18:21)
--- NOTE | 2016-09-25 13:17 | Pulmonology Progress Note ---
Assessment/Plan Assessment/Plan ASSESSMENT sepsis with bacteremia ( Klebsiella) UTI/Klebsiella hx of recurrent complicated UTI acute renal failure -resolved dehydration ( due to intractable vomiting) acute encephalopathy DM HTN intractable vomiting iron deficiency anemia abdominal pain severe pulmonary HTN fatty liver disease morbid obesity s/p EGD and colon with findings of multiple polyps, s/p biopsy e/lyte imbalances ( low K, low Mg) severe pulmonary HTN PLAN OF CARE MS floor blood and urine cx + Klebsiella, stool C dif negative, abx ID follows s/p EGD and colon 09/23 with findings of multiple polyps, s/p biopsy GI follows CTA/P no acute findings abdominal US with evidence of hepatocellular disease, likely fatty liver, absent GB monitor HH, transfuse prn anemia workup with evidence of iron deficiency IV iron stool OB CEA WNL off stool softener and laxative for now on PPI IVF, monitor renal paarmnerts, lytes, creat down to normal nephro follows , ARF likely 2 to sepsis and dehydration -resolved e/lytes replacement as needed, today replace additional Mg ECHO with grossly normal EF, no evidence of LVH, RVSP of 61 c/w severe pulmonary HTN pain management a/emetic prn PT eval and rx dc plan case discussed and evaluated by supervising physician Subjective Allergies: Coded Allergies: IODINE (Unverified Allergy, Unknown, 07/02/14) Subjective leukocytosis with trend down , afebrile s/p EGD and colon 09/23 with findings of multiple polyps started on diet, still c/o diffused intermittent abdominal pain Mg-1.6 Objective Last 24 Hour Vital Signs Date Time Temp Pulse Resp B/P Pulse Ox O2 Delivery O2 Flow Rate FiO2 09/25/16 12:00 98.4 89 22 134/60 94 Room Air 09/25/16 08:54 104 113/51 09/25/16 08:00 99.3 104 22 113/51 96 Room Air 09/25/16 06:38 103 20 Room Air 09/25/16 04:00 97.6 84 18 134/68 100 Room Air 09/25/16 00:00 98.6 80 18 134/72 97 Room Air 09/24/16 20:20 92 147/73 09/24/16 20:00 98.4 95 18 146/72 99 Room Air 09/24/16 19:25 92 20 Room Air 09/24/16 16:00 98.1 97 18 147/73 99 Room Air Intake and Output 09/24/16 09/25/16 19:00 07:00 Intake Total 550 ml 1060 ml Output Total 600 ml 800 ml Balance -50 ml 260 ml Intake Oral 450 ml 600 ml IV Total 100 ml 460 ml Output Urine Total 600 ml 800 ml # Bowel Movements 4 1 Objective General Appearance: no acute distress, other - A/A/O x 3 obese AA female HEENT: normocephalic, atraumatic, anicteric, PERRL Respiratory/Chest: chest wall non-tender, lungs clear, normal breath sounds, no respiratory distress, no accessory muscle use Cardiovascular: normal rate, regular rhythm, no JVD Abdomen: normal bowel sounds , abdomen soft, obese, mild diffused tenderness on palpation, no rebound, no guarding, Genitourinary: normal external genitalia Extremities: no edema, pedal pulses normal Neurologic/Psychiatric: no motor/sensory deficits, alert, oriented x 3, responsive Musculoskeletal: normal muscle bulk Laboratory Tests 09/25/16 06:37: White Blood Count 11.8H, Red Blood Count 3.06L, Hemoglobin 9.0L, Hematocrit 28.4L, Mean Corpuscular Volume 93, Mean Corpuscular Hemoglobin 29.4, Mean Corpuscular Hemoglobin Concent 31.7L, Red Cell Distribution Width 14.1, Platelet Count 429, Mean Platelet Volume 6.3L, Neutrophils (%) (Auto) 63.5, Lymphocytes (%) (Auto) 24.9, Monocytes (%) (Auto) 8.8, Eosinophils (%) (Auto) 2.2, Basophils (%) (Auto) 0.6, Sodium Level 142, Potassium Level 3.6, Chloride Level 101, Carbon Dioxide Level 25, Anion Gap 16H, Blood Urea Nitrogen 6L, Creatinine 0.9, Estimat Glomerular Filtration Rate , Glucose Level 111H, Calcium Level 8.3L, Magnesium Level 1.6L Current Medications Medications (Trade) Dose Ordered Sig/Cody Route PRN Reason Start Time Stop Time Status Last Admin Dose Admin Acetaminophen (Tylenol) 650 mg Q4H PRN ORAL Mild Pain/Temp > 100.5 09/20/16 16:00 10/20/16 15:59 09/20/16 12:44 Albuterol/ Ipratropium (DuoNeb 0.5-3(2.5)mg/3ml) 3 ml Q4H PRN HHN Shortness of Breath 09/23/16 08:00 09/28/16 07:59 Ceftriaxone Sodium/Dextrose (Rocephin/D5W) 110 ml @ 220 mls/hr Q24H IVPB 09/23/16 16:00 09/30/16 15:59 09/24/16 16:25 Clonidine HCl (Catapres) 0.1 mg Q4H PRN ORAL SBP>160 09/19/16 20:00 10/19/16 19:59 09/22/16 08:49 Dextrose (Dextrose 50%) STAT PRN IV Hypoglycemia 09/19/16 20:00 10/19/16 19:59 Heparin Sodium (Porcine) (Heparin 5000 units/ml) 5,000 units EVERY 12 HOURS SUBQ 09/19/16 21:00 10/19/16 20:59 09/25/16 08:55 Insulin Aspart (NovoLOG) BEFORE MEALS AND HS SUBQ 09/19/16 21:00 10/19/16 20:59 09/25/16 12:27 Insulin Detemir (Levemir) 13 units Q12HR SUBQ 09/19/16 21:00 10/19/16 20:59 09/25/16 08:56 Lorazepam (Ativan 2mg/ml 1ml) 1 mg Q4H PRN IV For Anxiety 09/19/16 20:00 09/26/16 19:59 Magnesium Oxide (Mag-Ox 400mg) 400 mg THREE TIMES A DAY ORAL 09/25/16 13:00 10/25/16 12:59 09/25/16 12:28 Metformin HCl (Glucophage) 500 mg TIAC ORAL 09/20/16 06:30 10/20/16 06:29 09/25/16 12:28 Metoclopramide HCl (Reglan) 5 mg TIDPRN PRN IVP Nausea & Vomiting 09/25/16 10:00 10/25/16 09:59 Metoprolol Tartrate (Lopressor) 25 mg Q12HR ORAL 09/19/16 21:00 10/19/16 20:59 09/25/16 08:54 Morphine Sulfate (Morphine Sulfate) 2 mg Q4H PRN IVP Severe Pain (Pain Scale 7-10) 09/19/16 20:00 09/26/16 19:59 09/20/16 10:03 Nateglinide (Starlix) 120 mg TIAC ORAL 09/20/16 06:30 10/20/16 06:29 09/25/16 12:28 Nitroglycerin (Ntg) 0.4 mg Q5M X 3 DOSES PRN SL Prn Chest Pain 09/19/16 19:30 10/19/16 19:29 Ondansetron HCl (Zofran) 4 mg Q6H PRN IVP Nausea & Vomiting 09/19/16 20:00 10/19/16 19:59 09/25/16 09:02 Pantoprazole 40 mg 40 mg DAILY ORAL 09/22/16 09:00 10/22/16 08:59 09/25/16 08:54 Promethazine HCl/ Codeine (Phenergan with Codeine) 5 ml Q6H PRN ORAL For Cough 09/19/16 23:30 10/19/16 23:29 Temazepam (Restoril) 15 mg HSPRN PRN ORAL Insomnia 09/19/16 21:00 09/26/16 20:59 Gerardo ([facility])Hanna NP Sep 25, 2016 13:17
[2016-09-25] MEDS ORDERED: LORazepam Inj 2mg/ml 1ml IV PRN (14:00)
[2016-09-25] MEDS ORDERED: Morphine Sulfate 2mg/ml Inj IVP PRN (16:00)
[2016-09-25 16:40] VITALS: BP 117/65
[2016-09-25] MEDS: cefTRIAXone 2gm/D5W 110ml IVPB SCH ×2 (18:03)
[2016-09-25 19:00] VITALS: BP 122/77
[2016-09-26 00:23] VITALS: BP 141/75
[2016-09-26 04:00] VITALS: BP 150/90
[2016-09-26] MEDS: metFORMIN 500mg tab ORAL SCH ×3 (06:12→17:14)
[2016-09-26] MEDS: NovoLOG Insulin Flexpen SUBQ SCH ×4 (06:15→21:00)
[2016-09-26 06:57] LABS: BASOPHILS % (AUTO) 0.8 % (0.0-2.0); EOSINOPHILS % (AUTO) 2.2 % (0.0-3.0); LYMPHOCYTES % (AUTO) 24.1 % (20.0-45.0); MEAN CORPUSCULAR HEMOGLOBIN 29.5 PG (27.0-31.0); MEAN CORPUSCULAR HGB CONC 31.9 G/DL (32.0-36.0); MEAN CORPUSCULAR VOLUME 93 FL (80-99); MEAN PLATELET VOLUME 6.2 FL (6.5-10.1); MONOCYTES % (AUTO) 9.3 % (1.0-10.0); NEUTROPHILS % (AUTO) 63.7 % (45.0-75.0); PLATELET COUNT 485 K/UL (150-450); RED BLOOD COUNT 3.12 M/UL (4.20-5.40); RED CELL DISTRIBUTION WIDTH 14.6 % (11.6-14.8); WHITE BLOOD COUNT 11.5 K/UL (4.8-10.8)
[2016-09-26 07:08] LABS: ANION GAP 14 (5-15); CALCIUM 8.4 mg/dL (8.6-10.2); CARBON DIOXIDE 24 mEQ/L (20-30); CHLORIDE 105 mEQ/L (98-107); CREATININE 0.8 mg/dL (0.5-0.9); HEMOLYSIS 0; POTASSIUM 3.7 mEQ/L (3.4-4.9); SODIUM 143 mEQ/L (135-145)
[2016-09-26 08:00] VITALS: BP 144/65
--- NOTE | 2016-09-26 08:43 | Diagnostic Imaging Report ---
Clinical history: Chest pain. Technique: Portable AP chest radiograph was obtained. Comparison: 09/18/16. Findings: Lung volumes are low with probable basilar atelectasis. There is cardiomegaly with probable moderate pulmonary edema and small left pleural effusion. There is otherwise no significant interval change in the interval, allowing for differences in technique and positioning. Impression: Cardiomegaly with moderate pulmonary edema and probable small left pleural effusion. Overall aeration appears slightly worse.
--- NOTE | 2016-09-26 08:59 | Progress Note ---
DATE: 09/25/2016 NOTE: VERY BAD INAUDIBLE AUDIO QUALITY SUBJECTIVE: . OBJECTIVE: VITAL SIGNS: Blood pressure 120/77, pulse 77, respiratory rate . Blood sugar 269. ASSESSMENT: Diabetes type 2, difficult to control. PLAN: t.i.d. Continue with 10 units q.12 hours glucose less than 120 and hemoglobin A1c . Srini Lemus M.D. DR: KIRTI JOB#: [id number] CC:
--- NOTE | 2016-09-26 08:59 | Geriatric Medicine Prog Note ---
DATE: 09/25/2016 SUBJECTIVE: The patient's glucose levels were 116. OBJECTIVE: VITAL SIGNS: Blood pressure 134/69, pulse 76, and respiratory rate 26. RESPIRATORY: Clear. ASSESSMENT: Diabetes mellitus type 2, uncontrolled. PLAN: Continue . Continue b.i.d. Srini Lemus M.D. DR: JOSE ALBERTO JOB#: [id number] CC:
--- NOTE | 2016-09-26 09:00 | Infectious Diseases Prog Note ---
Assessment/Plan Assessment/Plan ASSESSMENT: 76 y/o female with: // Recurrent complicated K.pneumoniae UTI with bacteremia - CT A/P: bilateral punctate nonobstructing stones present within the kidneys. No hydronephrosis. Bilateral renal cysts. - h/o P.mirabilis // Sepsis SP // Leukocytosis , mild // Low grade fever , SP // Diarrhea improved after , Colace was held , CDiff Neg // US : Liver : most likely fatty change. Surgically absent gallbladder // ARF on CKD3 - improved // DM2, uncontrolled - HbA1c 12% // Morbid obesity // No ABX allergies // Full Code PLAN: - continue rocephin d# 9 ( ABX d# / ). Ok to complete course with PO levaquin at discharge ( 09/17 SP levaquin, zosyn d# 2 ) ( 09/16 SP flagyl d# 1 ) - monitor CBC, temperatures, - monitor BMP - monitor cultures ( Bl ) Subjective Constitutional: Denies: anorexia, chills, drenching sweats, fatigue, fever, no symptoms, other Allergies: Coded Allergies: IODINE (Unverified Allergy, Unknown, 07/02/14) Objective Vital Signs Last 24 Hour Vital Signs Date Time Temp Pulse Resp B/P Pulse Ox O2 Delivery O2 Flow Rate FiO2 09/26/16 08:00 98.8 93 19 144/65 94 Room Air 09/26/16 04:00 98.6 91 20 150/90 96 Room Air 09/26/16 00:23 98.2 89 20 141/75 93 Room Air 09/25/16 22:27 86 122/77 09/25/16 20:03 86 18 Room Air 21 09/25/16 19:00 97.0 77 18 122/77 99 Room Air 09/25/16 16:40 96.8 78 20 117/65 97 Room Air 09/25/16 12:00 98.4 89 22 134/60 94 Room Air Height (Feet): 5 Height (Inches): 4.00 Weight (Pounds): 200 HEENT: anicteric Respiratory/Chest: lungs clear Cardiovascular: regular rhythm Abdomen: non distended Laboratory Tests Test 09/26/16 06:15 White Blood Count 11.5 K/UL (4.8-10.8) H Red Blood Count 3.12 M/UL (4.20-5.40) L Hemoglobin 9.2 G/DL (12.0-16.0) L Hematocrit 28.9 % (37.0-47.0) L Mean Corpuscular Volume 93 FL (80-99) Mean Corpuscular Hemoglobin 29.5 PG (27.0-31.0) Mean Corpuscular Hemoglobin Concent 31.9 G/DL (32.0-36.0) L Red Cell Distribution Width 14.6 % (11.6-14.8) Platelet Count 485 K/UL (150-450) H Mean Platelet Volume 6.2 FL (6.5-10.1) L Neutrophils (%) (Auto) 63.7 % (45.0-75.0) Lymphocytes (%) (Auto) 24.1 % (20.0-45.0) Monocytes (%) (Auto) 9.3 % (1.0-10.0) Eosinophils (%) (Auto) 2.2 % (0.0-3.0) Basophils (%) (Auto) 0.8 % (0.0-2.0) Sodium Level 143 mEQ/L (135-145) Potassium Level 3.7 mEQ/L (3.4-4.9) Chloride Level 105 mEQ/L (98-107) Carbon Dioxide Level 24 mEQ/L (20-30) Anion Gap 14 (5-15) Blood Urea Nitrogen 4 mg/dL (7-23) L Creatinine 0.8 mg/dL (0.5-0.9) Estimat Glomerular Filtration Rate mL/min (>60) Glucose Level 127 mg/dL (74-106) H Hemoglobin A1c 10.5 % (< 6.0) H Calcium Level 8.4 mg/dL (8.6-10.2) L Current Medications Medications (Trade) Dose Ordered Sig/Cody Route PRN Reason Start Time Stop Time Status Last Admin Dose Admin Acetaminophen (Tylenol) 650 mg Q4H PRN ORAL Mild Pain/Temp > 100.5 09/20/16 16:00 10/20/16 15:59 09/20/16 12:44 Albuterol/ Ipratropium (DuoNeb 0.5-3(2.5)mg/3ml) 3 ml Q4H PRN HHN Shortness of Breath 09/23/16 08:00 09/28/16 07:59 Ceftriaxone Sodium/Dextrose (Rocephin/D5W) 110 ml @ 220 mls/hr Q24H IVPB 09/23/16 16:00 09/30/16 15:59 09/25/16 18:03 Clonidine HCl (Catapres) 0.1 mg Q4H PRN ORAL SBP>160 09/19/16 20:00 10/19/16 19:59 09/22/16 08:49 Dextrose (Dextrose 50%) STAT PRN IV Hypoglycemia 09/19/16 20:00 10/19/16 19:59 Heparin Sodium (Porcine) (Heparin 5000 units/ml) 5,000 units EVERY 12 HOURS SUBQ 09/19/16 21:00 10/19/16 20:59 09/25/16 22:28 Insulin Aspart (NovoLOG) BEFORE MEALS AND HS SUBQ 09/19/16 21:00 10/19/16 20:59 09/26/16 06:15 Insulin Detemir (Levemir) 10 units Q12HR SUBQ 09/25/16 22:00 10/25/16 21:59 Lorazepam (Ativan 2mg/ml 1ml) 1 mg Q4H PRN IV For Anxiety 09/25/16 14:00 10/02/16 13:59 Magnesium Oxide (Mag-Ox 400mg) 400 mg THREE TIMES A DAY ORAL 09/25/16 13:00 10/25/16 12:59 09/25/16 18:21 Metformin HCl (Glucophage) 500 mg TIAC ORAL 09/20/16 06:30 10/20/16 06:29 09/26/16 06:12 Metoclopramide HCl (Reglan) 5 mg TIDPRN PRN IVP Nausea & Vomiting 09/25/16 10:00 10/25/16 09:59 Metoprolol Tartrate (Lopressor) 25 mg Q12HR ORAL 09/19/16 21:00 10/19/16 20:59 09/25/16 22:27 Morphine Sulfate (Morphine Sulfate) 2 mg Q4H PRN IVP Severe Pain (Pain Scale 7-10) 09/25/16 16:00 10/02/16 15:59 Nitroglycerin (Ntg) 0.4 mg Q5M X 3 DOSES PRN SL Prn Chest Pain 09/19/16 19:30 10/19/16 19:29 Ondansetron HCl (Zofran) 4 mg Q6H PRN IVP Nausea & Vomiting 09/19/16 20:00 10/19/16 19:59 09/25/16 09:02 Pantoprazole 40 mg 40 mg DAILY ORAL 09/22/16 09:00 10/22/16 08:59 09/25/16 08:54 Promethazine HCl/ Codeine (Phenergan with Codeine) 5 ml Q6H PRN ORAL For Cough 09/19/16 23:30 10/19/16 23:29 Temazepam (Restoril) 15 mg HSPRN PRN ORAL Insomnia 09/25/16 14:00 10/02/16 13:59 NAGA HOOPER M.D. Sep 26, 2016 08:59
[2016-09-26] MEDS: Magnesium Oxide 400mg tab ORAL SCH ×3 (09:13→17:18)
[2016-09-26] MEDS: Metoprolol 25mg tab ORAL SCH ×2 (09:13→21:49)
[2016-09-26] MEDS: Levemir Flexpen SUBQ SCH ×2 (09:14→21:00)
[2016-09-26] MEDS: Heparin 5000 units/ml inj SUBQ SCH ×2 (09:14→21:50)
--- NOTE | 2016-09-26 10:05 | GI Progress Note ---
Assessment/Plan Problems: (1) Iron deficiency anemia ICD Codes: D50.9 - Iron deficiency anemia, unspecified SNOMED: 94249859 (2) Anemia ICD Codes: D64.9 - Anemia, unspecified SNOMED: 172247824 (3) Acute encephalopathy ICD Codes: G93.40 - Encephalopathy, unspecified SNOMED: 7220309 (4) Intractable vomiting ICD Codes: R11.10 - Vomiting, unspecified SNOMED: 937785681 (5) Abdominal pain ICD Codes: R10.9 - Unspecified abdominal pain SNOMED: 68392548 Qualifiers: Qualified Codes: R10.84 - Generalized abdominal pain (6) Diabetes ICD Codes: E11.9 - Type 2 diabetes mellitus without complications SNOMED: 55442614 Status: stable Status Narrative Discussed with Dr. Penn. Assessment/Plan s/p EGD and colonoscopy >> gastric polyp, colon polyp fu biopsy results iv iron Imodium prn abx ppi fu labs Subjective Gastrointestinal/Abdominal: Reports: no symptoms Subjective watery BM Objective Last 24 Hour Vital Signs Date Time Temp Pulse Resp B/P Pulse Ox O2 Delivery O2 Flow Rate FiO2 09/26/16 09:13 93 144/65 09/26/16 08:00 98.8 93 19 144/65 94 Room Air 09/26/16 04:00 98.6 91 20 150/90 96 Room Air 09/26/16 00:23 98.2 89 20 141/75 93 Room Air 09/25/16 22:27 86 122/77 09/25/16 20:03 86 18 Room Air 21 09/25/16 19:00 97.0 77 18 122/77 99 Room Air 09/25/16 16:40 96.8 78 20 117/65 97 Room Air 09/25/16 12:00 98.4 89 22 134/60 94 Room Air Intake and Output 09/25/16 09/26/16 19:00 07:00 Intake Total 240 ml 480 ml Output Total 800 ml 1350 ml Balance -560 ml -870 ml Intake Oral 240 ml 480 ml Output Urine Total 800 ml 1350 ml # Bowel Movements 6 2 Laboratory Tests Test 09/26/16 06:15 White Blood Count 11.5 K/UL (4.8-10.8) H Red Blood Count 3.12 M/UL (4.20-5.40) L Hemoglobin 9.2 G/DL (12.0-16.0) L Hematocrit 28.9 % (37.0-47.0) L Mean Corpuscular Volume 93 FL (80-99) Mean Corpuscular Hemoglobin 29.5 PG (27.0-31.0) Mean Corpuscular Hemoglobin Concent 31.9 G/DL (32.0-36.0) L Red Cell Distribution Width 14.6 % (11.6-14.8) Platelet Count 485 K/UL (150-450) H Mean Platelet Volume 6.2 FL (6.5-10.1) L Neutrophils (%) (Auto) 63.7 % (45.0-75.0) Lymphocytes (%) (Auto) 24.1 % (20.0-45.0) Monocytes (%) (Auto) 9.3 % (1.0-10.0) Eosinophils (%) (Auto) 2.2 % (0.0-3.0) Basophils (%) (Auto) 0.8 % (0.0-2.0) Sodium Level 143 mEQ/L (135-145) Potassium Level 3.7 mEQ/L (3.4-4.9) Chloride Level 105 mEQ/L (98-107) Carbon Dioxide Level 24 mEQ/L (20-30) Anion Gap 14 (5-15) Blood Urea Nitrogen 4 mg/dL (7-23) L Creatinine 0.8 mg/dL (0.5-0.9) Estimat Glomerular Filtration Rate mL/min (>60) Glucose Level 127 mg/dL (74-106) H Hemoglobin A1c 10.5 % (< 6.0) H Calcium Level 8.4 mg/dL (8.6-10.2) L Height (Feet): 5 Height (Inches): 4.00 Weight (Pounds): 200 General Appearance: no apparent distress, alert, obese Cardiovascular: normal rate Respiratory/Chest: normal breath sounds, no respiratory distress Abdominal Exam: normal bowel sounds, non tender, soft Extremities: normal range of motion Bijal Talley N.PAmando Sep 26, 2016 10:05
[2016-09-26 12:00] VITALS: BP 146/89
[2016-09-26] MEDS: Loperamide 2mg cap ORAL PRN (12:11)
--- NOTE | 2016-09-26 14:37 | General Progress Note ---
Assessment/Plan Status: stable Assessment/Plan Acute renal failure multifactorial sepsis- Hypotension- Dm- Medications (1) Sepsis (2) Gram-negative bacteremia (3) Acute encephalopathy (4) Hyperglycemia (5) Acute gastritis (6) Intractable vomiting (7) HTN (hypertension) (8) Diabetes mellitus Plan; k and Phos and Mag IV as needed pulm support antibiotics Monitor renal parameters- avoid nephrotoxics ? DC ? Subjective ROS Limited/Unobtainable: No Constitutional: Reports: malaise Allergies: Coded Allergies: IODINE (Unverified Allergy, Unknown, 07/02/14) Objective Last 24 Hour Vital Signs Date Time Temp Pulse Resp B/P Pulse Ox O2 Delivery O2 Flow Rate FiO2 09/26/16 12:00 97.9 81 20 146/89 96 Room Air 09/26/16 10:00 88 18 Room Air 21 09/26/16 09:13 93 144/65 09/26/16 08:00 98.8 93 19 144/65 94 Room Air 09/26/16 04:00 98.6 91 20 150/90 96 Room Air 09/26/16 00:23 98.2 89 20 141/75 93 Room Air 09/25/16 22:27 86 122/77 09/25/16 20:03 86 18 Room Air 21 09/25/16 19:00 97.0 77 18 122/77 99 Room Air 09/25/16 16:40 96.8 78 20 117/65 97 Room Air Intake and Output 09/25/16 09/26/16 19:00 07:00 Intake Total 240 ml 480 ml Output Total 800 ml 1350 ml Balance -560 ml -870 ml Intake Oral 240 ml 480 ml Output Urine Total 800 ml 1350 ml # Bowel Movements 6 2 Laboratory Tests 09/26/16 06:15: White Blood Count 11.5H, Red Blood Count 3.12L, Hemoglobin 9.2L, Hematocrit 28.9L, Mean Corpuscular Volume 93, Mean Corpuscular Hemoglobin 29.5, Mean Corpuscular Hemoglobin Concent 31.9L, Red Cell Distribution Width 14.6, Platelet Count 485H, Mean Platelet Volume 6.2L, Neutrophils (%) (Auto) 63.7, Lymphocytes (%) (Auto) 24.1, Monocytes (%) (Auto) 9.3, Eosinophils (%) (Auto) 2.2, Basophils (%) (Auto) 0.8, Sodium Level 143, Potassium Level 3.7, Chloride Level 105, Carbon Dioxide Level 24, Anion Gap 14, Blood Urea Nitrogen 4L, Creatinine 0.8, Estimat Glomerular Filtration Rate , Glucose Level 127H, Hemoglobin A1c 10.5H, Calcium Level 8.4L Height (Feet): 5 Height (Inches): 4.00 Weight (Pounds): 200 General Appearance: no apparent distress Objective no change in PE TIMOTHY PEREZ Sep 26, 2016 14:37
[2016-09-26] MEDS ORDERED: LEVOFLOXACIN500 MG ORAL (14:56)
--- NOTE | 2016-09-26 15:08 | Pulmonology Progress Note ---
Assessment/Plan Problems: (1) Sepsis (2) Gram-negative bacteremia (3) Acute encephalopathy (4) Hyperglycemia (5) Acute gastritis (6) Intractable vomiting (7) HTN (hypertension) (8) Diabetes mellitus Assessment/Plan continues to improve, has diarrhia mental status better continue antibiotics wbc still high add flagyl because of high wbc and diarrhia monitor BP and heart rate. tolerating diet check bcb in am Subjective Interval Events: still has diarrhia Allergies: Coded Allergies: IODINE (Unverified Allergy, Unknown, 07/02/14) Objective Last 24 Hour Vital Signs Date Time Temp Pulse Resp B/P Pulse Ox O2 Delivery O2 Flow Rate FiO2 09/26/16 12:00 97.9 81 20 146/89 96 Room Air 09/26/16 10:00 88 18 Room Air 21 09/26/16 09:13 93 144/65 09/26/16 08:00 98.8 93 19 144/65 94 Room Air 09/26/16 04:00 98.6 91 20 150/90 96 Room Air 09/26/16 00:23 98.2 89 20 141/75 93 Room Air 09/25/16 22:27 86 122/77 09/25/16 20:03 86 18 Room Air 21 09/25/16 19:00 97.0 77 18 122/77 99 Room Air 09/25/16 16:40 96.8 78 20 117/65 97 Room Air Intake and Output 09/25/16 09/26/16 19:00 07:00 Intake Total 240 ml 480 ml Output Total 800 ml 1350 ml Balance -560 ml -870 ml Intake Oral 240 ml 480 ml Output Urine Total 800 ml 1350 ml # Bowel Movements 6 2 General Appearance: WD/WN HEENT: normocephalic, anicteric Respiratory/Chest: chest wall non-tender, lungs clear Cardiovascular: normal rate Abdomen: normal bowel sounds, soft, non tender Laboratory Tests 09/26/16 06:15: White Blood Count 11.5H, Red Blood Count 3.12L, Hemoglobin 9.2L, Hematocrit 28.9L, Mean Corpuscular Volume 93, Mean Corpuscular Hemoglobin 29.5, Mean Corpuscular Hemoglobin Concent 31.9L, Red Cell Distribution Width 14.6, Platelet Count 485H, Mean Platelet Volume 6.2L, Neutrophils (%) (Auto) 63.7, Lymphocytes (%) (Auto) 24.1, Monocytes (%) (Auto) 9.3, Eosinophils (%) (Auto) 2.2, Basophils (%) (Auto) 0.8, Sodium Level 143, Potassium Level 3.7, Chloride Level 105, Carbon Dioxide Level 24, Anion Gap 14, Blood Urea Nitrogen 4L, Creatinine 0.8, Estimat Glomerular Filtration Rate , Glucose Level 127H, Hemoglobin A1c 10.5H, Calcium Level 8.4L, Phosphorus Level [Pending], Magnesium Level [Pending], Total Bilirubin [Pending], Direct Bilirubin [Pending], Aspartate Amino Transf (AST/SGOT) [Pending], Alanine Aminotransferase (ALT/SGPT ) [Pending], Alkaline Phosphatase [Pending], Total Protein [Pending], Albumin [ Pending] Current Medications Medications (Trade) Dose Ordered Sig/Cody Route PRN Reason Start Time Stop Time Status Last Admin Dose Admin Acetaminophen (Tylenol) 650 mg Q4H PRN ORAL Mild Pain/Temp > 100.5 09/20/16 16:00 10/20/16 15:59 09/20/16 12:44 Albuterol/ Ipratropium (DuoNeb 0.5-3(2.5)mg/3ml) 3 ml Q4H PRN HHN Shortness of Breath 09/23/16 08:00 09/28/16 07:59 Ceftriaxone Sodium/Dextrose (Rocephin/D5W) 110 ml @ 220 mls/hr Q24H IVPB 09/23/16 16:00 09/30/16 15:59 09/25/16 18:03 Clonidine HCl (Catapres) 0.1 mg Q4H PRN ORAL SBP>160 09/19/16 20:00 10/19/16 19:59 09/22/16 08:49 Dextrose (Dextrose 50%) STAT PRN IV Hypoglycemia 09/19/16 20:00 10/19/16 19:59 Heparin Sodium (Porcine) (Heparin 5000 units/ml) 5,000 units EVERY 12 HOURS SUBQ 09/19/16 21:00 10/19/16 20:59 09/26/16 09:14 Insulin Aspart (NovoLOG) BEFORE MEALS AND HS SUBQ 09/19/16 21:00 10/19/16 20:59 09/26/16 12:10 Insulin Detemir (Levemir) 10 units Q12HR SUBQ 09/25/16 22:00 10/25/16 21:59 09/26/16 09:14 Loperamide HCl (Imodium) 2 mg Q4H PRN ORAL Diarrhea 09/26/16 10:15 10/26/16 10:14 09/26/16 12:11 Lorazepam (Ativan 2mg/ml 1ml) 1 mg Q4H PRN IV For Anxiety 09/25/16 14:00 10/02/16 13:59 Magnesium Oxide (Mag-Ox 400mg) 400 mg THREE TIMES A DAY ORAL 09/25/16 13:00 10/25/16 12:59 09/26/16 12:07 Metformin HCl (Glucophage) 500 mg TIAC ORAL 09/20/16 06:30 10/20/16 06:29 09/26/16 12:06 Metoclopramide HCl (Reglan) 5 mg TIDPRN PRN IVP Nausea & Vomiting 09/25/16 10:00 10/25/16 09:59 Metoprolol Tartrate (Lopressor) 25 mg Q12HR ORAL 09/19/16 21:00 10/19/16 20:59 09/26/16 09:13 Metronidazole (Flagyl) 500 mg Q6HR ORAL 09/26/16 18:00 10/03/16 17:59 Morphine Sulfate (Morphine Sulfate) 2 mg Q4H PRN IVP Severe Pain (Pain Scale 7-10) 09/25/16 16:00 10/02/16 15:59 Nitroglycerin (Ntg) 0.4 mg Q5M X 3 DOSES PRN SL Prn Chest Pain 09/19/16 19:30 10/19/16 19:29 Ondansetron HCl (Zofran) 4 mg Q6H PRN IVP Nausea & Vomiting 09/19/16 20:00 10/19/16 19:59 09/25/16 09:02 Pantoprazole 40 mg 40 mg DAILY ORAL 09/22/16 09:00 10/22/16 08:59 09/26/16 09:13 Promethazine HCl/ Codeine (Phenergan with Codeine) 5 ml Q6H PRN ORAL For Cough 09/19/16 23:30 10/19/16 23:29 Temazepam (Restoril) 15 mg HSPRN PRN ORAL Insomnia 09/25/16 14:00 10/02/16 13:59 ROGER LEE Sep 26, 2016 15:08
[2016-09-26 15:12] LABS: ALANINE AMINOTRANSFERASE < 5 U/L (3-33); ASPARTATE AMINO TRANSFERASE 13 U/L (5-40); BILIRUBIN,DIRECT 0.1 mg/dL (0.1-0.3); HEMOLYSIS 1; MAGNESIUM 1.7 mg/dL (1.7-2.5); PHOSPHORUS 3.2 mg/dL (2.5-4.8); TOTAL PROTEIN 6.1 g/dL (6.6-8.7)
[2016-09-26 16:00] VITALS: BP 130/58
[2016-09-26] MEDS: cefTRIAXone 2gm/D5W 110ml IVPB SCH ×2 (17:14)
[2016-09-26] MEDS: metroNIDAZOLE 500mg tab ORAL SCH ×2 (17:18→23:37)
[2016-09-26 19:00] VITALS: BP 125/63
--- NOTE | 2016-09-26 19:20 | Cardiology Progress Note ---
Assessment/Plan Assessment/Plan 1. Bacteremia. 2. Urinary tract infection. 3. Sepsis. 4. Subhepatic encephalopathy. 5. Diabetes mellitus, fully controlled. 6. Hypertension. 7. Intractable vomiting 8. fludi over load diuretics iv once low dsoe cxr in am probnp soco Subjective Cardiovascular: Denies: chest pain, lightheadedness Respiratory: Denies: SOB with excertion Gastrointestinal/Abdominal: Denies: abdominal pain Genitourinary: Denies: burning Objective Last 24 Hour Vital Signs Date Time Temp Pulse Resp B/P Pulse Ox O2 Delivery O2 Flow Rate FiO2 09/26/16 16:00 97.0 82 20 130/58 96 Room Air 09/26/16 12:00 97.9 81 20 146/89 96 Room Air 09/26/16 10:00 88 18 Room Air 21 09/26/16 09:13 93 144/65 09/26/16 08:00 98.8 93 19 144/65 94 Room Air 09/26/16 04:00 98.6 91 20 150/90 96 Room Air 09/26/16 00:23 98.2 89 20 141/75 93 Room Air 09/25/16 22:27 86 122/77 09/25/16 20:03 86 18 Room Air 21 General Appearance: alert Cardiovascular: normal rate, regular rhythm Respiratory/Chest: decreased breath sounds Abdomen: normal bowel sounds, non tender, soft Extremities: no swelling Intake and Output 09/25/16 09/26/16 19:00 07:00 Intake Total 240 ml 480 ml Output Total 800 ml 1350 ml Balance -560 ml -870 ml Intake Oral 240 ml 480 ml Output Urine Total 800 ml 1350 ml # Bowel Movements 6 2 Laboratory Tests Test 09/26/16 06:15 White Blood Count 11.5 K/UL (4.8-10.8) H Red Blood Count 3.12 M/UL (4.20-5.40) L Hemoglobin 9.2 G/DL (12.0-16.0) L Hematocrit 28.9 % (37.0-47.0) L Mean Corpuscular Volume 93 FL (80-99) Mean Corpuscular Hemoglobin 29.5 PG (27.0-31.0) Mean Corpuscular Hemoglobin Concent 31.9 G/DL (32.0-36.0) L Red Cell Distribution Width 14.6 % (11.6-14.8) Platelet Count 485 K/UL (150-450) H Mean Platelet Volume 6.2 FL (6.5-10.1) L Neutrophils (%) (Auto) 63.7 % (45.0-75.0) Lymphocytes (%) (Auto) 24.1 % (20.0-45.0) Monocytes (%) (Auto) 9.3 % (1.0-10.0) Eosinophils (%) (Auto) 2.2 % (0.0-3.0) Basophils (%) (Auto) 0.8 % (0.0-2.0) Sodium Level 143 mEQ/L (135-145) Potassium Level 3.7 mEQ/L (3.4-4.9) Chloride Level 105 mEQ/L (98-107) Carbon Dioxide Level 24 mEQ/L (20-30) Anion Gap 14 (5-15) Blood Urea Nitrogen 4 mg/dL (7-23) L Creatinine 0.8 mg/dL (0.5-0.9) Estimat Glomerular Filtration Rate mL/min (>60) Glucose Level 127 mg/dL (74-106) H Hemoglobin A1c 10.5 % (< 6.0) H Calcium Level 8.4 mg/dL (8.6-10.2) L Phosphorus Level 3.2 mg/dL (2.5-4.8) Magnesium Level 1.7 mg/dL (1.7-2.5) Total Bilirubin 0.3 mg/dL (0.0-1.2) Direct Bilirubin 0.1 mg/dL (0.1-0.3) Aspartate Amino Transf (AST/SGOT) 13 U/L (5-40) Alanine Aminotransferase (ALT/SGPT) < 5 U/L (3-33) Alkaline Phosphatase 119 U/L (35-104) H Total Protein 6.1 g/dL (6.6-8.7) L Albumin 2.5 g/dL (3.5-5.2) DAY BARCLAY Sep 26, 2016 19:20
[2016-09-27] VITALS: BP 100/62
[2016-09-27 04:00] VITALS: BP 129/54
[2016-09-27] MEDS: metFORMIN 500mg tab ORAL SCH ×2 (05:55→08:26)
[2016-09-27] MEDS: metroNIDAZOLE 500mg tab ORAL SCH ×2 (05:55→11:50)
[2016-09-27] MEDS: NovoLOG Insulin Flexpen SUBQ SCH ×2 (06:18→11:30)
[2016-09-27 07:12] LABS: EOSINOPHILS % (AUTO) 2.1 % (0.0-3.0); LYMPHOCYTES % (AUTO) 28.8 % (20.0-45.0); MEAN CORPUSCULAR HEMOGLOBIN 29.8 PG (27.0-31.0); MEAN CORPUSCULAR VOLUME 93 FL (80-99); MEAN PLATELET VOLUME 6.2 FL (6.5-10.1); MONOCYTES % (AUTO) 10.2 % (1.0-10.0); NEUTROPHILS % (AUTO) 57.9 % (45.0-75.0); PLATELET COUNT 530 K/UL (150-450); RED BLOOD COUNT 3.13 M/UL (4.20-5.40); RED CELL DISTRIBUTION WIDTH 14.4 % (11.6-14.8); WHITE BLOOD COUNT 10.2 K/UL (4.8-10.8)
[2016-09-27 07:17] LABS: ANION GAP 14 (5-15); CALCIUM 8.3 mg/dL (8.6-10.2); CARBON DIOXIDE 25 mEQ/L (20-30); CHLORIDE 102 mEQ/L (98-107); CREATININE 0.8 mg/dL (0.5-0.9); HEMOLYSIS 2; POTASSIUM 3.5 mEQ/L (3.4-4.9); SODIUM 141 mEQ/L (135-145)
[2016-09-27 08:18] VITALS: BP 135/78
[2016-09-27] MEDS: Metoprolol 25mg tab ORAL SCH (08:26)
[2016-09-27] MEDS: Magnesium Oxide 400mg tab ORAL SCH ×2 (08:26→11:50)
[2016-09-27] MEDS: Levemir Flexpen SUBQ SCH (08:27)
[2016-09-27] MEDS: Heparin 5000 units/ml inj SUBQ SCH (08:30)
--- NOTE | 2016-09-27 08:35 | Infectious Diseases Prog Note ---
Assessment/Plan Assessment/Plan ASSESSMENT: 76 y/o female with: // Recurrent complicated K.pneumoniae UTI with bacteremia - CT A/P: bilateral punctate nonobstructing stones present within the kidneys. No hydronephrosis. Bilateral renal cysts. - h/o P.mirabilis // Sepsis SP // Leukocytosis , mild // Low grade fever , SP // Diarrhea yesterday , x 2 , none today, CDiff Neg // US : Liver : most likely fatty change. Surgically absent gallbladder // ARF on CKD3 - improved // DM2, uncontrolled - HbA1c 12% // Morbid obesity // No ABX allergies // Full Code PLAN: - continue rocephin d# 10 ( ABX d# / ). Ok to complete course with PO levaquin at discharge , flagyl d# 2 was added yesterday ( 09/17 SP levaquin, zosyn d# 2 ) ( 09/16 SP flagyl d# 1 ) - monitor CBC, temperatures, - monitor BMP - monitor cultures ( Bl ) Subjective Constitutional: Denies: anorexia, chills, drenching sweats, fatigue, fever, no symptoms, other Allergies: Coded Allergies: IODINE (Unverified Allergy, Unknown, 07/02/14) Objective Vital Signs Last 24 Hour Vital Signs Date Time Temp Pulse Resp B/P Pulse Ox O2 Delivery O2 Flow Rate FiO2 09/27/16 08:26 101 135/78 09/27/16 08:18 97.3 101 20 135/78 99 Room Air 09/27/16 04:00 98.6 89 20 129/54 98 Room Air 09/27/16 00:00 98.2 60 18 100/62 95 Room Air 09/26/16 21:49 92 125/63 09/26/16 19:19 92 18 Room Air 21 09/26/16 19:00 98.0 80 18 125/63 97 Room Air 09/26/16 16:00 97.0 82 20 130/58 96 Room Air 09/26/16 12:00 97.9 81 20 146/89 96 Room Air 09/26/16 10:00 88 18 Room Air 21 09/26/16 09:13 93 144/65 Height (Feet): 5 Height (Inches): 4.00 Weight (Pounds): 200 HEENT: anicteric Respiratory/Chest: no respiratory distress Cardiovascular: regularly irregular Abdomen: non distended Laboratory Tests Test 09/27/16 05:30 White Blood Count 10.2 K/UL (4.8-10.8) Red Blood Count 3.13 M/UL (4.20-5.40) L Hemoglobin 9.3 G/DL (12.0-16.0) L Hematocrit 29.2 % (37.0-47.0) L Mean Corpuscular Volume 93 FL (80-99) Mean Corpuscular Hemoglobin 29.8 PG (27.0-31.0) Mean Corpuscular Hemoglobin Concent 32.0 G/DL (32.0-36.0) Red Cell Distribution Width 14.4 % (11.6-14.8) Platelet Count 530 K/UL (150-450) H Mean Platelet Volume 6.2 FL (6.5-10.1) L Neutrophils (%) (Auto) 57.9 % (45.0-75.0) Lymphocytes (%) (Auto) 28.8 % (20.0-45.0) Monocytes (%) (Auto) 10.2 % (1.0-10.0) H Eosinophils (%) (Auto) 2.1 % (0.0-3.0) Basophils (%) (Auto) 1.0 % (0.0-2.0) Sodium Level 141 mEQ/L (135-145) Potassium Level 3.5 mEQ/L (3.4-4.9) Chloride Level 102 mEQ/L (98-107) Carbon Dioxide Level 25 mEQ/L (20-30) Anion Gap 14 (5-15) Blood Urea Nitrogen 4 mg/dL (7-23) L Creatinine 0.8 mg/dL (0.5-0.9) Estimat Glomerular Filtration Rate mL/min (>60) Glucose Level 103 mg/dL (74-106) Calcium Level 8.3 mg/dL (8.6-10.2) L Pro-B-Type Natriuretic Peptide 758 pg/mL (0-450) H Current Medications Medications (Trade) Dose Ordered Sig/Cody Route PRN Reason Start Time Stop Time Status Last Admin Dose Admin Acetaminophen (Tylenol) 650 mg Q4H PRN ORAL Mild Pain/Temp > 100.5 09/20/16 16:00 10/20/16 15:59 09/20/16 12:44 Albuterol/ Ipratropium (DuoNeb 0.5-3(2.5)mg/3ml) 3 ml Q4H PRN HHN Shortness of Breath 09/23/16 08:00 09/28/16 07:59 Ceftriaxone Sodium/Dextrose (Rocephin/D5W) 110 ml @ 220 mls/hr Q24H IVPB 09/23/16 16:00 09/30/16 15:59 09/26/16 17:14 Clonidine HCl (Catapres) 0.1 mg Q4H PRN ORAL SBP>160 09/19/16 20:00 10/19/16 19:59 09/22/16 08:49 Dextrose (Dextrose 50%) STAT PRN IV Hypoglycemia 09/19/16 20:00 10/19/16 19:59 Heparin Sodium (Porcine) (Heparin 5000 units/ml) 5,000 units EVERY 12 HOURS SUBQ 09/19/16 21:00 10/19/16 20:59 09/27/16 08:30 Insulin Aspart (NovoLOG) BEFORE MEALS AND HS SUBQ 09/19/16 21:00 10/19/16 20:59 09/26/16 12:10 Insulin Detemir (Levemir) 10 units Q12HR SUBQ 09/25/16 22:00 10/25/16 21:59 09/26/16 09:14 Loperamide HCl (Imodium) 2 mg Q4H PRN ORAL Diarrhea 09/26/16 10:15 10/26/16 10:14 09/26/16 12:11 Lorazepam (Ativan 2mg/ml 1ml) 1 mg Q4H PRN IV For Anxiety 09/25/16 14:00 10/02/16 13:59 Magnesium Oxide (Mag-Ox 400mg) 400 mg THREE TIMES A DAY ORAL 09/25/16 13:00 10/25/16 12:59 09/27/16 08:26 Metformin HCl (Glucophage) 500 mg TIAC ORAL 09/20/16 06:30 10/20/16 06:29 09/27/16 05:55 Metoclopramide HCl (Reglan) 5 mg TIDPRN PRN IVP Nausea & Vomiting 09/25/16 10:00 10/25/16 09:59 Metoprolol Tartrate (Lopressor) 25 mg Q12HR ORAL 09/19/16 21:00 10/19/16 20:59 09/27/16 08:26 Metronidazole (Flagyl) 500 mg Q6HR ORAL 09/26/16 18:00 10/03/16 17:59 09/27/16 05:55 Morphine Sulfate (Morphine Sulfate) 2 mg Q4H PRN IVP Severe Pain (Pain Scale 7-10) 09/25/16 16:00 10/02/16 15:59 Nitroglycerin (Ntg) 0.4 mg Q5M X 3 DOSES PRN SL Prn Chest Pain 09/19/16 19:30 10/19/16 19:29 Ondansetron HCl (Zofran) 4 mg Q6H PRN IVP Nausea & Vomiting 09/19/16 20:00 10/19/16 19:59 09/25/16 09:02 Pantoprazole 40 mg 40 mg DAILY ORAL 09/22/16 09:00 10/22/16 08:59 09/27/16 08:26 Promethazine HCl/ Codeine (Phenergan with Codeine) 5 ml Q6H PRN ORAL For Cough 09/19/16 23:30 10/19/16 23:29 Temazepam (Restoril) 15 mg HSPRN PRN ORAL Insomnia 09/25/16 14:00 10/02/16 13:59 NAGA HOOPER M.D. Sep 27, 2016 08:35
[2016-09-27] MEDS: Loperamide 2mg cap ORAL PRN (09:01)
--- NOTE | 2016-09-27 10:01 | GI Progress Note ---
Assessment/Plan Problems: (1) Iron deficiency anemia ICD Codes: D50.9 - Iron deficiency anemia, unspecified SNOMED: 44912613 (2) Anemia ICD Codes: D64.9 - Anemia, unspecified SNOMED: 591349265 (3) Acute encephalopathy ICD Codes: G93.40 - Encephalopathy, unspecified SNOMED: 8260975 (4) Intractable vomiting ICD Codes: R11.10 - Vomiting, unspecified SNOMED: 827208662 (5) Abdominal pain ICD Codes: R10.9 - Unspecified abdominal pain SNOMED: 91390672 Qualifiers: Qualified Codes: R10.84 - Generalized abdominal pain (6) Diabetes ICD Codes: E11.9 - Type 2 diabetes mellitus without complications SNOMED: 81356457 Status: stable Status Narrative Discussed with Dr. Penn. Assessment/Plan s/p EGD and colonoscopy >> gastric polyp, colon polyp cdiff negative ok for DC per GI standpoint Imodium prn low residual diet fu biopsy results iv iron abx ppi fu labs The patient was seen and examined at bedside and all new and available data was reviewed in the patients chart. I agree with the above findings, impression and plan. (Patient seen earlier today. Signature stamp does not reflect patient encounter time.). -Benitez Penn MD Subjective Subjective watery BM Objective Last 24 Hour Vital Signs Date Time Temp Pulse Resp B/P Pulse Ox O2 Delivery O2 Flow Rate FiO2 09/27/16 08:26 101 135/78 09/27/16 08:18 97.3 101 20 135/78 99 Room Air 09/27/16 08:14 72 18 Room Air 21 09/27/16 04:00 98.6 89 20 129/54 98 Room Air 09/27/16 00:00 98.2 60 18 100/62 95 Room Air 09/26/16 21:49 92 125/63 09/26/16 19:19 92 18 Room Air 21 09/26/16 19:00 98.0 80 18 125/63 97 Room Air 09/26/16 16:00 97.0 82 20 130/58 96 Room Air 09/26/16 12:00 97.9 81 20 146/89 96 Room Air Intake and Output 09/26/16 09/27/16 19:00 07:00 Intake Total 120 ml 1220 ml Output Total 400 ml 2000 ml Balance -280 ml -780 ml Intake Oral 120 ml 1220 ml Output Urine Total 400 ml 2000 ml # Bowel Movements 4 2 Laboratory Tests Test 09/27/16 05:30 White Blood Count 10.2 K/UL (4.8-10.8) Red Blood Count 3.13 M/UL (4.20-5.40) L Hemoglobin 9.3 G/DL (12.0-16.0) L Hematocrit 29.2 % (37.0-47.0) L Mean Corpuscular Volume 93 FL (80-99) Mean Corpuscular Hemoglobin 29.8 PG (27.0-31.0) Mean Corpuscular Hemoglobin Concent 32.0 G/DL (32.0-36.0) Red Cell Distribution Width 14.4 % (11.6-14.8) Platelet Count 530 K/UL (150-450) H Mean Platelet Volume 6.2 FL (6.5-10.1) L Neutrophils (%) (Auto) 57.9 % (45.0-75.0) Lymphocytes (%) (Auto) 28.8 % (20.0-45.0) Monocytes (%) (Auto) 10.2 % (1.0-10.0) H Eosinophils (%) (Auto) 2.1 % (0.0-3.0) Basophils (%) (Auto) 1.0 % (0.0-2.0) Sodium Level 141 mEQ/L (135-145) Potassium Level 3.5 mEQ/L (3.4-4.9) Chloride Level 102 mEQ/L (98-107) Carbon Dioxide Level 25 mEQ/L (20-30) Anion Gap 14 (5-15) Blood Urea Nitrogen 4 mg/dL (7-23) L Creatinine 0.8 mg/dL (0.5-0.9) Estimat Glomerular Filtration Rate mL/min (>60) Glucose Level 103 mg/dL (74-106) Calcium Level 8.3 mg/dL (8.6-10.2) L Pro-B-Type Natriuretic Peptide 758 pg/mL (0-450) H Height (Feet): 5 Height (Inches): 4.00 Weight (Pounds): 200 General Appearance: no apparent distress, alert, obese Cardiovascular: normal rate Respiratory/Chest: normal breath sounds, no respiratory distress Abdominal Exam: normal bowel sounds, non tender, soft Extremities: normal range of motion Bijal Talley N.P. Sep 27, 2016 10:01 BENITEZ PENN Sep 27, 2016 14:03
[2016-09-27 11:48] VITALS: BP 131/69
--- NOTE | 2016-09-27 12:17 | Diagnostic Imaging Report ---
Indication: Shortness of breath Technique: One view of the chest Comparison: none Findings: Body habitus limits evaluation. Lungs and pleural spaces are currently clear. Heart size is borderline enlarged. Previously demonstrated interstitial congestive changes have improved. There is residual small left pleural effusion, slightly decreased Impression: Improved interstitial congestion, over 3 days Persists but decreased small left pleural effusion
--- NOTE | 2016-09-27 13:44 | General Progress Note ---
Assessment/Plan Status: stable - from renal stand Assessment/Plan Acute renal failure multifactorial sepsis- Hypotension- Dm- Medications (1) Sepsis (2) Gram-negative bacteremia (3) Acute encephalopathy (4) Hyperglycemia (5) Acute gastritis (6) Intractable vomiting (7) HTN (hypertension) (8) Diabetes mellitus Plan; k and Phos and Mag IV as needed pulm support antibiotics Monitor renal parameters- avoid nephrotoxics ? DC ? Subjective ROS Limited/Unobtainable: No Constitutional: Reports: malaise Allergies: Coded Allergies: IODINE (Unverified Allergy, Unknown, 07/02/14) Objective Last 24 Hour Vital Signs Date Time Temp Pulse Resp B/P Pulse Ox O2 Delivery O2 Flow Rate FiO2 09/27/16 11:48 97.6 80 19 131/69 98 Room Air 09/27/16 08:26 101 135/78 09/27/16 08:18 97.3 101 20 135/78 99 Room Air 09/27/16 08:14 72 18 Room Air 21 09/27/16 04:00 98.6 89 20 129/54 98 Room Air 09/27/16 00:00 98.2 60 18 100/62 95 Room Air 09/26/16 21:49 92 125/63 09/26/16 19:19 92 18 Room Air 21 09/26/16 19:00 98.0 80 18 125/63 97 Room Air 09/26/16 16:00 97.0 82 20 130/58 96 Room Air Intake and Output 09/26/16 09/27/16 19:00 07:00 Intake Total 120 ml 1220 ml Output Total 400 ml 2000 ml Balance -280 ml -780 ml Intake Oral 120 ml 1220 ml Output Urine Total 400 ml 2000 ml # Bowel Movements 4 2 Laboratory Tests 09/27/16 05:30: White Blood Count 10.2, Red Blood Count 3.13L, Hemoglobin 9.3L, Hematocrit 29.2L , Mean Corpuscular Volume 93, Mean Corpuscular Hemoglobin 29.8, Mean Corpuscular Hemoglobin Concent 32.0, Red Cell Distribution Width 14.4, Platelet Count 530H, Mean Platelet Volume 6.2L, Neutrophils (%) (Auto) 57.9, Lymphocytes (%) (Auto) 28.8, Monocytes (%) (Auto) 10.2H, Eosinophils (%) (Auto) 2.1, Basophils (%) (Auto) 1.0, Sodium Level 141, Potassium Level 3.5, Chloride Level 102, Carbon Dioxide Level 25, Anion Gap 14, Blood Urea Nitrogen 4L, Creatinine 0.8, Estimat Glomerular Filtration Rate , Glucose Level 103, Calcium Level 8.3L , Pro-B-Type Natriuretic Peptide 758H Height (Feet): 5 Height (Inches): 4.00 Weight (Pounds): 200 General Appearance: lethargic Objective no change in PE TIMOTHY PEREZ Sep 27, 2016 13:44
[2016-09-27 16:00] VITALS: BP 128/65
[2016-09-27] MEDS: cefTRIAXone 2gm/D5W 110ml IVPB SCH ×2 (16:00)
--- NOTE | 2016-09-27 16:35 | Pulmonology Progress Note ---
Assessment/Plan Problems: (1) Sepsis (2) Gram-negative bacteremia (3) Acute encephalopathy (4) Hyperglycemia (5) Acute gastritis (6) Intractable vomiting (7) HTN (hypertension) (8) Diabetes mellitus Assessment/Plan continues to improve, diarrhia stopped mental status better continue antibiotics wbc normal today flagyl day 2 ok to dc home Subjective ROS Limited/Unobtainable: No Constitutional: Reports: no symptoms HEENT: Repors: no symptoms Respiratory: Reports: no symptoms Allergies: Coded Allergies: IODINE (Unverified Allergy, Unknown, 07/02/14) Objective Last 24 Hour Vital Signs Date Time Temp Pulse Resp B/P Pulse Ox O2 Delivery O2 Flow Rate FiO2 09/27/16 16:00 97.5 88 20 128/65 98 Room Air 09/27/16 11:48 97.6 80 19 131/69 98 Room Air 09/27/16 08:26 101 135/78 09/27/16 08:18 97.3 101 20 135/78 99 Room Air 09/27/16 08:14 72 18 Room Air 21 09/27/16 04:00 98.6 89 20 129/54 98 Room Air 09/27/16 00:00 98.2 60 18 100/62 95 Room Air 09/26/16 21:49 92 125/63 09/26/16 19:19 92 18 Room Air 21 09/26/16 19:00 98.0 80 18 125/63 97 Room Air Intake and Output 09/26/16 09/27/16 19:00 07:00 Intake Total 120 ml 1220 ml Output Total 400 ml 2000 ml Balance -280 ml -780 ml Intake Oral 120 ml 1220 ml Output Urine Total 400 ml 2000 ml # Bowel Movements 4 2 General Appearance: WD/WN, no acute distress HEENT: atraumatic Respiratory/Chest: chest wall non-tender, lungs clear, normal breath sounds Breasts: no masses Cardiovascular: normal peripheral pulses Abdomen: normal bowel sounds, soft, non tender Genitourinary: normal external genitalia Extremities: no clubbing Skin: no rash Neurologic/Psychiatric: cassandra architect II-XII grossly normal Lymphatic: no neck adenopathy Laboratory Tests 09/27/16 05:30: White Blood Count 10.2, Red Blood Count 3.13L, Hemoglobin 9.3L, Hematocrit 29.2L , Mean Corpuscular Volume 93, Mean Corpuscular Hemoglobin 29.8, Mean Corpuscular Hemoglobin Concent 32.0, Red Cell Distribution Width 14.4, Platelet Count 530H, Mean Platelet Volume 6.2L, Neutrophils (%) (Auto) 57.9, Lymphocytes (%) (Auto) 28.8, Monocytes (%) (Auto) 10.2H, Eosinophils (%) (Auto) 2.1, Basophils (%) (Auto) 1.0, Sodium Level 141, Potassium Level 3.5, Chloride Level 102, Carbon Dioxide Level 25, Anion Gap 14, Blood Urea Nitrogen 4L, Creatinine 0.8, Estimat Glomerular Filtration Rate , Glucose Level 103, Calcium Level 8.3L , Pro-B-Type Natriuretic Peptide 758H Current Medications Medications (Trade) Dose Ordered Sig/Cody Route PRN Reason Start Time Stop Time Status Last Admin Dose Admin Acetaminophen (Tylenol) 650 mg Q4H PRN ORAL Mild Pain/Temp > 100.5 09/20/16 16:00 10/20/16 15:59 09/20/16 12:44 Albuterol/ Ipratropium (DuoNeb 0.5-3(2.5)mg/3ml) 3 ml Q4H PRN HHN Shortness of Breath 09/23/16 08:00 09/28/16 07:59 Ceftriaxone Sodium/Dextrose (Rocephin/D5W) 110 ml @ 220 mls/hr Q24H IVPB 09/23/16 16:00 09/30/16 15:59 09/26/16 17:14 Clonidine HCl (Catapres) 0.1 mg Q4H PRN ORAL SBP>160 09/19/16 20:00 10/19/16 19:59 09/22/16 08:49 Dextrose (Dextrose 50%) STAT PRN IV Hypoglycemia 09/19/16 20:00 10/19/16 19:59 Heparin Sodium (Porcine) (Heparin 5000 units/ml) 5,000 units EVERY 12 HOURS SUBQ 09/19/16 21:00 10/19/16 20:59 09/27/16 08:30 Insulin Aspart (NovoLOG) BEFORE MEALS AND HS SUBQ 09/19/16 21:00 10/19/16 20:59 09/26/16 12:10 Insulin Detemir (Levemir) 10 units Q12HR SUBQ 09/25/16 22:00 10/25/16 21:59 09/26/16 09:14 Loperamide HCl (Imodium) 2 mg Q4H PRN ORAL Diarrhea 09/26/16 10:15 10/26/16 10:14 09/27/16 09:01 Lorazepam (Ativan 2mg/ml 1ml) 1 mg Q4H PRN IV For Anxiety 09/25/16 14:00 10/02/16 13:59 Magnesium Oxide (Mag-Ox 400mg) 400 mg THREE TIMES A DAY ORAL 09/25/16 13:00 10/25/16 12:59 09/27/16 08:26 Metformin HCl (Glucophage) 500 mg TIAC ORAL 09/20/16 06:30 10/20/16 06:29 09/27/16 05:55 Metoclopramide HCl (Reglan) 5 mg TIDPRN PRN IVP Nausea & Vomiting 09/25/16 10:00 10/25/16 09:59 Metoprolol Tartrate (Lopressor) 25 mg Q12HR ORAL 09/19/16 21:00 10/19/16 20:59 09/27/16 08:26 Metronidazole (Flagyl) 500 mg Q6HR ORAL 09/26/16 18:00 10/03/16 17:59 09/27/16 11:50 Morphine Sulfate (Morphine Sulfate) 2 mg Q4H PRN IVP Severe Pain (Pain Scale 7-10) 09/25/16 16:00 10/02/16 15:59 Nitroglycerin (Ntg) 0.4 mg Q5M X 3 DOSES PRN SL Prn Chest Pain 09/19/16 19:30 10/19/16 19:29 Ondansetron HCl (Zofran) 4 mg Q6H PRN IVP Nausea & Vomiting 09/19/16 20:00 10/19/16 19:59 09/25/16 09:02 Pantoprazole 40 mg 40 mg DAILY ORAL 09/22/16 09:00 10/22/16 08:59 09/27/16 08:26 Promethazine HCl/ Codeine (Phenergan with Codeine) 5 ml Q6H PRN ORAL For Cough 09/19/16 23:30 10/19/16 23:29 Temazepam (Restoril) 15 mg HSPRN PRN ORAL Insomnia 09/25/16 14:00 10/02/16 13:59 ROGER LEE Sep 27, 2016 16:35
--- NOTE | 2016-09-28 10:37 | Diagnostic Imaging Report ---
APPROVED REPORT CPT Code: 07319 Present Symptoms Lower Extremity Edema: Bilateral Shortness of breath Comments: Hx CHF RIGHT LEG: Venous imaging reveals a patent deep venous system. There is no evidence of thrombus within the femoral, popliteal or tibial segments. The lateral mid-calf tibial veins are patent. The posterior tibial vein at the medial malleolus is patent. The medial mid-calf tibial veins were not well visualized. The greater saphenous vein is also within normal limits. Doppler indicates normal spontaneous flow within these segments. LEFT LEG: Venous imaging reveals a patent deep venous system. There is no evidence of thrombus within the femoral, popliteal or tibial segments. The proximal superficial femoral/profunda femoris vein bifurcation was not visualized. The distal superficial femoral vein was not well visualized. The lateral mid-calf tibial veins are patent. The posterior tibial vein at the medial malleolus is patent. The medial mid-calf tibial veins were not well visualized. The greater saphenous vein is also within normal limits. Doppler indicates normal spontaneous flow within these segments. Incidental finding: Cystic, echogenic structure noted at the left popliteal vein level. Possible Bakers cyst measuring (1.5 cm x 1.1 cm).
--- NOTE | 2016-09-29 17:03 | Discharge Summary ---
Discharge Summary Hospital Course Date of Admission Sep 14, 2016 at 14:55 Date of Discharge Sep 27, 2016 at 17:20 Admitting Diagnosis abdominal pain HPI Elly Yarbrough is a 76 year old female who was admitted on Sep 14, 2016 at 14: 55 for Abdominal Pain Hospital Course [id number] Discharge Discharge Disposition Patient was discharged to Home (01) Discharge Diagnoses: Xin Navarro NP Sep 29, 2016 17:03
--- NOTE | 2016-09-30 03:38 | Discharge Summary 2 SIG ---
DATE OF ADMISSION: 09/14/2016 DATE OF DISCHARGE: 09/27/2016 CONSULTANTS: 1. Salvador Chavez M.D. 2. Sourav Salmeron M.D. 3. Bret Elizabeth M.D. 4. Benitez Penn M.D. 5. Tobi Montes M.D. BRIEF HOSPITAL COURSE: The patient is a 76-year-old female with history of hypertension and diabetes, presented with chief complaint of generalized abdominal pain, nausea, vomiting, and watery diarrhea, also complaining of dysuria. On evaluation at ED, glucose was elevated to 495 and WBC was 14. CT of the abdomen and pelvis was negative for acute process. She was given empiric antibiotic treatment while awaiting cultures. Dr. Monets was consulted for antibiotic management. The patient was given Levaquin and Zosyn. Dr. Salmeron was also consulted for diabetes management. Metformin was discontinued and was started on Starlix 120 mg before each meal with Levemir and NovoLog sliding scale. Dr. Penn was consulted for evaluation of abdominal pain. The patient does not have any recent endoscopy or colonoscopy. Denies melena. Denies hematochezia. She was given laxatives, Colace, MiraLAX, and a dose of lactulose. Dr. Elizabeth was consulted for evaluation of renal failure, which was assessed to be multifactorial, considering diabetes and sepsis with hypotension. She was given fluid challenge. Cultures showed blood culture positive for Klebsiella and urine culture with Klebsiella. Antibiotics were adjusted. The patient was given Rocephin. On 09/23/2016, the patient underwent EGD with colonoscopy with findings of multiple gastric polyps, atrophic gastritis, colonic polyp, status post polypectomy, diverticulitis, and internal hemorrhoids. The diet was eventually advanced. She was seen by Dr. Chavez. Echocardiogram was grossly normal ejection fraction with no evidence of LVH, RVSP of 61 consistent with severe pulmonary hypertension. Repeat blood cultures were negative. C. difficile toxin was negative. The patient was given Imodium p.r.n. and low-residue diet. The patient was eventually discharged home to continue levofloxacin for five more days. FINAL DIAGNOSES: 1. Sepsis with Klebsiella bacteremia and urinary tract infection. 2. Recurrent complicated urinary tract infection. 3. Acute renal failure. 4. Dehydration. 5. Acute toxic metabolic encephalopathy. 6. Diabetes mellitus, out of control. 7. Hypertension. 8. Iron-deficiency anemia. 9. Severe pulmonary hypertension. 10. Fatty liver disease. 11. Morbid obesity. 12. Hypokalemia and hypomagnesemia. 13. Multiple gastric polyps. 14. Diverticulosis. 15. Internal hemorrhoids. 16. Atrophic gastritis. Sharad Flanagan M.D. I have been assigned to dictate discharge summary on this account and I was not involved in the patient's management. Xin Navarro N.P. DR: IMELDA JOB#: [id number] CC:
== END 2016-09-27 17:20 | disposition home or self-care (01) | DRG 720 ==
LOC: EMR 14:00 → 2E 14:55 → EDBEDREQ 20:12 → 4E 23:55 → 2W 09-15 09:11 → 4E 09-19 19:15
PROC: 0DBL8ZZ Excision of Transverse Colon, Via Natural or Artificial Opening Endoscopic (ICD-10-PCS; principal; 2016-09-23 09:45)
PROC: 0DB68ZX Excision of Stomach, Via Natural or Artificial Opening Endoscopic, Diagnostic (ICD-10-PCS; principal; 2016-09-23 09:45)
PROC: 0DB68ZZ Excision of Stomach, Via Natural or Artificial Opening Endoscopic (ICD-10-PCS; principal; 2016-09-23 09:45)
PROC: 0DB78ZZ Excision of Stomach, Pylorus, Via Natural or Artificial Opening Endoscopic (ICD-10-PCS; principal; 2016-09-23 09:45)
DX: A41.59 Other Gram-negative sepsis (principal); N17.9 Acute kidney failure, unspecified; G93.40 Encephalopathy, unspecified; E11.65 Type 2 diabetes mellitus with hyperglycemia; E66.01 Morbid (severe) obesity due to excess calories; N20.0 Calculus of kidney; I27.2 Other secondary pulmonary hypertension; N39.0 Urinary tract infection, site not specified; I12.9 Hypertensive chronic kidney disease with stage 1 through stage 4 chronic kidney disease, or unspecified chronic kidney disease; N18.3 Chronic kidney disease, stage 3 (moderate); Z68.37 Body mass index [BMI] 37.0-37.9, adult; R19.7 Diarrhea, unspecified; R11.10 Vomiting, unspecified; K59.00 Constipation, unspecified; Z91.14 Patient's other noncompliance with medication regimen; D50.9 Iron deficiency anemia, unspecified; K31.7 Polyp of stomach and duodenum; K63.5 Polyp of colon; K29.40 Chronic atrophic gastritis without bleeding; K57.90 Diverticulosis of intestine, part unspecified, without perforation or abscess without bleeding; K64.8 Other hemorrhoids
CPT/HCPCS: 36415; 36600; 71010; 74176; 76700; 80048; 80053; 80061; 80076; 81003; 82248; 82270; 82378; 82550; 82607; 82746; 82803; 82962; 82977; 83036; 83540; 83550; 83690; 83735; 83880; 84100; 84300; 84443; 84484; 84550; 85007; 85025; 85610; 85651; 85730; 86140; 87040; 87086; 87181; 87324; 89050; 93005; 93306; 93970; 94003; 94150; 94640; 94664; 94760; J1815; J2405; J7620; J8499; S5561